=== PATIENT | female | born 1965 | race Caucasian/White ===

== ENCOUNTER 2021-06-02 08:38 | Emergency (ER) | payer OTHER, SELFPAY ==
[2021-06-02 08:39] VITALS: BP 141/103; PULSE 102; RESP 16; TEMP 36.2; O2SAT 96; BMI 37.8
--- NOTE | 2021-06-02 09:08 | EKG12_ITS ---
Test Reason : N/V Blood Pressure : / mmHG Vent. Rate : 072 BPM Atrial Rate : 072 BPM P-R Int : 182 ms QRS Dur : 076 ms QT Int : 404 ms P-R-T Axes : 037 004 007 degrees QTc Int : 442 ms Normal sinus rhythm with sinus arrhythmia Normal ECG Confirmed by ROLLY BRAVO, ELTON ([id number]), primer expeditor and drier JAI VILLATORO ([id number]) on 06/07/2021 12:11:01 PM Referred By: JOSE Confirmed By:ELTON LOFTON MD
--- NOTE | 2021-06-02 09:08 | CT_ITS ---
STUDY: CT ABDOMEN AND PELVIS WITHOUT CONTRAST REASON FOR EXAM: Female, 55 years old. Pain RADIATION DOSAGE (If Supplied By Facility): CTDIvol = ( 14.94 ) mGy, DLP = ( 727.72 ) mGycm TECHNIQUE: Transaxial images were obtained from the dome of the diaphragm to the symphysis pubis without oral contrast, and without intravenous contrast. Sagittal and coronal images were reconstructed. Individualized dose optimization techniques were used for this CT. COMPARISON: None. FINDINGS: 4 mm noncalcified nodule in the right lower lobe. The visualized portions of the heart are within normal limits. Normal liver. There are multiple gallstones. Normal spleen. Normal pancreas. Normal bilateral adrenal glands. Normal right kidney. Normal left kidney. Normal visualized stomach. Normal small intestine. Normal colon. There is non-visualization of the appendix. Normal abdominal aorta. Normal inferior vena cava. Normal retroperitoneum. Normal urinary bladder. Normal abdominal wall. Normal osseous structures. CT/Abdomen/Pelvis without Cont IMPRESSION: 1. No hydronephrosis or urinary tract calcifications. 2. No bowel obstruction. 3. 4 mm right lower lobe nodule. Fleischner Society Guidelines (MacMahon, et al. Radiology 2017; 284(1):228-43) suggest the following. For low-risk patients, no follow-up is necessary. For high-risk patients (smoking history or other known risk factors) an optional chest CT at 12 months could be performed. Electronically Signed: Fady Casper MD ([place]) at 9:54 EST , Service support ,
--- NOTE | 2021-06-02 09:09 | EDS_ITS ---
HPI History of Present Illness Chief Complaint: Nausea/Vomiting Detail of Chief Complaint: Vomiting x5 days Informant: patient Narrative Narrative: Patient presents to the emergency department complaint of vomiting that started 5 days ago. Patient states she cannot keep anything down. Patient states every time she tries to eat or drink she throws up. She denies feeling lightheaded or dizzy. She denies any significant abdominal pain. She denies diarrhea. She denies blood in her stool or black tarry stool. She denies chest pain or shortness of breath. Denies sick contacts. Patient has had both Covid shots and has had a chronic cough since July. She denies fever or body aches. She denies headache. Prior similar symptoms: No PFSH PFS Medical History (Updated 06/02/21 @ 11:[address] Sunita Diego DO) Depression Home Medications escitalopram oxalate 10 mg PO DAILY 06/02/21 [History Last Taken Unknown] lansoprazole [Prevacid] 30 mg PO DAILY #30 cap 06/02/21 [Rx Last Taken Unknown] ondansetron 4 mg PO Q8H PRN PRN #10 tab 06/02/21 [Rx Last Taken Unknown] ropinirole 0.5 mg PO QHS 06/02/21 [History Last Taken Unknown] Allergy/AdvReac Type Severity Reaction Status Date / Time bupropion HCl Allergy Hives Verified 06/02/21 08:42 [From Wellbutrin] Social History Smoking Status: Former smoker ROS ROS ED Constitutional Constitutional ED: Reports systems reviewed and no addt'l complaints, except as documented; Denies body ache(s), change in weight or chills Eyes Eyes: Denies acute decrease in peripheral vision, change in vision, double vision or loss of vision ENT ENT ED: Reports none; Denies ear pain, lip swelling, loss taste/smell, neck pain, otalgia or sore throat Cardiovascular Cardiovascular: Reports none; Denies abdominal pain, chest pain with activity, leg edema, lightheadedness, palpitations, rapid heart rate or syncope Respiratory/Chest Respiratory/Chest: Reports none; Denies change in mental status, dry cough, dyspnea, hemoptysis, shortness of breath at rest or shortness of breath with exertion Gastrointestinal Gastrointestinal: Reports none, nausea and vomiting; Denies abdominal pain, change in stool character, diarrhea, hematemesis, hematochezia, melena or rectal bleeding Genitourinary Genitourinary ED: Reports none; Denies abdominal discomfort, anuria, dysuria, genital pain or polyuria Musculoskeletal Musculoskeletal: Reports none; Denies arthralgias, back pain, difficulty walking, extremity pain, muscle weakness or myalgias Integumentary Reports none; Denies abscess or rash Neurologic Neurologic: Reports none; Denies abnormal gait, confusion, focal weakness, frequent falls, headache(s), loss of vision, numbness, paresthesias, radicular pain, vertigo or weakness Psychiatric Psychiatric: Reports systems reviewed and no addt'l complaints, except as documented and none; Denies behavioral changes, confusion, difficulty concentrating, hallucinations, suicidal ideation, tactile hallucinations or visual hallucinations Endocrine Endocrinology: Denies none, cold intolerance, excessive sweating, fatigue or heat intolerance Hematologic/Lymphatic Hematologic/Lymphatic: Reports none; Denies anemia, easy bleeding or easy bruising Allergic/Immunologic Allergic/Immunologic ED: Denies as per HPI, none, lip swelling, mouth swelling, throat swelling, tongue swelling or hives EXAM Physical Exam Const Vital Signs: 06/02/21 08:39 06/02/21 09:23 06/02/21 11:43 Temperature 97.2 F L Temperature Source Temporal Pulse Rate 102 H 75 102 H Respiratory Rate 16 18 25 H Blood Pressure 141/103 H Blood Pressure Mean 115 Pulse Ox 96 98 Oxygen Delivery Method Room Air Room Air Positive well nourished and well developed General Appearance ED: well developed and NAD HEENT Reports TM's clear and moist mucous membranes normocephalic and atraumatic; Negative for trauma or tenderness Tympanic Membrane ED: Yes TM's clear Eyes PERRL and EOMs intact bilaterally General Eye ED: Negative for pale conjunctiva or scleral icterus Neck no lymphadenopathy, supple and no JVD General: Negative for tenderness Chest Wall inspection of chest normal and palpation of chest normal Chest: Negative for tenderness Resp normal respiratory effort and clear to auscultation bilaterally Effort and Inspection: Negative for respiratory distress or pain with movement Auscultation: Negative for rhonchi, wheezes or diminished lung sounds Cardio regular rate, regular rhythm, S1 normal heart sound, S2 normal heart sound and no murmurs Peripheral Pulses: pulses 2+ throughout GI normal to inspection, nondistended, normoactive bowel sounds, soft to palpation, non-distended and no masses GI Narrative: Normoactive bowel sounds. Patient does have some tenderness over the epigastric region with some guarding. There is no rebound, rigidity, or peritoneal signs. Back/Spine no CVA tenderness and no thoracic nor lumbar tenderness Extremity normal to inspection General Extremety ED: Negative for edema General Extremity: Negative for edema Neuro oriented x3, CN's II-XII intact bilaterally, no sensory deficits noted and gait normal Sensorium / Orientation: awake, alert, oriented to person, oriented to place and oriented to time Motor Exam: strength 5/5 throughout and strength abnormal Psych mental status grossly normal Skin no rashes or lesions noted and no wounds MDM MDM MDM Narrative Medical decision making narrative: IV line established. Patient was given Zofran and she had good nausea relief with that but then during her stay had 1 more episode of vomiting and was given a second dose of Zofran. Work-up just showed a slightly elevated ALT of 60 with otherwise normal liver function tests. CT scan of the abdomen pelvis showed gallstones without evidence of cholecystitis. Patient also incidentally noted to have a right lower lobe nodule measuring 4 mm and being that she is low risk did not feel any further follow-up was indicated. Etiology of patient's nausea unclear. In the differential would be viral etiology versus gastritis. Patient will be started on Prevacid and given a prescription for Zofran. She will be referred to GI for follow-up. Lab Data Attestation: I reviewed the patient's lab results. Labs: Laboratory Results - last 24 hr 06/02/21 06/02/21 06/02/21 09:14 09:25 09:25 WBC 7.4 RBC 4.89 Hgb 14.4 Hct 42.8 MCV 87.5 MCH 29.4 MCHC 33.6 RDW Std Deviation 44.0 H RDW Coeff of Haroldo 13.7 Plt Count 271 MPV 9.6 Immature Gran % (Auto) 0.400 Neut % (Auto) 75.5 H Lymph % (Auto) 17.0 L [place] % (Auto) 5.3 Eos % (Auto) 1.1 Baso % (Auto) 0.7 Absolute Neuts (auto) 5.6 Absolute Lymphs (auto) 1.26 Nucleated RBC % 0 Sodium 139 Potassium 4.4 Chloride 105 Carbon Dioxide 29.0 Anion Gap 5 BUN 16 Creatinine 0.66 Estim Creat Clear Calc 71.82 Est GFR (MDRD) Af Amer 118 Est GFR (MDRD) Non-Af 98 BUN/Creatinine Ratio 24.1 H Glucose 122 H Lactic Acid Calcium 9.4 Total Bilirubin 0.40 AST 23 ALT 60 H Alkaline Phosphatase 69 Troponin I High Sens 4 Total Protein 7.7 Albumin 3.8 Globulin 3.9 Albumin/Globulin Ratio 1.0 Lipase 66 L Urine Color Yellow Urine Clarity Cloudy Urine pH 7.0 Ur Specific [place] 1.010 Urine Protein Negative Urine Glucose (UA) Normal Urine Ketones Negative Urine Occult Blood Negative Urine Nitrite Negative Urine Bilirubin Negative Urine Urobilinogen Normal Ur Leukocyte Esterase Negative Urine RBC 0 SEEN Urine WBC 0 SEEN Ur Squamous Epith Cells 0-5 SEEN Amorphous Sediment 2+ Urine Bacteria 1+ Urine Mucus 0 SEEN 06/02/21 09:25 WBC RBC Hgb Hct MCV MCH MCHC RDW Std Deviation RDW Coeff of Haroldo Plt Count MPV Immature Gran % (Auto) Neut % (Auto) Lymph % (Auto) [place] % (Auto) Eos % (Auto) Baso % (Auto) Absolute Neuts (auto) Absolute Lymphs (auto) Nucleated RBC % Sodium Potassium Chloride Carbon Dioxide Anion Gap BUN Creatinine Estim Creat Clear Calc Est GFR (MDRD) Af Amer Est GFR (MDRD) Non-Af BUN/Creatinine Ratio Glucose Lactic Acid 0.8 Calcium Total Bilirubin AST ALT Alkaline Phosphatase Troponin I High Sens Total Protein Albumin Globulin Albumin/Globulin Ratio Lipase Urine Color Urine Clarity Urine pH Ur Specific [place] Urine Protein Urine Glucose (UA) Urine Ketones Urine Occult Blood Urine Nitrite Urine Bilirubin Urine Urobilinogen Ur Leukocyte Esterase Urine RBC Urine WBC Ur Squamous Epith Cells Amorphous Sediment Urine Bacteria Urine Mucus Radiography Diagnostic Testing: Clinical Impression(s) from Imaging Studies Abdomen/Pelvis CT 06/02/21 09:08 IMPRESSION: 1. No hydronephrosis or urinary tract calcifications. 2. No bowel obstruction. 3. 4 mm right lower lobe nodule. Fleischner Society Guidelines (MacMahon, et al. Radiology 2017; 284(1):228-43) suggest the following. For low-risk patients, no follow-up is necessary. For high-risk patients (smoking history or other known risk factors) an optional chest CT at 12 months could be performed. Electronically Signed: Fady Casper MD ([place]) at 9:54 EST , Service support , EKG Initial EKG: Attestation: I personally reviewed and interpreted this EKG as follows: Comments: Sinus rhythm with a ventricular rate of 72 bpm with occasional PACs Discharge Plan Triage Chief Complaint: Nausea/Vomiting ED Provider: Sunita Diego Dx/Rx/DC Orders Clinical Impression: Vomiting, Gastritis Instructions: ED Vomiting (Adult) Prescriptions: New ondansetron [ondansetron] 4 MG tablet 4 mg PO Q8H PRN PRN (Reason: Nausea) Qty: 10 RF: 0 lansoprazole [Prevacid] 30 mg capsule,delayed release(DR/EC) 30 mg PO DAILY Qty: 30 RF: 0 No Action ropinirole 0.5 mg tablet 0.5 mg PO QHS RF: 0 escitalopram oxalate 10 mg tablet 10 mg PO DAILY RF: 0 Primary Care Provider: Ko Fowler NP Referrals: Lenny Manning DO [STAFF PHYSICIAN] - 3-5 Days Ko Fowler NP, LAYOUT TECHNICIAN-C [Primary Care Provider] - Disposition Disposition: Home, Self Care
[2021-06-02 09:23] VITALS: PULSE 75; RESP 18; O2SAT 98
[2021-06-02] MEDS: 0.9% Normal Saline 1,000 ML 1000 ML IV (09:27)
[2021-06-02] MEDS: Ondansetron 4 MG/2 ML Vial IV ×2 (09:27→11:56)
[2021-06-02 09:36] LABS: Absolute Lymphocyte Count 1.26 X10^3/uL (0.83-4.51); Absolute Neutrophil Count 5.6 X10^3/uL (2.0-7.7); Basophil# 0.05 X10^3/uL; Basophil% 0.7 % (0-1); Eosinophil# 0.08 X10^3/uL; Eosinophils% 1.1 % (0-5); Hematocrit 42.8 % (37-47); Hemoglobin 14.4 g/dL (12.0-15.0); Lymphocyte # 1.26 X10^3/ul (0.83-4.51); Mean Corp Hgb Conc 33.6 g/dL (32-36); Mean Corpuscular Hgb 29.4 pg (27.0-32.0); Mean Corpuscular Volume 87.5 fL (81-99); Mean Platelet Vol. 9.6 fl (6.2-12.0); Monocyte# 0.39 X10^3/uL; Monocyte% 5.3 % (0-10); NRBC Flagged by Analyzer 0 % (0-5); Neutrophil # 5.61 X10^3/uL (2.7-7.7); Neutrophil % 75.5 % (47-70); Platelet Count 271 K/mm3 (150-450); RBC Distribution Width CV 13.7 % (11.6-14.6); Red Blood Count 4.89 M/mm3 (4.2-5.4); White Blood Count 7.4 K/mm3 (4.4-11.0)
[2021-06-02 10:02] LABS: AST(SGOT) 23 U/L (15-37); Alanine Aminotransfer ALT/SGPT 60 U/L (13-56); Albumin, Serum 3.8 g/dL (3.2-5.0); Alkaline Phosphatase 69 U/L (45-117); Anion Gap 5 (5-15); BUN 16 mg/dL (7-18); BUN/Creat Ratio 24.1 RATIO (10-20); Calcium,Total 9.4 mg/dL (8.5-10.1); Chloride 105 mmol/L (98-107); Creatinine, Serum 0.66 mg/dL (0.55-1.02); EST Glomerular Filtration Rate 98 mL/min (>60); Est Glom Filt Rate - Afr Amer 118 mL/min (>60); Estimated Creatinine Clearance 71.82 ml/min; Globulin 3.9 g/dL (2.2-4.2); Glucose 122 mg/dL (74-106); Lactic Acid 0.8 mmol/L (0.4-1.9); Lipase 66 U/L (73-393); Potassium 4.4 mmol/L (3.5-5.1); Protein, Total 7.7 g/dL (6.4-8.2); Sodium Level 139 mmol/L (136-145); Troponin-I HS 4 pg/mL (3.0-54.0)
[2021-06-02 10:33] LABS: Mucous, Urine 0 SEEN /hpf (<or=2+); Red Blood Cells-Urine 0 SEEN /hpf (0-5); White Blood Cells 0 SEEN /hpf (0-5)
[2021-06-02 10:37] LABS: Color, Urine Yellow (Yellow); Glucose, Dipstick Normal (Normal); Ketone-Dipstick Negative (Negative); Leukocyte Esterase-Dipstick Negative /ul (Negative); Nitrite-Dipstick Negative (Negative); Occult Blood-Urine Negative /ul (Negative); Protein-Dipstick Negative (Negative); Urine Bilirubin Dipstick Negative (Negative); Urine Clarity Cloudy (Clear); Urine Urobilinogen Normal (Normal)
[2021-06-02 10:47] LABS: Amorphous Sediment 2+; Bacteria 1+ /hpf (None Seen); Squamous Epithelial Cells - UA 0-5 SEEN /hpf (5-10)
[2021-06-02 11:43] VITALS: PULSE 102; RESP 25
== END 2021-06-02 12:05 | disposition home or self-care (01) ==
PROVIDERS: Emergency Provider Emergency Medicine; PCP Nurse Practitioner Family
DX: K29.70 Gastritis, unspecified, without bleeding (principal); F32.A Depression, unspecified; Z79.899 Other long term (current) drug therapy; Z87.891 Personal history of nicotine dependence
CPT/HCPCS: 74176; 80053; 81001; 83605; 83690; 84484; 85025; 87426; 93005; 96361; 96374; 96375; 99283; J7030; A4216; J2405

== ENCOUNTER 2021-06-03 23:19 | Observation (INO) | payer OTHER, SELFPAY ==
[2021-06-03 23:20] VITALS: BP 167/109; PULSE 92; RESP 16; TEMP 36.4; O2SAT 95; BMI 37.8
--- NOTE | 2021-06-03 23:38 | EKG12_ITS ---
Test Reason : TACHYCARDIA Blood Pressure : / mmHG Vent. Rate : 121 BPM Atrial Rate : 121 BPM P-R Int : 150 ms QRS Dur : 078 ms QT Int : 324 ms P-R-T Axes : 046 015 029 degrees QTc Int : 460 ms Sinus tachycardia Otherwise normal ECG When compared with ECG of 04-JUN-2021 01:28, MANUAL COMPARISON REQUIRED, DATA IS UNCONFIRMED Confirmed by LONI BRAVO, ROBERTO ([id number]), television news video editor JASSI GARCIAS ([id number]) on 06/15/2021 1:55:51 PM Referred By: Confirmed By:COREY IVEY MD
--- NOTE | 2021-06-03 23:40 | EX.ED.DYSGE1 ---
HPI History of Present Illness Chief Complaint: Nausea/Vomiting Informant: patient Onset/Context/Timing Onset: Days Context: Gradual Onset Current Severity: Moderate Maximum Severity: Moderate Narrative Narrative: Patient returns to the ER secondary to continued epigastric pain with nausea and vomiting. She was seen in the ER early yesterday morning for similar symptoms. She had been suffering from 5 days of vomiting. She denies fever or chills. She states that the Zofran and Prevacid that she was given yesterday are not helping her symptoms and she continues to vomit. She denies diarrhea. She states the epigastric pain she was experiencing is now radiating up through the center percussion of her chest as well as to the right upper quadrant. [facility] Medical History Depression Home Medications escitalopram oxalate 10 mg PO DAILY 06/02/21 [History Last Taken Unknown] lansoprazole [Prevacid] 30 mg PO DAILY #30 cap 06/02/21 [Rx Last Taken Unknown] ondansetron 4 mg PO Q8H PRN PRN #10 tab 06/02/21 [Rx Last Taken Unknown] ropinirole 0.5 mg PO QHS 06/02/21 [History Last Taken Unknown] Allergy/AdvReac Type Severity Reaction Status Date / Time bupropion HCl Allergy Hives Verified 06/03/21 23:20 [From Wellbutrin] Surgical History History of Social History Smoking Status: Former smoker ROS ROS ED Constitutional Constitutional ED: Denies chills or fever(s) Eyes Eyes: Denies change in vision ENT ENT ED: Denies sore throat Cardiovascular Cardiovascular: Reports chest pain Respiratory/Chest Respiratory/Chest: Denies cough or dyspnea Gastrointestinal Gastrointestinal: Reports abdominal pain, nausea and vomiting; Denies diarrhea Genitourinary Genitourinary ED: Denies dysuria Musculoskeletal Musculoskeletal: Denies back pain Integumentary Denies rash Neurologic Neurologic: Denies headache(s) or weakness Psychiatric Psychiatric: Denies anxiety or depression Allergic/Immunologic Allergic/Immunologic ED: Denies urticaria EXAM Physical Exam Const Vital Signs: 06/03/21 23:20 Temperature 97.5 F L Temperature Source Temporal Pulse Rate 92 Respiratory Rate 16 Blood Pressure 167/109 H Blood Pressure Mean 128 Pulse Ox 95 Oxygen Delivery Method Room Air Positive well nourished and well developed General Appearance ED: well developed HEENT Reports moist mucous membranes Eyes PERRL and EOMs intact bilaterally Neck supple Chest Wall inspection of chest normal and palpation of chest normal Resp normal respiratory effort and clear to auscultation bilaterally Cardio regular rate and regular rhythm GI non-tender Palpation: soft Extremity normal to inspection Neuro oriented x3 Sensorium / Orientation: alert Psych mental status grossly normal Skin no rashes or lesions noted MDM MDM MDM Narrative Medical decision making narrative: Patient was given Reglan and Benadryl along with a dose of IV Protonix. IV fluids given. Lab work obtained. I did review her work-up from yesterday including CT scan of the abdomen and pelvis. Lab Data Attestation: I reviewed the patient's lab results. Labs: Laboratory Results - last 24 hr 06/03/21 06/03/21 23:50 23:50 WBC 8.6 RBC 5.09 Hgb 14.7 Hct 44.1 MCV 86.6 MCH 28.9 MCHC 33.3 RDW Std Deviation 42.6 RDW Coeff of [place] 13.3 Plt Count 275 MPV 9.5 Immature Gran % (Auto) 0.500 Neut % (Auto) 81.9 H Lymph % (Auto) 13.3 L [place] % (Auto) 3.8 Eos % (Auto) 0.2 Baso % (Auto) 0.3 Absolute Neuts (auto) 7.0 Absolute Lymphs (auto) 1.14 Nucleated RBC % 0 Sodium 136 Potassium 3.5 Chloride 101 Carbon Dioxide 26.0 Anion Gap 9 BUN 13 Creatinine 0.63 Estim Creat Clear Calc 75.24 Est GFR (MDRD) Af Amer 125 Est GFR (MDRD) Non-Af 103 BUN/Creatinine Ratio 20.6 H Glucose 138 H Calcium 9.4 Total Bilirubin 0.60 Direct Bilirubin 0.12 AST 18 ALT 49 Alkaline Phosphatase 69 Troponin I High Sens 8 Total Protein 8.3 H Albumin 4.2 Globulin 4.1 Lipase 74 Radiography Diagnostic Testing: Clinical Impression(s) from Imaging Studies Chest X-Ray 06/04/21 00:00 IMPRESSION: No acute disease. Electronically Signed: Yordan Brown MD at 1:08 EST Tel , Service support , Treatment and Re-Evaluation Comments:: Lab work is unremarkable. On repeat evaluation patient stated her nausea was slightly improved. She asked for a dose of her Requip that she takes for restless legs. This was given as a p.o. challenge. Patient has not been able to keep this down and is vomiting at bedside again. We will give her a dose of Zofran I will speak with hospitalist regarding admission for intractable vomiting. Discharge Plan Dx/Rx/DC Orders Clinical Impression: Intractable vomiting Disposition Disposition: Acute Care Hospital [facility]
--- NOTE | 2021-06-04 | RAD_ITS ---
EXAM: XR CHEST, 1 VIEW CLINICAL INDICATION: Chest pain TECHNIQUE: Frontal view of the chest. This report was created using [employer] report generation technology. COMPARISON: 09/30/2015 chest x-ray FINDINGS: LUNGS AND PLEURAL SPACES: Linear opacities at the left base probably represents scarring given long-term stability. No consolidation. No pneumothorax. No effusion. HEART: Unremarkable. Cardiac silhouette not enlarged. MEDIASTINUM: Central airways and mediastinal contour are unremarkable. BONES/JOINTS: Degenerative changes of spine. SOFT TISSUES: Unremarkable. VASCULATURE: Atherosclerotic calcifications of the nonenlarged thoracic aortic arch. RAD/Chest 1 View (Portable) IMPRESSION: No acute disease. Electronically Signed: Yordan Brown MD at 1:08 EST Tel , Service support ,
[2021-06-04 00:03] LABS: Absolute Lymphocyte Count 1.14 X10^3/uL (0.83-4.51); Basophil# 0.03 X10^3/uL; Basophil% 0.3 % (0-1); Eosinophil# 0.02 X10^3/uL; Eosinophils% 0.2 % (0-5); Hematocrit 44.1 % (37-47); Hemoglobin 14.7 g/dL (12.0-15.0); Lymphocyte # 1.14 X10^3/ul (0.83-4.51); Lymphocyte % 13.3 % (19-41); Mean Corp Hgb Conc 33.3 g/dL (32-36); Mean Corpuscular Hgb 28.9 pg (27.0-32.0); Mean Corpuscular Volume 86.6 fL (81-99); Mean Platelet Vol. 9.5 fl (6.2-12.0); Monocyte# 0.33 X10^3/uL; Monocyte% 3.8 % (0-10); NRBC Flagged by Analyzer 0 % (0-5); Neutrophil # 7.03 X10^3/uL (2.7-7.7); Neutrophil % 81.9 % (47-70); Platelet Count 275 K/mm3 (150-450); RBC Distribution Width CV 13.3 % (11.6-14.6); RBC Distribution Width SD 42.6 fl (35.1-43.9); Red Blood Count 5.09 M/mm3 (4.2-5.4); White Blood Count 8.6 K/mm3 (4.4-11.0)
[2021-06-04] MEDS: Metoclopramide 10 MG/2 ML Vial IV (00:09)
[2021-06-04] MEDS: 0.9% Normal Saline 1,000 ML 1000 ML IV (00:09)
[2021-06-04] MEDS: DiphenhydrAMINE 50 MG/ML Syringe 25 MG IV (00:09)
[2021-06-04 00:24] LABS: AST(SGOT) 18 U/L (15-37); Alanine Aminotransfer ALT/SGPT 49 U/L (13-56); Albumin, Serum 4.2 g/dL (3.2-5.0); Alkaline Phosphatase 69 U/L (45-117); Anion Gap 9 (5-15); BUN 13 mg/dL (7-18); BUN/Creat Ratio 20.6 RATIO (10-20); Bilirubin, Direct 0.12 mg/dL (0.00-0.30); Calcium,Total 9.4 mg/dL (8.5-10.1); Chloride 101 mmol/L (98-107); Creatinine, Serum 0.63 mg/dL (0.55-1.02); EST Glomerular Filtration Rate 103 mL/min (>60); Est Glom Filt Rate - Afr Amer 125 mL/min (>60); Estimated Creatinine Clearance 75.24 ml/min; Globulin 4.1 g/dL (2.2-4.2); Glucose 138 mg/dL (74-106); Lipase 74 U/L (73-393); Potassium 3.5 mmol/L (3.5-5.1); Protein, Total 8.3 g/dL (6.4-8.2); Sodium Level 136 mmol/L (136-145); Troponin-I HS 8 pg/mL (3.0-54.0)
[2021-06-04] MEDS: Pramipexole Di-HCl 1 MG Tablet GT (02:58)
--- NOTE | 2021-06-04 03:38 | PCM.HP.STD ---
HPI - General General Date of Admission: 06/04/21 Date of Service: 06/04/21 Chief Complaint: Nausea and vomiting HPI Narrative KENZIE GONSALES, is a 55 F with a significant history of depression, anxiety and restless legs who presents to the emergency department with progressively worsening nausea and vomiting that started about 5 days prior to presentation. This is patient second visits in the week. Her first visit was a day before this presentation. She was sent home on Zofran and Prevacid. She report that the Zofran actually gave her a headache. On his presentation she was given Zofran IV at the emergency department. Reportedly the Zofran IV did not give her headache. At the emergent department she requested for a Requip for her restless legs. However after taking the Requip she vomited. Associated with symptoms is epigastric pain that has now progressed to her right upper quadrant and into her chest. Further, she reports lightheadedness. She report that the last time her bowels moved was a couple of days. She reported that she does not expect her bowels to move since she is not eating. [facility] Medical History Depression Home Medications escitalopram oxalate 10 mg PO DAILY 06/02/21 [History Last Taken Unknown] lansoprazole [Prevacid] 30 mg PO DAILY #30 cap 06/02/21 [Rx Last Taken Unknown] ondansetron 4 mg PO Q8H PRN PRN #10 tab 06/02/21 [Rx Last Taken Unknown] ropinirole 0.5 mg PO QHS 06/02/21 [History Last Taken Unknown] Allergy/AdvReac Type Severity Reaction Status Date / Time bupropion HCl Allergy Hives Verified 06/03/21 23:20 [From Wellbutrin] Family History Other Anxiety and depression Hypertension Surgical History H/O shoulder surgery H/O wrist surgery H/O: hysterectomy History of Social History Smoking Status: Former smoker ROS ROS Narrative Constitutional: Reports anorexia. Denies fever, chills, fatigue, and change in weight Eyes: Denies blurry vision, change in eye color, change in vision, discharge from eye(s), double vision, erythema, eye pain, loss of vision or other HEENT: Denies abnormal hearing, dysphagia, ear pain, epistaxis, headache(s), hearing loss, nasal congestion, nasal discharge, post nasal drip, sinus pressure, sore throat or other Cardiovascular: Denies chest pain or palpitations. Denies dyspnea on exertion, orthopnea and paroxysmal nocturnal dyspnea Respiratory/Chest: Denies cough, excessive phlegm production, shortness of breath with exertion and wheezing Gastrointestinal: Reports abdominal pain. Reports nausea and vomiting. Reports constipation. Denies coffee ground emesis, constipation, hematemesis, hematochezia, or other Genitourinary: Denies burning urination, difficulty urinating, dysuria, hematuria, nocturia, urinary frequency, urinary hesitancy, urinary incontinence, urinary urgency or other Musculoskeletal: Denies arthralgias, back pain, joint pain, joint stiffness, joint swelling, myalgias, neck pain or other Neurologic: Denies abnormal gait, abnormal speech, confusion, disequilibrium, dizziness, focal weakness, headache(s), numbness, paresthesias, seizure-like activity, seizures, syncope, tingling, tremor(s) or other Psychiatric: Denies anxiety, depression, homicidal ideation, suicidal ideation or other Endocrinology: Denies change in body appearance, cold intolerance, excessive sweating, heat intolerance, polydipsia, polyuria or other Hematologic/Lymphatic: Denies anemia, easy bleeding, easy bruising, lymphadenopathy or other Integumentary: Denies rashes Allergic/Immunologic: Denies rhinitis, hives, eczema, asthma or other Vital Signs Vital Signs Vital Signs: 06/03/21 23:20 Temperature 97.5 F L Temperature Source Temporal Pulse Rate 92 Respiratory Rate 16 Blood Pressure 167/109 H Blood Pressure Mean 128 Pulse Ox 95 Oxygen Delivery Method Room Air Weight Weight: 90.718 kg Body Mass Index (BMI) 37.8 Physical Exam Narrative Physical exam: General: Well-nourished, well-developed. Head: Normocephalic, atraumatic, no tenderness Eyes: PERRLA, EOMI ENT, no trauma, moist mucous membranes, no rhinorrhea Neck: Nontender, full range of motion, no spinal tenderness, deformities, step-off CVS: Regular rate and rhythm. S1-S2 present. No murmur, gallop or rub. Respiratory : clear to auscultation bilaterally, chest wall nontender, no wheezing Abdomen: Soft, tender, nondistended, normal bowel sounds, no masses : Deferred Back: Nontender, no CVA tenderness, no midline spinal tenderness, deformities, step-offs Extremities: Nontender full range of motion, no trauma Skin: Normal color, no trauma, abrasions Neuro: Alert, oriented, cranial nerves II through XII grossly intact. Psychiatry: Normal mood. Normal affect. Not depressed. Not anxious. Results Lab / Micro Data Result Diagrams: 06/03/21 23:50 06/03/21 23:50 Labs: Laboratory Results - last 24 hr 06/03/21 23:50: WBC 8.6, RBC 5.09, Hgb 14.7, Hct 44.1, MCV 86.6, MCH 28.9, MCHC 33.3, RDW Std Deviation 42.6, RDW Coeff of Haroldo 13.3, Plt Count 275, MPV 9.5, Immature Gran % (Auto) 0.500, Neut % (Auto) 81.9 H, Lymph % (Auto) 13.3 L, [place] % (Auto) 3.8, Eos % (Auto) 0.2, Baso % (Auto) 0.3, Absolute Neuts (auto) 7.0, Absolute Lymphs (auto) 1.14, Nucleated RBC % 0 06/03/21 23:50: Sodium 136, Potassium 3.5, Chloride 101, Carbon Dioxide 26.0, Anion Gap 9, BUN 13, Creatinine 0.63, Estim Creat Clear Calc 75.24, Est GFR (MDRD) Af Amer 125, Est GFR (MDRD) Non-Af 103, BUN/Creatinine Ratio 20.6 H, Glucose 138 H, Calcium 9.4, Total Bilirubin 0.60, Direct Bilirubin 0.12, AST 18, ALT 49, Alkaline Phosphatase 69, Troponin I High Sens 8, Total Protein 8.3 H, Albumin 4.2, Globulin 4.1, Lipase 74 Radiology Impression Chest X-Ray 06/04/21 00:00 IMPRESSION: No acute disease. Electronically Signed: Yordan Brown MD at 1:08 EST Tel , Service support , Assessment & Plan Assessment/Plan (1) Intractable nausea and vomiting: PLAN: Intractable nausea and vomiting Abdomen/pelvis CT was done on 06/02/2021: Actual image reviewed showed no remarkable findings. Per radiologist Interpretation there was a 4 mm right lower lobe nodule. Review of labs showed normal white counts. BMP reviewed was unimpressive. Actual chest x-ray image was independently interpreted and agree with radiologist interpretation of no acute disease. Zofran IV as needed and Compazine IV as needed ordered. Protonix IV ordered. We will keep patient n.p.o. except meds. H pylori test ordered. Pulmonary nodule Longitudinal follow-up recommended. Patient is a former smoker DVT prophylaxis Observation status. Low risk. Ambulation encouraged. Charges/Coding Visit Charges OBSV E&M: 33807 Initial observation care L2
[2021-06-04] MEDS: Ondansetron 4 MG/2 ML Vial IV (04:34)
[2021-06-04 04:35] VITALS: BP 167/109; PULSE 92; RESP 16; TEMP 36.4; O2SAT 95
--- NOTE | 2021-06-04 04:50 | PCS.PANDOC ---
PANDEMIC DOCUMENTATION INITIATED: Date: 06/04/2021 Time: 3098
[2021-06-04 04:52] VITALS: BMI 38.2
[2021-06-04] MEDS: proCHLORPERazine 10 MG/2 ML Vial 5 MG IV (05:12)
[2021-06-04] MEDS: Lactated Ringers 1,000 ML 100 ML IV ×2 (05:13→14:35)
[2021-06-04] MEDS: 0.9% Saline Lock 10 ML Syringe IV (05:13)
[2021-06-04 05:19] VITALS: BP 144/95; PULSE 77; RESP 16; TEMP 36.1; O2SAT 100
--- NOTE | 2021-06-04 05:55 | US_ITS ---
STUDY: ABDOMINAL ULTRASOUND - RIGHT UPPER QUADRANT REASON FOR VISIT: Female, 55 years old RUQ pain, n/v TECHNIQUE: Ultrasound evaluation of the right upper quadrant was performed with real-time and static haynes-scale imaging. TECHNICAL QUALITY: Adequate. COMPARISON: None. FINDINGS: Liver: The liver measures 15.4 cm. There is normal echogenicity of the liver. The bile ducts are within normal limits. There is hepatic color flow. The direction of portal flow is hepatopetal. There is no demonstrated mass lesion. Gallbladder: Distended gallbladder. The gallbladder wall measures 5 mm. There is a negative sonographic Wang''s sign. There is no pericholecystic fluid. There are gallstones and sludge. Common Bile Duct (C.B.D.): The common bile duct measures 6 mm. Pancreas: Normal size of the head, body and tail of the pancreas. There is normal echogenicity of the pancreas. There is no demonstrated pancreatic mass or cyst. Right Kidney: Normal size of the right kidney. The right kidney measures 12.1 x 5.9 x 4.3 cm. Normal renal cortex. The right cortex measures 1.2 cm. There is no demonstrated renal mass or cyst. There is no right hydronephrosis. US/Gallbladder IMPRESSION: Cholelithiasis with gallbladder sludge. There is gallbladder wall thickening. Borderline common bile duct. Electronically Signed: Blaine Linares DO at 15:33 EST Tel [phone], Service support ,
[2021-06-04 07:54] LABS: Absolute Lymphocyte Count 1.39 X10^3/uL (0.83-4.51); Absolute Neutrophil Count 6.6 X10^3/uL (2.0-7.7); Basophil# 0.03 X10^3/uL; Basophil% 0.4 % (0-1); Eosinophil# 0.01 X10^3/uL; Eosinophils% 0.1 % (0-5); Hematocrit 37.7 % (37-47); Hemoglobin 13.1 g/dL (12.0-15.0); Lymphocyte # 1.39 X10^3/ul (0.83-4.51); Lymphocyte % 16.5 % (19-41); Mean Corp Hgb Conc 34.7 g/dL (32-36); Mean Corpuscular Hgb 29.6 pg (27.0-32.0); Mean Corpuscular Volume 85.3 fL (81-99); Mean Platelet Vol. 9.5 fl (6.2-12.0); Monocyte# 0.35 X10^3/uL; Monocyte% 4.2 % (0-10); NRBC Flagged by Analyzer 0 % (0-5); Neutrophil # 6.62 X10^3/uL (2.7-7.7); Neutrophil % 78.7 % (47-70); Platelet Count 236 K/mm3 (150-450); RBC Distribution Width CV 13.3 % (11.6-14.6); RBC Distribution Width SD 42.1 fl (35.1-43.9); Red Blood Count 4.42 M/mm3 (4.2-5.4); White Blood Count 8.4 K/mm3 (4.4-11.0)
[2021-06-04 08:12] LABS: Anion Gap 8 (5-15); BUN 10 mg/dL (7-18); BUN/Creat Ratio 17.6 RATIO (10-20); Chloride 105 mmol/L (98-107); Creatinine, Serum 0.57 mg/dL (0.55-1.02); EST Glomerular Filtration Rate 117 mL/min (>60); Est Glom Filt Rate - Afr Amer 141 mL/min (>60); Estimated Creatinine Clearance 87.16 ml/min; Glucose 110 mg/dL (74-106); Potassium 3.4 mmol/L (3.5-5.1); Sodium Level 138 mmol/L (136-145)
[2021-06-04 08:44] VITALS: BP 150/81; PULSE 88; RESP 18; TEMP 36.7; O2SAT 98
--- NOTE | 2021-06-04 10:24 | PN.HOSP_ITS ---
Subjective Subjective Patient seen and examined. Patient lying in bed no distress noted. Patient states that she is currently not nauseous however patient just received a dose of Compazine. Patient reports that she has had vomiting episodes overnight. Objective Data Objective Data Vital Signs: Vital Signs Temp Pulse Resp BP Pulse Ox 98.0 F 88 18 150/81 H 98 06/04/21 08:44 06/04/21 08:44 06/04/21 08:44 06/04/21 08:44 06/04/21 08:44 Oxygen Delivery Method Room Air Weight: 208 lb 12.8 oz Body Mass Index (BMI) 38.2 Intake & Output: Intake and Output for Last 24 Hours 06/02/21 06/03/21 06/04/21 23:59 23:59 23:59 Intake Total 1220 / 1220 Balance 1220 / 1220 Lab / Micro Data Result Diagrams: 06/04/21 07:39 06/04/21 07:39 Labs: Laboratory Results - last 24 hr 06/03/21 23:50: WBC 8.6, RBC 5.09, Hgb 14.7, Hct 44.1, MCV 86.6, MCH 28.9, MCHC 33.3, RDW Std Deviation 42.6, RDW Coeff of Haroldo 13.3, Plt Count 275, MPV 9.5, Immature Gran % (Auto) 0.500, Neut % (Auto) 81.9 H, Lymph % (Auto) 13.3 L, [place] % (Auto) 3.8, Eos % (Auto) 0.2, Baso % (Auto) 0.3, Absolute Neuts (auto) 7.0, Absolute Lymphs (auto) 1.14, Nucleated RBC % 0 06/03/21 23:50: Sodium 136, Potassium 3.5, Chloride 101, Carbon Dioxide 26.0, Anion Gap 9, BUN 13, Creatinine 0.63, Estim Creat Clear Calc 75.24, Est GFR (MDRD) Af Amer 125, Est GFR (MDRD) Non-Af 103, BUN/Creatinine Ratio 20.6 H, Glucose 138 H, Calcium 9.4, Total Bilirubin 0.60, Direct Bilirubin 0.12, AST 18, ALT 49, Alkaline Phosphatase 69, Troponin I High Sens 8, Total Protein 8.3 H, Albumin 4.2, Globulin 4.1, Lipase 74 06/04/21 07:39: WBC 8.4, RBC 4.42, Hgb 13.1, Hct 37.7, MCV 85.3, MCH 29.6, MCHC 34.7, RDW Std Deviation 42.1, RDW Coeff of Haroldo 13.3, Plt Count 236, MPV 9.5, Immature Gran % (Auto) 0.100, Neut % (Auto) 78.7 H, Lymph % (Auto) 16.5 L, [place] % (Auto) 4.2, Eos % (Auto) 0.1, Baso % (Auto) 0.4, Absolute Neuts (auto) 6.6, Absolute Lymphs (auto) 1.39, Nucleated RBC % 0 06/04/21 07:39: Sodium 138, Potassium 3.4 L, Chloride 105, Carbon Dioxide 25.0, Anion Gap 8, BUN 10, Creatinine 0.57, Estim Creat Clear Calc 87.16, Est GFR (MDRD) Af Amer 141, Est GFR (MDRD) Non-Af 117, BUN/Creatinine Ratio 17.6, Glucose 110 H, Calcium 9.0 Radiography Diagnostic Testing: Radiology Impression Chest X-Ray 06/04/21 00:00 IMPRESSION: No acute disease. Electronically Signed: Yordan Brown MD at 1:08 EST Tel , Service support , Physical Exam Const alert, oriented x3 and no apparent distress HEENT head/scalp atraumatic Head and Scalp: normocephalic Eyes conjunctivae normal and no scleral icterus Neck full ROM, no lymphadenopathy and supple Resp normal respiratory effort, normal air movement and clear to auscultation bilaterally Effort and Inspection: able to speak in complete sentences and symmetric chest movement Cardio regular rate, regular rhythm, S1 normal heart sound and S2 normal heart sound GI soft to palpation and non-distended Auscultation: hyperactive bowel sounds Palpation: tender epigastric Extremity normal to inspection, full ROM and no clubbing, cyanosis or edema Peripheral Pulses: Yes pulses 2+ throughout Skin no rashes or lesions noted, no wounds and skin turgor normal Neuro oriented x3, moves all extremities, no focal motor deficits and no sensory deficits noted Sensorium / Orientation: awake and alert Psych affect normal Assessment & Plan Assessment/Plan (1) Intractable nausea and vomiting: (2) Gastritis: QUALIFIERS: Gastritis type: unspecified gastritis Chronicity: acute Gastritis bleeding: without bleeding Qualified Code(s): K29.00 - Acute gastritis without bleeding PLAN: 1. Intractable nausea and vomiting -Continue IV Compazine as patient continues to have episodes of nausea and vomiting overnight. -Continue IV fluids as well as IV pantoprazole -Gallbladder ultrasound ordered 2. Hypokalemia -Potassium 3.4 today likely secondary to intractable vomiting -Potassium chloride 40 mEq p.o. x1 ordered DVT prophylaxis-not indicated observation status This patient was seen by Laurie Whipple NP-C under the supervision of Dr. Mauricio
[2021-06-04 14:41] VITALS: BP 148/87; PULSE 73; RESP 16; TEMP 36.4; O2SAT 98
[2021-06-04] MEDS: Potassium Chloride Oral Tablet 20 MEQ 40 MEQ PO (15:30)
--- NOTE | 2021-06-04 16:11 | DCINST_ITS ---
Discharge Instructions Diet Discharge Diet: - (Avoid any fats in your diet) Activity Discharge Activity: Return to Normal Activity Weight Bearing Status: Full weight bearing Follow Up Care Test Results: Test results from this visit will be discussed in further detail at your follow-up appointment, if applicable. Discharge Plan Admission Admit Date/Time: 06/04/21 03:41 Primary Reason for Your Visit: Intractable nausea and vomiting, cholelithiasis Attending Provider: Torres Mauricio Primary Care Provider: Ko Fowler NP Instructions Additional Instructions / Restrictions: Return to the emergency room for evaluation if you have further persistent nausea and vomiting which does not resolve or you have severe right upper quadrant abdominal pains Discharge Orders/Prescriptions Prescriptions: Continued ropinirole 0.5 mg tablet 2.5 mg PO QHS RF: 0 escitalopram oxalate 10 mg tablet 10 mg PO QHS RF: 0 ondansetron 4 MG tablet 4 mg PO Q8H PRN PRN (Reason: Nausea) Qty: 10 RF: 0 alprazolam 0.5 mg tablet 0.5 mg PO BID PRN (Reason: Anxiety) RF: 0 lansoprazole [Prevacid] 30 mg capsule,delayed release(DR/EC) 30 mg PO DAILY RF: 0 Referrals / Follow Up: Elisha Tian MD [STAFF PHYSICIAN] - Within 2 Weeks (Call her office if you are not contacted within 2 to 3 days) Ko Fowler NP, CAREER TECHNICAL EDUCATION TEACHER-C [Primary Care Provider] - See Referral Note (as scheduled) Disposition Disposition (needs filled in before D/C Order can be placed): Home, Self Care
--- NOTE | 2021-06-04 17:39 | PCM.DC.SUM ---
Providers Date of Admission: 06/04/21 Date of Discharge: 06/04/21 Primary Care Physician: NATALEE Larios Reason For Visit: INTRACTABLE NAUSEA AND VOMITING Diagnosis Discharge Diagnosis (1) Intractable nausea and vomiting: Status: Acute Code(s): R11.2 - Nausea with vomiting, unspecified (2) Gastritis: Status: Acute Code(s): K29.70 - Gastritis, unspecified, without bleeding Qualifiers: Chronicity: acute Gastritis bleeding: without bleeding Gastritis type: unspecified gastritis Qualified Code(s): K29.00 - Acute gastritis without bleeding Plan: 1. Intractable nausea and vomiting secondary to cholelithiasis #2 hypokalemia secondary to intractable nausea and vomiting #3 cholelithiasis #4 chronic depression Medications at Discharge Home Medications escitalopram oxalate 10 mg PO QHS 06/02/21 ondansetron 4 mg PO Q8H PRN PRN #10 tab 06/02/21 ropinirole 2.5 mg PO QHS 06/02/21 alprazolam 0.5 mg PO BID PRN 06/04/21 lansoprazole [Prevacid] 30 mg PO DAILY 06/04/21 Hospital Course Operations None Procedures None Summary of Care Provided Minutes Spent on Discharge: 31 Hospital Course: 55-year-old white female was seen in the emergency room at [facility] with a chief complaint of persistent nausea and vomiting. The symptoms had started several days ago. She had been seen in the emergency room 1 day prior with similar complaints. A CT of the abdomen and pelvis had been performed the day before and when she was seen in the emergency room, this CT showed gallstones without evidence of Danika cystitis. Labs obtained in the emergency room showed normal white blood cell count, patient was given Reglan, Benadryl, and IV Protonix, IV fluids were given, patient was placed in observation status on MedSurg 3 and an ultrasound of the gallbladder was obtained. IV fluids and antiemetics were continued, patient improved during her hospital stay, ultrasound of the gallbladder showed multiple gallstones and sludge but no definite indication for an obstructed bile duct. On 06/04/2021, patient was seen and examined: On examination she appeared in good health and spirits, she does not appear to be in any distress. Vital signs as documented. Skin warm and dry and without overt rashes. Neck without JVD, thyroid appears normal, trachea is midline, neck is supple. Lungs clear, normal air movement was noted. Heart exam notable for regular rhythm, normal sounds and absence of murmurs, rubs or gallops. Abdomen unremarkable and without evidence of organomegaly, masses, or abdominal aortic enlargement, bowel sounds are present in all 4 quadrants, no abdominal tenderness was noted. Extremities nonedematous, no cyanosis was noted, no clubbing was noted. Neuro: Cranial nerves II through XII are grossly intact, no focal motor deficits were noted, sensation to light touch and pinprick is intact, motor exam 5/5 throughout. Psych: Patient is alert and oriented x3, she does not appear anxious or depressed, she does not appear agitated. Patient was felt to be stable for discharge home 06/04/2021. She was to follow-up with Dr. Tian, she was contacted by phone and stated that her office will contact the patient for an office visit. Weight / BMI Weight Weight: 94.71 kg Body Mass Index (BMI) 38.2 ABG / Lab / Microbiology Data Result Diagrams: 06/04/21 07:39 06/04/21 07:39 Laboratory: Laboratory Results - last 24 hr 06/03/21 23:50: WBC 8.6, RBC 5.09, Hgb 14.7, Hct 44.1, MCV 86.6, MCH 28.9, MCHC 33.3, RDW Std Deviation 42.6, RDW Coeff of Haroldo 13.3, Plt Count 275, MPV 9.5, Immature Gran % (Auto) 0.500, Neut % (Auto) 81.9 H, Lymph % (Auto) 13.3 L, [place] % (Auto) 3.8, Eos % (Auto) 0.2, Baso % (Auto) 0.3, Absolute Neuts (auto) 7.0, Absolute Lymphs (auto) 1.14, Nucleated RBC % 0 06/03/21 23:50: Sodium 136, Potassium 3.5, Chloride 101, Carbon Dioxide 26.0, Anion Gap 9, BUN 13, Creatinine 0.63, Estim Creat Clear Calc 75.24, Est GFR (MDRD) Af Amer 125, Est GFR (MDRD) Non-Af 103, BUN/Creatinine Ratio 20.6 H, Glucose 138 H, Calcium 9.4, Total Bilirubin 0.60, Direct Bilirubin 0.12, AST 18, ALT 49, Alkaline Phosphatase 69, Troponin I High Sens 8, Total Protein 8.3 H, Albumin 4.2, Globulin 4.1, Lipase 74 06/04/21 07:39: WBC 8.4, RBC 4.42, Hgb 13.1, Hct 37.7, MCV 85.3, MCH 29.6, MCHC 34.7, RDW Std Deviation 42.1, RDW Coeff of Haroldo 13.3, Plt Count 236, MPV 9.5, Immature Gran % (Auto) 0.100, Neut % (Auto) 78.7 H, Lymph % (Auto) 16.5 L, [place] % (Auto) 4.2, Eos % (Auto) 0.1, Baso % (Auto) 0.4, Absolute Neuts (auto) 6.6, Absolute Lymphs (auto) 1.39, Nucleated RBC % 0 06/04/21 07:39: Sodium 138, Potassium 3.4 L, Chloride 105, Carbon Dioxide 25.0, Anion Gap 8, BUN 10, Creatinine 0.57, Estim Creat Clear Calc 87.16, Est GFR (MDRD) Af Amer 141, Est GFR (MDRD) Non-Af 117, BUN/Creatinine Ratio 17.6, Glucose 110 H, Calcium 9.0 Radiography Diagnostic Testing: Radiology Impression Chest X-Ray 06/04/21 00:00 IMPRESSION: No acute disease. Electronically Signed: Yordan Brown MD at 1:08 EST Tel , Service support , Gallbladder Ultrasound 06/04/21 05:55 IMPRESSION: Cholelithiasis with gallbladder sludge. There is gallbladder wall thickening. Borderline common bile duct. Electronically Signed: Blaine Linares DO at 15:33 EST Tel [phone], Service support , D/C Instructions Discharge Diet: - (Avoid any fats in your diet) Weight Bearing Status: Full weight bearing Meaningful Use Info Meaningful Use Diagnoses (Choose all that apply): None applicable Discharge Plan Admission Admit Date/Time: 01/02/22 03:41 Primary Reason for Your Visit: Intractable nausea and vomiting, cholelithiasis Attending Provider: Torres Mauricio Primary Care Provider: Ko Fowler NP Instructions Additional Instructions / Restrictions: Return to the emergency room for evaluation if you have further persistent nausea and vomiting which does not resolve or you have severe right upper quadrant abdominal pains Discharge Orders/Prescriptions Prescriptions: Continued ropinirole 0.5 mg tablet 2.5 mg PO QHS RF: 0 escitalopram oxalate 10 mg tablet 10 mg PO QHS RF: 0 ondansetron 4 MG tablet 4 mg PO Q8H PRN PRN (Reason: Nausea) Qty: 10 RF: 0 alprazolam 0.5 mg tablet 0.5 mg PO BID PRN (Reason: Anxiety) RF: 0 lansoprazole [Prevacid] 30 mg capsule,delayed release(DR/EC) 30 mg PO DAILY RF: 0 Referrals / Follow Up: Elisha Tian MD [STAFF PHYSICIAN] - Within 2 Weeks (Call her office if you are not contacted within 2 to 3 days) Ko Fowler NP, HARNESSMAKER-C [Primary Care Provider] - See Referral Note (as scheduled) Disposition Disposition (needs filled in before D/C Order can be placed): Home, Self Care Charges/Coding Visit Charges OBSV E&M: 46959 Observation care discharge
[2021-06-04 18:05] VITALS: BP 139/93; TEMP 36.5
== END 2021-06-04 18:08 | disposition home or self-care (01) ==
LOC: ED 06-04 03:28 → MS3 06-04 04:24
PROVIDERS: Admitting Provider Hospitalist; Emergency Provider Emergency Medicine; PCP Nurse Practitioner Family; Visit Provider Internal Medicine
DX: K80.20 Calculus of gallbladder without cholecystitis without obstruction (principal); E87.6 Hypokalemia; Z87.891 Personal history of nicotine dependence; F41.9 Anxiety disorder, unspecified; F32.A Depression, unspecified; Z79.899 Other long term (current) drug therapy; R91.1 Solitary pulmonary nodule; K29.00 Acute gastritis without bleeding
CPT/HCPCS: 36415; 71045; 76705; 80048; 80076; 83690; 84484; 85025; 93005; 96361; 96365; 96366; 96375; 99218; 99283; J7030; J7120; A4216; G0378; J2405

== ENCOUNTER 2021-06-05 09:25 | Observation (INO) | payer OTHER, SELFPAY ==
[2021-06-05] VITALS (14 sets, daily range): BP systolic 144–179; BP diastolic 87–103; PULSE 67–101; RESP 15–18; TEMP 36.3–36.9; O2SAT 94–98; BMI 37.0
--- NOTE | 2021-06-05 | GALL_PTH ---
PATIENT: KENZIE GONSALES LOC: MS2 U#:[id number] AGE/SX: 55/F ROOM: [facility] [place]05/[address]: Dr. Brian Yang MD : 1965 BED: 1 DIS: 06/07/2021 SPEC #: [id number] RECD: 06/05/21 14:20 STATUS: RUFUS HERNANDEZKiara #: [id number] TEODORO: 06/05/21 00:[address]: Brian Yang DEPT: SURGICAL PATHOLOGY RECD BY: Markos Redding ENTERED: 06/06/21 09:13 SP TYPE: KIM [facility]ART DR: Ko Fowler, INCOME TAX CONSULTANT-C Tissues: Gallbladder, NOS Procedures: Surgery Specimen Level III HEADER OPERATION: Laparoscopic cholecystectomy with IOC PRE-OP DIAGNOSIS: Acute cholecystitis TISSUE SUBMITTED: Gallbladder MICROSCOPIC DIAGNOSIS Gallbladder, cholecystectomy: Chronic cholecystitis and cholelithiasis. SJ:sierra 06/07/2021 MICROSCOPIC DESCRIPTION Slides are reviewed. GROSS DESCRIPTION Received is one container labeled with the patient's name and designated gallbladder. The specimen consists of a gallbladder measuring 10.5 x 3.5 x 3.5 cm. The external surface is smooth and glistening. Focally, it is granular, hemorrhagic and contains cautery artifact. The lumen of the gallbladder contains yellow-green mucoid bile and multifaceted yellow-green calculi ranging in size from 0.5 to 0.2 cm in greatest dimension. The mucosa is bile-stained and without any mass lesions. The gallbladder wall averages 0.2 cm in thickness and is free of mass lesions. Pump And Still Operator sections of the gallbladder and the cystic duct at margin of resection are submitted in one cassette. / AM:sierra 06/06/21 TC:3 CPT: 11977
--- NOTE | 2021-06-05 09:44 | ED.VIS.GI ---
HPI HPI - GI History of Present Illness Chief Complaint: Abd Pain Informant: patient Abdominal Pain/Flank Pain Onset: Weeks (1) Context: Onset with activity (After meals) Timing: Intermittent Quality: Aching Location: Epigastric and RUQ Current Severity: Moderate Maximum Severity: Severe Worsened by: Food Relieved by: Nothing Nausea/Vomiting/Emesis GI Symptom: Positive for Nausea and Vomiting Quality: Positive for Hematemesis (Small amount just this morning) Diarrhea/Melena/Hematochezia GI Symptom: Negative for Diarrhea, Melena and Hematochezia Associated Symptoms Associated Symptoms: Negative for Dysuria, Frequency, Hematuria and Urgency Narrative Narrative: Patient has been vomiting off and on for a week along with R upper quadrant and epigastric pain, symptoms occur after meals. She had a negative CT scan, presented when ultrasound was not available so was admitted for intractable vomiting and had an ultrasound of the gallbladder early yesterday morning that showed gallstones and a thickened gallbladder wall. She was discharged yesterday, Saturday, advised to call surgery today. She states despite not eating anything, she is continued to have pain throughout the night, along with vomiting and now to the point where she is vomiting small amounts of blood, and wait until this morning to call surgery and as a result was advised to come back to the ER as she was likely to need hospitalization and surgery. 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 smoker GERD (gastroesophageal reflux disease) Lupus anticoagulant disorder Home Medications escitalopram oxalate 10 mg PO QHS 06/02/21 [History Last Taken Unknown] ondansetron 4 mg PO Q8H PRN PRN #10 tab 06/02/21 [Rx Last Taken Unknown] ropinirole 2.5 mg PO QHS 06/02/21 [History Last Taken Unknown] alprazolam 0.5 mg PO BID PRN 06/04/21 [History Last Taken Unknown] lansoprazole [Prevacid] 30 mg PO DAILY 06/04/21 [History Last Taken Unknown] Allergy/AdvReac Type Severity Reaction Status Date / Time bupropion HCl Allergy Hives Verified 06/05/21 09:29 [From Wellbutrin] Family History Other Anxiety and depression Hypertension Surgical History H/O shoulder surgery H/O wrist surgery H/O: hysterectomy History of Social History Smoking Status: Former smoker ROS ROS ED Constitutional Constitutional ED: Denies chills or fever(s) Eyes Eyes: Denies change in vision or diplopia ENT ENT ED: Denies rhinorrhea or sore throat Cardiovascular Cardiovascular: Denies chest pain or palpitations Respiratory/Chest Respiratory/Chest: Denies cough or dyspnea Gastrointestinal Gastrointestinal: Reports as per HPI, abdominal pain, nausea and vomiting; Denies diarrhea Genitourinary Genitourinary ED: Denies dysuria or hematuria Musculoskeletal Musculoskeletal: Denies back pain or neck pain Integumentary Denies abscess or rash Neurologic Neurologic: Denies headache(s), paresthesias or weakness Psychiatric Psychiatric: Denies anxiety or suicidal thoughts EXAM Physical Exam Const Vital Signs: 06/05/21 09:27 06/05/21 10:17 Temperature 98.3 F 98.3 F Temperature Source Temporal Temporal Pulse Rate 98 89 Respiratory Rate 18 16 Blood Pressure 179/98 H 153/96 H Blood Pressure Mean 125 115 Pulse Ox 97 97 Oxygen Delivery Method Room Air Room Air Positive well nourished, well developed and obese General Appearance ED: well developed and NAD Nutritional Appearance: obese HEENT Reports moist mucous membranes normocephalic and atraumatic Eyes PERRL and EOMs intact bilaterally Neck full ROM and supple Resp normal respiratory effort and clear to auscultation bilaterally Cardio regular rate, regular rhythm and no murmurs GI non-distended GI Narrative: Tender right upper quadrant with Wang's, also epigastrium. No rebound tenderness. No other areas of abdominal tenderness. Soft. Auscultation: normoactive bowel sounds Palpation: soft Back/Spine no CVA tenderness General Back: other FROM Extremity normal to inspection General Extremety ED: Negative for edema, pulses abnormal or tenderness General Extremity: Negative for edema or pulses abnormal Neuro oriented x3, CN's II-XII intact bilaterally and no sensory deficits noted Sensorium / Orientation: awake and alert Motor Exam: strength 5/5 throughout Skin no rashes or lesions noted and no wounds MDM MDM MDM Narrative Medical decision making narrative: Labs are stable, however clinically with history and exam, consistent with acute cholecystitis with biliary calculi. No evidence of hyperbilirubinemia or pancreatitis. Discussed with surgery Dr. Yang, patient given Zosyn, rapid Covid obtained in preparation for patient being taken to the OR this morning. She is clinically hemodynamically stable, we treated her symptoms, she did have some akathisia with the Reglan, which was given because she already had Zofran on board and was still vomiting. This was successfully treated with Benadryl. Lab Data Attestation: I reviewed the patient's lab results. Labs: Laboratory Results - last 24 hr 06/05/21 06/05/21 10:00 10:00 WBC 7.4 RBC 4.97 Hgb 14.6 Hct 42.1 MCV 84.7 MCH 29.4 MCHC 34.7 RDW Std Deviation 40.8 RDW Coeff of Haroldo 13.2 Plt Count 265 MPV 9.5 Immature Gran % (Auto) 0.300 Neut % (Auto) 76.9 H Lymph % (Auto) 15.6 L [place] % (Auto) 6.0 Eos % (Auto) 0.7 Baso % (Auto) 0.5 Absolute Neuts (auto) 5.7 Absolute Lymphs (auto) 1.15 Nucleated RBC % 0 Sodium 136 Potassium 3.6 Chloride 104 Carbon Dioxide 25.0 Anion Gap 7 BUN 14 Creatinine 0.54 L Estim Creat Clear Calc 87.78 Est GFR (MDRD) Af Amer 151 Est GFR (MDRD) Non-Af 125 BUN/Creatinine Ratio 26.2 H Glucose 113 H Calcium 9.3 Total Bilirubin 0.50 AST 20 ALT 46 Alkaline Phosphatase 62 Total Protein 7.6 Albumin 3.8 Globulin 3.8 Albumin/Globulin Ratio 1.0 Lipase 68 L Discharge Plan Triage Chief Complaint: Abd Pain ED Provider: Otis Cowart Dx/Rx/DC Orders Clinical Impression: Acute calculous cholecystitis Primary Care Provider: Ko Fowler NP Disposition Disposition: [facility]
[2021-06-05] MEDS: Metoclopramide 10 MG/2 ML Vial 5 MG IV (10:03)
[2021-06-05] MEDS: Morphine 4 MG/ML Syringe IV ×2 (10:03→20:00)
[2021-06-05] MEDS: 0.9% Normal Saline 1,000 ML 250 ML IV (10:03)
[2021-06-05] MEDS: DiphenhydrAMINE 50 MG/ML Syringe 25 MG IV (10:14)
--- NOTE | 2021-06-05 10:17 | NURSING ---
MED SURG [facility] ACUTE CALCULOUS CHOLECYSTITIS
[2021-06-05 10:23] LABS: Absolute Lymphocyte Count 1.15 X10^3/uL (0.83-4.51); Absolute Neutrophil Count 5.7 X10^3/uL (2.0-7.7); Basophil# 0.04 X10^3/uL; Basophil% 0.5 % (0-1); Eosinophil# 0.05 X10^3/uL; Eosinophils% 0.7 % (0-5); Hematocrit 42.1 % (37-47); Hemoglobin 14.6 g/dL (12.0-15.0); Lymphocyte # 1.15 X10^3/ul (0.83-4.51); Lymphocyte % 15.6 % (19-41); Mean Corp Hgb Conc 34.7 g/dL (32-36); Mean Corpuscular Hgb 29.4 pg (27.0-32.0); Mean Corpuscular Volume 84.7 fL (81-99); Mean Platelet Vol. 9.5 fl (6.2-12.0); Monocyte# 0.44 X10^3/uL; NRBC Flagged by Analyzer 0 % (0-5); Neutrophil # 5.66 X10^3/uL (2.7-7.7); Neutrophil % 76.9 % (47-70); Platelet Count 265 K/mm3 (150-450); RBC Distribution Width CV 13.2 % (11.6-14.6); RBC Distribution Width SD 40.8 fl (35.1-43.9); Red Blood Count 4.97 M/mm3 (4.2-5.4); White Blood Count 7.4 K/mm3 (4.4-11.0)
[2021-06-05 10:34] LABS: AST(SGOT) 20 U/L (15-37); Alanine Aminotransfer ALT/SGPT 46 U/L (13-56); Albumin, Serum 3.8 g/dL (3.2-5.0); Alkaline Phosphatase 62 U/L (45-117); Anion Gap 7 (5-15); BUN 14 mg/dL (7-18); BUN/Creat Ratio 26.2 RATIO (10-20); Calcium,Total 9.3 mg/dL (8.5-10.1); Chloride 104 mmol/L (98-107); Creatinine, Serum 0.54 mg/dL (0.55-1.02); EST Glomerular Filtration Rate 125 mL/min (>60); Est Glom Filt Rate - Afr Amer 151 mL/min (>60); Estimated Creatinine Clearance 87.78 ml/min; Globulin 3.8 g/dL (2.2-4.2); Glucose 113 mg/dL (74-106); Lipase 68 U/L (73-393); Potassium 3.6 mmol/L (3.5-5.1); Protein, Total 7.6 g/dL (6.4-8.2); Sodium Level 136 mmol/L (136-145)
--- NOTE | 2021-06-05 10:40 | NURSING ---
GOING TO SURGERY ABOUT 1130 TO 1145 AC 9
--- NOTE | 2021-06-05 10:44 | ED.RN ---
REPORT TO EVELYN GARNICA IN AC. PT OUT OF ED TO AC. PT SKIN P/W/D, RESP EVEN AND UNLABORED, PT A&O X 3, NO DISTRESS NOTED.
--- NOTE | 2021-06-05 11:02 | PCM.HP.STD ---
HPI - General HPI Narrative KENZIE GONSALES, is a 55 F who presents with several days of nausea vomiting and epigastric pain. Patient reports that she had a week of symptoms and was in the hospital yesterday and admitted for short-term observation and sent home and the vomiting and nausea continued. She still complains of epigastric and right upper quadrant pain. [facility]LY [facility], [facility] Medical History Anxiety Chest pain Depression Factor V deficiency Factor V deficiency Former smoker GERD (gastroesophageal reflux disease) Lupus anticoagulant disorder Home Medications escitalopram oxalate 10 mg PO QHS 06/02/21 [History Last Taken Unknown] ondansetron 4 mg PO Q8H PRN PRN #10 tab 06/02/21 [Rx Last Taken Unknown] ropinirole 2.5 mg PO QHS 06/02/21 [History Last Taken Unknown] alprazolam 0.5 mg PO BID PRN 06/04/21 [History Last Taken Unknown] lansoprazole [Prevacid] 30 mg PO DAILY 06/04/21 [History Last Taken Unknown] Allergy/AdvReac Type Severity Reaction Status Date / Time bupropion HCl Allergy Hives Verified 06/05/21 09:29 [From Wellbutrin] Family History Other Anxiety and depression Hypertension Surgical History H/O shoulder surgery H/O wrist surgery H/O: hysterectomy History of Social History Smoking Status: Former smoker ROS Constitutional Constitutional: Reports anorexia; Denies fever(s) Eyes Eyes: Denies blurry vision ENT HEENT: Denies abnormal hearing Cardiovascular Cardiovascular: Denies chest pain Respiratory/Chest Respiratory/Chest: Denies cough or dyspnea Gastrointestinal Gastrointestinal: Reports abdominal pain, nausea and vomiting; Denies constipation or diarrhea Genitourinary Genitourinary: Denies change in urinary stream Musculoskeletal Musculoskeletal: Denies abnormal gait Integumentary Integumentary: Denies jaundice Neurologic Neurologic: Denies abnormal gait or dizziness Psychiatric Psychiatric: Denies anxiety Endocrine Endocrinology: Denies flushing Vital Signs Vital Signs Vital Signs: 06/05/21 09:27 06/05/21 10:17 Temperature 98.3 F 98.3 F Temperature Source Temporal Temporal Pulse Rate 98 89 Respiratory Rate 18 16 Blood Pressure 179/98 H 153/96 H Blood Pressure Mean 125 115 Pulse Ox 97 97 Oxygen Delivery Method Room Air Room Air Weight Weight: 196 lb 3.382 oz Body Mass Index (BMI) 37.0 Physical Exam Const alert and oriented x3 Resp normal respiratory effort and normal air movement Cardio regular rate and regular rhythm GI soft to palpation and non-distended Palpation: tender epigastric and RUQ Results Lab / Micro Data Result Diagrams: 06/05/21 10:00 06/05/21 10:00 Labs: Laboratory Results - last 24 hr 06/05/21 10:00: WBC 7.4, RBC 4.97, Hgb 14.6, Hct 42.1, MCV 84.7, MCH 29.4, MCHC 34.7, RDW Std Deviation 40.8, RDW Coeff of Haroldo 13.2, Plt Count 265, MPV 9.5, Immature Gran % (Auto) 0.300, Neut % (Auto) 76.9 H, Lymph % (Auto) 15.6 L, [place] % (Auto) 6.0, Eos % (Auto) 0.7, Baso % (Auto) 0.5, Absolute Neuts (auto) 5.7, Absolute Lymphs (auto) 1.15, Nucleated RBC % 0 06/05/21 10:00: Sodium 136, Potassium 3.6, Chloride 104, Carbon Dioxide 25.0, Anion Gap 7, BUN 14, Creatinine 0.54 L, Estim Creat Clear Calc 87.78, Est GFR (MDRD) Af Amer 151, Est GFR (MDRD) Non-Af 125, BUN/Creatinine Ratio 26.2 H, Glucose 113 H, Calcium 9.3, Total Bilirubin 0.50, AST 20, ALT 46, Alkaline Phosphatase 62, Total Protein 7.6, Albumin 3.8, Globulin 3.8, Albumin/Globulin Ratio 1.0, Lipase 68 L Assessment & Plan Assessment/Plan (1) Acute calculous cholecystitis: PLAN: Patient reports that she was admitted for short-term observation yesterday and had ongoing right upper quadrant pain and shortly after being discharged she started vomiting again and vomited through the night. She is still complaining of epigastric and right upper quadrant pain and nausea and vomiting. She had ultrasound yesterday in the hospital that showed a thickened walled gallbladder with gallstones. Patient likely has acute cholecystitis. I recommended laparoscopic cholecystectomy. I discussed the procedure in detail with the patient. I discussed the risks, benefits, and alternatives of the procedure. I discussed the risks including but not limited to bleeding, infection, injury to surrounding organs such as the liver, bile duct, bowels. I did discuss the possibility of having to convert to an open procedure as well as the possibility that if any injuries occurred this may necessitate further surgery at a tertiary care center. I discussed the possibility of a partial cholecystectomy due to extensive inflammation and the possibility that she may need an ERCP with stent tomorrow if that is necessary. Patient understands and agrees with procedure. Patient was given antibiotics in the emergency room. Brian Yang MD Pager: [facility] [address] [place] [address], [address] [place] [address] Office:
[2021-06-05] MEDS: Bupivacaine 0.25% 30 ML Vial (12:46)
--- NOTE | 2021-06-05 12:50 | RAD_ITS ---
CLINICAL HISTORY: Female, 55 years old. Cholecystectomy PROCEDURE: CHOLANGIOGRAM - intraoperative CONSENT: Informed consent obtained SEDATION: General FLUOROSCOPY TIME (if supplied): (12) seconds, 80 cine images obtained Procedure performed by Dr. Yang Fluoroscopy was provided by Kaila Barlow, who was present in the room time of the procedure. TECHNIQUE: (All elements of maximal sterile barrier technique followed, including US elements as applicable) After the gallbladder was removed, the cystic duct remnant was cannulized and contrast injected into the biliary tree in a retrograde manner. There is normal filling of the biliary tree, no retained stone or stricture is noted. There is free flow of contrast into the duodenum without extravasation.. RAD/Cholangiogram/ O R,Initial IMPRESSION: Normal intraoperative cholangiogram Electronically Signed: Vickey Marie MD at 13:53 EST , Service support ,
--- NOTE | 2021-06-05 13:33 | PCM.OPRPT ---
Problems Associated Problem List Diagnoses (1) Acute calculous cholecystitis: Report of Operation Date of Procedure: 06/05/21 Pre-Operative Diagnosis: Acute cholecystitis Post-Operative Diagnosis: Same Surgery/Procedure Performed:: Laparoscopic cholecystectomy with cholangiogram Specimen's removed: Gallbladder Description of Procedure: After obtaining informed consent patient was brought back to the operating room. General anesthesia was induced. The abdomen was prepped and draped in usual sterile fashion. A small midline incision was made superior to the umbilicus and deepened to the level of fascia. The fascia was elevated and incised. Next the peritoneum was elevated and incised in the same fashion. Finger sweep was performed and the Rodriguez trocar was placed into the abdomen. The balloon was inflated. The abdomen was inflated to 15 mmHg. Next a camera was introduced into the abdomen and the abdomen was inspected. Next under direct visualization three 5-mm ports were placed one subxiphoid and 2 subcostal. Next the gallbladder was elevated and retracted toward the right shoulder. The peritoneum was stripped from the gallbladder. The infundibulum was located and retracted laterally. The gallbladder was inflamed. Next the triangle of Calot was dissected and the cystic duct and cystic artery were identified. Cholangiograms were performed. The Wall clamp was used to clamp across the infundibulum and the catheter needle was inserted into the gallbladder. Under fluoroscopy contrast was instilled into the gallbladder and the common duct, cystic duct as well as proximal hepatic ducts were identified. There was good filling of the duodenum. There were no filling defects noted in the common bile duct. The clamp was removed as well as the needle and the infundibulum was grasped once more. Three hemolock clips were placed across the cystic duct. The cystic duct was then divided leaving 2 clips on the stump. The cystic artery was clipped and divided in the same fashion. The hook cautery was then used to take the gallbladder off of the gallbladder bed. Hemostasis was obtained. Gallbladder fossa was irrigated and no active bleeding or bile leakage was noted. Next the camera was introduced in the subxiphoid port. An Endopouch bag was placed through the umbilical port and the gallbladder was placed into it. The gallbladder was then removed through the umbilical incision. The camera was then reinserted through the umbilical port. The gallbladder fossa was inspected once more and noted to be hemostatic with no leaking bile. The abdomen was suctioned dry. There was a small adhesion from the omentum to the anterior abdominal wall which had the potential of causing a small bowel stricture and site was taken down using the Enseal. The 5 mm ports were removed under direct visualization. The umbilical port was then removed and the air was removed from the abdomen. Next using an 0 Vicryl suture the umbilical fascia was closed in a [id number] fashion. The umbilical port site was irrigated local anesthetic was administered to all the incisions. All the incisions were closed with interrupted subcuticular 4-0 Monocryl sutures followed by Steri-Strips and dressings. The patient was awoken and taken to PACU in stable condition. Admit VTE Documentation VTE Mechan Device Prophylaxis: SCD's
[2021-06-05] MEDS: 0.9% Normal Saline 1,000 ML 100 ML IV (15:05)
[2021-06-05] MEDS: Morphine 2 MG/ML Syringe IV (16:22)
[2021-06-05] MEDS: Escitalopram Oxalate 10 MG Tablet PO (20:03)
[2021-06-05] MEDS: Pramipexole Di-HCl 0.5 MG Tablet 1.25 MG PO (20:03)
[2021-06-05] MEDS: oxyCODONE 5 MG Tablet PO (21:41)
[2021-06-05] MEDS: Acetaminophen 325 MG Tablet 650 MG PO (21:41)
[2021-06-05] MEDS: Ondansetron 4 MG/2 ML Vial IV (22:38)
[2021-06-06] VITALS (8 sets, daily range): BP systolic 104–137; BP diastolic 65–85; PULSE 89–131; RESP 18; TEMP 36.4–37.2; O2SAT 94–98
[2021-06-06] MEDS: Morphine 4 MG/ML Syringe IV (00:55)
[2021-06-06] MEDS: 0.9% Normal Saline 1,000 ML 100 ML IV ×2 (00:58→15:40)
--- NOTE | 2021-06-06 01:54 | EKG12_ITS ---
Test Reason : NAUSEA/VOMITING Blood Pressure : / mmHG Vent. Rate : 072 BPM Atrial Rate : 072 BPM P-R Int : 182 ms QRS Dur : 082 ms QT Int : 410 ms P-R-T Axes : 034 013 021 degrees QTc Int : 448 ms Normal sinus rhythm Normal ECG Confirmed by JAVIER BRAVO, CLEMENT ([id number]), senior technical editor RODDY OROZCO ([id number]) on 06/07/2021 10:18:14 AM Referred By: DARLIN Confirmed By:CLEMENT HERRERA MD
[2021-06-06 02:53] LABS: Troponin-I HS 10 pg/mL (3.0-54.0)
[2021-06-06] MEDS: oxyCODONE 5 MG Tablet PO ×3 (08:28→19:48)
[2021-06-06] MEDS: Pantoprazole Sodium 40 MG Tablet PO (10:22)
[2021-06-06] MEDS: Enoxaparin 40 MG/0.4 ML Syringe SC (10:22)
[2021-06-06] MEDS: Escitalopram Oxalate 10 MG Tablet PO (19:51)
[2021-06-06] MEDS: Pramipexole Di-HCl 0.5 MG Tablet 1.25 MG PO (19:51)
[2021-06-06] MEDS: Ondansetron 4 MG/2 ML Vial IV (22:58)
[2021-06-07] MEDS: 0.9% Normal Saline 1,000 ML 100 ML IV (01:30)
[2021-06-07] MEDS: Morphine 2 MG/ML Syringe IV (01:33)
[2021-06-07 06:16] VITALS: BP 130/80; PULSE 104; RESP 18; TEMP 36.6; O2SAT 97
[2021-06-07] MEDS: oxyCODONE 5 MG Tablet PO ×2 (06:21→14:11)
[2021-06-07] MEDS: Ondansetron 4 MG/2 ML Vial IV (06:21)
[2021-06-07] MEDS: Sucralfate 1 GM Tablet PO ×3 (08:43→11:38)
[2021-06-07 08:44] VITALS: BP 126/75; PULSE 100; RESP 18; TEMP 36.3; O2SAT 94
[2021-06-07] MEDS: Pantoprazole Sodium 40 MG Tablet PO (08:51)
[2021-06-07] MEDS: Enoxaparin 40 MG/0.4 ML Syringe SC (08:51)
--- NOTE | 2021-06-07 12:06 | PN.SURG_ITS ---
Subjective Subjective Patient continues to complain of nausea anytime she tries to eat. She did not tolerate diet yesterday. Her pain is improved. Objective Data Objective Data Vital Signs: Vital Signs Temp Pulse Resp BP Pulse Ox 97.4 F L 100 18 126/75 H 94 06/07/21 08:44 06/07/21 08:44 06/07/21 08:44 06/07/21 08:44 06/07/21 08:44 Oxygen Flow Rate (L/min) 2 Oxygen Delivery Method Room Air Weight: 196 lb 3.382 oz Body Mass Index (BMI) 37.0 Intake & Output: Intake and Output for Last 24 Hours 06/05/21 06/06/21 06/07/21 23:59 23:59 23:59 Intake Total 1260 / 1760 3608.33 / 3728.33 2103.33 / 2103.33 Output Total 650 / 850 1500 / 1500 1700 / 1700 Balance 610 / 910 2108.33 / 2228.33 403.33 / 403.33 Lab / Micro Data Result Diagrams: 06/05/21 10:00 06/05/21 10:00 Physical Exam Const oriented x3 and no apparent distress GI soft to palpation and non-tender Assessment & Plan Assessment/Plan (1) Acute calculous cholecystitis: PLAN: Patient is still having nausea and vomiting although her pain is improved. I will continue to attempt diet and I will add Carafate and Compazine. If the patient tolerates diet she will be discharged home. Brian Yang MD Pager: [facility] [address] [place] [address], [address] [place] [address] Office:
--- NOTE | 2021-06-07 12:59 | PCM.DC.SUM ---
Providers Date of Admission: 06/05/21 Primary Care Physician: Ko Fowler NP-C Reason For Visit: ACUTE CHOLECYSTITUS Diagnosis Discharge Diagnosis (1) Acute calculous cholecystitis: Status: Acute Code(s): K80.00 - Calculus of gallbladder with acute cholecystitis without obstruction Medications at Discharge Home Medications escitalopram oxalate 10 mg PO QHS 06/02/21 ondansetron 4 mg PO Q8H PRN PRN #10 tab 06/02/21 ropinirole 2.5 mg PO QHS 06/02/21 alprazolam 0.5 mg PO BID PRN 06/04/21 lansoprazole [Prevacid] 30 mg PO DAILY 06/04/21 oxycodone 5 - 10 mg PO Q4H PRN PRN 5 Days #20 tab 06/07/21 sucralfate 1 g PO 1HR_ACHS #60 tab 06/07/21 Hospital Course Operations cholecystecomy Summary of Care Provided Hospital Course: Patient was admitted with right upper quadrant pain and suggestion of acute cholecystitis. Patient had cholecystectomy and following surgery the patient was nauseated and it took her 2 days to be able to tolerate a diet. When she was tolerating diet she was discharged home. Weight / BMI Weight Weight: 196 lb 3.382 oz Body Mass Index (BMI) 37.0 ABG / Lab / Microbiology Data Result Diagrams: 06/05/21 10:00 06/05/21 10:00 D/C Instructions Discharge Diet: Light diet - advance as tolerated Discharge Activity: May Not Drive (for 2-3 days or while taking narcotic pain medications.), May Shower and - (Do not drive, work heavy equipment or sign legal documents for 24 hours.) Lifting Restrictions: 20 lbs for 2 weeks Additional Activity Instructions: Pain medication may cause nausea. You should typically eat light foods as you take your pain medications. Pain medication may also cause constipation. If this is a problem for you, please discuss with your doctor. Call your doctor if your incision/area has: Continuous Slow Oozing, Sudden Increased Bleeding, Increased Pain/ Swelling, Increased Redness and Foul Smelling Discharge Call your doctor if you observe: Fever of 101 or Higher Suture Line Care: Avoid Pulling/Pushing and Avoid Pinching/Bending Remove Dressing in: 2 days Additional Dressing/Incision Instructions: Leave operative bandaids on for 2 days. When you remove dressing, leave Steri-Strips on until your follow-up appointment, or until the Steri-Strips fall off on their own. Please Follow Up With: Brian Yang MD When: Please call to schedule 2 week follow up appointment. [phone] Meaningful Use Info Meaningful Use Diagnoses (Choose all that apply): None applicable Discharge Plan Admission Admit Date/Time: 06/05/21 13:34 Attending Provider: Brian Yang Primary Care Provider: Ko Fowler NP Discharge Orders/Prescriptions Prescriptions: New oxycodone 5 mg Tablet 5 - 10 mg PO Q4H PRN PRN (Reason: Pain Score 4-10) 5 Days Qty: 20 RF: 0 sucralfate 1 gram Tablet 1 g PO 1HR_ACHS Qty: 60 RF: 0 Continued ropinirole 0.5 mg tablet 2.5 mg PO QHS RF: 0 escitalopram oxalate 10 mg tablet 10 mg PO QHS RF: 0 ondansetron 4 MG tablet 4 mg PO Q8H PRN PRN (Reason: Nausea) Qty: 10 RF: 0 alprazolam 0.5 mg tablet 0.5 mg PO BID PRN (Reason: Anxiety) RF: 0 lansoprazole [Prevacid] 30 mg capsule,delayed release(DR/EC) 30 mg PO DAILY RF: 0 Referrals / Follow Up: Ko Fowler NP, [employer] ADMINISTRATOR-C [Primary Care Provider] - Disposition Disposition (needs filled in before D/C Order can be placed): Home, Self Care
[2021-06-07 13:58] VITALS: BP 106/57; PULSE 116; RESP 18; TEMP 36.8; O2SAT 95
[2021-06-07 14:37] VITALS: BP 106/57; PULSE 116; RESP 18; TEMP 36.8; O2SAT 95
== END 2021-06-07 14:37 | disposition home or self-care (01) ==
LOC: ED 10:18 → SDC 10:40 → AC 10:42 → MS2 15:01 → SDC 06-06 08:14 → MS2 06-06 08:14
PROVIDERS: Admitting Provider Surgery; Emergency Provider Emergency Medicine; PCP Nurse Practitioner Family; Visit Provider Surgery
PROC: (CPT 47610; principal; 2021-06-05 10:25)
DX: K80.12 Calculus of gallbladder with acute and chronic cholecystitis without obstruction (principal); D68.2 Hereditary deficiency of other clotting factors; D68.62 Lupus anticoagulant syndrome; K21.9 Gastro-esophageal reflux disease without esophagitis; F41.9 Anxiety disorder, unspecified; F32.A Depression, unspecified; Z87.891 Personal history of nicotine dependence; Z79.899 Other long term (current) drug therapy
CPT/HCPCS: 47563; 36415; 74300; 76000; 80053; 83690; 84484; 85025; 88304; 93005; 96361; 96372; 96374; 96375; 96376; 99218; 99251; 99284; J7030; J7040; A4216; C1760; G0378; G0463; J2405; J3490

== ENCOUNTER 2022-02-25 16:18 | Emergency (ER) | payer OTHER, SELFPAY ==
[2022-02-25 16:19] VITALS: BP 166/105; PULSE 95; RESP 16; TEMP 36.9; O2SAT 98; BMI 40.8
--- NOTE | 2022-02-25 16:38 | EDS_ITS ---
HPI <NATALEE Perry - Last Filed: 02/25/22 19:08> History of Present Illness Chief Complaint: Nausea/Vomiting Narrative Narrative: 56-year-old female with history of restless leg syndrome, anxiety presents to the emergency department with 2 weeks of generalized malaise, diarrhea, patient states this morning she developed nausea and vomiting which she vomited several times. She did go to urgent care, they gave her Compazine, she states she vomited 20 minutes later, she has been continuing to have nausea and vomiting and is here for evaluation. She denies any fevers however does have subjective chills. Denies any blood in her stool or vomit. Patient's last diarrhea episode was early this morning. Patient still is passing gas. Denies any specific abdominal pain however states to have epigastric pain from nausea and vomiting. [place] any sick contacts. [facility] <NATALEE Perry - Last Filed: 02/25/22 19:08> [facility] Medical History (Updated 02/25/22 @ 18:50 by NATALEE Perry) Anxiety Chest pain Depression Factor V deficiency Factor V deficiency Former smoker Gastritis GERD (gastroesophageal reflux disease) Intractable nausea and vomiting Intractable vomiting Lupus anticoagulant disorder Home Medications escitalopram oxalate 10 mg tablet 10 mg PO QHS DEPRESSION 06/02/21 [History Last Taken Unknown] ropinirole 0.5 mg tablet 3 mg PO QHS RESTLESS LEGS 06/02/21 [History Last Taken Unknown] alprazolam 0.5 mg tablet 0.5 mg PO BID PRN Anxiety 06/04/21 [History Last Taken Unknown] lansoprazole 30 mg capsule,delayed release (Prevacid) 30 mg PO DAILY STOMACH 06/04/21 [History Last Taken Unknown] promethazine 25 mg tablet 25 mg PO TID PRN nausea and vomiting #14 tabs 02/25/22 [Rx Last Taken Unknown] Allergy/AdvReac Type Severity Reaction Status Date / Time bupropion HCl Allergy Hives Verified 02/25/22 16:19 [From Wellbutrin] Family History Other Anxiety and depression Hypertension Surgical History (Updated 06/28/21 @ 10:36 by Melody Jameson) H/O shoulder surgery H/O wrist surgery H/O: hysterectomy History of S/P laparoscopic cholecystectomy Social History Smoking Status: Former smoker ROS <NATALEE Perry - Last Filed: 02/25/22 19:08> ROS ED ROS Narrative Constitutional: Negative for fever, chills, weight loss, weakness Eyes: Negative for vision loss, vision change, double vision ENT: Negative for any sore throat, ear pain, congestion Cardiovascular: Negative for any chest pain, tightness, palpitations Respiratory: Negative for any cough, sputum production, hemoptysis, dyspnea, dyspnea on exertion, orthopnea Gastrointestinal: Negative for any abdominal pain, constipation, blood in stool, blood in vomit. Positive for nausea, vomiting, diarrhea : Negative for any urinary frequency, dysuria, retention, blood in urine Muscle skeletal: Negative for any muscle joint pain, stiffness, arthralgias, neck pain, back pain. Positive generalized myalgias Neurological: Negative for any headache, syncope, numbness or tingling, dizziness Skin: Negative for any rashes, lumps, itching, abrasions, lacerations Psychiatric: Negative for any depression, anxiety, stress, suicidal ideation, homicidal ideation Hematologic: Negative for any easy bruising, excessive bruising, easy bleeding Allergies: Negative for any eczema, hives, rash EXAM <NATALEE Perry - Last Filed: 02/25/22 19:08> Physical Exam Narrative Exam Narrative: Vital signs reviewed. HEET: Head normocephalic atraumatic, TMs clear bilaterally. Posterior pharynx is clear, dry mucous membranes. Nares clear bilaterally. Neck: Supple with no lymphadenopathy or tenderness. No signs of meningismus, negative jolt sign. Cardiac: Regular rate and rhythm no murmurs gallops or rubs, equal peripheral pulses bilaterally. Respiratory: Lungs clear to auscultation bilaterally. No chest tenderness. Abdomen: Soft, nontender, nondistended. No abdominal bruit or pulsatile masses. No hepatosplenomegaly Extremities: No peripheral edema, no signs of gross trauma or deformity. Active full range of motion of all extremities. Neuro: Cranial nerves II through XII intact, no focal neurological deficits. Skin: Clean dry and intact with no rash, purpura, petechiae, vesicles or pustules. Backs/flank: No CVA tenderness, no midline spinal tenderness, no deformity. Psych: Normal mood and affect. No SI, HI or acute psychosis. Const Vital Signs: 02/25/22 16:19 02/25/22 19:18 Temperature 98.4 F Temperature Source Temporal Pulse Rate 95 97 Respiratory Rate 16 16 Blood Pressure 166/105 H 159/102 H Blood Pressure Mean 125 Pulse Ox 98 97 Oxygen Delivery Method Room Air Positive well nourished and well developed General Appearance ED: well developed <Dr. Zackary Winter MD - Last Filed: 02/25/22 20:56> Physical Exam Const Vital Signs: 02/25/22 16:19 02/25/22 19:18 Temperature 98.4 F Temperature Source Temporal Pulse Rate 95 97 Respiratory Rate 16 16 Blood Pressure 166/105 H 159/102 H Blood Pressure Mean 125 Pulse Ox 98 97 Oxygen Delivery Method Room Air MDM <NATALEE Perry - Last Filed: 02/25/22 19:08> MDM Lab Data Labs: Laboratory Results - last 24 hr 02/25/22 02/25/22 02/25/22 17:00 17:00 17:42 WBC 8.4 RBC 4.82 Hgb 14.3 Hct 42.4 MCV 88.0 MCH 29.7 MCHC 33.7 RDW Std Deviation 43.2 RDW Coeff of [place] 13.3 Plt Count 274 MPV 10.1 Immature Gran % (Auto) 0.400 Neut % (Auto) 77.2 H Lymph % (Auto) 16.4 L [place] % (Auto) 5.4 Eos % (Auto) 0.2 Baso % (Auto) 0.4 Absolute Neuts (auto) 6.5 Absolute Lymphs (auto) 1.37 Nucleated RBC % 0 Sodium 140 Potassium 3.8 Chloride 103 Carbon Dioxide 27.0 Anion Gap 10 BUN 13 Creatinine 0.71 Estim Creat Clear Calc 65.97 Est GFR (MDRD) Af Amer 109 Est GFR (MDRD) Non-Af 90 BUN/Creatinine Ratio 18.3 Glucose 141 H Calcium 9.5 Total Bilirubin 0.30 AST 19 ALT 28 Alkaline Phosphatase 69 Total Protein 7.7 Albumin 3.8 Globulin 3.9 Albumin/Globulin Ratio 1.0 Lipase 82 Urine Color Yellow Urine Clarity Clear Urine pH 7.0 Ur Specific [place] 1.010 Urine Protein 30 H Urine Glucose (UA) Normal Urine Ketones 5 H Urine Occult Blood Negative Urine Nitrite Negative Urine Bilirubin Negative Urine Urobilinogen Normal Ur Leukocyte Esterase 25 H Urine RBC 0-5 SEEN Urine WBC 0-5 SEEN Ur Squamous Epith Cells 0-5 SEEN Urine Bacteria 2+ Urine Mucus 0 SEEN Treatment and Re-Evaluation Narrative: Patient appears to be in no respiratory distress, patient appears nontoxic. Patient presents the emergency department diarrhea for the last 2 weeks that is improving however patient had nausea and vomiting started today. Patient abdominal exam was unremarkable. Do not believe that a CAT scan is necessary at this time. Patient did receive laboratory values, patient's CBC chemistries lipase were negative. Patient's urinalysis did show some leukocytes slight bacteria but have patient has no symptoms, do not believe that this is infected. Patient was given IV fluids, IV Zofran. Patient was redosed with IV Reglan, Benadryl. Patient was able to pass a p.o. challenge. Patient was given 4 mg of IV Zofran, patient is stable for discharge. <Dr. Zackary Winter MD - Last Filed: 02/25/22 20:56> [facility] Lab Data Labs: Laboratory Results - last 24 hr 02/25/22 02/25/22 02/25/22 17:00 17:00 17:42 WBC 8.4 RBC 4.82 Hgb 14.3 Hct 42.4 MCV 88.0 MCH 29.7 MCHC 33.7 RDW Std Deviation 43.2 RDW Coeff of [place] 13.3 Plt Count 274 MPV 10.1 Immature Gran % (Auto) 0.400 Neut % (Auto) 77.2 H Lymph % (Auto) 16.4 L [place] % (Auto) 5.4 Eos % (Auto) 0.2 Baso % (Auto) 0.4 Absolute Neuts (auto) 6.5 Absolute Lymphs (auto) 1.37 Nucleated RBC % 0 Sodium 140 Potassium 3.8 Chloride 103 Carbon Dioxide 27.0 Anion Gap 10 BUN 13 Creatinine 0.71 Estim Creat Clear Calc 65.97 Est GFR (MDRD) Af Amer 109 Est GFR (MDRD) Non-Af 90 BUN/Creatinine Ratio 18.3 Glucose 141 H Calcium 9.5 Total Bilirubin 0.30 AST 19 ALT 28 Alkaline Phosphatase 69 Total Protein 7.7 Albumin 3.8 Globulin 3.9 Albumin/Globulin Ratio 1.0 Lipase 82 Urine Color Yellow Urine Clarity Clear Urine pH 7.0 Ur Specific [place] 1.010 Urine Protein 30 H Urine Glucose (UA) Normal Urine Ketones 5 H Urine Occult Blood Negative Urine Nitrite Negative Urine Bilirubin Negative Urine Urobilinogen Normal Ur Leukocyte Esterase 25 H Urine RBC 0-5 SEEN Urine WBC 0-5 SEEN Ur Squamous Epith Cells 0-5 SEEN Urine Bacteria 2+ Urine Mucus 0 SEEN Treatment and Re-Evaluation Narrative: Patient appears to be in no respiratory distress, patient appears nontoxic. Patient presents the emergency department diarrhea for the last 2 weeks that is improving however patient had nausea and vomiting started today. Patient abdominal exam was unremarkable. Do not believe that a CAT scan is necessary at this time. Patient did receive laboratory values, patient's CBC chemistries lipase were negative. Patient's urinalysis did show some leukocytes slight bacteria but have patient has no symptoms, do not believe that this is infected. Patient was given IV fluids, IV Zofran. Patient was redosed with IV Reglan, Benadryl. Patient was able to pass a p.o. challenge. Patient was given 4 mg of IV Zofran, patient is stable for discharge. Attending note: Patient was seen by me, presents with loose stools and diarrhea for about 2 weeks, she started having nausea and vomiting today. She has no abdominal pain. On evaluation she appears well, she is not in any significant distress. She has a soft and nontender abdomen. She has a normal exam otherwise. She is given fluids and antiemetics and she improved she has a normal work-up. I believe she is stable for discharge. Discharge Plan Triage Chief Complaint: Nausea/Vomiting ED Midlevel Provider: Zackary Dominique ED Provider: Zackary Winter Dx/Rx/DC Orders Clinical Impression: Nausea & vomiting, Acute dehydration, History of diarrhea Prescriptions: New promethazine 25 mg tablet 25 mg PO TID PRN (Reason: nausea and vomiting) Qty: 14 0RF No Action ropinirole 0.5 mg tablet 3 mg PO QHS Label Comments: take 1 tablet by mouth at bedtime (IN ADDITION TO 2MG) escitalopram oxalate 10 mg tablet 10 mg PO QHS Label Comments: take 1 tablet by mouth once daily alprazolam 0.5 mg tablet 0.5 mg PO BID PRN (Reason: Anxiety) Label Comments: take 1 tablet by mouth twice a day if needed for anxiety PANIC ATTACKS AND FEAR OF FLYING lansoprazole [Prevacid] 30 mg capsule,delayed release(DR/EC) 30 mg PO DAILY Primary Care Provider: Parker Nick Referrals: Parker Nick MD [Primary Care Provider] - Disposition Disposition: Home, Self Care Discharge Date/Time: 02/25/22 19:20
[2022-02-25 17:08] LABS: Absolute Lymphocyte Count 1.37 X10^3/uL (0.83-4.51); Absolute Neutrophil Count 6.5 X10^3/uL (2.0-7.7); Basophil# 0.03 X10^3/uL; Basophil% 0.4 % (0-1); Eosinophil# 0.02 X10^3/uL; Eosinophils% 0.2 % (0-5); Hematocrit 42.4 % (37-47); Hemoglobin 14.3 g/dL (12.0-15.0); Lymphocyte # 1.37 X10^3/ul (0.83-4.51); Lymphocyte % 16.4 % (19-41); Mean Corp Hgb Conc 33.7 g/dL (32-36); Mean Corpuscular Hgb 29.7 pg (27.0-32.0); Mean Platelet Vol. 10.1 fl (6.2-12.0); Monocyte# 0.45 X10^3/uL; Monocyte% 5.4 % (0-10); NRBC Flagged by Analyzer 0 % (0-5); Neutrophil # 6.45 X10^3/uL (2.7-7.7); Neutrophil % 77.2 % (47-70); Platelet Count 274 K/mm3 (150-450); RBC Distribution Width CV 13.3 % (11.6-14.6); RBC Distribution Width SD 43.2 fl (35.1-43.9); Red Blood Count 4.82 M/mm3 (4.2-5.4); White Blood Count 8.4 K/mm3 (4.4-11.0)
[2022-02-25] MEDS: 0.9% Normal Saline 1,000 ML 1000 ML IV (17:16)
[2022-02-25] MEDS: Ondansetron 4 MG/2 ML Vial IV ×2 (17:17→19:14)
[2022-02-25] MEDS: Famotidine 200 MG/20 ML MDV 20 MG in 0.9% Normal Saline (Pres. free 8 ML 300 MG IV (17:18)
[2022-02-25 17:24] LABS: AST(SGOT) 19 U/L (15-37); Alanine Aminotransfer ALT/SGPT 28 U/L (13-56); Albumin, Serum 3.8 g/dL (3.2-5.0); Alkaline Phosphatase 69 U/L (45-117); Anion Gap 10 (5-15); BUN 13 mg/dL (7-18); BUN/Creat Ratio 18.3 RATIO (10-20); Calcium,Total 9.5 mg/dL (8.5-10.1); Chloride 103 mmol/L (98-107); Creatinine, Serum 0.71 mg/dL (0.55-1.02); EST Glomerular Filtration Rate 90 mL/min (>60); Est Glom Filt Rate - Afr Amer 109 mL/min (>60); Estimated Creatinine Clearance 65.97 ml/min; Globulin 3.9 g/dL (2.2-4.2); Glucose 141 mg/dL (74-106); Lipase 82 U/L (73-393); Potassium 3.8 mmol/L (3.5-5.1); Protein, Total 7.7 g/dL (6.4-8.2); Sodium Level 140 mmol/L (136-145)
[2022-02-25 17:54] LABS: Mucous, Urine 0 SEEN /hpf (<or=2+)
[2022-02-25] MEDS: Metoclopramide 10 MG/2 ML Vial 5 MG IV (18:01)
[2022-02-25 18:05] LABS: Color, Urine Yellow (Yellow); Glucose, Dipstick Normal (Normal); Ketone-Dipstick 5 mg/dl (Negative); Leukocyte Esterase-Dipstick 25 /ul (Negative); Nitrite-Dipstick Negative (Negative); Occult Blood-Urine Negative /ul (Negative); Protein-Dipstick 30 mg/dl (Negative); Urine Bilirubin Dipstick Negative (Negative); Urine Clarity Clear (Clear); Urine Urobilinogen Normal (Normal)
[2022-02-25 18:12] LABS: White Blood Cells 0-5 SEEN /hpf (0-5)
[2022-02-25 18:13] LABS: Bacteria 2+ /hpf (None Seen); Red Blood Cells-Urine 0-5 SEEN /hpf (0-5); Squamous Epithelial Cells - UA 0-5 SEEN /hpf (5-10)
[2022-02-25] MEDS: DiphenhydrAMINE 50 MG/ML Syringe 25 MG IV (18:27)
[2022-02-25 19:18] VITALS: BP 159/102; PULSE 97; RESP 16; O2SAT 97
== END 2022-02-25 19:20 | disposition home or self-care (01) ==
PROVIDERS: Nurse Practitioner; Emergency Provider Emergency Medicine; PCP Family Medicine; Visit Provider Emergency Medicine
DX: R11.2 Nausea with vomiting, unspecified (principal); Z87.891 Personal history of nicotine dependence; E86.0 Dehydration; R19.7 Diarrhea, unspecified
CPT/HCPCS: 80053; 81001; 83690; 85025; 96361; 96374; 96375; 96376; 99283; J7030; A4216; J2405; J3490

== ENCOUNTER 2023-06-17 03:04 | Emergency (ER) | payer OTHER, SELFPAY ==
[2023-06-17 03:05] VITALS: BP 133/90; PULSE 123; RESP 18; TEMP 36.1; O2SAT 99; BMI 39.4
[2023-06-17 03:33] LABS: Absolute Lymphocyte Count 1.55 X10^3/uL (0.83-4.51); Absolute Neutrophil Count 6.8 X10^3/uL (2.0-7.7); Basophil# 0.08 X10^3/uL; Basophil% 0.9 % (0-1); Eosinophil# 0.12 X10^3/uL; Eosinophils% 1.3 % (0-5); Hematocrit 44.9 % (37-47); Hemoglobin 15.1 g/dL (12.0-15.0); Lymphocyte # 1.55 X10^3/ul (0.83-4.51); Lymphocyte % 16.8 % (19-41); Mean Corp Hgb Conc 33.6 g/dL (32-36); Mean Corpuscular Hgb 28.9 pg (27.0-32.0); Mean Corpuscular Volume 85.9 fL (81-99); Mean Platelet Vol. 10.2 fl (6.2-12.0); Monocyte# 0.62 X10^3/uL; Monocyte% 6.7 % (0-10); NRBC Flagged by Analyzer 0 % (0-5); Neutrophil # 6.81 X10^3/uL (2.7-7.7); Neutrophil % 74.1 % (47-70); Platelet Count 279 K/mm3 (150-450); RBC Distribution Width CV 13.3 % (11.6-14.6); RBC Distribution Width SD 41.8 fl (35.1-43.9); Red Blood Count 5.23 M/mm3 (4.2-5.4); White Blood Count 9.2 K/mm3 (4.4-11.0)
[2023-06-17] MEDS: 0.9% Normal Saline (1000mL) 1,000 ML 1000 ML IV (03:36)
[2023-06-17] MEDS: Ondansetron 4 MG/2 ML Vial IV (03:36)
[2023-06-17] MEDS: Morphine 4 MG/ML Syringe IV (03:37)
--- NOTE | 2023-06-17 03:41 | EDS_ITS ---
HPI HPI - GI History of Present Illness Chief Complaint: Nausea/Vomiting/Diarrhea Informant: patient Abdominal Pain/Flank Pain Onset: Days (2) Context: Gradual Onset Timing: Continuous Quality: Aching Location: Epigastric Worsened by: - (Drinking sips of water) Relieved by: Nothing Nausea/Vomiting/Emesis GI Symptom: Positive for Nausea and Vomiting Diarrhea/Melena/Hematochezia GI Symptom: Positive for Diarrhea; Negative for Melena or Hematochezia Associated Symptoms Associated Symptoms: Negative for Dysuria, Frequency or Hematuria Narrative Narrative: Presents with abdominal pain, nausea, vomiting, and diarrhea for the past 2 days. Patient states it has been constant. Patient states her pain is mainly over the epigastric area. Patient states it is worse with trying to drink sips of water. Patient states that she has vomiting anytime she tries to drink water. Patient admits to some diarrhea but denies any melena or hematochezia. Patient denies any dysuria, hematuria, or frequency. Patient also admits to a mild headache. Patient admits to some subjective chills but denies any fevers. [facility] Medical History Anxiety Chest pain Depression Factor V deficiency Factor V deficiency Former smoker Gastritis GERD (gastroesophageal reflux disease) Intractable nausea and vomiting Intractable vomiting Lupus anticoagulant disorder Home Medications escitalopram oxalate 10 mg tablet 10 mg PO QHS DEPRESSION 06/02/21 [History Last Taken Unknown] ropinirole 0.5 mg tablet 3 mg PO QHS RESTLESS LEGS 06/02/21 [History Last Taken Unknown] alprazolam 0.5 mg tablet 0.5 mg PO BID PRN Anxiety 06/04/21 [History Last Taken Unknown] lansoprazole 30 mg capsule,delayed release (Prevacid) 30 mg PO DAILY STOMACH 06/04/21 [History Last Taken Unknown] promethazine 25 mg tablet 25 mg PO TID PRN nausea and vomiting #14 tabs 02/25/22 [Rx Last Taken Unknown] ondansetron 4 mg disintegrating tablet 4 mg PO Q8H PRN PRN Nausea #10 tabs 06/17/23 [Rx Last Taken Unknown] Allergy/AdvReac Type Severity Reaction Status Date / Time bupropion HCl Allergy Hives Verified 06/17/23 03:08 [From Wellbutrin] Family History Other Anxiety and depression Hypertension Surgical History H/O shoulder surgery H/O wrist surgery H/O: hysterectomy History of S/P laparoscopic cholecystectomy Social History Smoking Status: Former smoker ROS ROS ED Constitutional Constitutional ED: Denies chills or fever(s) Eyes Eyes: Denies blurry vision or change in vision ENT ENT ED: Denies rhinorrhea or sore throat Cardiovascular Cardiovascular: Denies chest pain or palpitations Respiratory/Chest Respiratory/Chest: Denies cough or dyspnea Gastrointestinal Gastrointestinal: Denies nausea or vomiting Genitourinary Genitourinary ED: Denies dysuria or hematuria Musculoskeletal Musculoskeletal: Denies back pain or neck pain Integumentary Denies abscess or rash Neurologic Neurologic: Denies headache(s) or weakness Allergic/Immunologic Allergic/Immunologic ED: Denies mouth swelling or urticaria EXAM Physical Exam Const Vital Signs: 06/17/23 03:05 Temperature 97.0 F L Temperature Source Oral Pulse Rate 123 H Respiratory Rate 18 Blood Pressure 133/90 H Blood Pressure Mean 104 Pulse Ox 99 Oxygen Delivery Method Room Air Positive well nourished and well developed General Appearance ED: well developed and NAD HEENT Reports moist mucous membranes Neck supple and no JVD Resp normal respiratory effort and clear to auscultation bilaterally Cardio regular rhythm Rate: tachycardic GI Palpation: soft and tender epigastric; Negative for guarding or rebound tenderness present Neuro CN's II-XII intact bilaterally, moves all extremities and no sensory deficits noted Sensorium / Orientation: alert Motor Exam: strength 5/5 throughout Psych mental status grossly normal MDM MDM MDM Narrative Medical decision making narrative: Differential diagnosis includes gastritis, gastroenteritis, pancreatitis, peptic ulcer disease, duodenal ulcer, urinary tract infection, and pyelonephritis. CBC will be obtained to assess for leukocytosis and anemia. Comprehensive metabolic profile will be obtained to assess for hepatic function, renal function, and electrolyte abnormalities. Lipase will be obtained to assess for pancreatitis. Urinalysis will be obtained to assess for urinary tract infection and hematuria. Lab Data Attestation: I reviewed the patient's lab results. Lab results narrative: CBC was reviewed and was essentially within normal limits. Comprehensive metabolic profile was reviewed and was within normal limits. Urinalysis was reviewed. There is no evidence of urinary tract infection or hematuria. Labs: Laboratory Results - last 24 hr 06/17/23 06/17/23 03:15 03:45 WBC 9.2 RBC 5.23 Hgb 15.1 H Hct 44.9 MCV 85.9 MCH 28.9 MCHC 33.6 RDW Std Deviation 41.8 RDW Coeff of Haroldo 13.3 Plt Count 279 MPV 10.2 Immature Gran % (Auto) 0.200 Neut % (Auto) 74.1 H Lymph % (Auto) 16.8 L [place] % (Auto) 6.7 Eos % (Auto) 1.3 Baso % (Auto) 0.9 Absolute Neuts (auto) 6.8 Absolute Lymphs (auto) 1.55 Nucleated RBC % 0 Sodium 141 Potassium 3.4 L Chloride 107 Carbon Dioxide 23.0 Anion Gap 11 BUN 13 Creatinine 0.93 Estim Creat Clear Calc 69.28 Est GFR (MDRD) Af Amer 79 Est GFR (MDRD) Non-Af 66 BUN/Creatinine Ratio 14.0 Glucose 112 H Calcium 9.3 Total Bilirubin 0.40 AST 15 ALT 29 Alkaline Phosphatase 75 Total Protein 7.6 Albumin 4.0 Globulin 3.6 Albumin/Globulin Ratio 1.1 Lipase 30 Urine Color Yellow Urine Clarity Clear Urine pH 6.0 Ur Specific [place] 1.025 Urine Protein 30 H Urine Glucose (UA) Normal Urine Ketones 50 H Urine Occult Blood Negative Urine Nitrite Negative Urine Bilirubin Negative Urine Urobilinogen 1 H Ur Leukocyte Esterase 100 H Urine RBC 0 SEEN Urine WBC 0 SEEN Ur Squamous Epith Cells 0-5 SEEN Urine Bacteria 0 SEEN Urine Mucus 0 SEEN Treatment and Re-Evaluation :: Patient was given IV fluids, morphine, and Zofran. Patient is feeling better on reevaluation. Patient was advised of her findings. Patient was given a prescription for Zofran. Patient was instructed to start with a liquid diet and advance as tolerated. Patient was instructed to follow-up with her primary care physician in 5 to 7 days. Patient understood and was agreeable with the plan. All questions were answered. Discharge Plan Triage Chief Complaint: Nausea/Vomiting/Diarrhea ED Provider: Wild Still Dx/Rx/DC Orders Clinical Impression: Nausea, vomiting, and diarrhea, Abdominal pain Instructions: ED Abdominal Pain Unkn Cause Fem, ED Vomiting (Adult) Prescriptions: New ondansetron [ondansetron] 4 mg tablet,disintegrating 4 mg PO Q8H PRN PRN (Reason: Nausea) Qty: 10 0RF No Action ropinirole 0.5 mg tablet 3 mg PO QHS Patient Comments: take 1 tablet by mouth at bedtime (IN ADDITION TO 2MG) escitalopram oxalate 10 mg tablet 10 mg PO QHS Patient Comments: take 1 tablet by mouth once daily alprazolam 0.5 mg tablet 0.5 mg PO BID PRN (Reason: Anxiety) Patient Comments: take 1 tablet by mouth twice a day if needed for anxiety PANIC ATTACKS AND FEAR OF FLYING lansoprazole [Prevacid] 30 mg capsule,delayed release(DR/EC) 30 mg PO DAILY promethazine 25 mg tablet 25 mg PO TID PRN (Reason: nausea and vomiting) Qty: 14 0RF Primary Care Provider: Parker Nick Referrals: Parker Nick MD [Primary Care Provider] - 3-5 Days Disposition Disposition: Home, Self Care
[2023-06-17 03:49] LABS: Bacteria 0 SEEN /hpf (None Seen); Mucous, Urine 0 SEEN /hpf (<or=2+); Red Blood Cells-Urine 0 SEEN /hpf (0-5); White Blood Cells 0 SEEN /hpf (0-5)
[2023-06-17 03:59] LABS: Color, Urine Yellow (Yellow); Glucose, Dipstick Normal (Normal); Ketone-Dipstick 50 mg/dl (Negative); Leukocyte Esterase-Dipstick 100 /ul (Negative); Nitrite-Dipstick Negative (Negative); Occult Blood-Urine Negative /ul (Negative); Protein-Dipstick 30 mg/dl (Negative); Specific Gravity, Urine 1.025 (1.002-1.030); Urine Bilirubin Dipstick Negative (Negative); Urine Clarity Clear (Clear); Urine Urobilinogen 1 mg/dl (Normal)
[2023-06-17 04:08] LABS: Squamous Epithelial Cells - UA 0-5 SEEN /hpf (5-10)
[2023-06-17 04:11] LABS: ALB/GLOB Ratio 1.1 RATIO (0.9-2.4); AST(SGOT) 15 U/L (15-37); Alanine Aminotransfer ALT/SGPT 29 U/L (13-56); Alkaline Phosphatase 75 U/L (45-117); Anion Gap 11 (5-15); BUN 13 mg/dL (7-18); Calcium,Total 9.3 mg/dL (8.5-10.1); Chloride 107 mmol/L (98-107); Creatinine, Serum 0.93 mg/dL (0.55-1.02); EST Glomerular Filtration Rate 66 mL/min (>60); Est Glom Filt Rate - Afr Amer 79 mL/min (>60); Estimated Creatinine Clearance 69.28 ml/min; Globulin 3.6 g/dL (2.2-4.2); Glucose 112 mg/dL (74-106); Lipase 30 U/L (13-75); Potassium 3.4 mmol/L (3.5-5.1); Protein, Total 7.6 g/dL (6.4-8.2); Sodium Level 141 mmol/L (136-145)
--- OUTSIDE RECORDS SUMMARY | 2023-06-17 04:19 | XMS RPT_ITS | CCD ---
Author Name Unknown Address [address] [place] [address] Organization [facility] Care Team Providers Care Business Job Titles Name Role Phone MEME FREIRE Attending Unavailable MEME FREIRE Primary Care Unavailable MEME FREIRE Attending Unavailable MEME FREIRE Primary Care Unavailable Malcolm FLOYD.ASSEMBLER [employer], DNP, Ko Primary Care Provider Parker Nick MD Primary Care Provider Parker Nick MD Primary Care Provider Parker Nick MD Primary Care Provider Parker Nick MD Primary Care Provider PARKER HARRIS JR Attending Unavailable PARKER NICK Primary Care Unavailable PARKER NICK Primary Care Unavailable LIZANDRO ROJAS Attending Unavailable PARKER NICK Primary Care Unavailable RADHA MART Attending Unavailab le PARKER NICK Referring Unavailable PARKER NICK Primary Care Unavailable PARKER NICK Referring Unavailable PARKER NICK Primary Care Unavailable PARKER NICK Attending Unavailable PARKER NICK Primary Care Unavailable PARKER NICK Referring Unavailable OTIS JOSE Attending Unavailable PARKER NICK Primary Care Unavailable PARKER HARRIS JR Referring Unavailable PARKER NICK Primary Care Unavailable PARKER NICK Primary Care Unavailable PARKER NICK Referring Unavailable PARKER NICK Referring Unavailable PARKER NICK Primary Care Unavailable PARKER NICK Primary Care Unavailable PARKER NICK Attending Unavailable KO FOWLER Referring Unavailable PARKER NICK Primary Care Unavailable PARKER NICK Primary Care Unavailable PARKER NICK Attending Unavailable PARKER NICK Primary Care Unavailable OTIS JOSE Attending Unavailable PARKER NICK Primary Care Unavailable RADHA MART Referring Unavailab le Allergies Allergy Classification Reported Allergen(s) Allergy Type Date of Onset Reaction(s) Facility (20 sources) buPROPion; Translations: [BUPROPION HCL] Drug Allergy 04-22-2018 [facility] (20 sources) buPROPion; Translations: [BUPROPION] Drug Allergy 06-02-2021 [facility] Medications Current Medications Medication Drug Class(es) Dates Sig (Normalized) Sig (Original) ALPRAZolam 0.5 mg oral tablet (20 sources) Benzodiazepine Start: 12-06-2022 End: 06-30-2023 take 1 tablet by mouth twice daily as needed for anxiety ALPRAZolam (XANAX) 0.5 mg tablet Indications: Panic attacks Take 1 tablet by mouth two times a day as needed for anxiety for up to 90 days. For panic attacks and fear of flying. 30 tablet 0 04/01/2023 06/30/2023 Active Completed/Discontinued Medications Medication Drug Class(es) Dates Sig (Normalized) Sig (Original) CPAP/BIPAP/OTHER (14 sources) Start: 01-29-2023 End: 05-01-2023 CPAP/BIPAP/OTHER Indications: BARB (obstructive sleep apnea) Type .CPAPSettings into a note to see current settings/supplies/DME information. 1 Each 0 01/29/2023 05/01/2023 Discontinued Problems Active Problems Problem Classification Problem Date Documented Da te Episodic/Chronic Anxiety disorders (20 sources) Generalized anxiety disorder; Translations: [Generalized anxiety disorder] Onset: 1 07-18-2020 Chronic Coagulation and hemorrhagic disorders (20 sources) Heterozygous Factor V Leiden mutation; Translations: [Activated protein C resistance] Onset: 8 04-22-2018 Chronic Disorders of lipid metabolism (6 sources) Mixed hyperlipidemia; Translations: [Mixed hyperlipidemia] Onset: 3 Chronic Esophageal disorders (6 sources) Gastroesophageal reflux disease without esophagitis; Translations: [Gastro-esophageal reflux disease without esophagitis] Chronic Mood disorders (20 sources) Recurrent major depression in partial remission; Translations: [Major depressive disorder, recurrent, in partial remission] Onset: 1 07-18-2020 Chronic Noninfectious gastroenteritis (1 source) Gastroenteritis; Translations: [Noninfective gastroenteritis and colitis, unspecified] Episodic Osteoarthritis (1 source) Osteoarthritis of joint of left hand; Translations: [Primary osteoarthritis, left hand] 03-21-2023 Chronic Other connective tissue disease (1 source) Pain in lower limb; Translations: [Pain in leg, unspecified] Episodic Other connective tissue disease (1 source) Pain of left hand; Translations: [Pain in left hand] 03-21-2023 Episodic Other gastrointestinal disorders (2 sources) Diarrhea; Translations: [Diarrhea, unspecified] Episodic Other hematologic conditions (1 source) Erythrocytosis; Translations: [Secondary polycythemia] Episodic Other hereditary and degenerative nervous system conditions (20 sources) Restless legs; Translations: [Restless legs syndrome] 07-18-2020 Chronic Other hereditary and degenerative nervous system conditions (2 sources) Restless legs syndrome; Translations: [Restless leg syndrome] Onset: 1 Chronic Other lower respiratory disease (2 sources) Multiple nodules of lung; Translations: [Other nonspecific abnormal finding of lung field] Episodic Other nervous system disorders (1 source) Other chronic pain; Translations: [Chronic pain of right knee] Onset: 3 Chronic Other non-traumatic joint disorders (20 sources) Pain in right knee; Translations: [Pain in joint, lower leg] Onset: 1 07-18-2020 Episodic Other non-traumatic joint disorders (2 sources) Pain of left wrist; Translations: [Pain in left wrist] 01-16-2023 Episodic Other non-traumatic joint disorders (1 source) Pain in wrist; Translations: [Pain in unspecified wrist] 03-14-2023 Episodic Other non-traumatic joint disorders (1 source) Pain in unspecified wrist; Translations: [Pain in wrist, unspecified laterality] Onset: 3 Episodic Other nutritional; endocrine; and metabolic disorders (20 sources) Obese class II; Translations: [Obesity, unspecified] Onset: 1 12-28-2020 Chronic Other nutritional; endocrine; and metabolic disorders (1 source) Morbid obesity; Translations: [Morbid (severe) obesity due to excess calories] 12-26-2022 Chronic Other screening for suspected conditions (not mental disorders or infectious disease) (4 sources) Patient encounter status; Translations: [Encounter for screening for lipoid disorders] Episodic Residual codes; unclassified (1 source) Behavior finding; Translations: [Other sleep apnea] Chronic Residual codes; unclassified (2 sources) Other sleep apnea; Translations: [Sleep apnea-like behavior] Onset: Chronic Residual codes; unclassified (2 sources) Obstructive sleep apnea syndrome; Translations: [Obstructive sleep apnea (adult) (pediatric)] 12-26-2022 Chronic Residual codes; unclassified (1 source) Frequent night waking; Translations: [Insomnia, unspecified] Episodic Viral infection (1 source) Disease caused by 2019-nCoV; Translations: [COVID-19] Episodic Past or Other Problems Problem Classification Problem Date Documented Date Episodic/Chronic Abdominal pain (1 source) Epigastric pain; Translations: [Epigastric pain] Onset: 02-27-2022 Episodic Biliary tract disease (12 sources) Acute cholecystitis due to biliary calculus; Translations: [Calculus of gallbladder with acute cholecystitis without obstruction] Onset: 07-02-2022 07-02-2022 Episodic Fluid and electrolyte disorders (14 sources) Dehydration; Translations: [Dehydration] Onset: 07-02-2022 Episodic Nausea and vomiting (14 sources) Vomiting; Translations: [Vomiting, unspecified] Onset: 06-29-2021 Episodic Nutritional deficiencies (2 sources) Iron deficiency; Translations: [Iron deficiency] Onset: 10-16-2022 Episodic Other lower respiratory disease (4 sources) Nodule of lung; Translations: [Solitary pulmonary nodule] Onset: 06-26-2021 06-26-2021 Episodic Other lower respiratory disease (20 sources) Solitary nodule of lung; Translations: [Solitary pulmonary nodule] Onset: 06-26-2021 Episodic Other lower respiratory disease (2 sources) Snoring; Translations: [Snoring] Onset: 10-16-2022 Episodic Other lower respiratory disease (1 source) Other nonspecific abnormal finding of lung field; Translations: [Lung nodules] Onset: 07-27-2022 Episodic Other non-traumatic joint disorders (20 sources) Bilateral hip joint pain; Translations: [Pain in right hip] Onset: 07-18-2020 07-18-2020 Episodic Other non-traumatic joint disorders (1 source) Pain in left wrist; Translations: [Left wrist pain] Onset: 01-16-2023 Episodic Residual codes; unclassified (2 sources) Family history of diseases of the blood and blood-forming organs and certain disorders involving the immune mechanism; Translations: [Family history of diseases of the blood and blood-forming organs and certain disorders involving the] Onset: 04-04-2018 Episodic Residual codes; unclassified (3 sources) Insomnia, unspecified; Translations: [Frequent nocturnal awakening] Onset: 10-16-2022 Episodic Results Test Name Value Interpretation Reference Range Facil ity Vital Signs Date Time Vital Sign Value Performing Clinician Faci lity 01-16-2023 11:25-0400 Diastolic blood pressure 86 mm[Hg] Parker Nick MD Work Phone: [facility] 01-16-2023 11:25-0400 Systolic blood pressure 122 mm[Hg] Parker Nick MD Work Phone: [facility] 01-16-2023 10:41-0400 Body weight 101.15 kg Parker Nick MD Work Phone: [facility] 01-16-2023 10:41-0400 Heart rate 87 /min Parker Nick MD Work Phone: [facility] 01-16-2023 10:41-0400 SaO2% (BldA) [Mass fraction] 95 % Parker Nick MD Work Phone: [facility] 08-10-2022 10:42-0500 Diastolic blood pressure 78 mm[Hg] Parker Nick MD Work Phone: [facility] 08-10-2022 10:42-0500 Systolic blood pressure 114 mm[Hg] Parker Nick MD Work Phone: [facility] 08-10-2022 10:03-0500 Body height 154.9 cm Parker Nick MD Work Phone: [facility] 08-10-2022 10:03-0500 Body weight 98.16 kg Parker Nick MD Work Phone: [facility] 08-10-2022 10:03-0500 Heart rate 78 /min Parker Nick MD Work Phone: [facility] 08-10-2022 10:03-0500 SaO2% (BldA) [Mass fraction] 98 % Parker Nick MD Work Phone: [facility] 07-02-2022 10:37-0500 Body height 154.9 cm Parker Nick MD Work Phone: [facility] 07-02-2022 10:37-0500 Body weight 100.7 kg Parker Nick MD Work Phone: [facility] 07-02-2022 10:37-0500 Diastolic blood pressure 94 mm[Hg] Parker Nick MD Work Phone: [facility] 07-02-2022 10:37-0500 Heart rate 77 /min Parker Nick MD Work Phone: [facility] 07-02-2022 10:37-0500 SaO2% (BldA) [Mass fraction] 98 % Parker Nick MD Work Phone: [facility] 07-02-2022 10:37-0500 Systolic blood pressure 124 mm[Hg] Parker Nick MD Work Phone: [facility] 03-19-2022 10:32-0400 Body weight 97.52 kg Parker Harris Jr., MD Work Phone: [facility] 03-19-2022 10:32-0400 Diastolic blood pressure 76 mm[Hg] Parker Harris Jr., MD Work Phone: [facility] 03-19-2022 10:32-0400 Heart rate 81 /min Parker Harris Jr., MD Work Phone: [facility] 03-19-2022 10:32-0400 SaO2% (BldA) [Mass fraction] 98 % Parker Harris Jr., MD Work Phone: [facility] 03-19-2022 10:32-0400 Systolic blood pressure 124 mm[Hg] Parker Harris Jr., MD Work Phone: [facility] 03-08-2022 16:49-0400 Heart rate 102 /min Parker Nick MD Work Phone: [facility] 03-08-2022 16:12-0400 Body weight 96.16 kg Parker Nick MD Work Phone: [facility] 03-08-2022 16:12-0400 Diastolic blood pressure 76 mm[Hg] Parker Nick MD Work Phone: [facility] 03-08-2022 16:12-0400 Respiratory rate 16 /min Parker Nick MD Work Phone: [facility] 03-08-2022 16:12-0400 SaO2% (BldA) [Mass fraction] 97 % Parker Nick MD Work Phone: [facility] 03-08-2022 16:12-0400 Systolic blood pressure 128 mm[Hg] Parker Nick MD Work Phone: [facility] 03-01-2022 15:39-0400 Body height 154.9 cm Parker Nick MD Work Phone: [facility] 03-01-2022 15:39-0400 Body temperature 97.59 [degF] Parker Nick MD Work Phone: [facility] 03-01-2022 15:39-0400 Body weight 96.8 kg Parker Nick MD Work Phone: [facility] 03-01-2022 15:39-0400 Diastolic blood pressure 90 mm[Hg] Parker Nick MD Work Phone: [facility] 03-01-2022 15:39-0400 Heart rate 105 /min Parker Nick MD Work Phone: [facility] 03-01-2022 15:39-0400 SaO2% (BldA) [Mass fraction] 97 % Parker Nick MD Work Phone: [facility] 03-01-2022 15:39-0400 Systolic blood pressure 126 mm[Hg] Parker Nick MD Work Phone: [facility] 02-25-2022 10:48-0400 Body temperature 97.11 [degF] Marino Watson APRN.CNP Work Phone: [facility] 02-25-2022 10:48-0400 Body weight 97.98 [facility] [employer] [employer] Work Phone: [facility] 02-25-2022 10:48-0400 Diastolic blood pressure 88 mm[Hg] [facility]ER.[employer] Work Phone: [facility] 02-25-2022 10:48-0400 Heart rate 76 /min Marino P[place]bury GARAGE DOOR HANGER.[employer]SEM[employer] Work Phone: [facility] 02-25-2022 10:48-0400 Respiratory rate 20 /min [facility] [employer] [employer]ER.[employer]SEM[employer] Work Phone: [facility] 02-25-2022 10:48-0400 SaO2% (BldA) [Mass fraction] 98 % [facility] [employer] DO[employer] HANGER.ASSEM[employer] Work Phone: [facility] 02-25-2022 10:48-0400 Systolic blood pressure 130 mm[Hg] [facility] [employer] DO[employer] HANGER.[employer]SEM[employer] Work Phone: [facility] 01-05-2022 16:02-0400 Body weight 99.61 kg Parker Nick MD Work Phone: [facility] 01-05-2022 16:02-0400 Diastolic blood pressure 86 mm[Hg] Parker Nick MD Work Phone: [facility] 01-05-2022 16:02-0400 Heart rate 80 /min Parker Nick MD Work Phone: [facility] 01-05-2022 16:02-0400 Respiratory rate 16 /min Parker Nick MD Work Phone: [facility] 01-05-2022 16:02-0400 SaO2% (BldA) [Mass fraction] 98 % Parker Nick MD Work Phone: [facility] 01-05-2022 16:02-0400 Systolic blood pressure 128 mm[Hg] Parker Nick MD Work Phone: [facility] 12-12-2021 15:00-0400 Body weight 97.98 kg Parker Nick MD Work Phone: [facility] 12-12-2021 15:00-0400 Diastolic blood pressure 80 mm[Hg] Parker Nick MD Work Phone: [facility] 12-12-2021 15:00-0400 Heart rate 82 /min Parker Nick MD Work Phone: [facility] 12-12-2021 15:00-0400 Respiratory rate 16 /min Parker Nick MD Work Phone: [facility] 12-12-2021 15:00-0400 SaO2% (BldA) [Mass fraction] 97 % Parker Nick MD Work Phone: [facility] 12-12-2021 15:00-0400 Systolic blood pressure 118 mm[Hg] Parker Nick MD Work Phone: [facility] 11-27-2021 11:03-0400 Diastolic blood pressure 75 mm[Hg] Micah Lyn MD Work Phone: [facility] 11-27-2021 11:03-0400 Heart rate 67 /min Micah Lyn MD Work Phone: [facility] 11-27-2021 11:03-0400 Respiratory rate 18 /min Micah Lyn MD Work Phone: [facility] 11-27-2021 11:03-0400 SaO2% (BldA) [Mass fraction] 94 % Micah Lyn MD Work Phone: [facility] 11-27-2021 11:03-0400 Systolic blood pressure 120 mm[Hg] Micah Lyn MD Work Phone: [facility] 11-27-2021 10:42-0400 Body temperature 97.2 [degF] Micah Lyn MD Work Phone: [facility] 11-27-2021 10:15-0400 Body height 157.5 cm Micah Lyn MD Work Phone: [facility] 11-27-2021 10:15-0400 Body weight 98.88 kg Micah Lyn MD Work Phone: [facility] Encounters Encounter Date Encounter Type Care Provider Facility Start: 05-01-2023 End: 05-01-2023 ambulatory Otis Quiñones Lana GARAGE DOOR HANGER.FERNANDA Work Phone: Neurology Procedures Date Procedure Procedure Detail Performing Clinician Start: 03-14-2023 Radiologic exam knee complete 4/more views Radha Rodriguez Barron DO Work Phone: Start: 01-16-2023 Radex wrist complete minimum 3 views Parker Nick MD Work Phone: Start: 12-27-2022 Lipid 1996 panel - Serum or Plasma Radha Mart DO Work Phone: Start: 07-27-2022 Ct thorax w/o contrast material Ko ashton APRN.EVA MICHAEL Work Phone: Start: 02-13-2022 ROXANE YOJANA AMIN RT Parker Nick MD Work Phone: Start: 01-16-2022 Mammography Mammography Coordinator Start: 11-27-2021 Esophagogastroduodenoscopy transoral diagnostic Usha Rhodes APRN.CNP Work Phone: Start: 03-21-2020 Mammography Ko Fowler APRN.EVA MICHAEL Work Phone: Plan of Treatment Date Care Activity Detail Author Start: 10-19-2030 Urine microalbumin profile [facility] Start: 12-28-2027 Lipid 1996 panel - S lupis or Plasma Lipid Screening [facility] Start: 12-28-2027 LIPID SCREEN LIPID SCREEN [facility] Start: 10-20-2027 LIPID SCREEN LIPID SCREEN [facility] Start: 08-30-2027 LIPID SCREEN LIPID SCREEN [facility] Start: 12-25-2026 LIPID SCREEN LIPID SCREEN [facility] Start: 03-10-2025 DIABETES SCREEN DIABETES SCREEN [facility] Start: 03-10-2025 Diabetes Screening Diabetes Screenin g [facility] Start: 03-01-2025 DIABETES SCREEN DIABETES SCREEN [facility] Start: 02-27-2025 DIABETES SCREEN DIABETES SCREEN [facility] Start: 12-25-2024 DIABETES SCREEN DIABETES SCREEN [facility] Start: 01-06-2024 COLOGUARD (FIT-DNA) COLOGUARD (FIT-D NA) [facility] Start: 01-06-2024 COLORECTAL CANCER SCREENING COLORECTAL CANCER SCREENING [facility] Start: 07-30-2023 End: 08-29-2023 Ct thorax w/o contrast material CT CHEST WO IVCON Radiology Routine Lung nodules Expected: 07/30/2023, Expires: 08/29/2023 [facility] Work Phone: Immunizations Immunization Date Immunization Notes Care Provider Jarrod rosario 02-09-2022 COVID-19 booster vaccine, age 12+ yr, bivalent (PFIZER-BIONTECH) Best Harman [employer] Work Phone: [facility] Work Phone: 02-09-2022 COVID-19 vaccine, ag e 12+ yr (PFIZER-BIONTECH - PURPLE TOP) Diagnostic [facility] 02-09-2022 influenza, injectabl e, quadrivalent, preservative free Best Harman GARAGE DOOR HANGER.[employer]SEM[employer] Work Phone: [facility] Work Phone: 02-09-2022 influenza, seasonal, injectable Diagnostic [facility] 03-15-2021 influenza, seasonal, injectable Best Harman GARAGE [employer]OR HANGER.[employer]SEM[employer] Work Phone: [facility] Work Phone: 03-03-2021 influenza, injectabl e, quadrivalent, preservative free Parker Nick MD Work Phone: [facility] 12-28-2020 zoster vaccine recombinant Ko Fowler APRN.FERNANDA, DNP Work Phone: [facility] 10-19-2020 tetanus toxoid, redu josse diphtheria toxoid, and acellular pertussis vaccine, adsorbed Ko Fowler APRN.FERNANDA, DNP Work Phone: [facility] 10-19-2020 zoster vaccine recombinant Ko Fowler APRN.FERNANDA [facility] Work Phone: [facility] 07-13-2020 COVID-19 vaccine, fu ll dose (MODERNA) Ko Fowler GARAGE DOOR HANGER.FERNANDA [facility] Work Phone: [facility] 06-15-2020 COVID-19 vaccine, fu ll dose (MODERNA) Ko Fowler GARAGE DOOR HANGER.FERNANDA [facility] Work Phone: [facility] 02-23-2020 Influenza, injectabl e, Madin Eldridge Canine Kidney, preservative free, quadrivalent Ko Blajosh GARAGE DOOR HANGER.FERNANDA [facility] Work Phone: [facility] Work Phone: 02-23-2020 influenza, injectabl e, quadrivalent, contains preservative Ko Blajosh GARAGE DOOR HANGER.FERNANDA [facility] Work Phone: [facility] Work Phone: 01-30-2018 influenza, injectabl e, quadrivalent, preservative free Ko Blajosh GARAGE DOOR HANGER.FERNANDA [facility] Work Phone: [facility] Work Phone: 01-01-2018 influenza, seasonal, injectable, preservative free Ko Blajosh GARAGE DOOR HANGER.FERNANDA [facility] Work Phone: [facility] Work Phone: 01-23-2017 influenza, injectabl e, quadrivalent, preservative free Ko Blaz GARAGE DOOR HANGER.FERNANDA [facility] Work Phone: [facility] Work Phone: 01-27-2016 influenza, injectabl e, quadrivalent, preservative free Ko Blaz GARAGE DOOR HANGER.FERNANDA [facility] Work Phone: [facility] Work Phone: 01-19-2015 influenza, seasonal, injectable, preservative free Ko Blaz GARAGE DOOR HANGER.FERNANDA [facility] Work Phone: [facility] Work Phone: 11-09-2013 pneumococcal polysaccharide vaccine, 23 valent Ko Fowler APRN.[employer], DNP Work Phone: [facility] Work Phone: Payers Date Payer Category Payer Private Health Insurance [employer] A ETNA CHOICE POS II [id number] 2019-Present [phone] [address] [place] [address] POS [id number] 2019 Private Health Insurance [id number] 2019 Private Health Insurance [id number] 2018 Unknown [id number] 2018 Unknown [id number] 1965 Unknown [id number] 1965 Unknown [id number] Social History Date Type Detail Facility Start: 04-22-2018 End: 02-25-2022 Tobacco smoking status NHIS Ex-smoker [facility] History of tobacco use Cigarette Smoker C [facility] Start: 04-22-2018 End: 10-16-2022 Cigarettes smoked current (pack per day) - Reported 1 [facility] Start: 04-22-2018 End: 02-25-2022 Tobacco use and exposure Smokeless tobacco non-user [facility] Start: 06-23-2021 End: 03-14-2023 Alcohol intake Current non-drinker of alcohol (finding) [facility] Start: 03-07-2020 End: 07-01-2022 History SDOH Alcohol Frequency 2 [facility] Start: 07-13-2019 End: 07-01-2022 History SDOH Alcohol Std Drinks 1 [facility] Start: 07-13-2019 End: 07-01-2022 History SDOH Social Connections Phone 3 [facility] Start: 03-07-2020 End: 07-01-2022 History SDOH Financial 5 [facility] Start: 07-13-2019 Education 15 [facility] Start: 04-22-2018 End: 02-25-2022 Tobacco Comment quit 2012 [facility] Start: 1965 Sex Assigned At Not on file [facility] Start: 09-08-2021 End: 09-18-2021 Exposure to SARS-CoV-2 (event) Unable to assess [facility] Work Phone: Start: 1965 Sex Assigned At Female [facility] Start: 11-11-2021 End: 03-01-2022 Exposure to SARS-CoV-2 (event) Not sure [facility] Work Phone: History of tobacco use Current smoker [facility] Start: 07-01-2022 History SDOH Physical Activity DPW 0 [facility] Start: 06-30-2022 End: 10-16-2022 Social connection and isolation panel [facility] Frequency of Social Gatherings with Friends and Family Not on file [facility] Do you belong to any clubs or organizations such as moravian groups, unions, fraternal or athletic groups, or school groups? No [facility] Are you now , , , , never or living with a partner? [facility] How often to you hav e a drink containing alcohol? Monthly or less [facility] How many standard dr inks containing alcohol do you have on a typical day? 1 or 2 [facility] How often do you hav e 6 or more drinks on 1 occasion? Never [facility] Do you feel stress - tense, restless, nervous, or anxious, or unable to sleep at night because your mind is troubled all the time - these days [OSQ] Only a little [facility] (I/We) worried zander er (my/our) food would run out before (I/we) got money to buy more. Never true [facility] Start: 11-20-2021 Gender identity Identifies as female gender (finding) [facility] Start: 11-20-2021 Sexual orientation Heterosexual (finding) [facility] Clinical Notes 09-18-2021 to 05-01-2023 Otis Jose, G[employer]AGE DOOR HANGER.[employer] - 05/01/2023 12:00 PM [facility] Crespo, RT(R) - 03/14/2023 11:00 AM Radha Tobin DO - 03/14/2023 10:27 AM Burton Antoninotiffany PSS - 11/13/2022 3:31 PM EDT Note Date & Type Note Facility 05-01-2023 Note HNO ID: [id number] Author: Otis Jose APRN.ASSEMBLER [employer] Service: ? 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 HST on 11/08/2022 identified at least mild BARB with AHI of 9.2. Will start pap therapy. RLS improved with change of dosage with requip and topamax. Will further decrease requip from 2 mg to 1.75 mg; provided 0.25 mg tablet that she will take with the 1 mg tablet. She may be able to decrease caffeine once sleep apnea is well treated and this may be of benefit to RLS. - Discussed diagnosis, causes, and conditions associated with obstructive sleep apnea. - Avoid driving when drowsy. -Encouraged healthy lifestyle with adequate sleep (7-9 hours per night), diet and exercise. - Will start Auto CPAP 5-15 cmH2O. - I will have a prescription sent to a [employer] ([employer] medical [employer]) company - [employer] . - Will adjust pressure for comfort if requested prior to next visit. - You should be eligible for new supplies approximately every 3-6 months, depending on your insurance coverage. - If your mask doesn't fit well, call the [employer] company before 30 days are up to get a new mask without an additional charge. - Insurance requires regular usage and periodic office follow ups for PAP therapy, to continue to cover supplies. INSURANCE REQUIREMENTS: - Your insurance requires a [id number] follow up visit within a 31-90 day period after starting CPAP. - Your insurance requires compliance with CPAP, which is at least 4 hours per night for 70% of the time. This must be done over a 30 day period and must occur within the initial 31-90 day period after starting CPAP. - Your insurance also requires at least yearly follow ups to continue to pay for CPAP supplies. - Please call [phone] to schedule a follow up appointment in Sleep Disorders Saturday through Saturday during regular business hours or call Appointment Center 24/12 - [phone] after you receive machine. Otis Jose, GARAGE DOOR HANGER.ASSEMBLER [employer] I have communicated my name and active licensure. The patient's identity and physical location were verified at the time of this visit. Either the patient or their legal lead customer service representative has been informed of the risks and benefits of -- and alternatives to -- treatment through a remote evaluation and consents to proceed with the evaluation remotely. Interval history : Here for follow up for follow-up SLEEP APNEA Sleep apnea type : BARB, Most Recent Apnea-Hypopnea Index (AHI): 9.2 Treatment : None She tried pap therapy x 1 and had a panic attack and sent it back. She did not tolerate oral appliance in the place. [facility] This program is endorsed by her insurance company. --- RLS 9:30 pm: topamax 150 mg and requip 1.75 mg States that as long as she takes her medication on time, no issues with RLS. No RF needed at this time. SLEEP HYGIENE QUESTIONS: Time it takes to fall sleep : 20 min Number of times patient wakes up per night : 2 Reason (s) why patient wakes up during the night : nocturia No trouble falling back to sleep Estimated total sleep time ( in a 24 hour period of time) : 8 Naps : No PATIENT-ENTERED QUESTIONNAIRE SLEEP SCORES Sleep Questions 12/23/2022 Reason for visit: Restless Legs Syndrome Average hours slept in 24 hours: 8 Accidents or near accidents due to drowsy drivin [place] Sleepiness Scale 12/23/2022 Score 4 (No daytime sleepiness) PROMIS CAT Sleep Disturbance 12/23/2022 PROMIS Sleep Disturbance T-Score 54 (within normal limits) PROMIS Sleep Disturbance Percentile 34 % Restless Leg Syndrome 12/24/2022 Score 21 PHQ-9 12/06/2021 12/23/2022 Score 7 4 PROMIS Global Health - (T-Scores - the mean of general population = 50. Five points is a clinically meaningful difference.) 03/30/2022 06/30/2022 12/23/2022 Physical T-Score 47.7 47.7 47.7 Mental T-Score 48.3 48.3 50.8 PMH, PSH, SH: works 2nd shift and drinks a lot of water when working SLEEP RELATED ROS Review of Systems HENT: Negative for congestion. Respiratory: Negative. Cardiovascular: Negative. Genitourinary: Positive for nocturia. Musculoskeletal: Positive for back pain. See hpi ALLERGIES Allergen Reactions Bupropion Hives Hives Wellbutrin [Bupropi* Hives CURRENT MEDICATIONS: ALPRAZolam (XANAX) 0.5 mg tablet Take 1 tablet by mouth two times a day as needed for anxiety for up to 90 days. For panic attacks and fear of fly (more content not included)... [facility] 05-01-2023 History of Presen t illness Narrative Images from the original note were not included. 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 HST on 11/08/2022 identified at least mild BARB with AHI of 9.2. Will start pap therapy. RLS improved with change of dosage with requip and topamax. Will further decrease requip from 2 mg to 1.75 mg; provided 0.25 mg tablet that she will take with the 1 mg tablet. She may be able to decrease caffeine once sleep apnea is well treated and this may be of benefit to RLS. - Discussed diagnosis, causes, and conditions associated with obstructive sleep apnea. - Avoid driving when drowsy. -Encouraged healthy lifestyle with adequate sleep (7-9 hours per night), diet and exercise. - Will start Auto CPAP 5-15 cmH2O. - I will have a prescription sent to a [employer] (durable medical equipment) company - [employer] . - Will adjust pressure for comfort if requested prior to next visit. - You should be eligible for new supplies approximately every 3-6 months, depending on your insurance coverage. - If your mask doesn't fit well, call the [employer] company before 30 days are up to get a new mask without an additional charge. - Insurance requires regular usage and periodic office follow ups for PAP therapy, to continue to cover supplies. INSURANCE REQUIREMENTS: - Your insurance requires a [id number] follow up visit within a 31-90 day period after starting CPAP. - Your insurance requires compliance with CPAP, which is at least 4 hours per night for 70% of the time. This must be done over a 30 day period and must occur within the initial 31-90 day period after starting CPAP. - Your insurance also requires at least yearly follow ups to continue to pay for CPAP supplies. - Please call [phone] to schedule a follow up appointment in Sleep Disorders Saturday through Saturday during regular business hours or call Appointment Center 24/12 - [phone] after you receive machine. Otis Jose, VEERETT.ASSEMBLER [employer] I have communicated my name and active licensure. The patient's identity and physical location were verified at the time of this visit. Either the patient or their legal lead customer service representative has been informed of the risks and benefits of -- and alternatives to -- treatment through a remote evaluation and consents to proceed with the evaluation remotely. Interval history : Here for follow up for follow-up SLEEP APNEA Sleep apnea type : BARB, Most Recent Apnea-Hypopnea Index (AHI): 9.2 Treatment : None She tried pap therapy x 1 and had a panic attack and sent it back. She did not tolerate oral appliance in the place. She [facility] is [facility] by her insurance company. RLS 9:30 pm: topamax 150 mg and requip 1.75 mg States that as long as she takes her medication on time, no issues with RLS. No RF needed at this time. SLEEP HYGIENE QUESTIONS: Time it takes to fall sleep : 20 min Number of times patient wakes up per night : 2 Reason (s) why patient wakes up during the night : nocturia No trouble falling back to sleep Estimated total sleep time ( in a 24 hour period of time) : 8 Naps : No PATIENT-ENTERED QUESTIONNAIRE SLEEP SCORES Sleep Questions 12/23/2022 Reason for visit: Restless Legs Syndrome Average hours slept in 24 hours: 8 Accidents or near accidents due to drowsy drivin [place] Sleepiness Scale 12/23/2022 Score 4 (No daytime sleepiness) PROMIS CAT Sleep Disturbance 12/23/2022 PROMIS Sleep Disturbance T-Score 54 (within normal limits) PROMIS Sleep Disturbance Percentile 34 % Restless Leg Syndrome 12/24/2022 Score 21 PHQ-9 12/06/2021 12/23/2022 Score 7 4 PROMIS Global Health - (T-Scores - the mean of general population = 50. Five points is a clinically meaningful difference.) 03/30/2022 06/30/2022 12/23/2022 Physical T-Score 47.7 47.7 47.7 Mental T-Score 48.3 48.3 50.8 PMH, PSH, SH: works 2nd shift and drinks a lot of water when working SLEEP RELATED ROS Review of Systems HENT: Negative for congestion. Respiratory: Negative. Cardiovascular: Negative. Genitourinary: Positive for nocturia. Musculoskeletal: Positive for back pain. See hpi ALLERGIES Allergen Reactions Bupropion Hives Hives Wellbutrin [Bupropi* Hives CURRENT MEDICATIONS: ALPRAZolam (XANAX) 0.5 mg tablet Take 1 tablet by mouth two times a day as needed for anxiety for up to 90 days. For panic attacks and fear of flying. multivit with calcium,iron,min (WOMEN'S MULTIPLE VITAMINS ORAL) Take by mouth once daily. rOPINIRole (REQUIP) 0.25 mg tablet Take 1 tablet by mouth three times a day. topiramate (TOPAMAX) 50 mg tablet Take 3 tablets by mouth daily at bedtime. rOPINIRole (REQUIP) 1 mg tablet Take 1 tablet by mouth three times a day. CPAP/BIPAP/OTHER Type .CPAPSettings into a note to see current settings/supplies/DME information. lansoprazole (PREVACID) 30 mg capsule Take 1 capsule by mouth twice daily. 1/2 hr before meal. CPAP/BIPAP/OTHER Type .CPAPSettings into a note to see current settings/supplies/DME information. rOPINIRole (REQUIP) 1 mg tablet Take 2 tablets by mouth daily at bedtime. Take this instead of 3mg in order to reduce augmentation atorvastatin (LIPITOR) 10 mg tablet Take 1 tablet by mouth daily at bedtime. For cholesterol. Lactobac no.41/Bifidobact no.7 (PROBIOTIC-10 ORAL) Take by mouth. Prior Hypersomnia/Narcolepsy Medications (20 years) Some values may be hidden. Unless noted otherwise, only the newest values recorded on each date are displayed. Hypersomnia/Narcolepsy Medications No data to display. Prior RLS Medications (last 20 years) Some values may be hidden. Unless noted otherwise, only the newest values recorded on each date are displayed. RLS Medications morphine 4 mg injection Dose: 4 mg ONCE Starting date: 02/27/2022 Ending date: 02/27/2022 rOPINIRole (REQUIP) 0.25 mg tablet Dose: 0.25 mg 3 TIMES DAILY Starting date: 12/26/2022 Ending date: 03/10/2023 (Discontinued) rOPINIRole (REQUIP) 0.25 mg tablet Dose: 0.25 mg 3 TIMES DAILY Starting date: 03/11/2023 (active) rOPINIRole (REQUIP) 0.5 mg tablet Dose: 0.5 mg AT BEDTIME Take in addition to 2mg tablet. Starting date: 10/19/2020 Ending date: 12/28/2020 (Discontinued) rOPINIRole (REQUIP) 0.5 mg tablet Dose: 0.5 mg AT BEDTIME Take in addition to 2mg tablet. Starting date: 12/28/2020 Ending date: 06/20/2021 (Discontinued) rOPINIRole (REQUIP) 0.5 mg tablet Dose: 0.5 mg AT BEDTIME Take in addition to 2mg tablet. Starting date: 06/20/2021 Ending date: 12/12/2021 (Discontinued) rOPINIRole (REQUIP) 1 mg tablet Dose: 2 mg AT BEDTIME Take this instead of 3mg in order to reduce augmentation Starting date: 10/16/2022 Ending date: 01/16/2023 rOPINIRole (REQUIP) 1 mg tablet Dose: 1 mg 3 TIMES DAILY Starting date: 01/23/2023 Ending date: 03/10/2023 (Discontinued) rOPINIRole (REQUIP) 1 mg tablet Dose: 1 mg 3 TIMES DAILY Starting date: 03/11/2023 Ending date: 06/09/2023 rOPINIRole (REQUIP) 2 mg tablet Dose: 2 mg AT BEDTIME Starting date: 04/24/2019 Ending date: 07/15/2019 (Discontinued) rOPINIRole (REQUIP) 2 mg tablet Dose: 2 mg AT BEDTIME Starting date: 07/15/2019 Ending date: 10/30/2019 (Discontinued) rOPINIRole (REQUIP) 2 mg tablet Dose: 2 mg AT BEDTIME Starting date: 11/02/2019 Ending date: 01/27/2020 (Discontinued) rOPINIRole (REQUIP) 2 mg tablet Dose: 2 mg AT BEDTIME Starting date: 01/27/2020 Ending date: 04/04/2020 (Discontinued) rOPINIRole (REQUIP) 2 mg tablet Dose: 2 mg AT BEDTIME Starting date: 04/05/2020 Ending date: 07/09/2020 (Discontinued) rOPINIRole (REQUIP) 2 mg tablet Dose: 2 mg AT BEDTIME Starting date: 07/11/2020 Ending date: 09/29/2020 (Discontinued) rOPINIRole (REQUIP) 2 mg tablet Dose: 2 mg AT BEDTIME Starting date: 10/02/2020 Ending date: 12/28/2020 (Discontinued) rOPINIRole (REQUIP) 2 mg tablet Dose: 2 mg AT BEDTIME Starting date: 12/28/2020 Ending date: 06/20/2021 (Discontinued) rOPINIRole (REQUIP) 2 mg tablet Dose: 2 mg AT BEDTIME Starting date: 06/20/2021 Ending date: 12/12/2021 (Discontinued) rOPINIRole 3 mg tablet Dose: 3 mg AT BEDTIME Starting date: 12/12/2021 Ending date: 12/26/2022 (Discontinued) Medication marked as long-term Prior Insomnia Medications (last 20 years) Some values may be hidden. Unless noted otherwise, only the newest values recorded on each date are displayed. Insomnia Medications ALPRAZolam (XANAX) 0.5 mg tablet Dose: To use before her flights, 2 times a day as needed Starting date: 07/15/2019 Ending date: 07/18/2020 (Discontinued) ALPRAZolam (XANAX) 0.5 mg tablet Dose: 0.5 mg 2 TIMES DAILY NEEDED For panic attacks and fear of flying. Starting date: 07/18/2020 Ending date: 09/29/2020 (Discontinued) ALPRAZolam (XANAX) 0.5 mg tablet Dose: 0.5 mg 2 TIMES DAILY NEEDED For panic attacks and fear of flying. Starting date: 09/30/2020 Ending date: 12/28/2020 (Discontinued) ALPRAZolam (XANAX) 0.5 mg tablet Dose: 0.5 mg 2 TIMES DAILY NEEDED For panic attacks and fear of flying. Starting date: 12/28/2020 Ending date: 03/21/2021 (Discontinued) ALPRAZolam (XANAX) 0.5 mg tablet Dose: 0.5 mg 2 TIMES DAILY NEEDED For panic attacks and fear of flying. Starting date: 03/22/2021 Ending date: 06/20/2021 (Discontinued) ALPRAZolam (XANAX) 0.5 mg tablet Dose: 0.5 mg 2 TIMES DAILY NEEDED For panic attacks and fear of flying. Starting date: 06/20/2021 Ending date: 09/18/2021 ALPRAZolam (XANAX) 0.5 mg tablet Dose: Take by mouth. (Patient not taking as of 03/01/2022 3:38 PM) Starting date: 06/04/2021 Ending date: 03/01/2022 (Discontinued) ALPRAZolam (XANAX) 0.5 mg tablet Dose: 0.5 mg 2 TIMES DAILY NEEDED For panic attacks and fear of flying. Starting date: 12/12/2021 Ending date: 05/05/2022 (Discontinued) ALPRAZolam (XANAX) 0.5 mg tablet Dose: 0.5 mg 2 TIMES DAILY NEEDED For panic attacks and fear of flying. Starting date: 05/07/2022 Ending date: 08/10/2022 (Discontinued) ALPRAZolam (XANAX) 0.5 mg tablet Dose: 0.5 mg 2 TIMES DAILY NEEDED For panic attacks and fear of flying. Starting date: 08/10/2022 Ending date: 12/06/2022 (Discontinued) ALPRAZolam (XANAX) 0.5 mg tablet Dose: 0.5 mg 2 TIMES DAILY NEEDED For panic attacks and fear of flying. Starting date: 12/06/2022 Ending date: 12/07/2022 (Discontinued) ALPRAZolam (XANAX) 0.5 mg tablet Dose: 0.5 mg 2 TIMES DAILY NEEDED For panic attacks and fear of flying. Starting date: 12/07/2022 Ending date: 04/01/2023 (Discontinued) ALPRAZolam (XANAX) 0.5 mg tablet Dose: 0.5 mg 2 TIMES DAILY NEEDED For panic attacks and fear of flying. Starting date: 04/01/2023 Ending date: 06/30/2023 escitalopram oxalate (LEXAPRO) 10 mg tablet Dose: 10 mg DAILY Starting date: 07/18/2020 Ending date: 09/29/2020 (Discontinued) escitalopram oxalate (LEXAPRO) 10 mg tablet Dose: 10 mg DAILY Starting date: 09/30/2020 Ending date: 12/28/2020 (Discontinued) escitalopram oxalate (LEXAPRO) 10 mg tablet Dose: 10 mg DAILY Starting date: 12/28/2020 Ending date: 06/20/2021 (Discontinued) escitalopram oxalate (LEXAPRO) 10 mg tablet Dose: 10 mg DAILY Starting date: 06/20/2021 Ending date: 12/12/2021 (Discontinued) escitalopram oxalate (LEXAPRO) 10 mg tablet Dose: 10 mg DAILY Starting date: 12/12/2021 Ending date: 07/02/2022 (Discontinued) escitalopram oxalate (LEXAPRO) 10 mg tablet Dose: 10 mg DAILY Starting date: 07/02/2022 Ending date: 12/26/2022 (Discontinued) PHYSICAL EXAMINATION: General appearance: NAD, pleasant Mental status: Awake & alert Constitutional: WNL Neuro: Fluent speech IMPRESSION / PLAN: Mild barb is currently untreated. She had a panic attack when attempting to wear mask and has not been able to tolerate oral appliances. She engaged in care with a weight loss program endorsed by her insurance company. RLS is stable on current medication regimen of topamax 150 mg and requip 1.75 mg. - Follow up in 2-3 months or when available with Dr. Harris ([facility] 10/16/2022). Otis Jose APRN.FERNANDA I spent a total of 25 minutes on the date of the service which included preparing to see the patient, [id number] patient care, completing clinical documentation, counseling and educating the patient/family/caregiver, and ordering medications, tests, or procedures. documented in this encounter [facility] 03-14-2023 Note HNO ID: [id number] Author: Faby Torres RT(R) Service: Radiology Author Type: Technologist Type: Progress Notes Filed: 03/14/2023 11:32 AM Note Text: Radiology Service Progress Note PATIENT NAME: Shalini Gonsales DATE OF SERVICE: March 14, 2023 TIME: 11:20 AM PATIENT IDENTITY VERIFICATION COMPLETED USING TWO (2) IDENTIFIERS: Name and Date of confirmed by patient verbally. FALL SCREENING: Has the patient had 2 falls in the last year or 1 fall with injury or currently using an Ambulatory Assistive Device (Walker, Cane, Wheelchair, Crutches, etc.)? No PATIENT GENDER DATA: Female. status: : No status: NO. PATIENT RELEVANT IMPLANT DATA REVIEWED: Not Applicable RADIOLOGY DEPARTMENT: General X-ray: Exam(s) Completed: Lower Extremity X-Ray(s): Knee, AP / Lat / Tunne / Merchant Right and Wt. Bearing PERIPHERAL IV DATA: Not applicable SIGNED BY: RT Henrry(R) March 14, 2023 11:20 AM [facility] 03-14-2023 Note HNO ID: [id number] Author: Radha Mart, DO Service: ? Author Type: Physician Type: Progress Notes Filed: 03/21/2023 10:54 AM Note Text: Reason for Visit/Chief Complaint Shalini Gonsales is a 57 year old female who presents today for a new evaluation of following complaint: Patient presents with: Left Wrist - New, Pain History of Present Illness: PAIN EVALUATION 03/14/2023 1033 Pain Level: 4 Pain Location: Wrist-Left Description: Sharp crunchy Duration Amount of Time: 4 Duration Units: Months Frequency: Intermittent Occurs with movement Intervention/Comfort measure: Medication HPI: Shalini Gonsales is a 57 year old female presenting today with Left wrist pain. Pain history is noted as above. Patient states she is having pain at the base of her thumb. No specific injury., She was told she has arthritis in her thumb. Patient is right hand dominant. 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 Taking Ibuprofen and applying Voltaren gel but does not help. X-rays done on 01/16/23. Previous Treatments: Ice: Yes Heat: No Brace: No NSAIDs: Yes, Ibuprofen and Voltaren gel Injections: No Surgeries: No Physical Therapy: No Review of Systems: Patient did not have, and does not currently have, any weight loss, malaise, fever, chills, headache, chest pain, chest pressure, palpitations, cough, shortness of breath, orthopnea, paroxsymal nocturnal dyspnea, nausea, vomiting, diarrhea, constipation, melena, hematochezia, urinary difficulties, prolonged bleeding, easily bruising, heat or cold intolerance, new onset joint pain or swelling, new onset extremity weakness or numbness, new onset auditory or visual disturbances, lightheadedness, dizziness, partial loss of consciousness or full loss of consciousness. Current Outpatient Medications on File Prior to Visit Medication Sig atorvastatin (LIPITOR) 10 mg tablet Take 1 tablet by mouth daily at bedtime. For cholesterol. CPAP/BIPAP/OTHER Type .CPAPSettings into a note to see current settings/supplies/DME information. CPAP/BIPAP/OTHER Type .CPAPSettings into a note to see current settings/supplies/DME information. Lactobac no.41/Bifidobact no.7 (PROBIOTIC-10 ORAL) Take by mouth. lansoprazole (PREVACID) 30 mg capsule Take 1 capsule by mouth twice daily. 1/2 hr before meal. multivit with calcium,iron,min (WOMEN'S MULTIPLE VITAMINS ORAL) Take by mouth once daily. rOPINIRole (REQUIP) 0.25 mg tablet Take 1 tablet by mouth three times a day. rOPINIRole (REQUIP) 1 mg tablet Take 2 tablets by mouth daily at bedtime. Take this instead of 3mg in order to reduce augmentation rOPINIRole (REQUIP) 1 mg tablet Take 1 tablet by mouth three times a day. topiramate (TOPAMAX) 50 mg tablet Take 3 tablets by mouth daily at bedtime. No current facility-administered medications on file prior to visit. ALLERGIES Allergen Reactions Bupropion Hives Hives Wellbutrin [Bupropi* Hives Physical Exam: Vitals: There were no vitals taken for this visit. Psych: Pleasant, good affect and mood General Appearance: Well appearing, alert, in no acute distress, well-hydrated, well nourished.. Skin: Skin color, texture, turgor normal, no suspicious rashes or lesions. Peripheral Pulses: Normal. Neurologic: Gait normal. Reflexes normal and symmetric. Sensation grossly intact.. Lymph Nodes: No cervical lymphadenopathy, No supraclavicular lymphadenopathy, No axillary lymphadenopathy., and No inguinal lymphadenopathy.. Respiratory: No recent pulmonary infection, hemoptysis, chronic cough, or shortness of breath at rest Rheumatologic: Joint deformities: Last XR Wrist - Impression Only XR WRIST GENERAL 3V PA/LAT/OBL LEFT Exam End: 01/16/2023 12:00 PM (Final result) Impression: IMPRESSION: Advanced base of thumb degenerative change. Local Bulk Driver: ROSALEE Transcribe Date/Time: Jan 22 2023 9:33A... Right Hand Exam Right hand exam is normal. Tenderness The patient is experiencing no tenderness. Range of Motion The patient has normal right wrist ROM. Wrist Extension: normal Flexion: normal Pronation: normal Supination: normal Muscle Strength The patient has normal right wrist strength. Tests Phalen?s Sign: negative Tinel's sign (median nerve): negative Papi's test: negative Other Erythema: absent Sensation: normal Pulse: present Comments: B/l med/uln/rad/ax nerves intact Left Hand Exam Tenderness Left hand tenderness location: cmc/st joint. Range of Motion The patient has normal left wrist ROM. Wrist Extension: normal Flexion: normal Pronation: normal Supination: normal Muscle Strength The patient has normal left wrist strength. Tests Phalen?s Sign: negative Tinel's sign (median nerve): negative Papi's test: negative Other Erythema: absent Sensation: normal Pulse: present Comments: Pos grind at st joint Imaging: see above Assessment and Plan: (more content not included)... [facility] 03-14-2023 History of Presen t illness Narrative Radiology Service Progress Note PATIENT NAME: Shalini Gonsales DATE OF SERVICE: March 14, 2023 TIME: 11:20 AM PATIENT IDENTITY VERIFICATION COMPLETED USING TWO (2) IDENTIFIERS: Name and Date of confirmed by patient verbally. FALL SCREENING: Has the patient had 2 falls in the last year or 1 fall with injury or currently using an Ambulatory Assistive Device (Walker, Cane, Wheelchair, Crutches, etc.)? No PATIENT GENDER DATA: Female. status: : No status: NO. PATIENT RELEVANT IMPLANT DATA REVIEWED: Not Applicable RADIOLOGY DEPARTMENT: General X-ray: Exam(s) Completed: Lower Extremity X-Ray(s): Knee, AP / Lat / Tunne / Merchant Right and Wt. Bearing PERIPHERAL IV DATA: Not applicable SIGNED BY: RT Henrry(R) March 14, 2023 11:20 AM documented in this encounter [facility] 03-14-2023 History of Presen t illness Narrative Images from the original note were not included. Reason for Visit/Chief Complaint Shalini Gonsales is a 57 year old female who presents today for a new evaluation of following complaint: Patient presents with: Left Wrist - New, Pain History of Present Illness: PAIN EVALUATION 03/14/2023 1033 Pain Level: 4 Pain Location: Wrist-Left Description: Sharp crunchy Duration Amount of Time: 4 Duration Units: Months Frequency: Intermittent Occurs with movement Intervention/Comfort measure: Medication HPI: Shalini Gonsales is a 57 year old female presenting today with Left wrist pain. Pain history is noted as above. Patient states she is having pain at the base of her thumb. No specific injury., She was told she has arthritis in her thumb. Patient is right hand dominant. 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 Taking Ibuprofen and applying Voltaren gel but does not help. X-rays done on 01/16/23. Previous Treatments: Ice: Yes Heat: No Brace: No NSAIDs: Yes, Ibuprofen and Voltaren gel Injections: No Surgeries: No Physical Therapy: No Review of Systems: Patient did not have, and does not currently have, any weight loss, malaise, fever, chills, headache, chest pain, chest pressure, palpitations, cough, shortness of breath, orthopnea, paroxsymal nocturnal dyspnea, nausea, vomiting, diarrhea, constipation, melena, hematochezia, urinary difficulties, prolonged bleeding, easily bruising, heat or cold intolerance, new onset joint pain or swelling, new onset extremity weakness or numbness, new onset auditory or visual disturbances, lightheadedness, dizziness, partial loss of consciousness or full loss of consciousness. Current Outpatient Medications on File Prior to Visit Medication Sig atorvastatin (LIPITOR) 10 mg tablet Take 1 tablet by mouth daily at bedtime. For cholesterol. CPAP/BIPAP/OTHER Type .CPAPSettings into a note to see current settings/supplies/DME information. CPAP/BIPAP/OTHER Type .CPAPSettings into a note to see current settings/supplies/DME information. Lactobac no.41/Bifidobact no.7 (PROBIOTIC-10 ORAL) Take by mouth. lansoprazole (PREVACID) 30 mg capsule Take 1 capsule by mouth twice daily. 1/2 hr before meal. multivit with calcium,iron,min (WOMEN'S MULTIPLE VITAMINS ORAL) Take by mouth once daily. rOPINIRole (REQUIP) 0.25 mg tablet Take 1 tablet by mouth three times a day. rOPINIRole (REQUIP) 1 mg tablet Take 2 tablets by mouth daily at bedtime. Take this instead of 3mg in order to reduce augmentation rOPINIRole (REQUIP) 1 mg tablet Take 1 tablet by mouth three times a day. topiramate (TOPAMAX) 50 mg tablet Take 3 tablets by mouth daily at bedtime. No current facility-administered medications on file prior to visit. ALLERGIES Allergen Reactions Bupropion Hives Hives Wellbutrin [Bupropi* Hives Physical Exam: Vitals: There were no vitals taken for this visit. Psych: Pleasant, good affect and mood General Appearance: Well appearing, alert, in no acute distress, well-hydrated, well nourished.. Skin: Skin color, texture, turgor normal, no suspicious rashes or lesions. Peripheral Pulses: Normal. Neurologic: Gait normal. Reflexes normal and symmetric. Sensation grossly intact.. Lymph Nodes: No cervical lymphadenopathy, No supraclavicular lymphadenopathy, No axillary lymphadenopathy., and No inguinal lymphadenopathy.. Respiratory: No recent pulmonary infection, hemoptysis, chronic cough, or shortness of breath at rest Rheumatologic: Joint deformities: Last XR Wrist - Impression Only XR WRIST GENERAL 3V PA/LAT/OBL LEFT Exam End: 01/16/2023 12:00 PM (Final result) Impression: IMPRESSION: Advanced base of thumb degenerative change. Local Bulk Driver: ROSALEE Transcribe Date/Time: Jan 22 2023 9:33A... Right Hand Exam Right hand exam is normal. Tenderness The patient is experiencing no tenderness. Range of Motion The patient has normal right wrist ROM. Wrist Extension: normal Flexion: normal Pronation: normal Supination: normal Muscle Strength The patient has normal right wrist strength. Tests Phalen s Sign: negative Tinel's sign (median nerve): negative Papi's test: negative Other Erythema: absent Sensation: normal Pulse: present Comments: B/l med/uln/rad/ax nerves intact Left Hand Exam Tenderness Left hand tenderness location: cmc/st joint. Range of Motion The patient has normal left wrist ROM. Wrist Extension: normal Flexion: normal Pronation: normal Supination: normal Muscle Strength The patient has normal left wrist strength. Tests Phalen s Sign: negative Tinel's sign (median nerve): negative Papi's test: negative Other Erythema: absent Sensation: normal Pulse: present Comments: Pos grind at st joint Imaging: see above Assessment and Plan: Impression: Encounter Diagnosis ICD-10-CM 1. Chronic pain of right knee M25.561 XR KNEE GENERAL 4V AP BOTH/PA BOTH/LAT/MERC RIGHT G89.29 2. Pain in wrist, unspecified laterality M25.539 3. Left hand pain M79.642 4. Primary osteoarthritis of left hand M19.042 Plan: Today, in detail, through a thorough evaluation, we discussed possible etiologies of pain and our plans for further diagnostic and therapeutic interventions. We discussed strategies for decreasing pain and improving strength, stability and motion. Patient's questions were answered in detailed. Patient verbalizes understanding and agrees with the treatment plan as discussed. Scaphoid-trapezium oa OT discussed Rec nsaids, topical voltaren Us guided injection with sports med providers- gave pt info to call Surgery was discussed Refer to dr lewis- Follow up with me for knee Radha Mart D.O. M.P.H. documented in this encounter [facility] 01-29-2023 Miscellaneous Notes Faxed D/C orders to: [facility] name: Bilna - Fax confirmation received electronically. Patient notified via [employer] message Marietta MENDOZA, RN Neuro/Sleep Fourth Mate documented in this encounter [facility] 01-28-2023 Miscellaneous Notes I called [facility] to check the EPR setting on pt device. I spoke to Ministerio and he provided access to her download info via [employer]. There is no data to view and resp tech states pt just got device on Jan 24. Unable to see EPR setting remotely. Called and left VM to discuss concerns with pt. Call back info provided and call back requested. [employer] message sent Pressure could be decreased. Need to verify that EPR is set at 3 and that setting is sensitive and not standard. Does she want referral to see Dentist for an oral appliance? documented in this encounter [facility] 01-16-2023 Note HNO ID: [id number] Author: Faby Torres RT(R) Service: Radiology Author Type: Technologist Type: Progress Notes Filed: 01/16/2023 12:01 PM Note Text: Radiology Service Progress Note PATIENT NAME: Shalini Gonsales DATE OF SERVICE: January 16, 2023 TIME: 11:55 AM PATIENT IDENTITY VERIFICATION COMPLETED USING TWO (2) IDENTIFIERS: Name and Date of confirmed by patient verbally. FALL SCREENING: Has the patient had 2 falls in the last year or 1 fall with injury or currently using an Ambulatory Assistive Device (Walker, Cane, Wheelchair, Crutches, etc.)? No PATIENT GENDER DATA: Female. status: : No status: NO. PATIENT RELEVANT IMPLANT DATA REVIEWED: Not Applicable RADIOLOGY DEPARTMENT: General X-ray: Exam(s) Completed: Upper Extremity X-Ray(s): Wrist, left PERIPHERAL IV DATA: Not applicable SIGNED BY: RT Henrry(R) January 16, 2023 11:55 AM [facility] 01-16-2023 Note HNO ID: [id number] Author: Parker Nick MD Service: ? Author Type: Physician Type: Progress Notes Filed: 01/16/2023 12:36 PM Note Text: Patient presents with: 6 Month Exam HPI: Patient presents today for office visit for follow up. HYPERLIPIDEMIA: Patient is taking medications: Yes. Patient is watching diet: Yes. Patient denies myalgias: Yes. Patient denies gi upset: see GERD note Does have a pain in left wrist would like to check. Has been bothering her for two months. No trauma. No swelling or deformity. No redness or warmth. Getting set up with CPAP is being shipped to her now. GERD: Patient takes: using 24 prevacid that is a 15mg. Doesn't remember to take the famotidine before meals. Heartburn is controlled: not completely. Bloody or black stools: No. Bowel changes: No. Had egd done last year. Has hiatal hernia. RLS: Currently weaning off ropinirole and taking topiramate. Seeing sleep med. No chest pain or shortness of breath. No swelling. Component Latest Ref Rng AND Units 08/29/2022 10/19/2022 12/27/2022 Cholesterol, Total <200 mg/dL 264 (H) 196 169 Triglyceride <150 mg/dL 173 (H) 173 (H) 164 (H) HDL Cholesterol >39 mg/dL 45 41 41 Non HDL Cholesterol <130 mg/dL 219 (H) 155 (H) 128 Fasting Time hrs 16 13 11 VLDL Cholesterol <30 mg/dL 35 (H) 35 (H) 33 (H) TC:HDL Ratio <5.10 5.87 (H) 4.78 4.12 LDL Cholesterol <100 mg/dL 184 (H) 120 (H) 95 LDL:HDL Ratio <2.54 4.09 (H) 2.93 (H) 2.32 Albumin 3.9 - 4.9 g/dL 4.3 Bilirubin, Total 0.2 - 1.3 mg/dL 0.4 Bilirubin, Conjug <0.2 mg/dL <0.2 Alkaline Phosphatase 34 - 123 U/L 81 AST 13 - 35 U/L 21 ALT 7 - 38 U/L 24 Protein, Total 6.3 - 8.0 g/dL 7.2 Iron 41 - 186 ug/dL 77 TIBC 232 - 386 ug/dL 262 Transferrin Saturation 15.0 - 57.0 % 29.4 Ferritin 14.7 - 205.1 ng/mL 135.0 MEDICATIONS: Current Outpatient Medications Medication Sig rOPINIRole (REQUIP) 0.25 mg tablet Take 1 tablet by mouth three times daily. topiramate (TOPAMAX) 50 mg tablet Take 3 tablets by mouth daily at bedtime. CPAP/BIPAP/OTHER Type .CPAPSettings into a note to see current settings/supplies/DME information. ALPRAZolam (XANAX) 0.5 mg tablet Take 1 tablet by mouth twice daily as needed for anxiety for up to 90 days. For panic attacks and fear of flying. rOPINIRole (REQUIP) 1 mg tablet Take 2 tablets by mouth daily at bedtime. Take this instead of 3mg in order to reduce augmentation atorvastatin (LIPITOR) 10 mg tablet Take 1 tablet by mouth daily at bedtime. For cholesterol. lansoprazole (PREVACID) 30 mg capsule Take 1 capsule by mouth twice daily. 1/2 hr before meal. Lactobac no.41/Bifidobact no.7 (PROBIOTIC-10 ORAL) Take by mouth. No current facility-administered medications for this visit. ALLERGIES: ALLERGIES Allergen Reactions Bupropion Hives Hives Wellbutrin [Bupropi* Hives PAST MEDICAL HISTORY Diagnosis Date IAN (generalized anxiety disorder) 07/18/2020 Panic attacks 06/20/2021 Restless leg syndrome PAST SURGICAL HISTORY Procedure Laterality Date ANESTH, SECTION EGD 11/27/2021 HYSTERECTOMY HX OPEN REPAIR OF ROTATOR CUFF ACUTE Right 2012 Rotator cuff repair REMOVAL GALLBLADDER N/A 06/05/2021 WRIST SURGERY HX Right anchors FAMILY HISTORY Problem Relation Age of Onset Cancer Paternal Grandfather skin Heart disease Paternal Grandfather Cancer Paternal Aunt breast Social History Tobacco Use Smoking status: Former Packs/day: 1.00 Years: 30.00 Additional pack years: 0.00 Total pack years: 30.00 Types: Cigarettes Smokeless tobacco: Never Tobacco comments: quit 2013 Substance Use Topics Alcohol use: No Drug use: No Reviewed current medications, allergies, past medical history, surgical history, family history and social history today. REVIEW OF SYSTEMS All other reviewed and negative other than HPI. HEALTH MAINTENANCE: Reviewed health maintenance issues today and recommended the following in detail. MAMMOGRAM due on 01/16/2023 VITALS: BP 122/86 Pulse 87 Wt 101.2 kg (223 lb) SpO2 95% BMI 42.14 kg/m? Last 4 Encounter Wt Readings: Date: Wt: 08/10/2022 98.2 kg (216 lb 6.4 oz) 07/02/2022 100.7 kg (222 lb) 03/19/2022 97.5 kg (215 lb) 03/08/2022 96.2 kg (212 lb) PHYSICAL EXAMINATION: General appearance: Well appearing, alert, in no acute distress, well-hydrated, well nourished. Skin: Skin color, texture, turgor normal, no suspicious rashes or lesions Head: Normocephalic, no masses, lesions, tenderness or abnormalitie Lungs: Lungs clear to auscultation. No wheezing, rhonchi, rales Heart: RRR without murmur, gallop, or rubs. No ectopy Abdomen: Normal abdominal exam, Abdomen soft, non-tender. Bowel sounds normal. No masses, organomegaly Extremities: No deformities, edema, skin discoloration, clubbing or cyanosis. Good capillary refill. No tenderness or swelling or redness or warmth. Peripheral pulses: Normal Neuro: Gait no (more content not included)... [facility] 01-16-2023 History of Presen t illness Narrative Radiology Service Progress Note PATIENT NAME: Shalini Gonsales DATE OF SERVICE: January 16, 2023 TIME: 11:55 AM PATIENT IDENTITY VERIFICATION COMPLETED USING TWO (2) IDENTIFIERS: Name and Date of confirmed by patient verbally. FALL SCREENING: Has the patient had 2 falls in the last year or 1 fall with injury or currently using an Ambulatory Assistive Device (Walker, Cane, Wheelchair, Crutches, etc.)? No PATIENT GENDER DATA: Female. status: : No status: NO. PATIENT RELEVANT IMPLANT DATA REVIEWED: Not Applicable RADIOLOGY DEPARTMENT: General X-ray: Exam(s) Completed: Upper Extremity X-Ray(s): Wrist, left PERIPHERAL IV DATA: Not applicable SIGNED BY: RT Henrry(R) January 16, 2023 11:55 AM documented in this encounter [facility] 01-16-2023 History of Presen t illness Narrative Patient presents with: 6 Month Exam HPI: Patient presents today for office visit for follow up. HYPERLIPIDEMIA: Patient is taking medications: Yes. Patient is watching diet: Yes. Patient denies myalgias: Yes. Patient denies gi upset: see GERD note Does have a pain in left wrist would like to check. Has been bothering her for two months. No trauma. No swelling or deformity. No redness or warmth. Getting set up with CPAP is being shipped to her now. GERD: Patient takes: using 24 prevacid that is a 15mg. Doesn't remember to take the famotidine before meals. Heartburn is controlled: not completely. Bloody or black stools: No. Bowel changes: No. Had egd done last year. Has hiatal hernia. RLS: Currently weaning off ropinirole and taking topiramate. Seeing sleep med. No chest pain or shortness of breath. No swelling. Component Latest Ref Rng & Units 08/29/2022 10/19/2022 12/27/2022 Cholesterol, Total <200 mg/dL 264 (H) 196 169 Triglyceride <150 mg/dL 173 (H) 173 (H) 164 (H) HDL Cholesterol >39 mg/dL 45 41 41 Non HDL Cholesterol <130 mg/dL 219 (H) 155 (H) 128 Fasting Time hrs 16 13 11 VLDL Cholesterol <30 mg/dL 35 (H) 35 (H) 33 (H) TC:HDL Ratio <5.10 5.87 (H) 4.78 4.12 LDL Cholesterol <100 mg/dL 184 (H) 120 (H) 95 LDL:HDL Ratio <2.54 4.09 (H) 2.93 (H) 2.32 Albumin 3.9 - 4.9 g/dL 4.3 Bilirubin, Total 0.2 - 1.3 mg/dL 0.4 Bilirubin, Conjug <0.2 mg/dL <0.2 Alkaline Phosphatase 34 - 123 U/L 81 AST 13 - 35 U/L 21 ALT 7 - 38 U/L 24 Protein, Total 6.3 - 8.0 g/dL 7.2 Iron 41 - 186 ug/dL 77 TIBC 232 - 386 ug/dL 262 Transferrin Saturation 15.0 - 57.0 % 29.4 Ferritin 14.7 - 205.1 ng/mL 135.0 MEDICATIONS: Current Outpatient Medications Medication Sig rOPINIRole (REQUIP) 0.25 mg tablet Take 1 tablet by mouth three times daily. topiramate (TOPAMAX) 50 mg tablet Take 3 tablets by mouth daily at bedtime. CPAP/BIPAP/OTHER Type .CPAPSettings into a note to see current settings/supplies/DME information. ALPRAZolam (XANAX) 0.5 mg tablet Take 1 tablet by mouth twice daily as needed for anxiety for up to 90 days. For panic attacks and fear of flying. rOPINIRole (REQUIP) 1 mg tablet Take 2 tablets by mouth daily at bedtime. Take this instead of 3mg in order to reduce augmentation atorvastatin (LIPITOR) 10 mg tablet Take 1 tablet by mouth daily at bedtime. For cholesterol. lansoprazole (PREVACID) 30 mg capsule Take 1 capsule by mouth twice daily. 1/2 hr before meal. Lactobac no.41/Bifidobact no.7 (PROBIOTIC-10 ORAL) Take by mouth. No current facility-administered medications for this visit. ALLERGIES: ALLERGIES Allergen Reactions Bupropion Hives Hives Wellbutrin [Bupropi* Hives PAST MEDICAL HISTORY Diagnosis Date IAN (generalized anxiety disorder) 07/18/2020 Panic attacks 06/20/2021 Restless leg syndrome PAST SURGICAL HISTORY Procedure Laterality Date ANESTH, SECTION EGD 11/27/2021 HYSTERECTOMY HX OPEN REPAIR OF ROTATOR CUFF ACUTE Right 2012 Rotator cuff repair REMOVAL GALLBLADDER N/A 06/05/2021 WRIST SURGERY HX Right anchors FAMILY HISTORY Problem Relation Age of Onset Cancer Paternal Grandfather skin Heart disease Paternal Grandfather Cancer Paternal Aunt breast Social History Tobacco Use Smoking status: Former Packs/day: 1.00 Years: 30.00 Additional pack years: 0.00 Total pack years: 30.00 Types: Cigarettes Smokeless tobacco: Never Tobacco comments: quit 2013 Substance Use Topics Alcohol use: No Drug use: No Reviewed current medications, allergies, past medical history, surgical history, family history and social history today. REVIEW OF SYSTEMS All other reviewed and negative other than HPI. HEALTH MAINTENANCE: Reviewed health maintenance issues today and recommended the following in detail. MAMMOGRAM due on 01/16/2023 VITALS: BP 122/86 Pulse 87 Wt 101.2 kg (223 lb) SpO2 95% BMI 42.14 kg/m Last 4 Encounter Wt Readings: Date: Wt: 08/10/2022 98.2 kg (216 lb 6.4 oz) 07/02/2022 100.7 kg (222 lb) 03/19/2022 97.5 kg (215 lb) 03/08/2022 96.2 kg (212 lb) PHYSICAL EXAMINATION: General appearance: Well appearing, alert, in no acute distress, well-hydrated, well nourished. Skin: Skin color, texture, turgor normal, no suspicious rashes or lesions Head: Normocephalic, no masses, lesions, tenderness or abnormalitie Lungs: Lungs clear to auscultation. No wheezing, rhonchi, rales Heart: RRR without murmur, gallop, or rubs. No ectopy Abdomen: Normal abdominal exam, Abdomen soft, non-tender. Bowel sounds normal. No masses, organomegaly Extremities: No deformities, edema, skin discoloration, clubbing or cyanosis. Good capillary refill. No tenderness or swelling or redness or warmth. Peripheral pulses: Normal Neuro: Gait normal. Reflexes normal and symmetric. Sensation grossly intact. ASSESSMENT/PLAN: 1. Left wrist pain - ICD9: 719.43, ICD10: M25.532 (primary diagnosis) - ice and rest. Call if symptoms worsen at all or if not better in one to two weeks - XR WRIST GENERAL 3V PA/LAT/OBL LEFT 2. Encounter for screening mammogram for malignant neoplasm of breast - ICD9: V76.12, ICD10: Z12.31 - Follow up for annual exam in one year. - ROXANE SCREENING W ELOISA 3. Restless leg syndrome - ICD9: 333.94, ICD10: G25.81 Stable. 4. Incidental lung nodule, > 3mm and < 8mm - ICD9: 793.11, ICD10: R91.1 - following imaging. 5. Heterozygous factor V Leiden mutation (HCC) - ICD9: 289.81, ICD10: D68.51 - declines further follow up. Following hematology recommendations. 6. Lupus anticoagulant disorder (HCC) - ICD9: 289.81, ICD10: D68.62 - as above 7. Recurrent major depressive disorder, in partial remission (HCC) - ICD9: 296.35, ICD10: F33.41 - doing well. 8. Panic attacks - ICD9: 300.01, ICD10: F41.0 - doing well. 9. GERD without esophagitis - ICD9: 530.81, ICD10: K21.9 - take higher dose of meds and follow up with gi is continues or worsens. - LANSOPRAZOLE 30 MG CAPSULE,DELAYED RELEASE Parker Nick MD documented in this encounter [facility] 12-31-2022 Miscellaneous Notes [employer] message sent documented in this encounter [facility] 12-26-2022 Miscellaneous Notes Sent demographics, script and office note To:[facility] Fax:[phone] Phone: documented in this encounter [facility] 12-26-2022 Note HNO ID: [id number] Author: Otis Jose APRN.[employer] Service: ? Author Type: Nurse Practitioner Type: Progress Notes Filed: 12/26/2022 11:56 AM Note Text: [facility] Follow up/ Established patient visit Date of last visit : 10/16/[address] Harris I have communicated my name and active licensure. The patient's identity and physical location were verified at the time of this visit. Either the patient or their legal lead customer service representative has been informed of the risks and benefits of -- and alternatives to -- treatment through a remote evaluation and consents to proceed with the evaluation remotely. Interval history : Here for follow up for sleep study results and RLS HST identified AHI of 9.2. She works 2nd shift and feels tired today. Coffee 2-3 cups/day and pop 2/week As long as she takes requip and topamax by 9:30 pm, RLS is better controlled. Dosage change has been helpful. SLEEP HYGIENE QUESTIONS: Time it takes to fall sleep : 15-30 min Number of times patient wakes up per night : several Reason (s) why patient wakes up during the night : unknown Estimated total sleep time ( in a 24 hour period of time) : 8 Naps : No PATIENT-ENTERED QUESTIONNAIRE SLEEP SCORES Sleep Questions 12/23/2022 Reason for visit: Restless Legs Syndrome Average hours slept in 24 hours: 8 Accidents or near accidents due to drowsy drivin [place] Sleepiness Scale 12/23/2022 Score 4 (No daytime sleepiness) PROMIS CAT Sleep Disturbance 12/23/2022 PROMIS Sleep Disturbance T-Score 54 (within normal limits) PROMIS Sleep Disturbance Percentile 34 % Restless Leg Syndrome 12/24/2022 Score 21 PHQ-9 12/06/2021 12/23/2022 Score 7 4 PROMIS Global Health - (T-Scores - the mean of general population = 50. Five points is a clinically meaningful difference.) 03/30/2022 06/30/2022 12/23/2022 Physical T-Score 47.7 47.7 47.7 Mental T-Score 48.3 48.3 50.8 PMH, PSH, SH: reviewed SLEEP RELATED ROS Review of Systems HENT: Negative for congestion. Respiratory: Negative. Cardiovascular: Negative. Genitourinary: Positive for nocturia. Musculoskeletal: Positive for uncomfortable leg sensations. ALLERGIES Allergen Reactions Bupropion Hives Hives Wellbutrin [Bupropi* Hives CURRENT MEDICATIONS: ALPRAZolam (XANAX) 0.5 mg tablet Take 1 tablet by mouth twice daily as needed for anxiety for up to 90 days. For panic attacks and fear of flying. topiramate (TOPAMAX) 50 mg tablet Take 3 tablets by mouth daily at bedtime. rOPINIRole (REQUIP) 1 mg tablet Take 2 tablets by mouth daily at bedtime. Take this instead of 3mg in order to reduce augmentation atorvastatin (LIPITOR) 10 mg tablet Take 1 tablet by mouth daily at bedtime. For cholesterol. escitalopram oxalate (LEXAPRO) 10 mg tablet Take 1 tablet by mouth once daily. lansoprazole (PREVACID) 30 mg capsule Take 1 capsule by mouth twice daily. 1/2 hr before meal. rOPINIRole 3 mg tablet Take 1 tablet by mouth daily at bedtime. Lactobac no.41/Bifidobact no.7 (PROBIOTIC-10 ORAL) Take by mouth. Prior Hypersomnia/Narcolepsy Medications (20 years) Some values may be hidden. Unless noted otherwise, only the newest values recorded on each date are displayed. Hypersomnia/Narcolepsy Medications No data to display. Prior RLS Medications (last 20 years) Some values may be hidden. Unless noted otherwise, only the newest values recorded on each date are displayed. RLS Medications morphine 4 mg injection Dose: 4 mg ONCE Starting date: 02/27/2022 Ending date: 02/27/2022 rOPINIRole (REQUIP) 0.25 mg tablet Dose: 0.25 mg 3 TIMES DAILY Starting date: 12/26/2022 (active) rOPINIRole (REQUIP) 0.5 mg tablet Dose: 0.5 mg AT BEDTIME Take in addition to 2mg tablet. Starting date: 10/19/2020 Ending date: 12/28/2020 (Discontinued) rOPINIRole (REQUIP) 0.5 mg tablet Dose: 0.5 mg AT BEDTIME Take in addition to 2mg tablet. Starting date: 12/28/2020 Ending date: 06/20/2021 (Discontinued) rOPINIRole (REQUIP) 0.5 mg tablet Dose: 0.5 mg AT BEDTIME Take in addition to 2mg tablet. Starting date: 06/20/2021 Ending date: 12/12/2021 (Discontinued) rOPINIRole (REQUIP) 1 mg tablet Dose: 2 mg AT BEDTIME Take this instead of 3mg in order to reduce augmentation Starting date: 10/16/2022 Ending date: 11/15/2022 rOPINIRole (REQUIP) 2 mg tablet Dose: 2 mg AT BEDTIME Starting date: 04/24/2019 Ending date: 07/15/2019 (Discontinued) rOPINIRole (REQUIP) 2 mg tablet Dose: 2 mg AT BEDTIME Starting date: 07/15/2019 Ending date: 10/30/2019 (Discontinued) rOPINIRole (REQUIP) 2 mg tablet Dose: 2 mg AT BEDTIME Starting date: 11/02/2019 Ending date: 01/27/2020 (Discontinued) rOPINIRole (REQUIP) 2 mg tablet Dose: 2 mg AT BEDTIME Starting date: 01/27/2020 Ending date: 04/04/2020 (Discontinued) rOPINIRole (REQUIP) 2 mg tablet Dose: 2 mg AT BEDTIME Starting date: 04/05/2020 Ending date: 07/09/2020 (Discontinued) rOPINIRole (REQUIP) 2 mg tablet Dose: 2 mg AT BEDTIME Starti (more content not included)... [facility] 12-26-2022 History of Presen t illness Narrative Images from the original note were not included. [facility] Follow up/ Established patient visit Date of last visit : 10/16/[address] Harris I have communicated my name and active licensure. The patient's identity and physical location were verified at the time of this visit. Either the patient or their legal lead customer service representative has been informed of the risks and benefits of -- and alternatives to -- treatment through a remote evaluation and consents to proceed with the evaluation remotely. Interval history : Here for follow up for sleep study results and RLS HST identified AHI of 9.2. She works 2nd shift and feels tired today. Coffee 2-3 cups/day and pop 2/week As long as she takes requip and topamax by 9:30 pm, RLS is better controlled. Dosage change has been helpful. SLEEP HYGIENE QUESTIONS: Time it takes to fall sleep : 15-30 min Number of times patient wakes up per night : several Reason (s) why patient wakes up during the night : unknown Estimated total sleep time ( in a 24 hour period of time) : 8 Naps : No PATIENT-ENTERED QUESTIONNAIRE SLEEP SCORES Sleep Questions 12/23/2022 Reason for visit: Restless Legs Syndrome Average hours slept in 24 hours: 8 Accidents or near accidents due to drowsy drivin [place] Sleepiness Scale 12/23/2022 Score 4 (No daytime sleepiness) PROMIS CAT Sleep Disturbance 12/23/2022 PROMIS Sleep Disturbance T-Score 54 (within normal limits) PROMIS Sleep Disturbance Percentile 34 % Restless Leg Syndrome 12/24/2022 Score 21 PHQ-9 12/06/2021 12/23/2022 Score 7 4 PROMIS Global Health - (T-Scores - the mean of general population = 50. Five points is a clinically meaningful difference.) 03/30/2022 06/30/2022 12/23/2022 Physical T-Score 47.7 47.7 47.7 Mental T-Score 48.3 48.3 50.8 PMH, PSH, SH: reviewed SLEEP RELATED ROS Review of Systems HENT: Negative for congestion. Respiratory: Negative. Cardiovascular: Negative. Genitourinary: Positive for nocturia. Musculoskeletal: Positive for uncomfortable leg sensations. ALLERGIES Allergen Reactions Bupropion Hives Hives Wellbutrin [Bupropi* Hives CURRENT MEDICATIONS: ALPRAZolam (XANAX) 0.5 mg tablet Take 1 tablet by mouth twice daily as needed for anxiety for up to 90 days. For panic attacks and fear of flying. topiramate (TOPAMAX) 50 mg tablet Take 3 tablets by mouth daily at bedtime. rOPINIRole (REQUIP) 1 mg tablet Take 2 tablets by mouth daily at bedtime. Take this instead of 3mg in order to reduce augmentation atorvastatin (LIPITOR) 10 mg tablet Take 1 tablet by mouth daily at bedtime. For cholesterol. escitalopram oxalate (LEXAPRO) 10 mg tablet Take 1 tablet by mouth once daily. lansoprazole (PREVACID) 30 mg capsule Take 1 capsule by mouth twice daily. 1/2 hr before meal. rOPINIRole 3 mg tablet Take 1 tablet by mouth daily at bedtime. Lactobac no.41/Bifidobact no.7 (PROBIOTIC-10 ORAL) Take by mouth. Prior Hypersomnia/Narcolepsy Medications (20 years) Some values may be hidden. Unless noted otherwise, only the newest values recorded on each date are displayed. Hypersomnia/Narcolepsy Medications No data to display. Prior RLS Medications (last 20 years) Some values may be hidden. Unless noted otherwise, only the newest values recorded on each date are displayed. RLS Medications morphine 4 mg injection Dose: 4 mg ONCE Starting date: 02/27/2022 Ending date: 02/27/2022 rOPINIRole (REQUIP) 0.25 mg tablet Dose: 0.25 mg 3 TIMES DAILY Starting date: 12/26/2022 (active) rOPINIRole (REQUIP) 0.5 mg tablet Dose: 0.5 mg AT BEDTIME Take in addition to 2mg tablet. Starting date: 10/19/2020 Ending date: 12/28/2020 (Discontinued) rOPINIRole (REQUIP) 0.5 mg tablet Dose: 0.5 mg AT BEDTIME Take in addition to 2mg tablet. Starting date: 12/28/2020 Ending date: 06/20/2021 (Discontinued) rOPINIRole (REQUIP) 0.5 mg tablet Dose: 0.5 mg AT BEDTIME Take in addition to 2mg tablet. Starting date: 06/20/2021 Ending date: 12/12/2021 (Discontinued) rOPINIRole (REQUIP) 1 mg tablet Dose: 2 mg AT BEDTIME Take this instead of 3mg in order to reduce augmentation Starting date: 10/16/2022 Ending date: 11/15/2022 rOPINIRole (REQUIP) 2 mg tablet Dose: 2 mg AT BEDTIME Starting date: 04/24/2019 Ending date: 07/15/2019 (Discontinued) rOPINIRole (REQUIP) 2 mg tablet Dose: 2 mg AT BEDTIME Starting date: 07/15/2019 Ending date: 10/30/2019 (Discontinued) rOPINIRole (REQUIP) 2 mg tablet Dose: 2 mg AT BEDTIME Starting date: 11/02/2019 Ending date: 01/27/2020 (Discontinued) rOPINIRole (REQUIP) 2 mg tablet Dose: 2 mg AT BEDTIME Starting date: 01/27/2020 Ending date: 04/04/2020 (Discontinued) rOPINIRole (REQUIP) 2 mg tablet Dose: 2 mg AT BEDTIME Starting date: 04/05/2020 Ending date: 07/09/2020 (Discontinued) rOPINIRole (REQUIP) 2 mg tablet Dose: 2 mg AT BEDTIME Starting date: 07/11/2020 Ending date: 09/29/2020 (Discontinued) rOPINIRole (REQUIP) 2 mg tablet Dose: 2 mg AT BEDTIME Starting date: 10/02/2020 Ending date: 12/28/2020 (Discontinued) rOPINIRole (REQUIP) 2 mg tablet Dose: 2 mg AT BEDTIME Starting date: 12/28/2020 Ending date: 06/20/2021 (Discontinued) rOPINIRole (REQUIP) 2 mg tablet Dose: 2 mg AT BEDTIME Starting date: 06/20/2021 Ending date: 12/12/2021 (Discontinued) rOPINIRole 3 mg tablet Dose: 3 mg AT BEDTIME Starting date: 12/12/2021 Ending date: 12/26/2022 (Discontinued) Medication marked as long-term Prior Insomnia Medications (last 20 years) Some values may be hidden. Unless noted otherwise, only the newest values recorded on each date are displayed. Insomnia Medications ALPRAZolam (XANAX) 0.5 mg tablet Dose: To use before her flights, 2 times a day as needed Starting date: 07/15/2019 Ending date: 07/18/2020 (Discontinued) ALPRAZolam (XANAX) 0.5 mg tablet Dose: 0.5 mg 2 TIMES DAILY NEEDED For panic attacks and fear of flying. Starting date: 07/18/2020 Ending date: 09/29/2020 (Discontinued) ALPRAZolam (XANAX) 0.5 mg tablet Dose: 0.5 mg 2 TIMES DAILY NEEDED For panic attacks and fear of flying. Starting date: 09/30/2020 Ending date: 12/28/2020 (Discontinued) ALPRAZolam (XANAX) 0.5 mg tablet Dose: 0.5 mg 2 TIMES DAILY NEEDED For panic attacks and fear of flying. Starting date: 12/28/2020 Ending date: 03/21/2021 (Discontinued) ALPRAZolam (XANAX) 0.5 mg tablet Dose: 0.5 mg 2 TIMES DAILY NEEDED For panic attacks and fear of flying. Starting date: 03/22/2021 Ending date: 06/20/2021 (Discontinued) ALPRAZolam (XANAX) 0.5 mg tablet Dose: 0.5 mg 2 TIMES DAILY NEEDED For panic attacks and fear of flying. Starting date: 06/20/2021 Ending date: 09/18/2021 ALPRAZolam (XANAX) 0.5 mg tablet Dose: Take by mouth. (Patient not taking as of 03/01/2022 3:38 PM) Starting date: 06/04/2021 Ending date: 03/01/2022 (Discontinued) ALPRAZolam (XANAX) 0.5 mg tablet Dose: 0.5 mg 2 TIMES DAILY NEEDED For panic attacks and fear of flying. Starting date: 12/12/2021 Ending date: 05/05/2022 (Discontinued) ALPRAZolam (XANAX) 0.5 mg tablet Dose: 0.5 mg 2 TIMES DAILY NEEDED For panic attacks and fear of flying. Starting date: 05/07/2022 Ending date: 08/10/2022 (Discontinued) ALPRAZolam (XANAX) 0.5 mg tablet Dose: 0.5 mg 2 TIMES DAILY NEEDED For panic attacks and fear of flying. Starting date: 08/10/2022 Ending date: 12/06/2022 (Discontinued) ALPRAZolam (XANAX) 0.5 mg tablet Dose: 0.5 mg 2 TIMES DAILY NEEDED For panic attacks and fear of flying. Starting date: 12/06/2022 Ending date: 12/07/2022 (Discontinued) ALPRAZolam (XANAX) 0.5 mg tablet Dose: 0.5 mg 2 TIMES DAILY NEEDED For panic attacks and fear of flying. Starting date: 12/07/2022 Ending date: 03/07/2023 escitalopram oxalate (LEXAPRO) 10 mg tablet Dose: 10 mg DAILY Starting date: 07/18/2020 Ending date: 09/29/2020 (Discontinued) escitalopram oxalate (LEXAPRO) 10 mg tablet Dose: 10 mg DAILY Starting date: 09/30/2020 Ending date: 12/28/2020 (Discontinued) escitalopram oxalate (LEXAPRO) 10 mg tablet Dose: 10 mg DAILY Starting date: 12/28/2020 Ending date: 06/20/2021 (Discontinued) escitalopram oxalate (LEXAPRO) 10 mg tablet Dose: 10 mg DAILY Starting date: 06/20/2021 Ending date: 12/12/2021 (Discontinued) escitalopram oxalate (LEXAPRO) 10 mg tablet Dose: 10 mg DAILY Starting date: 12/12/2021 Ending date: 07/02/2022 (Discontinued) escitalopram oxalate (LEXAPRO) 10 mg tablet Dose: 10 mg DAILY Starting date: 07/02/2022 Ending date: 12/29/2022 Medication marked as long-term PHYSICAL EXAMINATION: General appearance: NAD, pleasant Mental status: Awake & alert Constitutional: WNL Neuro: Fluent speech IMPRESSION / PLAN: Shalini Gonsales is a 57 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 HST on 11/08/2022 identified at least mild BARB with AHI of 9.2. Will start pap therapy. RLS improved with change of dosage with requip and topamax. Will further decrease requip from 2 mg to 1.75 mg; provided 0.25 mg tablet that she will take with the 1 mg tablet. She may be able to decrease caffeine once sleep apnea is well treated and this may be of benefit to RLS. - Discussed diagnosis, causes, and conditions associated with obstructive sleep apnea. - Avoid driving when drowsy. -Encouraged healthy lifestyle with adequate sleep (7-9 hours per night), diet and exercise. - Will start Auto CPAP 5-15 cmH2O. - I will have a prescription sent to a [employer] ([employer]) company - [place] . - Will adjust pressure for comfort if requested prior to next visit. - You should be eligible for new supplies approximately every 3-6 months, depending on your insurance coverage. - If your mask doesn't fit well, call the [employer] company before 30 days are up to get a new mask without an additional charge. - Insurance requires regular usage and periodic office follow ups for PAP therapy, to continue to cover supplies. INSURANCE REQUIREMENTS: - Your insurance requires a [id number] follow up visit within a 31-90 day period after starting CPAP. - Your insurance requires compliance with CPAP, which is at least 4 hours per night for 70% of the time. This must be done over a 30 day period and must occur within the initial 31-90 day period after starting CPAP. - Your insurance also requires at least yearly follow ups to continue to pay for CPAP supplies. - Please call [phone] to schedule a follow up appointment in Sleep Disorders Saturday through Saturday during regular business hours or call Appointment Center 24/12 - [phone] after you receive machine. Otis Jose APRN.FERNANDA I spent a total of 36 minutes on the date of the service which included preparing to see the patient, [id number] patient care, completing clinical documentation, counseling and educating the patient/family/caregiver, and ordering medications, tests, or procedures. documented in this encounter [facility] 12-07-2022 Miscellaneous Notes Prescription from 12-06-22 did not go thru to the pharmacy. Please resent to pharmacy. Petra Romero LPN documented in this encounter [facility] 12-06-2022 Miscellaneous Notes Patient phones requesting refills as follows: Requested Prescriptions Pending Prescriptions Disp Refills ALPRAZolam (XANAX) 0.5 mg tablet 30 tablet 0 Sig: Take 1 tablet by mouth twice daily as needed for anxiety for up to 90 days. For panic attacks and fear of flying. [facility] 08/10/22 NOV 01/16/23 Please review and advise. Solomon Riggs LPN documented in this encounter [facility] 11-13-2022 Note HNO ID: [id number] Author: Renu FIGUEREDO Service: ? Author Type: ? Type: Progress Notes Filed: 11/13/2022 3:31 PM Note Text: Sleep Study Check-In Documentation Date: November 13, 2022 Name: Shalini Gonsales Comments: HST was returned in working order with all sleep questionnaires Renu Waterman PSS [facility] 11-13-2022 History of Presen t illness Narrative Sleep Study Check-In Documentation Date: November 13, 2022 Name: Shalini Gonsales Comments: HST was returned in working order with all sleep questionnaires Renu Waterman PSS [facility]# [id number], date shipped out 11/07/22 Tracking mailout: [id number] Tracking return: [id number] November 01, 2022 An order has been received for Home Sleep Apnea Test (HSAT) from Dr. Parker Harris Jr., MD , A. Sleep Center Staff/Mask Designer Staff Orders. Visit prep complete - Please refer to the sleep study order (under procedures tab) for protocol details and special instructions. The sleep study is scheduled for 11/30. Insurance: Payor: AETNA / Plan: AETNA CHOICE POS II / Product Type: POS / Payer/Plan Subscr Sex Relation Sub. Ins. ID Effective Group Num 1. AETNA - AETNA* ARNULFO GONSALES* [birth year]/12/1970 Male Spouse [id number] 06/03/21 [id number] [id number] Ailyn Eason documented in this encounter [facility] 11-06-2022 Note HNO ID: [id number] Author: Conchis Wood Service: ? Author Type: ? Type: Progress Notes Filed: 11/13/2022 3:31 PM Note Text: [facility]# [id number], date shipped out 11/07/22 Tracking mailout: [id number] Tracking return: [id number] [facility] 11-01-2022 Note HNO ID: [id number] Author: Ailyn Eason Service: ? Author Type: ? Type: Progress Notes Filed: 11/13/2022 3:31 PM Note Text: November 01, 2022 An order has been received for Home Sleep Apnea Test (HSAT) from Dr. Parker Harris Jr., MD , A. Sleep Center Staff/Mask Designer Staff Orders. Visit prep complete - Please refer to the sleep study order (under procedures tab) for protocol details and special instructions. The sleep study is scheduled for 11/30. Insurance: Payor: AETNA / Plan: AETNA CHOICE POS II / Product Type: POS / Payer/Plan Subscr Sex Relation Sub. Ins. ID Effective Group Num 1. AETNA - AETNA* ARNULFO GONSALES* 01/12/1971 Male Spouse [id number] 06/03/21 [id number] [address] Ailyn Eason [facility] 10-16-2022 Note HNO ID: [id number] Author: Parker Harris Jr., MD Service: ? Author Type: Physician Type: Progress Notes Filed: 10/16/2022 11:20 PM Note Text: [facility] Follow up/ Established patient visit Date of last visit : 03/19/2022 Per Last Visit Note: ASSESSMENT/PLAN: 1. Restless leg syndrome - ICD9: 333.94, ICD10: G25.81 (primary diagnosis) Patient with clinical history supporting the dx of RLS. Etiology unclear with normal Ferritin and Iron levels in the past and no significant spine or lower ext injuries. Symptoms worse at night, with urge to move, worse with rest (ie. airplanes, cars) and relieved with activity. Concern is that symptoms are progressively worsening as above and suspect due to Augmentation with pt being treated by means of a dopamine agonist. Thus, will attempt to change medications to try and reduce risk of worsening symptoms while still controlling those symptoms. Discussed options with patient and pt agrees with plan as follows: Cut the Requip in /2 so taking 1.5 mg with dinner. 2. Start Lyrica 50mg capsule: -1 capsule upon returning home from work. -1 capsule after dinner. 3. If still having RLS symptoms but no side effects, then adjust Lyrica as follows: -1 capsule upon returning from work. -2 capsules after dinner. 4. Move Lexapro to AM as may be provoking RLS symptoms (note present prior to being on Lexapro) SE and ADRs of above meds d/w pt. 2. Frequent nocturnal awakening - ICD9: 780.59, ICD10: G47.00 In addition to RLS and possible associated PLMs waking patient, also concern for possible BARB. Pt does have dry mouth at night and crowded airway with obesity (BMI 40.62). Pt would like to hold on sleep testing for now. Discussed with patient: the physiology of OSAS, medical conditions associated with OSAS (DM, HTN, CAD, Depression, Stroke, Headache...) and treatment options (UPPP, Dental appliances, CPAP...). If RLS controlled and still having fragmented sleep, plan will be to have patient undergo HSAT to further evaluate for possible BARB. Pt agrees with plan. Encouraged weight loss. Parker Harris MD Interval history: Mrs. Gonsales is seen via a virtual Distance Health visit today with the parent/patient's verbal consent. The visit is conducted synchronously in real-time. I have communicated my name and active licensure. The patient's identity and physical location were verified at the time of this visit. Either the patient or their legal lead customer service representative has been informed of the risks and benefits of -- and alternatives to -- treatment through a remote evaluation and consents to proceed with the evaluation remotely. Topamax 50mg qhs; had stopped Lyrica (helped, but kept her awake and experienced AEs of diarrhea, increased hunger, and morning headache). Still works second shift [id number]; she says that every time she tried to cutback to 1.5 Requip, and the symptoms got worse, and she had difficulty falling asleep. She had been increasing the Requip due to increasing severity of her RLS. RLS Current treatment : Topamax 100mg nightly (0); Requip 3mg at night Status : improved but still present Time of day symptoms begin : ~2100 Time of day symptoms are worst : Evening or even just when she is inactive Time of day when symptom-free : Whole day until evening Going to start weaning off Lexapro, which she is now taking in the morning Prior Medications: -Gabapentin (worked well, very disoriented if waking up at night) -Lyrica (did not help significantly, kept her awake and experienced AEs of diarrhea, increased hunger, and morning headache) SLEEP HYGIENE QUESTIONS: Bedtime : 0000 Wake up Time : [id number]; does not always feel well-rested in the morning Time it takes to fall sleep : within 30 minutes on work days; if routine was different (less active on days off) can take up to 2 hours Number of times patient wakes up per night : 3-4; takes 20-30 minutes to go back to sleep Reason (s) why patient wakes up during the night : Unknown Estimated total sleep time ( in a 24 hour period of time) : 5-6 hours Naps: No -Does snore, moves around SLEEP FUNCTIONAL OUTCOME MEASURES See end of note for questionnaire answers UPDATED HISTORY: Any changes to medical history, surgical history, family history, or social history ? No SLEEP RELATED ROS REVIEW OF SYSTEMS GENERAL: See HPI HEENT: negative RESPIRATORY: negative CARDIOVASCULAR: negative GI: negative MUSCULOSKELETAL: negative All other systems reviewed and are negative. ALLERGIES Allergen Reactions Bupropion Hives Hives Wellbutrin [Bupropi* Hives CURRENT MEDICATIONS: topiramate (TOPAMAX) 50 mg tablet Take 2 tablets by mouth daily at bedtime. atorvastatin (LIPITOR) 10 mg tablet Take 1 tablet by mouth daily at bedtime. For cholesterol. ALPRAZolam (XANAX) 0.5 mg tablet Take 1 tablet by mouth twice daily as needed for (more content not included)... [facility] 09-10-2022 Miscellaneous Notes [facility] 03/19/22 [facility] NOV 10/16/22 [facility] 06/29/22 30 tablets with 2 refills ASSESSMENT/PLAN: 1. Restless leg syndrome - ICD9: 333.94, ICD10: G25.81 (primary diagnosis) Patient with clinical history supporting the dx of RLS. Etiology unclear with normal Ferritin and Iron levels in the past and no significant spine or lower ext injuries. Symptoms worse at night, with urge to move, worse with rest (ie. airplanes, cars) and relieved with activity. Concern is that symptoms are progressively worsening as above and suspect due to Augmentation with pt being treated by means of a dopamine agonist. Thus, will attempt to change medications to try and reduce risk of worsening symptoms while still controlling those symptoms. Discussed options with patient and pt agrees with plan as follows: Cut the Requip in 1/2 so taking 1.5 mg with dinner. 2. Start Lyrica 50mg capsule: -1 capsule upon returning home from work. -1 capsule after dinner. 3. If still having RLS symptoms but no side effects, then adjust Lyrica as follows: -1 capsule upon returning from work. -2 capsules after dinner. 4. Move Lexapro to AM as may be provoking RLS symptoms (note present prior to being on Lexapro) SE and ADRs of above meds d/w pt. 2. Frequent nocturnal awakening - ICD9: 780.59, ICD10: G47.00 In addition to RLS and possible associated PLMs waking patient, also concern for possible BARB. Pt does have dry mouth at night and crowded airway with obesity (BMI 40.62). Pt would like to hold on sleep testing for now. Discussed with patient: the physiology of OSAS, medical conditions associated with OSAS (DM, HTN, CAD, Depression, Stroke, Headache...) and treatment options (UPPP, Dental appliances, CPAP...). If RLS controlled and still having fragmented sleep, plan will be to have patient undergo HSAT to further evaluate for possible BARB. Pt agrees with plan. Encouraged weight loss. Parker Harris MD documented in this encounter [facility] 08-30-2022 Miscellaneous Notes Spoke with patient. Given message from provider's office. Patient verbalizes understanding. She is willing to start Atorvastatin and have labs rechecked in 6 weeks. [facility] Lynn Doran RN Phoned patient and left message to return call and ask to speak to a nurse. I have never seen a statin cause weight gain in 30 years. In fact that is the first I have even heard of that. That would definitely not be a concern and those are the best meds to start The problem too is that cholesterol is not weight related. Is usually genetic so diet often does not work. To bring it down as well. I would start on low dose atorvastatin and recheck liver and lipid in six weeks. Spoke with patient and she verbalized understanding. She is in agreement to try a medication to bring Cholesterol down however, she states she's lost about 15lbs and is still working on losing more and states she's heard that Statins cause weight gain. Would like to know what you're thinking you'd start her on? Tori Nathan Garlic flavors your food but not much else. [place] never seen anything herbal that did much Phoned patient and went over results from Dr Nick with understanding. Patient is asking if she could take something otc before going to rx medication? She was asking about garlic? Cholesterol is actually higher. Does she want to try something to bring it down? documented in this encounter [facility] 08-13-2022 Miscellaneous Notes Addended by: PARKER NICK on: 08/13/2022 12:13 PM Modules accepted: Orders Please see where patient has lipid ordered but dx is for Mixed hyperlipidemia [E78.2] . Can we change dx? Natalia Coughlin Ma documented in this encounter [facility] 08-10-2022 Note HNO ID: [id number] Author: Parker Nick MD Service: ? Author Type: Physician Type: Progress Notes Filed: 08/10/2022 10:43 AM Note Text: Patient presents with: Physical HPI: Patient presents today for office visit for physical for insurance. No concerns today. Still seeing sleep meds. Sleeping are fair. Had repeat scan of her lungs. Was unchanged. We are doing another in one year. Still taking lexapro. Component Latest Ref Rng AND Units 03/01/2022 03/02/2022 03/10/2022 WBC 3.70 - 11.00 k/uL 10.16 6.46 RBC 3.90 - 5.20 m/uL 5.62 (H) 4.89 Hemoglobin 11.5 - 15.5 g/dL 16.6 (H) 14.0 Hematocrit 36.0 - 46.0 % 49.0 (H) 44.3 MCV 80.0 - 100.0 fL 87.2 90.6 MCH 26.0 - 34.0 pg 29.5 28.6 MCHC 30.5 - 36.0 g/dL 33.9 31.6 RDW-CV 11.5 - 15.0 % 13.2 13.2 Platelet Count 150 - 400 k/uL 326 252 MPV 9.0 - 12.7 fL 10.3 11.2 Neut% % 64.3 59.5 Abs Neut (ANC) 1.45 - 7.50 k/uL 6.53 3.84 Lymph% % 23.9 27.2 Abs Lymph 1.00 - 4.00 k/uL 2.43 1.76 [place]% % 9.9 9.9 Abs [place] <0.87 k/uL 1.01 (H) 0.64 Eosin% % 0.7 1.9 Abs Eosin <0.46 k/uL 0.07 0.12 Baso% % 0.8 1.2 Abs Baso <0.11 k/uL 0.08 0.08 Immature Gran % % 0.4 0.3 IMMATURE GRANS (ABS) <0.10 k/uL 0.04 <0.03 NRBC /100 WBC 0.0 0.3 Absolute nRBC <0.01 k/uL <0.01 0.02 (H) DTYPE Auto Auto Glucose 74 - 99 mg/dL 109 (H) 89 BUN 7 - 21 mg/dL 12 15 Creatinine 0.58 - 0.96 mg/dL 0.74 0.68 Sodium 136 - 144 mmol/L 137 137 Potassium 3.7 - 5.1 mmol/L 4.1 4.3 Chloride 97 - 105 mmol/L 96 (L) 99 CO2 22 - 30 mmol/L 29 26 Anion Gap 9 - 18 mmol/L 12 12 Calcium 8.5 - 10.2 mg/dL 10.6 (H) 9.5 eGFR >=60 mL/min/1.73mA? 95 102 Shigella spp./Enteroinvasive E.coli DNA Not Detected Not detected Campylobacter jejuni/coli DNA Not Detected Not detected Shiga toxin-producing gene(s) Not Detected Not detected Salmonella spp. DNA Not Detected Not detected Normalized CAlcium 1.08 - 1.30 mmol/L 1.25 Ionized Calcium 1.08 - 1.30 mmol/L 1.25 Carboxyhemoglobin, Venous 0.0 - 2.0 % 0.9 Vitamin D 25 Hydroxy 31.0 - 80.0 ng/mL 41.0 PTH, Intact 15 - 65 pg/mL 22 MEDICATIONS: Current Outpatient Medications Medication Sig escitalopram oxalate (LEXAPRO) 10 mg tablet Take 1 tablet by mouth once daily. topiramate (TOPAMAX) 50 mg tablet Take 1 tablet by mouth daily at bedtime. lansoprazole (PREVACID) 30 mg capsule Take 1 capsule by mouth twice daily. 1/2 hr before meal. rOPINIRole 3 mg tablet Take 1 tablet by mouth daily at bedtime. Lactobac no.41/Bifidobact no.7 (PROBIOTIC-10 ORAL) Take by mouth. No current facility-administered medications for this visit. ALLERGIES: ALLERGIES Allergen Reactions Bupropion Hives Hives Wellbutrin [Bupropi* Hives PAST MEDICAL HISTORY Diagnosis Date IAN (generalized anxiety disorder) 07/18/2020 Panic attacks 06/20/2021 Restless leg syndrome PAST SURGICAL HISTORY Procedure Laterality Date ANESTH, SECTION EGD 11/27/2021 HYSTERECTOMY HX OPEN REPAIR OF ROTATOR CUFF ACUTE Right 2012 Rotator cuff repair REMOVAL GALLBLADDER N/A 06/05/2021 WRIST SURGERY HX Right anchors FAMILY HISTORY Problem Relation Age of Onset Cancer Paternal Grandfather skin Heart disease Paternal Grandfather Cancer Paternal Aunt breast Social History Tobacco Use Smoking status: Former Packs/day: 1.00 Years: 30.00 Pack years: 30.00 Types: Cigarettes Smokeless tobacco: Never Tobacco comments: quit 2013 Substance Use Topics Alcohol use: No Drug use: No Reviewed current medications, allergies, past medical history, surgical history, family history and social history today. REVIEW OF SYSTEMS GENERAL: No weight loss, malaise or fevers HEENT: Negative for frequent or significant headaches, No changes in hearing or vision, no nose bleeds or other nasal problems RESPIRATORY: Negative for cough, hemoptysis, wheezing, COPD, dyspnea or shortness of breath CARDIOVASCULAR: Negative for chest pain, leg swelling, hypertension, CHF or palpitations GI: No nausea, vomiting, or diarrhea : No history of dysuria, frequency or incontinence SKIN: Negative for lesions, rash, and itching All other reviewed and negative other than HPI. HEALTH MAINTENANCE: Reviewed health maintenance issues today and recommended the following in detail. There are no preventive care reminders to display for this patient. VITALS: BP 134/90 Pulse 78 Ht 154.9 cm (5' 1 ) Wt 98.2 kg (216 lb 6.4 oz) SpO2 98% BMI 40.89 kg/m? Last 4 Encounter Wt Readings: Date: Wt: 07/02/2022 100.7 kg (222 lb) 03/19/2022 97.5 kg (215 lb) 03/08/2022 96.2 kg (212 lb) 03/01/2022 96.8 kg (213 lb 6.4 oz) PHYSICAL EXAMINATION: General appearance: Well appearing, alert, in no acute distress, well-hydrated, well nourished. Skin: Skin color, texture, turgor normal, no suspicious rashes or lesions Head: Normocephalic, no masses, lesions, tenderness or abnormalities Eyes: Anicteric sclera. Pupils are equally round and reactive to li (more content not included)... [facility] 08-10-2022 History of Presen t illness Narrative Patient presents with: Physical HPI: Patient presents today for office visit for physical for insurance. No concerns today. Still seeing sleep meds. Sleeping are fair. Had repeat scan of her lungs. Was unchanged. We are doing another in one year. Still taking lexapro. Component Latest Ref Rng & Units 03/01/2022 03/02/2022 03/10/2022 WBC 3.70 - 11.00 k/uL 10.16 6.46 RBC 3.90 - 5.20 m/uL 5.62 (H) 4.89 Hemoglobin 11.5 - 15.5 g/dL 16.6 (H) 14.0 Hematocrit 36.0 - 46.0 % 49.0 (H) 44.3 MCV 80.0 - 100.0 fL 87.2 90.6 MCH 26.0 - 34.0 pg 29.5 28.6 MCHC 30.5 - 36.0 g/dL 33.9 31.6 RDW-CV 11.5 - 15.0 % 13.2 13.2 Platelet Count 150 - 400 k/uL 326 252 MPV 9.0 - 12.7 fL 10.3 11.2 Neut% % 64.3 59.5 Abs Neut (ANC) 1.45 - 7.50 k/uL 6.53 3.84 Lymph% % 23.9 27.2 Abs Lymph 1.00 - 4.00 k/uL 2.43 1.76 [place]% % 9.9 9.9 Abs [place] <0.87 k/uL 1.01 (H) 0.64 Eosin% % 0.7 1.9 Abs Eosin <0.46 k/uL 0.07 0.12 Baso% % 0.8 1.2 Abs Baso <0.11 k/uL 0.08 0.08 Immature Gran % % 0.4 0.3 IMMATURE GRANS (ABS) <0.10 k/uL 0.04 <0.03 NRBC /100 WBC 0.0 0.3 Absolute nRBC <0.01 k/uL <0.01 0.02 (H) DTYPE Auto Auto Glucose 74 - 99 mg/dL 109 (H) 89 BUN 7 - 21 mg/dL 12 15 Creatinine 0.58 - 0.96 mg/dL 0.74 0.68 Sodium 136 - 144 mmol/L 137 137 Potassium 3.7 - 5.1 mmol/L 4.1 4.3 Chloride 97 - 105 mmol/L 96 (L) 99 CO2 22 - 30 mmol/L 29 26 Anion Gap 9 - 18 mmol/L 12 12 Calcium 8.5 - 10.2 mg/dL 10.6 (H) 9.5 eGFR >=60 mL/min/1.73m 95 102 Shigella spp./Enteroinvasive E.coli DNA Not Detected Not detected Campylobacter jejuni/coli DNA Not Detected Not detected Shiga toxin-producing gene(s) Not Detected Not detected Salmonella spp. DNA Not Detected Not detected Normalized CAlcium 1.08 - 1.30 mmol/L 1.25 Ionized Calcium 1.08 - 1.30 mmol/L 1.25 Carboxyhemoglobin, Venous 0.0 - 2.0 % 0.9 Vitamin D 25 Hydroxy 31.0 - 80.0 ng/mL 41.0 PTH, Intact 15 - 65 pg/mL 22 MEDICATIONS: Current Outpatient Medications Medication Sig escitalopram oxalate (LEXAPRO) 10 mg tablet Take 1 tablet by mouth once daily. topiramate (TOPAMAX) 50 mg tablet Take 1 tablet by mouth daily at bedtime. lansoprazole (PREVACID) 30 mg capsule Take 1 capsule by mouth twice daily. 1/2 hr before meal. rOPINIRole 3 mg tablet Take 1 tablet by mouth daily at bedtime. Lactobac no.41/Bifidobact no.7 (PROBIOTIC-10 ORAL) Take by mouth. No current facility-administered medications for this visit. ALLERGIES: ALLERGIES Allergen Reactions Bupropion Hives Hives Wellbutrin [Bupropi* Hives PAST MEDICAL HISTORY Diagnosis Date IAN (generalized anxiety disorder) 07/18/2020 Panic attacks 06/20/2021 Restless leg syndrome PAST SURGICAL HISTORY Procedure Laterality Date ANESTH, SECTION EGD 11/27/2021 HYSTERECTOMY HX OPEN REPAIR OF ROTATOR CUFF ACUTE Right 2012 Rotator cuff repair REMOVAL GALLBLADDER N/A 06/05/2021 WRIST SURGERY HX Right anchors FAMILY HISTORY Problem Relation Age of Onset Cancer Paternal Grandfather skin Heart disease Paternal Grandfather Cancer Paternal Aunt breast Social History Tobacco Use Smoking status: Former Packs/day: 1.00 Years: 30.00 Pack years: 30.00 Types: Cigarettes Smokeless tobacco: Never Tobacco comments: quit 2012 Substance Use Topics Alcohol use: No Drug use: No Reviewed current medications, allergies, past medical history, surgical history, family history and social history today. REVIEW OF SYSTEMS GENERAL: No weight loss, malaise or fevers HEENT: Negative for frequent or significant headaches, No changes in hearing or vision, no nose bleeds or other nasal problems RESPIRATORY: Negative for cough, hemoptysis, wheezing, COPD, dyspnea or shortness of breath CARDIOVASCULAR: Negative for chest pain, leg swelling, hypertension, CHF or palpitations GI: No nausea, vomiting, or diarrhea : No history of dysuria, frequency or incontinence SKIN: Negative for lesions, rash, and itching All other reviewed and negative other than HPI. HEALTH MAINTENANCE: Reviewed health maintenance issues today and recommended the following in detail. There are no preventive care reminders to display for this patient. VITALS: BP 134/90 Pulse 78 Ht 154.9 cm (5' 1 ) Wt 98.2 kg (216 lb 6.4 oz) SpO2 98% BMI 40.89 kg/m Last 4 Encounter Wt Readings: Date: Wt: 07/02/2022 100.7 kg (222 lb) 03/19/2022 97.5 kg (215 lb) 03/08/2022 96.2 kg (212 lb) 03/01/2022 96.8 kg (213 lb 6.4 oz) PHYSICAL EXAMINATION: General appearance: Well appearing, alert, in no acute distress, well-hydrated, well nourished. Skin: Skin color, texture, turgor normal, no suspicious rashes or lesions Head: Normocephalic, no masses, lesions, tenderness or abnormalities Eyes: Anicteric sclera. Pupils are equally round and reactive to light. Extraocular movements are intact. Ears: External ears normal, canals clear Nose/Sinuses: Nares normal, septum midline, mucosa normal, no drainage or sinus tenderness Oropharynx: Lips, mucosa, and tongue normal, teeth and gums normal, oropharynx normal Neck: Supple, no adenopathy; thyroid symmetric, normal size, no bruits Lungs: Lungs clear to auscultation. No wheezing, rhonchi, rales Heart: RRR without murmur, gallop, or rubs. No ectopy Abdomen: Normal abdominal exam, Abdomen soft, non-tender. Bowel sounds normal. No masses, organomegaly Extremities: No deformities, edema, skin discoloration, clubbing or cyanosis. Good capillary refill. Musculoskeletal: No joint swelling, deformity, or tenderness Peripheral pulses: Normal Neuro: Gait normal. Reflexes normal and symmetric. Sensation grossly intact. ASSESSMENT/PLAN: 1. Well adult exam - ICD9: V70.0, ICD10: Z00.00 (primary diagnosis) - Counseled on healthy diet and regular exercise 2. Panic attacks - ICD9: 300.01, ICD10: F41.0 - ALPRAZOLAM 0.5 MG TABLET 3. Mixed hyperlipidemia - ICD9: 272.2, ICD10: E78.2 - follow progress. Has repeat labs ordered Parker Nick documented in this encounter [facility] 07-31-2022 Miscellaneous Notes Spoke with pt and information listed below given. Pt verbalizes understanding. Petra Romero LPN Placed call to patient with no answer. Left for return call. Patient has already viewed result on my chart. Message sent via my chart with Dr. Nick's message. Tori [address] Ct shows nodule but is unchanged. Recommended she recheck in one year. documented in this encounter [facility] 07-27-2022 Note HNO ID: [id number] Author: RT Kilo(R) Service: ? Author Type: Dinkey Operator Slag Type: Progress Notes Filed: 07/27/2022 3:15 PM Note Text: Radiology Service Progress Note PATIENT NAME: Shalini Gonsales DATE OF SERVICE: July 27, 2022 TIME: 3:15 PM PATIENT IDENTITY VERIFICATION COMPLETED USING TWO (2) IDENTIFIERS: Name and Date of confirmed by patient verbally. FALL SCREENING: Has the patient had 2 falls in the last year or 1 fall with injury or currently using an Ambulatory Assistive Device (Walker, Cane, Wheelchair, Crutches, etc.)? No PATIENT GENDER DATA: Male PATIENT RELEVANT IMPLANT DATA REVIEWED: Yes RADIOLOGY DEPARTMENT: CT; Exam(s) Completed: Chest PERIPHERAL IV DATA: Not applicable SIGNED BY: RT Canelo(R) July 27, 2022 3:15 PM [facility] 07-27-2022 History of Presen t illness Narrative Radiology Service Progress Note PATIENT NAME: Shalini Gonsales DATE OF SERVICE: July 27, 2022 TIME: 3:15 PM PATIENT IDENTITY VERIFICATION COMPLETED USING TWO (2) IDENTIFIERS: Name and Date of confirmed by patient verbally. FALL SCREENING: Has the patient had 2 falls in the last year or 1 fall with injury or currently using an Ambulatory Assistive Device (Walker, Cane, Wheelchair, Crutches, etc.)? No PATIENT GENDER DATA: Male PATIENT RELEVANT IMPLANT DATA REVIEWED: Yes RADIOLOGY DEPARTMENT: CT; Exam(s) Completed: Chest PERIPHERAL IV DATA: Not applicable SIGNED BY: RT Canelo(R) July 27, 2022 3:15 PM documented in this encounter [facility] documented as of this encounter (statuses as of 01/17/2023) [facility]01-30[facility]2023 History of Past illness Narrative* Problem Noted Date Diagnosed Date Resolved Date Acute cholecystitis due to biliary calculus 07/02/2022 01/16/2023 Dehydration 07/02/2022 01/16/2023 Nausea with vomiting, unspecified 06/29/2021 01/16/2023 Pain of both hip joints 07/18/202001/01 documented as of this encounter (statuses as of 01/29/2023) [facility] History of Past illness Narrative* Problem Noted Date Diagnosed Date Resolved Date Acute cholecystitis due to biliary calculus 07/02/2022 01/16/2023 Dehydration 07/02/2022 01/16/2023 Nausea with vomiting, unspecified 06/29/2021 01/16/2023 Pain of both hip joints 07/18/202001/01 documented as of this encounter (statuses as of 01/29/2023) [facility] History of Past illness Narrative* Problem Noted Date Diagnosed Date Resolved Date Acute cholecystitis due to biliary calculus 07/02/2022 01/16/2023 Dehydration 07/02/2022 01/16/2023 Nausea with vomiting, unspecified 06/29/2021 01/16/2023 Pain of both hip joints 07/18/202001/01 documented as of this encounter (statuses as of 03/21/2023) [facility] History of Past illness Narrative* Problem Noted Date Diagnosed Date Resolved Date Acute cholecystitis due to biliary calculus 07/02/2022 01/16/2023 Dehydration 07/02/2022 01/16/2023 Nausea with vomiting, unspecified 06/29/2021 01/16/2023 Pain of both hip joints 07/18/202001/01 documented as of this encounter (statuses as of 04/08/2023) [facility] History of Past illness Narrative* Problem Noted Date Diagnosed Date Resolved Date Acute cholecystitis due to biliary calculus 07/02/2022 01/16/2023 Dehydration 07/02/2022 01/16/2023 Nausea with vomiting, unspecified 06/29/2021 01/16/2023 Pain of both hip joints 07/18/202001/01 documented as of this encounter (statuses as of 04/08/2023) [facility] History of Past illness Narrative* Problem Noted Date Diagnosed Date Resolved Date Acute cholecystitis due to biliary calculus 07/02/2022 01/16/2023 Dehydration 07/02/2022 01/16/2023 Nausea with vomiting, unspecified 06/29/2021 01/16/2023 Pain of both hip joints 07/18/202001/01 documented as of this encounter (statuses as of 04/08/2023) [facility] History of Past illness Narrative* Problem Noted Date Diagnosed Date Resolved Date Acute cholecystitis due to biliary calculus 07/02/2022 01/16/2023 Dehydration 07/02/2022 01/16/2023 Nausea with vomiting, unspecified 06/29/2021 01/16/2023 Pain of both hip joints 07/18/202001/01 documented as of this encounter (statuses as of 05/01/2023) [facility]01-30-[facility]23 NoteHNO ID: [id number] Author: Parker Nick MD Service: ? Author Type: Physician Type: Progress Notes Filed: 07/02/2022 11:16 AM Note Text: Patient presents with: Follow Up HPI: Patient presents today for office visit for follow up. CT from 06/23/21 showing 4.5 mm solid nodule in right lung. Here for repeat studies. Seeing Dr Ospina. Taking requip and topamax snd doing well. Using lexapro. Wants to wean off if able. Discussed doing in Spring or summer. No side effects. Moods are doing ok. Using xanax just prn No side effects. Oarrs done. Using prevacid prn. Doing well. A year ago had ct at [facility] showed a 4 mm nodule. Due for repeat. MEDICATIONS: Current Outpatient Medications Medication Sig topiramate (TOPAMAX) 50 mg tablet Take 1 tablet by mouth daily at bedtime. ALPRAZolam (XANAX) 0.5 mg tablet Take 1 tablet by mouth twice daily as needed for anxiety for up to 90 days. For panic attacks and fear of flying. escitalopram oxalate (LEXAPRO) 10 mg tablet Take 1 tablet by mouth once daily. lansoprazole (PREVACID) 30 mg capsule Take 1 capsule by mouth twice daily. 1/2 hr before meal. rOPINIRole 3 mg tablet Take 1 tablet by mouth daily at bedtime. Lactobac no.41/Bifidobact no.7 (PROBIOTIC-10 ORAL) Take by mouth. No current facility-administered medications for this visit. ALLERGIES: ALLERGIES Allergen Reactions Bupropion Hives Hives Wellbutrin [Bupropi* Hives PAST MEDICAL HISTORY Diagnosis Date IAN (generalized anxiety disorder) 07/18/2020 Panic attacks 06/20/2021 Restless leg syndrome PAST SURGICAL HISTORY Procedure Laterality Date ANESTH, SECTION EGD 11/27/2021 HYSTERECTOMY HX OPEN REPAIR OF ROTATOR CUFF ACUTE Right 2012 Rotator cuff repair REMOVAL GALLBLADDER N/A 06/05/2021 WRIST SURGERY HX Right anchors FAMILY HISTORY Problem Relation Age of Onset Cancer Paternal Grandfather skin Heart disease Paternal Grandfather Cancer Paternal Aunt breast Social History Tobacco Use Smoking status: Former Packs/day: 1.00 Years: 30.00 Pack years: 30.00 Types: Cigarettes Smokeless tobacco: Never Tobacco comments: quit 2013 Substance Use Topics Alcohol use: No Drug use: No Reviewed current medications, allergies, past medical history, surgical history, family history and social history today. REVIEW OF SYSTEMS All other reviewed and negative other than HPI. HEALTH MAINTENANCE: Reviewed health maintenance issues today HEPATITIS B(1 of 3 - 3-dose series)-believes she had it done. VITALS: BP 124/94 Pulse 77 Ht 154.9 cm (5' 1 ) Wt 100.7 kg (222 lb) SpO2 98% BMI 41.95 kg/m? Last 4 Encounter Wt Readings: Date: Wt: 07/02/2022 100.7 kg (222 lb) 03/19/2022 97.5 kg (215 lb) 03/08/2022 96.2 kg (212 lb) 03/01/2022 96.8 kg (213 lb 6.4 oz) PHYSICAL EXAMINATION: General appearance: Well appearing, alert, in no acute distress, well-hydrated, well nourished. Skin: Skin color, texture, turgor normal, no suspicious rashes or lesions Neck: Supple, no adenopath Lungs: Lungs clear to auscultation. No wheezing, rhonchi, rales Heart: RRR without murmur, gallop, or rubs. No ectopy Abdomen: Normal abdominal exam, Abdomen soft, non-tender. Bowel sounds normal. No masses, organomegaly Extremities: No deformities, edema, skin discoloration, clubbing or cyanosis. Good capillary refill. Musculoskeletal: No joint swelling, deformity, or tenderness ASSESSMENT/PLAN: 1. Restless leg syndrome - ICD9: 333.94, ICD10: G25.81 (primary diagnosis) - continue meds. 2. IAN (generalized anxiety disorder) - ICD9: 300.02, ICD10: F41.1 - continue meds. Call if any issues. - ESCITALOPRAM 10 MG TABLET 3. Incidental lung nodule, > 3mm and < 8mm - ICD9: 793.11, ICD10: R91.1 - do ct scan. 4. Mixed hyperlipidemia - ICD9: 272.2, ICD10: E78.2 - good control - Continue current medication. - LIPID PANEL BASIC Parker Nick [facility]01-30-2023 History of Present illness Narrative* Parker Nick MD - 07/02/2022 10:36 AM EST Patient presents with: Follow Up HPI: Patient presents today for office visit for follow up. CT from 06/23/21 showing 4.5 mm solid nodule in right lung. Here for repeat studies. Seeing Dr Ospina. Taking requip and topamax snd doing well. Using lexapro. Wants to wean off if able. Discussed doing in Spring or summer. No side effects. Moods are doing ok. Using xanax just prn No side effects. Oarrs done. Using prevacid prn. Doing well. A year ago had ct at [facility] showed a 4 mm nodule. Due for repeat. MEDICATIONS: Current Outpatient Medications Medication Sig topiramate (TOPAMAX) 50 mg tablet Take 1 tablet by mouth daily at bedtime. ALPRAZolam (XANAX) 0.5 mg tablet Take 1 tablet by mouth twice daily as needed for anxiety for up to90 days. For panic attacks and fear of flying. escitalopram oxalate (LEXAPRO) 10 mg tablet Take 1 tablet by mouth once daily. lansoprazole (PREVACID) 30 mg capsule Take 1 capsule by mouth twice daily. 1/2 hr before meal. rOPINIRole 3 mg tablet Take 1 tablet by mouth daily at bedtime. Lactobac no.41/Bifidobact no.7 (PROBIOTIC-10 ORAL) Take by mouth. No current facility-administered medications for this visit. ALLERGIES: ALLERGIES Allergen Reactions Bupropion Hives Hives Wellbutrin [Bupropi* Hives PAST MEDICAL HISTORY Diagnosis Date IAN (generalized anxiety disorder) 07/18/2020 Panic attacks 06/20/2021 Restless leg syndrome PAST SURGICAL HISTORY Procedure Laterality Date ANESTH, SECTION EGD 11/27/2021 HYSTERECTOMY HX OPEN REPAIR OF ROTATOR CUFF ACUTE Right 2012 Rotator cuff repair REMOVAL GALLBLADDER N/A 06/05/2021 WRIST SURGERY HX Right anchors FAMILY HISTORY Problem Relation Age of Onset Cancer Paternal Grandfather skin Heart disease Paternal Grandfather Cancer Paternal Aunt breast Social History Tobacco Use Smoking status: Former Packs/day: 1.00 Years: 30.00 Pack years: 30.00 Types: Cigarettes Smokeless tobacco: Never Tobacco comments: quit 2012 Substance Use Topics Alcohol use: No Drug use: No Reviewed current medications, allergies, past medical history, surgical history, family history andsocial history today. REVIEW OF SYSTEMS All other reviewed and negative other than HPI. HEALTH MAINTENANCE: Reviewed health maintenance issues today HEPATITIS B(1 of 3 - 3-dose series)-believes she had it done. VITALS: BP 124/94 Pulse 77 Ht 154.9 cm (5' 1 ) Wt 100.7 kg (222 lb) SpO2 98% BMI 41.95 kg/m Last 4 Encounter Wt Readings: Date: Wt: 07/02/2022 100.7 kg (222 lb) 03/19/2022 97.5 kg (215 lb) 03/08/2022 96.2 kg (212 lb) 03/01/2022 96.8 kg (213 lb 6.4 oz) PHYSICAL EXAMINATION: General appearance: Well appearing, alert, in no acute distress, well-hydrated, well nourished. Skin: Skin color, texture, turgor normal, no suspicious rashes or lesions Neck: Supple, no adenopath Lungs: Lungs clear to auscultation. No wheezing, rhonchi, rales Heart: RRR without murmur, gallop, or rubs. No ectopy Abdomen: Normal abdominal exam, Abdomen soft, non-tender. Bowel sounds normal. No masses, organomegaly Extremities: No deformities, edema, skin discoloration, clubbing or cyanosis. Good capillary refill. Musculoskeletal: No joint swelling, deformity, or tenderness ASSESSMENT/PLAN: 1. Restless leg syndrome - ICD9: 333.94, ICD10: G25.81 (primary diagnosis) - continue meds. 2. IAN (generalized anxiety disorder) - ICD9: 300.02, ICD10: F41.1 - continue meds. Call if any issues. - ESCITALOPRAM 10 MG TABLET 3. Incidental lung nodule, > 3mm and < 8mm - ICD9: 793.11, ICD10: R91.1 - do ct scan. 4. Mixed hyperlipidemia - ICD9: 272.2, ICD10: E78.2 - good control - Continue current medication. - LIPID PANEL BASIC Parker Nick [facility] Miscellaneous Notes* Telephone Encounter - LUIS Bonner - 06/29/2022 10:38 AM EST Patient has been identified by name and date of : Yes Patient phones for refill(s): Requested Prescriptions Refused Prescriptions Disp Refills topiramate (TOPAMAX) 50 mg tablet 30 tablet 2 Sig: Take 1 tablet by mouth daily at bedtime. Refused By: SEAN VALENCIA Reason for Refusal: Records indicate that there is a valid prescription at the pharmacy Date of last office visit in primary care: CAIT 03/19/2022 with WN Appointment scheduled 10/16/22 with WN Please also see [facility] encounter from 06/29/2021. Patient is almost out of medication and will run out during a trip. Last 2 Encounter Wt Readings: Date: Wt: 03/19/2022 97.5 kg (215 lb) 03/08/2022 96.2 kg (212 lb) Please advise. Thank you. LUIS Bonner [facility] Miscellaneous Notes* Telephone Encounter - LUIS Bonner - 06/29/2022 10:38 AM EST In looking over chart, it seems refill request was not forwarded to provider. Refill sent high priority. Closing this encounter. LUIS Bonner [facility] Miscellaneous Notes* Telephone Encounter - Solomon Riggs LPN - 05/05/2022 8:17 AM EST Patient phones requesting refills as follows: Requested Prescriptions Pending Prescriptions Disp Refills ALPRAZolam (XANAX) 0.5 mg tablet 30 tablet 0 Sig: Take 1 tablet by mouth twice daily as needed for anxiety for up to 90 days. For panic attacks and fear of flying. CAIT 03/08/22 NOV 06/29/22 Last rx written 12/12/21 #30 with 0 refills. Please review and advise. Solomon Riggs LPN [facility] Miscellaneous Notes* Telephone Encounter - LUIS Bonner - 04/12/2022 3:48 PM EST sent to Shalini with providers message. Will watch for response. LUIS Bonner * Telephone Encounter - Parker Harris Jr., MD - 04/12/2022 3:02 PM EST A massage device might help. Regarding Topamax please clarify with pt if any contraindications for use of Topamax including history of renal stones, glaucoma... Also advise pt that med can reduce the efficacy of OCP and result in weight loss and transient numbness of extremities. Thank you, Parker Harris MD * Telephone Encounter - Shalini Valentin Pss - 03/26/2022 8:44 AM EDT Office notes from 03/19/22 Assessment and Plan: ASSESSMENT/PLAN: 1. Restless leg syndrome - ICD9: 333.94, ICD10: G25.81 (primary diagnosis) Patient with clinical history supporting the dx of RLS. Etiology unclear with normal Ferritin and Iron levels in the past and no significant spine or lower ext injuries. Symptoms worse at night, withurge to move, worse with rest (ie. airplanes, cars) and relieved with activity. Concern is that symptoms are progressively worsening as above and suspect due to Augmentation with pt being treated by means of a dopamine agonist. Thus, will attempt to change medications to try and reduce risk of worsening symptoms while still controlling those symptoms. Discussed options with patient and pt agrees with plan as follows: Cut the Requip in 1/2 so taking 1.5 mg with dinner. 2. Start Lyrica 50mg capsule: -1 capsule upon returning home from work. -1 capsule after dinner. 3. If still having RLS symptoms but no side effects, then adjust Lyrica as follows: -1 capsule upon returning from work. -2 capsules after dinner. 4. Move Lexapro to AM as may be provoking RLS symptoms (note present prior to being on Lexapro) SE and ADRs of above meds d/w pt. 2. Frequent nocturnal awakening - ICD9: 780.59, ICD10: G47.00 In addition to RLS and possible associated PLMs waking patient, also concern for possible BARB. Pt does have dry mouth at night and crowded airway with obesity (BMI 40.62). Pt would like to hold on sleep testing for now. Discussed with patient: the physiology of OSAS, medical conditions associated with OSAS (DM, HTN, CAD, Depression, Stroke, Headache...) and treatment options (UPPP, Dental appliances, CPAP...). If RLS controlled and still having fragmented sleep, plan will be to have patient undergo HSAT to further evaluate for possible BARB. Pt agrees with plan. Encouraged weight loss. Parker Harris MD documented in this encounterR[facility] Institute10-28-2022 History of Present illness Narrative* Best Hammer APRN.[facility] - 03/30/2022 10:40 AM EDT Telemedicine Visit - Distance Health Virtual Visit Note Patient seen on [employer] video visit platform. [place] Parker Nick MD History of Present Illness Shalini Gonsales is a 56 year old year old female who presents for positive home covid testing. 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 Duration: 1 day ago. Positive home COVID testing today. Fever: No. Headache: Yes. Sore throat: Yes. Night time chills: Yes Lightheadedness: Yes Ear pain: No. Nasal drainage: Yes. Cough: Yes. Shortness of breath: No. Nausea: No. Vomiting: No. Diarrhea: No. Previous treatment: Yes. Generic daytime nyquil. Wanting to discuss oral paxlovid therapy. PAST MEDICAL HISTORY Diagnosis Date IAN (generalized anxiety disorder) 07/18/2020 Panic attacks 06/20/2021 Restless leg syndrome PAST SURGICAL HISTORY Procedure Laterality Date ANESTH, SECTION EGD 11/27/2021 HYSTERECTOMY HX OPEN REPAIR OF ROTATOR CUFF ACUTE Right 2012 Rotator cuff repair REMOVAL GALLBLADDER N/A 06/05/2021 WRIST SURGERY HX Right anchors FAMILY HISTORY Problem Relation Age of Onset Cancer Paternal Grandfather skin Heart disease Paternal Grandfather Cancer Paternal Aunt breast Social History Tobacco Use Smoking status: Former Packs/day: 1.00 Years: 30.00 Pack years: 30.00 Types: Cigarettes Smokeless tobacco: Never Tobacco comments: quit 2013 Substance Use Topics Alcohol use: No Drug use: No Current Outpatient Medications Medication Sig pregabalin (LYRICA) 50 mg capsule Take 2 to 3 capsules as instructed. promethazine (PHENERGAN) 12.5 mg suppository 1 Suppository by RECTAL route every 6 hours as needed.(Patient not taking: Reported on 03/19/2022) escitalopram oxalate (LEXAPRO) 10 mg tablet Take 1 tablet by mouth once daily. lansoprazole (PREVACID) 30 mg capsule Take 1 capsule by mouth twice daily. 1/2 hr before meal. rOPINIRole 3 mg tablet Take 1 tablet by mouth daily at bedtime. Lactobac no.41/Bifidobact no.7 (PROBIOTIC-10 ORAL) Take by mouth. multivit with calcium,iron,min (MULTIPLE VITAMIN, WOMENS ORAL) Take 1 tablet by mouth as needed. (Patient not taking: Reported on 03/19/2022) No current facility-administered medications for this visit. ALLERGIES Allergen Reactions Bupropion Hives Hives Wellbutrin [Bupropi* Hives Video Exam (Examination performed via Video enabled technology) General appearance: Alert, oriented, pleasant, in NAD :Yes Ill appearing :No Lethargic appearing :No Respiratory distress :No ASSESSMENT/PLAN: 1. COVID - ICD9: 079.89, ICD10: U07.1 - Positive home test. Symptoms onset 1 day ago. No drug interactions. Discussed red flags that needfor her to return. - NIRMATRELVIR 300 MG (150 MG X2)-RITONAVIR 100 MG TABLET,DOSE PACK(EUA) PLAN: - Red flags discussed for need for in person care - All questions answered Best Hammer APRN.[employer] If you let us know who your primary care provider is, we will send them a notification of today's visit through our electronic medical records system. Since not all providers have access to our notifications, we strongly encourage you to share the following record of today's visit with your primarycare provider at your next visit. This will help in providing you the best care. If you do not have an established Primary Care physician and would like to continue care with a [facility] Primary Care physician, please ask your provider to place a Establish PrimaryCare order. Use [facility] to manage your care, wherever you are, 24/12, on your mobile device or computer. [employer] connects you to [employer] so you can access all your health information in one place and also schedule and request virtual appointments with primary care providers. Nirmatrelvir/Ritonavir (Paxlovid) Eligibility and Patient Discussion [facility] Formulary Restriction Criteria: Adult outpatients 18 years and older with ALL of the following: [x] Patient has positive SARS-COV-2 viral test (PCR or antigen test) during current illness [x] Patient has symptoms for 5 days or less [x] Not requiring hospitalization at any time for management of COVID-19 [x] Not requiring supplemental oxygen or a change in baseline supplemental oxygen [x] Not utilized for pre-exposure or post-exposure prophylaxis for prevention of COVID-19 [x] Patient does not have severe renal impairment (eGFR < 30 mL/min) or severe hepatic impairment (Child-Hennessy Class C) [x] Meeting at least one of the criteria for high risk of progression to severe COVID-19: [] Age over 65 years [] Cancer [] Chronic kidney disease [] Chronic liver disease [] Chronic lung diseases, including cystic fibrosis [] Dementia or other neurological conditions [] Diabetes (type 1 or type 2) [] Disabilities, including Down syndrome and neurodevelopmental disorders [] Heart conditions [] HIV infection [] Immunocompromised state [] Mental health conditions [] Medical related technological dependence (tracheostomy, gastrostomy, or positive pressure ventilation (not related to COVID) [x] Overweight and obesity (BMI greater or equal to 25 for adults) [] Physical inactivity [] [] Sickle cell disease or thalassemia [] Smoking, current or former [] Solid organ or blood stem cell transplant [] Stroke or cerebrovascular disease [] Substance use disorders [] Tuberculosis [] People from racial and ethnic minority groups Criteria above are met: Yes Date of Positive Test: 03/30/2022 Date of Symptom Onset: 03/29/2022 Patient received COVID vaccine: Yes Drug-Drug interactions reviewed: Yes. No drug interactions were identified. I have discussed the use of the investigational therapeutic, nirmatrelvir/ritonavir, for the treatment of mild to moderate COVID-19 and its use under Emergency Use Authorization with the patient. The patient was informed that nirmatrelvir/ritonavir is not an FDA approved drug and that it is authorized for use under this Emergency Use Authorization. The patient was also informed of the significant known benefits and potential risks of nirmatrelvir/ritonavir, and the extent to which such potential risks and benefits are unknown. The patient was informed that there is mandatory reporting of all medication errors and serious adverse events potentially related to nirmatrelvir/ritonavir treatment within 7 calendar days from the onset of the event and that events up to 28 days after completion of therapy need to be reported. The discussion included alternatives to receiving nirmatrelvir/rit onavir, including clinical trials, and potential the risks and benefits of those alternatives. The patient was provided electronically with the Fact Sheet for Patients, Parents and Caregivers . The patient was also instructed that in addition to the treatment with nirmatrelvir/ritonavir, he/she should continue to self-isolate and use infection control measures (e.g., wear mask, isolate, social distance, avoid sharing personal items, clean and disinfect high touch surfaces, and frequent h andwashing) according to CDC guidelines. The patient stated understanding and gave verbal consent to proceeding with nirmatrelvir/ritonavir treatment. Best Hammer APRN.CNP March 30, 2022 10:27 AM documented in this encounterRiver[facility] Institute10-28-2022 Instructions* Patient Instructions* Best Hammer APRN.CNP - 03/30/2022 10:27 AM EDT FACT SHEET FOR PATIENTS, PARENTS, AND CAREGIVERS EMERGENCY USE AUTHORIZATION (EUA) OF PAXLOVID FOR CORONAVIRUS DISEASE 2019 (COVID-19) You are being given this Fact Sheet because your healthcare provider believes it is necessary to provide you with PAXLOVID for the treatment of fkye-sk-syvqrqfj coronavirus disease (COVID-19) caused by the SARS-CoV-2 virus. This Fact Sheet contains information to help you understand the risks and benefits of taking the PAXLOVID you have received or may receive. The U.S. Food and Drug Administration (FDA) has issued an Emergency Use Authorization (EUA) to makePAXLOVID available during the COVID-19 pandemic (for more details about an EUA please see What is an Emergency Use Authorization? at the end of this document). PAXLOVID is not an FDA-approved medicine in the [place]. Read this Fact Sheet for information about PAXLOVID. Talk to your healthcareprovider about your options or if you have any questions. It is your choice to take PAXLOVID. What is COVID-19? COVID-19 is caused by a virus called a coronavirus. You can get COVID-19 through close contact withanother person who has the virus. COVID-19 illnesses have ranged from very sgur-wg-jjuvtz, including illness resulting in . While information so far suggests that most COVID-19 illness is mild, serious illness can happen and maycause some of your other medical conditions to become worse. Older people and people of all ages with severe, long lasting (chronic) medical conditions like heart disease, lung disease, and diabetes,for example seem to be at higher risk of being hospitalized for COVID-19. What is PAXLOVID? PAXLOVID is an investigational medicine used to treat gcde-wd-aqgxkfuj COVID-19 in adults and children [12 years of age and older weighing at least 88 pounds (40 kg)] with positive results of direct SARS-CoV-2 viral testing, and who are at high risk for progression to severe COVID-19, including hospitalization or . PAXLOVID is investigational because it is still being studied. There is limited information about the safety and effectiveness of using PAXLOVID to treat people with byjv-bf-mpurobte COVID-19. The FDA has authorized the emergency use of PAXLOVID for the treatment of grpl-tk-oacwqezw COVID-19in adults and children [12 years of age and older weighing at least 88 pounds (40 kg)] with a positive test for the virus that causes COVID-19, and who are at high risk for progression to severe COVID-19, including hospitalization or , under an EUA. 1 Revised: 18 August 2021 What should I tell my healthcare provider before I take PAXLOVID? Tell your healthcare provider if you: Have any allergies Have liver or kidney disease Are or plan to become Are a child Have any serious illnesses Tell your healthcare provider about all the medicines you take, including prescription and pupk-gzo-mnxddrb medicines, vitamins, and herbal supplements. Some medicines may interact with PAXLOVID and may cause serious side effects. Keep a list of your medicines to show your healthcare provider and pharmacist when you get a new medicine. You can ask your healthcare provider or pharmacist for a list of medicines that interact with PAXLOVID. Do not start taking a new medicine without telling your healthcare provider. Your healthcare provider can tell you if it is safe to take PAXLOVID with other medicines. Tell your healthcare provider if you are taking combined hormonal contraceptive. PAXLOVID may affect how your control pills work. Females who are able to become should use another effective alternative form of contraception or an additional barrier method of contraception. Talk to your healthcare provider if you have any questions about contraceptive methods thatmight be right for you. How do I take PAXLOVID? PAXLOVID consists of 2 medicines: nirmatrelvir and ritonavir. Take 2 pink tablets of nirmatrelvir with 1 white tablet of ritonavir by mouth 2 times each day (in the morning and in the evening) for 5 days. For each dose, take all 3 tablets at the same time. If you have kidney disease, talk to your healthcare provider. You may need a different dose. Swallow the tablets whole. Do not chew, break, or crush the tablets. Take PAXLOVID with or without food. Do not stop taking PAXLOVID without talking to your healthcare provider, even if you feel better. If you miss a dose of PAXLOVID within 8 hours of the time it is usually taken, take it as soon as you remember. If you miss a dose by more than 8 hours, skip the missed dose and take the next dose atyour regular time. Do not take 2 doses of PAXLOVID at the same time. If you take too much PAXLOVID, call your healthcare provider or go to the nearest hospital emergency room right away. If you are taking a ritonavir-or cobicistat-containing medicine to treat hepatitis C or Human Immunodeficiency Virus (HIV), you should continue to take your medicine as prescribed by your healthcare provider. Talk to your healthcare provider if you do not feel better or if you feel worse after 5 days. Who should generally not take PAXLOVID? Do not take PAXLOVID if: You are allergic to nirmatrelvir, ritonavir, or any of the ingredients in PAXLOVID You are taking any of the following medicines: Alfuzosin Pethidine, propoxyphene Ranolazine Amiodarone, dronedarone, flecainide, propafenone, quinidine Colchicine Lurasidone, pimozide, clozapine Dihydroergotamine, ergotamine, methylergonovine Lovastatin, simvastatin Sildenafil (Revatio ) for pulmonary arterial hypertension (PAH) Triazolam, oral midazolam Apalutamide Carbamazepine, phenobarbital, phenytoin Rifampin Min s Wort (hypericum perforatum) Taking PAXLOVID with these medicines may cause serious or life-threatening side effects or affect how PAXLOVID works. These are not the only medicines that may cause serious side effects if taken with PAXLOVID. PAXLOVID may increase or decrease the levels of multiple other medicines. It is very important to tell your healthcare provider about all of the medicines you are taking because additional laboratory tests or changes in the dose of your other medicines may be necessary while you are taking PAXLOVID. Your healthcare provider may also tell you about specific symptoms to watch out for that may indicate that you need to stop or decrease the dose of some of your other medicines. What are the important possible side effects of PAXLOVID? Possible side effects of PAXLOVID are: Allergic Reactions. Allergic reactions can happen in people taking PAXLOVID, even after only 1 dose. Stop taking PAXLOVID and call your healthcare provider right away if you get any of the following symptoms of an allergic reaction: hives trouble swallowing or breathing swelling of the mouth, lips, or face throat tightness hoarseness skin rash Liver Problems. Tell your healthcare provider right away if you have any of these signs and symptoms of liver problems: loss of appetite, yellowing of your skin and the whites of eyes (jaundice), dark-colored urine, pale colored stools and itchy skin, stomach area (abdominal) pain. Resistance to HIV Medicines. If you have untreated HIV infection, PAXLOVID may lead to some HIV medicines not working as well in the future. Other possible side effects include: altered sense of taste diarrhea high blood pressure muscle aches These are not all the possible side effects of PAXLOVID. Not many people have taken PAXLOVID. Serious and unexpected side effects may happen. PAXLOVID is still being studied, so it is possible that all of the risks are not known at this time. What other treatment choices are there? Veklury (remdesivir) is FDA-approved for the treatment of bzpm-xi-tqdyngqb COVID-19 in certain adults and children. Talk with your doctor to see if Veklury is appropriate for you. Like PAXLOVID, FDA may also allow for the emergency use of other medicines to treat people with COVID-19. Go to https://www.fda.gov/gewmnemym-bxhxlqjzdhfc-fnxzecukrrt/hkl-lhgft-xpietvdzgi-and- policy-framework/agzcaltda-ugu-fuvnloqjuhwhk for information on the emergency use of other medicines that are authorized by FDA to treat people with COVID-19. Your healthcare provider may talk with you aboutclinical trials for which you may be eligible. It is your choice to be treated or not to be treated with PAXLOVID. Should you decide not to receive it or for your child not to receive it, it will not change your standard medical care. What if I am or ? There is governor assembler hydraulic treating women or mothers with PAXLOVID. For a motherand unborn baby, the benefit of taking PAXLOVID may be greater than the risk from the treatment. Ifyou are , discuss your options and specific situation with your healthcare provider. It is recommended that you use effective barrier contraception or do not have sexual activity whiletaking PAXLOVID. If you are , discuss your options and specific situation with your healthcare provider. How do I report side effects with PAXLOVID? Contact your healthcare provider if you have any side effects that bother you or do not go away. Report side effects to FDA MedWatch at www.fda.gov/medwatch or call 0-489-DML5342 or you can reportside effects to [employer]. at the contact information provided below. Website Fax number Telephone number www[employer]ohm How should I store PAXLOVID? Store PAXLOVID tablets at room temperature, between 68?F to 77?F (20?C to 25?C). How can I learn more about COVID-19? Ask your healthcare provider. Visit https://www.cdc.gov/COVID19. Contact your local or state public health department. What is an Emergency Use Authorization (EUA)? The [place] FDA has made PAXLOVID available under an emergency access mechanism called an Emergency Use Authorization (EUA). The EUA is supported by a Assistant Professor Of Philosophy of Health and Human Service (HHS) declaration that circumstances exist to justify the emergency use of drugs and biological productsduring the COVID-19 pandemic. PAXLOVID for the treatment of mcnx-ou-vbzuzbfn COVID-19 in adults and children [12 years of age andolder weighing at least 88 pounds (40 kg)] with positive results of direct SARS-CoV-2 viral testing, and who are at high risk for progression to severe COVID-19, including hospitalization or , has not undergone the same type of review as an FDA-approved product. In issuing an EUA under the COVID-19 public health emergency, the FDA has determined, among other things, that based on the total amount of scientific evidence available including data from adequate and well-controlled clinical trials, if available, it is reasonable to believe that the product may be effective for diagnosing, treating, or preventing COVID-19, or a serious or life-threatening disease or condition caused by COVID-19; that the known and potential benefits of the product, when used to diagnose, treat, or prevent such disease or condition, outweigh the known and potential risks of such product; and that there are no adequate, approved, and available alternatives. All of these criteria must be met to allow for the product to be used in the treatment of patients during the COVID-19 pandemic. The EUA for PAXLOVID is in effect for the duration of the COVID-19 declaration justifying emergency use of this product, unless terminated or revoked (after which the products may no longer be used under the EUA). Additional Information For general questions, visit the website or call the telephone number provided below. Website Telephone number www.VYGKD74qyqeLu.com (7-328-E99-PACK) You can also go to www.[employer].Zipwhip or call for more information. [employer] [place] [address] [id number] Revised: 18 August 2021 documented in this encounterRiver[facility] Health Institute10-19-2022 Miscellaneous Notes* Telephone Encounter - Nancy Nation LPN - 03/21/2022 4:31 PM EDT Please file new orders. documented in this encounterRiverview Health Institute10-17-2022 Instructions* Patient Instructions* Parker Harris Jr., MD - 03/19/2022 11:23 AM EDT Cut the Requip in 06/04 so that you are taking 1.5 mg with dinner. 2. Start Lyrica 50mg capsule that you will take as follows: -1 capsule upon returning home from work. -1 capsule after dinner. 3. If still having RLS symptoms but no side effects, then adjust Lyrica as follows: -1 capsule upon returning from work. -2 capsules after dinner. 4. Move Lexapro to AM. Please provide us an update in 1 week on how you are doing ([employer] message). If any side effects pleas notify us immediately and hold medications until talking to us. documented in this encounterRiverview [facility] Institute10-17-2022 History of Present illness Narrative* Parker Harris Jr., MD - 03/19/2022 10:50 AM EDT NEW PATIENT (CONSULT) HISTORY AND PHYSICAL EXAM PRIMARY CARE PHYSICIAN: Parker Nick MD REASON FOR CONSULT: RLS REFERRING PHYSICIAN: Parker Nick MD CHIEF COMPLAINT: RLS Consultation requested by Parker Nick MD for an opinion regarding chief complaint of Patient presents with: New Patient: Restless legs and my final recommendations will be communicated back to the requesting physician by way of sharedmedical record or letter via [place] mail. HISTORY OF PRESENT ILLNESS: Shalini Gonsales is a 56 year old female, BMI 40.62 kg/m2 with a PMH significant for RLS which pt states started about 2 years ago. States no provoking factors. Pt states after work at night and settles down while sitting in a recliner, it kicks in. States takes Requip 3mgcurrently. If starts before takes meds, takes long for meds to work. Started on Requip 2mg initially. RLS is now starting earlier and earlier in the day. Previously tried on gabapentin 300mg QHS - states it worked but would wake in the middle of the night and felt disoriented. Has been on Xanax prnfor years. Goes to bed about 7PM and tries to be asleep 8PM as has to be up at 3AM. Changing jobs so will be able to sleep until 430AM soon. When the RLS starts at night the legs are not in pain but have a constant jumping feeling in the legs. If gets up and moves around symptoms improve. Once in bed, if takes the Requip by 6PM, can keep RLS from preventing her from falling asleep. Once asleep wakes about 3-4 times at night. Does not snore unless in an awkward position. Drinks water at night due to dry mouth. No AM headaches. Feels good upon waking. Pt still not satisfied with control of RLS. Takes Lexapro at night due to panic attacks when trying to fall asleep. Ferritin on 01/27/2020 = 154 Sleep Questionnaire Data Depression Screening 07/13/2019 07/16/2020 12/06/2021 PHQ-2 Score 0 1 2 PHQ-9 Score - - 7 PED PHQ-9 07/13/2019 07/16/2020 12/06/2021 Little interest or pleasure in doing things Not at all Not at all Several days Feeling down, depressed, or hopeless Not at all Several days Several days Trouble falling or staying asleep, or sleeping too much - - Nearly every day Feeling tired or having little energy - - Several days Poor appetite or overeating - - Several days Feeling bad about yourself - or that you are a failure or have let yourself or your family down - -Not at all Trouble concentrating on things, such as reading the newspaper or watching television - - Not at all Moving or speaking so slowly that other people could have noticed. Or the opposite - being so fidgety or restless that you have been moving around a lot more than usual - - Not at all Thoughts that you would be better off , or of hurting yourself in some way - - Not at all If you checked off any problems, how difficult have these problems made it for you to do your work,take care of things at home, or get along with other people? - - Somewhat difficult PHQ-9 Score - - 7 (Mild Depression) REVIEW OF SYSTEMS GENERAL:No weight loss, malaise or fevers. HEENT:Negative for frequent or significant headaches, No changes in hearing or vision, no nose bleeds or other nasal problems NECK:Negative for lumps, goiter, pain and significant neck swelling RESPIRATORY: Negative for cough, wheezing or shortness of breath. CARDIOVASCULAR: Negative for chest pain, leg swelling or palpitations. GASTROINTESTINAL: Negative for abdominal discomfort, blood in stools or black stools or change in bowel habits GENITOURINARY: No history of dysuria, frequency or incontinence MUSCULOSKELETAL: Negative for joint pain or swelling, back pain or muscle pain. NEUROLOGIC:Negative for focal numbness or weakness, headaches and dizziness or syncope, vision changes, speech/language changes, changes in gait or falls -- besides those complaints as above in HPI. SKIN:Negative for lesions, rash, and itching. HEMATOLOGIC/LYMPHATIC/IMMUNOLOGIC:Negative for prolonged bleeding, bruising easily or swollen nodes. ENDOCRINE: Negative for cold or heat intolerance, polyuria, polydipsia and goiter. The remainder of the ROS was reviewed and is negative. LAB/IMAGING: Reviewed and include: WBC (k/uL) Date Value 03/10/2022 6.46 RBC (m/uL) Date Value 03/10/2022 4.89 Hemoglobin (g/dL) Date Value 03/10/2022 14.0 Hematocrit (%) Date Value 03/10/2022 44.3 MCV (fL) Date Value 03/10/2022 90.6 MCH (pg) Date Value 03/10/2022 28.6 MCHC (g/dL) Date Value 03/10/2022 31.6 RDW-CV (%) Date Value 03/10/2022 13.2 Platelet Count (k/uL) Date Value 03/10/2022 252 MPV (fL) Date Value 03/10/2022 11.2 Glucose (mg/dL) Date Value 03/10/2022 89 BUN (mg/dL) Date Value 03/10/2022 15 Creatinine (mg/dL) Date Value 03/10/2022 0.68 Sodium (mmol/L) Date Value 03/10/2022 137 Potassium (mmol/L) Date Value 03/10/2022 4.3 Chloride (mmol/L) Date Value 03/10/2022 99 CO2 (mmol/L) Date Value 03/10/2022 26 Protein, Total (g/dL) Date Value 02/27/2022 7.4 Albumin (g/dL) Date Value 02/27/2022 4.6 Calcium, Total (mg/dL) Date Value 03/10/2022 9.5 Alkaline Phosphatase (U/L) Date Value 02/27/2022 69 Bilirubin, Total (mg/dL) Date Value 02/27/2022 0.4 AST (U/L) Date Value 02/27/2022 15 ALT (U/L) Date Value 02/27/2022 18 MEDICATIONS: escitalopram oxalate (LEXAPRO) 10 mg tablet Take 1 tablet by mouth once daily. lansoprazole (PREVACID) 30 mg capsule Take 1 capsule by mouth twice daily. 1/2 hr before meal. rOPINIRole 3 mg tablet Take 1 tablet by mouth daily at bedtime. Lactobac no.41/Bifidobact no.7 (PROBIOTIC-10 ORAL) Take by mouth. promethazine (PHENERGAN) 12.5 mg suppository 1 Suppository by RECTAL route every 6 hours as needed.(Patient not taking: Reported on 03/19/2022) multivit with calcium,iron,min (MULTIPLE VITAMIN, WOMENS ORAL) Take 1 tablet by mouth as needed. (Patient not taking: Reported on 03/19/2022) HISTORIES PAST MEDICAL HISTORY Diagnosis Date IAN (generalized anxiety disorder) 07/18/2020 Panic attacks 06/20/2021 Restless leg syndrome FAMILY HISTORY Problem Relation Age of Onset Cancer Paternal Grandfather skin Heart disease Paternal Grandfather Cancer Paternal Aunt breast SOCIAL HISTORY Social History Tobacco Use Smoking status: Former Packs/day: 1.00 Years: 30.00 Pack years: 30.00 Types: Cigarettes Smokeless tobacco: Never Tobacco comments: quit 2012 Substance Use Topics Alcohol use: No Drug use: No PHYSICAL EXAMINATION BP 124/76 Pulse 81 Wt 97.5 kg (215 lb) SpO2 98% BMI 40.62 kg/m GENERAL EXAM: General appearance: NAD, pleasant. HEENT: NC/AT, nasal congestion absent, no oral lesions, membranes moist. Sampson III NECK: ROM nml. Lungs: CTA bilaterally. No wheezes present. CV: RRR nl S1, S2. No carotid bruits. Extr: No cyanosis, clubbing or edema. Skin: Cool to touch. NEUROLOGICAL EXAM: General: Awake, alert, oriented x3 (person,place,time), speech fluent, no dysarthria; comprehension, naming, repetition intact. CN: PERRL, EOMI and without nystagmus, VFF to confrontation, facial sensation and strength are normal and symmetric, hearing is intact to finger rub bilaterally, palate and tongue movements are intact and symmetric. SCM and trapezius strength normal. Motor: Normal tone, bulk and strength (5/5) bilaterally (throughout extremities x4). Reflexes: 2/4 and symmetric, plantar stimulation is flexor. Coordination: FNF, SANDRA, HTS intact. No tremors. Sensation: Light touch, vibration, temperature intact throughout. No evidence of neglect. Gait: Stable with normal stride and arm swing. Assessment and Plan: ASSESSMENT/PLAN: 1. Restless leg syndrome - ICD9: 333.94, ICD10: G25.81 (primary diagnosis) Patient with clinical history supporting the dx of RLS. Etiology unclear with normal Ferritin and Iron levels in the past and no significant spine or lower ext injuries. Symptoms worse at night, withurge to move, worse with rest (ie. airplanes, cars) and relieved with activity. Concern is that symptoms are progressively worsening as above and suspect due to Augmentation with pt being treated by means of a dopamine agonist. Thus, will attempt to change medications to try and reduce risk of worsening symptoms while still controlling those symptoms. Discussed options with patient and pt agrees with plan as follows: Cut the Requip in 1/2 so taking 1.5 mg with dinner. 2. Start Lyrica 50mg capsule: -1 capsule upon returning home from work. -1 capsule after dinner. 3. If still having RLS symptoms but no side effects, then adjust Lyrica as follows: -1 capsule upon returning from work. -2 capsules after dinner. 4. Move Lexapro to AM as may be provoking RLS symptoms (note present prior to being on Lexapro) SE and ADRs of above meds d/w pt. 2. Frequent nocturnal awakening - ICD9: 780.59, ICD10: G47.00 In addition to RLS and possible associated PLMs waking patient, also concern for possible BARB. Pt does have dry mouth at night and crowded airway with obesity (BMI 40.62). Pt would like to hold on sleep testing for now. Discussed with patient: the physiology of OSAS, medical conditions associated with OSAS (DM, HTN, CAD, Depression, Stroke, Headache...) and treatment options (UPPP, Dental appliances, CPAP...). If RLS controlled and still having fragmented sleep, plan will be to have patient undergo HSAT to further evaluate for possible BARB. Pt agrees with plan. Encouraged weight loss. Parker Harris MD I spent a total of 45+ minutes on the date of the service which included preparing to see the patient, [id number] patient care, completing clinical documentation, obtaining and/or reviewing separately obtained history, performing a medically appropriate examination, counseling and educating the pa tient/family/caregiver, ordering medications, tests, or procedures, and communicating results to the patient/family/caregiver. PDMP website checked and validated. All prescriptions have been APPROPRIATELY filled. No suspiciousactivity was identified. 03/19/2022 by Parker Harris MD documented in this encounterR[facility]10-[facility]22 History of Present illness Narrative* Parker Nick MD - 03/08/2022 4:38 PM EDT Patient presents with: Follow Up: 1 week HPI: Patient presents today for office visit for follow up. Stools are loose but they are improving. She has been able to eat a little. She is drinking better. Only thrown up about once a day at this point. Remains on gi meds. Feels intense discomfort in the epigastric area and then throws up. No cbd or marijuana use. No new meds. No black or bloody stools. Component Latest Ref Rng & Units 03/01/2022 03/02/2022 WBC 3.70 - 11.00 k/uL 10.16 RBC 3.90 - 5.20 m/uL 5.62 (H) Hemoglobin 11.5 - 15.5 g/dL 16.6 (H) Hematocrit 36.0 - 46.0 % 49.0 (H) MCV 80.0 - 100.0 fL 87.2 MCH 26.0 - 34.0 pg 29.5 MCHC 30.5 - 36.0 g/dL 33.9 RDW-CV 11.5 - 15.0 % 13.2 Platelet Count 150 - 400 k/uL 326 MPV 9.0 - 12.7 fL 10.3 Neut% % 64.3 Abs Neut (ANC) 1.45 - 7.50 k/uL 6.53 Lymph% % 23.9 Abs Lymph 1.00 - 4.00 k/uL 2.43 [place]% % 9.9 Abs [place] <0.87 k/uL 1.01 (H) Eosin% % 0.7 Abs Eosin <0.46 k/uL 0.07 Baso% % 0.8 Abs Baso <0.11 k/uL 0.08 Immature Gran % % 0.4 IMMATURE GRANS (ABS) <0.10 k/uL 0.04 NRBC /100 WBC 0.0 Absolute nRBC <0.01 k/uL <0.01 DTYPE Auto Glucose 74 - 99 mg/dL 109 (H) BUN 7 - 21 mg/dL 12 Creatinine 0.58 - 0.96 mg/dL 0.74 Sodium 136 - 144 mmol/L 137 Potassium 3.7 - 5.1 mmol/L 4.1 Chloride 97 - 105 mmol/L 96 (L) CO2 22 - 30 mmol/L 29 Anion Gap 9 - 18 mmol/L 12 Calcium 8.5 - 10.2 mg/dL 10.6 (H) eGFR >=60 mL/min/1.73m 95 Shigella spp./Enteroinvasive E.coli DNA Not Detected Not detected Campylobacter jejuni/coli DNA Not Detected Not detected Shiga toxin-producing gene(s) Not Detected Not detected Salmonella spp. DNA Not Detected Not detected MEDICATIONS: Current Outpatient Medications Medication Sig promethazine (PHENERGAN) 12.5 mg suppository 1 Suppository by RECTAL route every 6 hours as needed. famotidine (PEPCID) 40 mg tablet Take 1 tablet by mouth at bedtime as needed. escitalopram oxalate (LEXAPRO) 10 mg tablet Take 1 tablet by mouth once daily. ALPRAZolam (XANAX) 0.5 mg tablet Take 1 tablet by mouth twice daily as needed for anxiety for up to90 days. For panic attacks and fear of flying. lansoprazole (PREVACID) 30 mg capsule Take 1 capsule by mouth twice daily. 1/2 hr before meal. rOPINIRole 3 mg tablet Take 1 tablet by mouth daily at bedtime. Lactobac no.41/Bifidobact no.7 (PROBIOTIC-10 ORAL) Take by mouth. multivit with calcium,iron,min (MULTIPLE VITAMIN, WOMENS ORAL) Take 1 tablet by mouth as needed. (Patient not taking: No sig reported) No current facility-administered medications for this visit. ALLERGIES: ALLERGIES Allergen Reactions Bupropion Hives Hives Wellbutrin [Bupropi* Hives PAST MEDICAL HISTORY Diagnosis Date IAN (generalized anxiety disorder) 07/18/2020 Panic attacks 06/20/2021 Restless leg syndrome PAST SURGICAL HISTORY Procedure Laterality Date ANESTH, SECTION EGD 11/27/2021 HYSTERECTOMY HX OPEN REPAIR OF ROTATOR CUFF ACUTE Right 2012 Rotator cuff repair REMOVAL GALLBLADDER N/A 06/05/2021 WRIST SURGERY HX Right anchors FAMILY HISTORY Problem Relation Age of Onset Cancer Paternal Grandfather skin Heart disease Paternal Grandfather Cancer Paternal Aunt breast Social History Tobacco Use Smoking status: Former Packs/day: 1.00 Years: 30.00 Pack years: 30.00 Types: Cigarettes Smokeless tobacco: Never Tobacco comments: quit 2012 Substance Use Topics Alcohol use: No Drug use: No Reviewed current medications, allergies, past medical history, surgical history, family history andsocial history today. REVIEW OF SYSTEMS No urinary issues. All other reviewed and negative other than HPI. HEALTH MAINTENANCE: Reviewed health maintenance issues today and recommended the following in detail. HEPATITIS B(1 of 3 - 3-dose series) Never done VITALS: BP 128/76 Pulse 107 Resp 16 Wt 96.2 kg (212 lb) SpO2 97% BMI 40.06 kg/m Last 4 Encounter Wt Readings: Date: Wt: 03/08/2022 96.2 kg (212 lb)fol 03/01/2022 96.8 kg (213 lb 6.4 oz) 02/27/2022 92.5 kg (204 lb) 02/25/2022 98 kg (216 lb) PHYSICAL EXAMINATION: General appearance: Well appearing, alert, in no acute distress, well-hydrated, well nourished. andappears better than last week. Skin:normal turgor today Head: Normocephalic, no masses, lesions, tenderness or abnormalities Eyes: Anicteric sclera. Pupils are equally round and reactive to light. Extraocular movements are intact. Lungs: Lungs clear to auscultation. No wheezing, rhonchi, rales Heart: RRR without murmur, gallop, or rubs. No ectopy Abdomen: Normal abdominal exam, Abdomen soft, non-tender. Bowel sounds normal. No masses, organomegaly Extremities: No deformities, edema, skin discoloration, clubbing or cyanosis. Good capillary refill. Musculoskeletal: No joint swelling, deformity, or tenderness ASSESSMENT/PLAN: 1. Hyperemesis - ICD9: 536.2, ICD10: R11.10 (primary diagnosis) - see gi as ordered. Push flids. Check labs. Get remainder of stool studies. Red flags for re-assessment reviewed with patient in detail. - CBC + DIFF - CARBOXYHEMOGLOBIN JERMAIN - VITAMIN D 25 HYDROXY - PTH INTACT BLD - CALCIUM IONIZED BLOOD - BASIC METABOLIC PNL 2. Polycythemia - ICD9: 238.4, ICD10: D75.1 - CBC + DIFF - CARBOXYHEMOGLOBIN JERMAIN - VITAMIN D 25 HYDROXY - PTH INTACT BLD - CALCIUM IONIZED BLOOD - BASIC METABOLIC PNL 3. Dehydration - ICD9: 276.51, ICD10: E86.0 - CBC + DIFF - CARBOXYHEMOGLOBIN JERMAIN - VITAMIN D 25 HYDROXY - PTH INTACT BLD - CALCIUM IONIZED BLOOD - BASIC METABOLIC PNL Parker Nick RTO in one week and prn. documented in this encounterR[facility]09-30-2022 Miscellaneous Notes* Telephone Encounter - Loren Dean MA - 03/02/2022 9:57 AM EDT Patient notified. Loren Dean MA * Telephone Encounter - Parker Nick MD - 03/02/2022 9:45 AM EDT Ok to ER over weekend if worsens. Call Saturday with update. Keep appt next week * Telephone Encounter - Nancy Nation LPN - 03/02/2022 9:05 AM EDT At work this morning and sipping on powerade. Used promethazine suppository and did vomit but thinks she didn't give it enough time before she tried to eat. So far this morning keeping everything down(liquids). Still just all liquids so far. Hasn't tired anything solid today. * Telephone Encounter - Parker Nick MD - 03/02/2022 8:41 AM EDT Her calcium is up. Her renal function is ok but slightly down from what it was and her hb is up. These are likely due to all the vomiting and diarrhea. Check how doing this am(she declined ER last night) documented in this encounterR[facility]09-29-2022 History of Present illness Narrative* Parker Nick MD - 03/01/2022 3:39 PM EDT Patient presents with: Hospital F/U: [facility] and [facility] HPI: Patient presents today for office visit for hospital follow up. Vomiting and low potassium. Started almost four weeks ago. Has had some gi spells since her gallbladder was out in June. Is nauseated.was having excessive vomiting but that seems to have improved some. Rare pain in her stomach in right upper quadrant. No diarrhea since Saturday. Bowels are just loose. No fever or chills. No recent travel hx. No antibiotics. No black stools. No bloody stools. Her potassium was down from throwing up. No one else at home has been ill. Some heartburn. Has been unable to take most of her meds this week due to vomiting. No nausea. Is lightheaded on standing. Urinating slightly more today. See ER notes from [facility] on 02/27. Seen previously at [facility] ER on with negative work up. This patient is a 56-year-old female with a past medical history significant for generalized anxiety disorder and restless leg syndrome who presents the emergency department for evaluation for abdominal pain with nausea and vomiting for the last 16 days. Patient states in the last couple of days she has noticed some blood-streaked vomit. She states the abdominal pain is localized to the epigastric area with some cramping on the right side. She however denies fevers, chills, chest pain, shortness of breath, or hematochezia. She denies any sick contacts at home. She states symptoms have no alleviating or exacerbating factors 56-year-old presenting for evaluation for abdominal pain with nausea vomiting and diarrhea. Presentation is concerning for dehydration versus viral syndrome versus an intra-abdominal pathology including appendicitis, pancreatitis, peptic ulcer disease. Work-up in the department with EKG as noted below, troponin at 14 with repeat of 13 and 3-hour troponin at 15, hypokalemia repleted in the department, no renal function impairment, no transaminitis, no leukocytosis with no anemia. Lactic acid within normal limits at 1.[address] of the abdomen andpelvis that was unremarkable for any acute findings. Discussed lab and imaging results with the patient. Discussed with the patient plan for discharge home with outpatient follow-up with primary care physician. Reasons to return to the emergency department discussed at the time of discharge. Discussed with discharge her home on Zofran. Patient verbalized understanding of information given and agreed to plan. Was discharged in stable condition. MEDICATIONS: Current Outpatient Medications Medication Sig famotidine (PEPCID) 40 mg tablet Take 1 tablet by mouth at bedtime as needed. escitalopram oxalate (LEXAPRO) 10 mg tablet Take 1 tablet by mouth once daily. ALPRAZolam (XANAX) 0.5 mg tablet Take 1 tablet by mouth twice daily as needed for anxiety for up to90 days. For panic attacks and fear of flying. lansoprazole (PREVACID) 30 mg capsule Take 1 capsule by mouth twice daily. 1/2 hr before meal. rOPINIRole 3 mg tablet Take 1 tablet by mouth daily at bedtime. Lactobac no.41/Bifidobact no.7 (PROBIOTIC-10 ORAL) Take by mouth. multivit with calcium,iron,min (MULTIPLE VITAMIN, WOMENS ORAL) Take 1 tablet by mouth as needed. (Patient not taking: No sig reported) No current facility-administered medications for this visit. ALLERGIES: ALLERGIES Allergen Reactions Bupropion Hives Hives Wellbutrin [Bupropi* Hives PAST MEDICAL HISTORY Diagnosis Date IAN (generalized anxiety disorder) 07/18/2020 Panic attacks 06/20/2021 Restless leg syndrome PAST SURGICAL HISTORY Procedure Laterality Date ANESTH, SECTION EGD 11/27/2021 HYSTERECTOMY HX OPEN REPAIR OF ROTATOR CUFF ACUTE Right 2012 Rotator cuff repair REMOVAL GALLBLADDER N/A 06/05/2021 WRIST SURGERY HX Right anchors FAMILY HISTORY Problem Relation Age of Onset Cancer Paternal Grandfather skin Heart disease Paternal Grandfather Cancer Paternal Aunt breast Social History Tobacco Use Smoking status: Former Packs/day: 1.00 Years: 30.00 Pack years: 30.00 Types: Cigarettes Smokeless tobacco: Never Tobacco comments: quit 2012 Substance Use Topics Alcohol use: No Drug use: No Reviewed current medications, allergies, past medical history, surgical history, family history andsocial history today. REVIEW OF SYSTEMS All other reviewed and negative other than HPI. HEALTH MAINTENANCE: Reviewed health maintenance issues today and recommended the following in detail. HEPATITIS B(1 of 3 - 3-dose series) Never done VITALS: BP 126/90 Pulse 105 Temp 36.4 C (97.6 F) Ht 154.9 cm (5' 1 ) Wt 96.8 kg (213 lb 6.4 oz) SpO2 97% BMI 40.32 kg/m BP w/Orthostatic Vitals Date and Time Orthostatic BP Orthostatic Pulse BP Pulse BP Position BP Site BP Cuff Size 03/01/22 1616 128/80 120 -- -- Standing -- -- 03/01/22 161 135/95 105 -- -- Sitting -- -- 03/01/22 1609 122/85 93 -- -- Supine -- -- 03/01/22 1539 -- -- 126/90 105 -- -- -- Last 4 Encounter Wt Readings: Date: Wt: 02/27/2022 92.5 kg (204 lb) 02/25/2022 98 kg (216 lb) 01/05/2022 99.6 kg (219 lb 9.6 oz) 12/12/2021 98 kg (216 lb) PHYSICAL EXAMINATION: General appearance: alert, accompanied by her . Skin: no rashes. Oropharynx: no eythema. Slightly dry mucous membranes. Neck: Supple Lungs: Lungs clear to auscultation. No wheezing, rhonchi, rales Heart: RRR without murmur, gallop, or rubs. No ectopy Abdomen: Normal abdominal exam, Abdomen soft, non-tender. Bowel sounds normal. No masses, organomegaly Extremities: No deformities, edema, skin discoloration, clubbing or cyanosis. Good capillary refill. Musculoskeletal: No joint swelling, deformity, or tenderness ASSESSMENT/PLAN: 1. Vomiting, unspecified vomiting type, unspecified whether nausea present - ICD9: 787.03, ICD10: R11.10 (primary diagnosis) - I recommended Er eval again due to dehydration. They decline understanding risks with doing so. Aware I do not have a good reason for her current symptoms. Red flags for re-assessment reviewed withpatient in detail. - if diarrhea continues, get stool studies. Will try phenergan suppositories. Call in am or my chart with update. - back to her gi unless labs and studies are revealing. - CBC + DIFF - BASIC METABOLIC PNL - PROMETHAZINE 12.5 MG RECTAL SUPPOSITORY - CONSULT TO GASTROENTEROLOGY 2. Diarrhea, unspecified type - ICD9: 787.91, ICD10: R19.7 - CBC + DIFF - BASIC METABOLIC PNL - PROMETHAZINE 12.5 MG RECTAL SUPPOSITORY - ENTERIC BACTERIAL PANEL BY PCR - FECAL LACTOFERRIN/LEUKOCYTES - CRYPTOSPORIDIUM AND GIARDIA ANTIGENS BY EIA - CONSULT TO GASTROENTEROLOGY 3. Dehydration - ICD9: 276.51, ICD10: E86.0 - as above. Parker Nick documented in this encounterRiver[facility] Institute09-25-2022 History of Present illness Narrative* Marino Watson APRN.[employer] - 02/25/2022 11:08 AM EDT Subjective HPI Nontoxic-appearing female presents urgent care chief complaint nausea vomiting loose stools. Duration of loose stools 2 weeks. Patient states initially at the beginning of loose stools she did have 5-6 loose stools a day. Today she only has 1. Feels like this complaint is improving. Additionally patient states she did started vomiting 2 days ago. 6-8 episodes of vomiting yesterday. 3 episodes of vomiting today. States she is having a hard time keeping fluids down. 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 States GI flu is going around the long term. States she does have generalized abdominal pain especially before she vomits. After vomiting this abdominal pain does improve. Denies any fever cough chest pain shortness of breath pleuritic pain hemoptysis change in urinary habits. Past medical history prescription medication use allergies reviewed. .Patient presents with: Vomiting: X 2 days Diarrhea: X 2 weeks PAST MEDICAL HISTORY Diagnosis Date IAN (generalized anxiety disorder) 07/18/2020 Panic attacks 06/20/2021 Restless leg syndrome PAST SURGICAL HISTORY Procedure Laterality Date ANESTH, SECTION EGD 11/27/2021 HYSTERECTOMY HX OPEN REPAIR OF ROTATOR CUFF ACUTE Right 2012 Rotator cuff repair REMOVAL GALLBLADDER N/A 06/05/2021 WRIST SURGERY HX Right anchors ALLERGIES Bupropion and Wellbutrin [Bupropion Hcl] MEDICATIONS famotidine (PEPCID) 40 mg tablet Take 1 tablet by mouth at bedtime as needed. escitalopram oxalate (LEXAPRO) 10 mg tablet Take 1 tablet by mouth once daily. ALPRAZolam (XANAX) 0.5 mg tablet Take 1 tablet by mouth twice daily as needed for anxiety for up to90 days. For panic attacks and fear of flying. lansoprazole (PREVACID) 30 mg capsule Take 1 capsule by mouth twice daily. 1/2 hr before meal. rOPINIRole 3 mg tablet Take 1 tablet by mouth daily at bedtime. ALPRAZolam (XANAX) 0.5 mg tablet Take by mouth. Lactobac no.41/Bifidobact no.7 (PROBIOTIC-10 ORAL) Take by mouth. multivit with calcium,iron,min (MULTIPLE VITAMIN, WOMENS ORAL) Take 1 tablet by mouth as needed. (Patient not taking: Reported on 02/25/2022) FAMILY HISTORY Problem Relation Age of Onset Cancer Paternal Grandfather skin Heart disease Paternal Grandfather Cancer Paternal Aunt breast Social History Tobacco Use Smoking status: Former Packs/day: 1.00 Years: 30.00 Pack years: 30.00 Types: Cigarettes Smokeless tobacco: Never Tobacco comments: quit 2013 Substance Use Topics Alcohol use: No Drug use: No BP 130/88 Pulse 76 Temp 36.2 C (97.1 F) Resp 20 Wt 98 kg (216 lb) SpO2 98% BMI 39.51 kg/m Review of Systems Constitutional: Negative for chills, fever and malaise/fatigue. HENT: Negative for congestion, ear discharge, ear pain, sinus pain and sore throat. Eyes: Negative for blurred vision, pain, discharge and redness. Respiratory: Negative for cough, hemoptysis, sputum production, shortness of breath, wheezing and stridor. Cardiovascular: Negative for chest pain. Gastrointestinal: Positive for abdominal pain, diarrhea, nausea and vomiting. Musculoskeletal: Negative for myalgias. Skin: Negative for itching and rash. Neurological: Negative for dizziness and headaches. Objective Physical Exam Constitutional: General: She is not in acute distress. Appearance: She is not diaphoretic. HENT: Head: Normocephalic. Mouth/Throat: Lips: Eliza. Mouth: Mucous membranes are moist. Pharynx: Oropharynx is clear. No oropharyngeal exudate or posterior oropharyngeal erythema. Eyes: Conjunctiva/sclera: Conjunctivae normal. Pupils: Pupils are equal, round, and reactive to light. Cardiovascular: Rate and Rhythm: Normal rate and regular rhythm. Heart sounds: Normal heart sounds. Pulmonary: Effort: Pulmonary effort is normal. No tachypnea, accessory muscle usage or respiratory distress. Breath sounds: Normal breath sounds. No stridor. No wheezing, rhonchi or rales. Abdominal: General: Bowel sounds are normal. Palpations: Abdomen is soft. Tenderness: There is generalized abdominal tenderness. Musculoskeletal: Cervical back: Normal range of motion and neck supple. No rigidity or tenderness. Lymphadenopathy: Cervical: No cervical adenopathy. Skin: General: Skin is warm and dry. Neurological: Mental Status: She is alert and oriented to person, place, and time. ASSESSMENT/PLAN: 1. Gastroenteritis - ICD9: 558.9, ICD10: K52.9 Patient diagnosed with gastroenteritis. Vital signs within normal limits. No evidence of dehydration at this time. Generalized abdominal pain noted. No focal tenderness. No evidence of acute abdomen.Positive sick contacts similar signs symptoms. Patient will be prescribed Compazine as needed. Willuse 5 mg every 6-8 hours as needed. We will not use greater than 48 hours. If symptoms do not improve in the next 24 to 36 hours will be seen by PCP. Red flags for prompt reevaluation ER visit discussed with patient. Patient was educated on supportive therapies. Patient will follow up with primary care provider as needed. Patient was instructed to immediately proceed to emergency room for any new, worsening, or symptoms lasting longer than anticipated. The patient's clinical presentation is otherwise unremarkable at this time. Based on exam and clinical finding, the patient is stable for discharge. Plan of care was discussed with patient. Patient verbalizes understanding and agrees to plan of care. This note was generated using Humansized software. It may contain errors in wording, punctuation, or spelling. Marino Watson APRN.FERNANDA documented in this encounterRiverview Health Institute09-13-2022 History of Present illness Narrative* SPRING Baeza) - 02/13/2022 3:00 PM EDT Radiology Service Progress Note PATIENT NAME: Shalini Gonsales DATE OF SERVICE: February 13, 2022 TIME: 2:43 PM PATIENT IDENTITY VERIFICATION COMPLETED USING TWO (2) IDENTIFIERS: Name and Date of confirmedby patient verbally. FALL SCREENING: Has the patient had 2 falls in the last year or 1 fall with injury or currently using an Ambulatory Assistive Device (Walker, Cane, Wheelchair, Crutches, etc.)? No PATIENT GENDER DATA: Female. status: : No status: NO. PATIENT RELEVANT IMPLANT DATA REVIEWED: Not Applicable RADIOLOGY DEPARTMENT: Mammography PERIPHERAL IV DATA: Not applicable SIGNED BY: RT Aryan(Aydin) February 13, 2022 2:43 PM documented in this encounterRiverview Health Institute08-16-2022 Miscellaneous Notes* Letter - Mammography Coordinator - 01/16/2022 4:14 PM EDT January 16, 2022 PID: [id number] Shalini Gonsales [address] [place] [address] Dear Ms. Gonsales, Your recent breast imaging exam on 01/16/2022 showed a possible finding that requires additional imaging studies for a complete evaluation. Most such findings are probably benign (not cancer). Your mammogram demonstrates that you have dense breast tissue, which could hide abnormalities. Dense breast tissue, in and of itself, is a relatively common condition. Therefore, this information is not provided to cause undue concern; rather, it is to raise your awareness and promote discussion with your health care provider regarding the presence of dense breast tissue in addition to other riskfactors. If you have a healthcare provider who ordered/prescribed your screening mammogram: Please call [phone] or [phone]: [phone] to schedule an appointment for your additional imaging (if youhave not already done so). If you DO NOT have a healthcare provider (ie you did not have an order/prescription for your screening mammogram): Please call to schedule an appointment for your additional imaging (if you have not already done so). You must have an order/prescription from your physician when calling to schedule your appointment. If your order/prescription is not electronic, you must bring the hard copy with you on the day of your exam to avoid delays. Your imaging studies and reports are kept on file at [facility] as part of your permanent medical record, and are available for your continuing care. Thank you for allowing us to help in meeting your health care needs. Sincerely, Dr. Ambrocio Interpreting Radiologist [facility] (Additional imaging) documented in this encounterRiverview Health Institute08-05-2022 Miscellaneous Notes* Addendum Note - Parker Nick MD - 01/05/2022 4:49 PM EDT Addended by: PARKER NICK on: 01/05/2022 04:49 PM Modules accepted: Orders documented in this encounterRiverview Health Institute08-05-2022 Instructions* Patient Instructions* Parker Nick MD - 01/05/2022 4:34 PM EDT Guidelines for low cholesterol, low triglyceride diets FOODS TO USE MEATS/FISH - Choose lean meats (chicken, turkey, veal, and nonfatty cuts of beef with excess fat trimmed; one serving = 3 oz. of cooked meat). Also, fresh or frozen fish, canned fish packed in water,and shellfish (lobster, crab, shrimp, oysters). Limit use to no more than one serving of one of these per week. Shellfish are high in cholesterol but low in saturated fat and should be used sparingly. Meats and fish should be broiled (zuñiga or oven) or baked on a rack. EGGS - Egg substitutes and egg whites (use freely). Egg yolks (limit two per week). FRUITS - Eat three servings of fresh fruit per day (1 serving = 1/2 cup). Be sure to have at least one citrus fruit daily. Frozen or canned fruit with no sugar or syrup added may be used. VEGETABLES - Most vegetables are not limited (see Foods to Avoid). One dark green (string beans, escarole) or one deep yellow (squash) vegetable is recommended daily. Cauliflower, broccoli, and celery, as well as potato skins, are recommended for their fiber content (fiber is associated with cholesterol reduction). It is preferable to steam vegetables, but they may be boiled, strained, or braisedwith polyunsaturated vegetable oil (see below). BEANS - Dried peas or beans (1 serving = 1/2 cup) may be used as a bread substitute. NUTS - Almonds, walnuts, and peanuts may be used sparingly (1 serving = 1 tablespoon). Use pumpkin,sesame, or sunflower seeds. BREADS/GRAINS - One roll or one slice of whole grain or enriched bread may be used, or three soda crackers or four pieces of jamee toast as a substitute. Spaghetti, rice or noodles (1/2 cup) or 1/2 large ear of corn may be used as a bread substitute. In preparing these foods, do not use butter or shortening; use soft margarine. Also use egg and sugar substitutes. Choose high fiber grains, such asoats and whole wheat. CEREALS - Use 1/2 cup of hot cereal or 1/4 cup of cold cereal per day. Add a sugar substitute if desired, with 99% fat-free or skim milk. MILK PRODUCTS - Always use 99% fat-free or skim milk, dairy products such as low-fat cheeses (mae's, uncreamed diet cottage), low-fat yogurt, and powdered skim milk. FATS/OILS - Use soft (not stick) margarine, vegetable oils that are high in polyunsaturated fats (such as safflower, sunflower, soybean, corn, and cottonseed). Always refrigerate meat drippings to harden the fat and remove it before preparing gravies. DESSERTS/SNACKS - Limit to two servings per day; substitute each serving for a bread/cereal serving; ice milk or water sherbet (1/4 cup); unflavored gelatin or gelatin flavored with sugar substitute (1/2 cup); pudding prepared with skim milk (1/2 cup); egg white souffles; unbuttered popcorn (1 1/2 cups). Substitute carob for chocolate. BEVERAGES - Fresh fruit juices (limit to 4 oz. per day); black coffee; plain or herbal teas; soft drinks with sugar substitutes; club soda, preferably salt- free; cocoa made with skim milk or nonfat dried milk and water (sugar substitute added, if desired); clear broth. Alcohol - limit to two servings per day (see Foods to Avoid). MISCELLANEOUS - You may use the following freely: vinegar; spices; herbs; nonfat bouillon; mustard;[place]or[place]shire sauce; soy sauce; flavoring essence. FOODS TO AVOID MEATS/FISH - Marbled beef, pork, wharton, sausage and other pork products; fatty fowl (duck, goose); skin and fat of turkey and chicken; processed meats; luncheon meats (salami, bologna); frankfurters and fast food hambergers (they are loaded with fat); organ meats (kidneys, liver); canned fish packed in oil. EGGS - Limit egg yolks to two per week. FRUITS - Coconuts (rich in saturated fat) VEGETABLES - Avoid avocados. Starchy vegetables (potatoes, corn huber beans, dried peas, beans) may be used only if they are substitutes for a serving of bread or cereal. (Baked potato skin, however, is desirable for its fiber content). BEANS - Commercial baked beans with sugar and/or pork added. NUTS - Avoid nuts. Limit peanuts and walnuts to one tablespoonful per day. BREADS/GRAINS - Any baked goods with shortening and/or sugar. Commercial mixes with dried eggs and whole milk. Avoid sweet rolls, doughnuts, breakfast pastries (Kiswahili), and sweetened packaged cereals (the added sugar converts readily to triglycerides). MILK PRODUCTS - Whole milk and whole-milk packaged goods; cream; ice cream; whole-milk puddings, yogurt, or cheeses; nondairy cream substitutes. FATS/OILS - Butter, lard, animal fats, wharton drippings, gravies, cream sauces, as well as palm and coconut oils. All these are high in saturated fats. Examine labels on cholesterol free products for hydrogenated fats. (These are oils that have been hardened into solids and in the process have become saturated.) DESSERTS/SNACKS - Fried snack foods like potato chips; chocolate; candies in general; jams, jellies, syrups; whole-milk puddings; ice cream and milk sherberts; hydrogenatd peanut butter. BEVERAGES - Sugared fruit juices and soft drinks; cocoa made with whole milk and/or sugar. When using alcohol (1 oz. liquor, 5 oz. beer, or 2 1/2 oz. dry table wine per serving), one serving must be substituted for one bread or cereal serving (limit two servings of alcohol per day). SPECIAL NOTES 1. Remember that even nonlimited foods should be used in moderation. 2. While on a cholesterol-lowering diet, be sure to avoid animal fats and marbled meats. 3. While on a triglyceride-lowering diet, be sure to avoid sweets and to control the amount of carbohydrates you eat (starchy foods such as flower, bread, or potatoes). 4. Buy a good low-fat cookbook, such as the one published by the [place] [employer]. 5. Consult your physician if you have any questions. documented in this encounterRiverview Health Institute08-05-2022 History of Present illness Narrative* Parker Nick MD - 01/05/2022 4:20 PM EDT Patient presents with: 4 week follow up HPI: Patient presents today for office visit for follow up. Restless legs are better. Not perfect but definite improvement. Reviewed labs. Discussed that she continues to have issues initiating sleep. She does not snore. Feeling fatigued on wakening. gerd is significantly better. No black or bloody stools. No stomach pain. Just had an egd Note was copied and pasted, without alteration from: Last ov: GASTROENTEROLOGY: had egd, still vomiting daily. Still on meds. Still with some heartburn. Has hiatal hernia. Sleeps with her head raised. Ran out of prescription prevacid. Is on pepcid. Taking otc prevacid. No bloody or black stools. Discussed risk factors for gerd. Has RLS: has rls in the afternoon with job switch. Drinks adequate fluids. meds not working as well. Discussed increasing. Psych:using lexapro still. No side effects. Using xanax sparingly. oarrs done. Aware of risks of usage. ASSESSMENT/PLAN: 1. Pain of lower extremity, unspecified laterality - ICD9: 729.5, ICD10: M79.606 (primary diagnosis) - check all the labs including iron and lytes. Increase requip - VITAMIN D 25 HYDROXY 2. GERD without esophagitis - ICD9: 530.81, ICD10: K21.9 - Increase prevacid. Watch diet. Recheck one month. - FAMOTIDINE 40 MG TABLET - LANSOPRAZOLE 30 MG CAPSULE,DELAYED RELEASE 3. IAN (generalized anxiety disorder) - ICD9: 300.02, ICD10: F41.1 - continue meds. - ESCITALOPRAM 10 MG TABLET 4. Restless leg syndrome - ICD9: 333.94, ICD10: G25.81 - as above. - ROPINIROLE 3 MG TABLET - CBC + DIFF - COMP METABOLIC PANEL - MAGNESIUM BLD - IRON + TIBC 5. Panic attacks - ICD9: 300.01, ICD10: F41.0 - ALPRAZOLAM 0.5 MG TABLET 6. Incidental lung nodule, > 3mm and < 8mm - ICD9: 793.11, ICD10: R91.1 - recheck one year. 7. Screening for lipid disorders - ICD9: V77.91, ICD10: Z13.220 - LIPID PANEL BASIC 8. Screening breast examination - ICD9: V76.10, ICD10: Z12.39 - Follow up for annual exam in one year. - [facility] SCREENING Component Latest Ref Rng & Units 12/25/2021 WBC 3.70 - 11.00 k/uL 5.98 RBC 3.90 - 5.20 m/uL 4.93 Hemoglobin 11.5 - 15.5 g/dL 14.3 Hematocrit 36.0 - 46.0 % 42.8 MCV 80.0 - 100.0 fL 86.8 MCH 26.0 - 34.0 pg 29.0 MCHC 30.5 - 36.0 g/dL 33.4 RDW-CV 11.5 - 15.0 % 13.6 Platelet Count 150 - 400 k/uL 252 MPV 9.0 - 12.7 fL 9.6 Neut% % 63.8 Abs Neut (ANC) 1.45 - 7.50 k/uL 3.81 Lymph% % 23.1 Abs Lymph 1.00 - 4.00 k/uL 1.38 [place]% % 8.5 Abs [place] <0.87 k/uL 0.51 Eosin% % 3.3 Abs Eosin <0.46 k/uL 0.20 Baso% % 1.0 Abs Baso <0.11 k/uL 0.06 Immature Gran % % 0.3 IMMATURE GRANS (ABS) <0.10 k/uL <0.03 NRBC /100 WBC 0.0 Absolute nRBC <0.01 k/uL <0.01 DTYPE Auto Protein, Total 6.3 - 8.0 g/dL 7.2 Albumin 3.9 - 4.9 g/dL 4.5 Calcium 8.5 - 10.2 mg/dL 9.4 Bilirubin, Total 0.2 - 1.3 mg/dL 0.4 Alkaline Phosphatase 34 - 123 U/L 76 AST 13 - 35 U/L 16 ALT 7 - 38 U/L 23 Glucose 74 - 99 mg/dL 106 (H) BUN 7 - 21 mg/dL 14 Creatinine 0.58 - 0.96 mg/dL 0.64 Sodium 136 - 144 mmol/L 137 Potassium 3.7 - 5.1 mmol/L 4.4 Chloride 97 - 105 mmol/L 102 CO2 22 - 30 mmol/L 24 Anion Gap 9 - 18 mmol/L 11 eGFR >=60 mL/min/1.73m 103 Cholesterol, Total <200 mg/dL 252 (H) Triglyceride <150 mg/dL 159 (H) HDL Cholesterol >39 mg/dL 48 Non HDL Cholesterol <130 mg/dL 204 (H) Fasting Time hrs 12 VLDL Cholesterol <30 mg/dL 32 (H) TC:HDL Ratio <5.10 5.25 (H) LDL Cholesterol <100 mg/dL 172 (H) LDL:HDL Ratio <2.54 3.58 (H) Iron 41 - 186 ug/dL 79 TIBC 232 - 386 ug/dL 302 Transferrin Saturation 15.0 - 57.0 % 26.2 Magnesium 1.7 - 2.3 mg/dL 2.0 Vitamin D 25 Hydroxy 31.0 - 80.0 ng/mL 43.2 MEDICATIONS: Current Outpatient Medications Medication Sig famotidine (PEPCID) 40 mg tablet Take 1 tablet by mouth at bedtime as needed. escitalopram oxalate (LEXAPRO) 10 mg tablet Take 1 tablet by mouth once daily. ALPRAZolam (XANAX) 0.5 mg tablet Take 1 tablet by mouth twice daily as needed for anxiety for up to90 days. For panic attacks and fear of flying. lansoprazole (PREVACID) 30 mg capsule Take 1 capsule by mouth twice daily. 1/2 hr before meal. rOPINIRole 3 mg tablet Take 1 tablet by mouth daily at bedtime. ALPRAZolam (XANAX) 0.5 mg tablet Take by mouth. Lactobac no.41/Bifidobact no.7 (PROBIOTIC-10 ORAL) Take by mouth. multivit with calcium,iron,min (MULTIPLE VITAMIN, WOMENS ORAL) Take 1 tablet by mouth as needed. No current facility-administered medications for this visit. ALLERGIES: ALLERGIES Allergen Reactions Bupropion Hives Hives Wellbutrin [Bupropi* Hives PAST MEDICAL HISTORY Diagnosis Date IAN (generalized anxiety disorder) 07/18/2020 Panic attacks 06/20/2021 Restless leg syndrome PAST SURGICAL HISTORY Procedure Laterality Date ANESTH, SECTION EGD 11/27/2021 HYSTERECTOMY HX OPEN REPAIR OF ROTATOR CUFF ACUTE Right 2012 Rotator cuff repair REMOVAL GALLBLADDER N/A 06/05/2021 WRIST SURGERY HX Right anchors FAMILY HISTORY Problem Relation Age of Onset Cancer Paternal Grandfather skin Heart disease Paternal Grandfather Cancer Paternal Aunt breast Social History Tobacco Use Smoking status: Former Smoker Packs/day: 1.00 Years: 30.00 Pack years: 30.00 Types: Cigarettes Smokeless tobacco: Never Used Tobacco comment: quit 2013 Substance Use Topics Alcohol use: No Drug use: No Reviewed current medications, allergies, past medical history, surgical history, family history andsocial history today. REVIEW OF SYSTEMS All other reviewed and negative other than HPI. VITALS: BP 128/86 Pulse 80 Resp 16 Wt 99.6 kg (219 lb 9.6 oz) SpO2 98% BMI 40.17 kg/m Last 4 Encounter Wt Readings: Date: Wt: 12/12/2021 98 kg (216 lb) 11/27/2021 98.9 kg (218 lb) 11/20/2021 98.9 kg (218 lb) 06/20/2021 94.8 kg (209 lb) PHYSICAL EXAMINATION: General appearance: Well appearing, alert, in no acute distress, well-hydrated, well nourished. Skin: Skin color, texture, turgor normal, no suspicious rashes or lesions Head: Normocephalic, no masses, lesions, tenderness or abnormalities Lungs: Lungs clear to auscultation. No wheezing, rhonchi, rales Heart: RRR without murmur, gallop, or rubs. No ectopy Abdomen: Normal abdominal exam, Abdomen soft, non-tender. Bowel sounds normal. No masses, organomegaly Extremities: No deformities, edema, skin discoloration, clubbing or cyanosis. Good capillary refill. Musculoskeletal: No joint swelling, deformity, or tenderness Peripheral pulses: Normal Neuro: Negative. ASSESSMENT/PLAN: 1. Restless leg syndrome - ICD9: 333.94, ICD10: G25.81 (primary diagnosis) - Continue meds. See sleep med. Call if worsens. 2. GERD without esophagitis - ICD9: 530.81, ICD10: K21.9 - stay on current stomach meds. 3. HLD Watch diet. Lipid in six months Parker Nick documented in this encounterR[facility] Institute07-12-2022 Miscellaneous Notes* Addendum Note - Parker Nick MD - 12/12/2021 3:41 PM EDT Addended by: PARKER NICK on: 12/12/2021 03:41 PM Modules accepted: Orders documented in this encounterRiverview Health Institute07-12-2022 History of Present illness Narrative* Parker Nick MD - 12/12/2021 2:59 PM EDT Patient presents with: transfer care: from Mike Fowler HPI: Patient presents today for office visit for transfer of care. Needs follow up ct of lung in 06/25. PSYCH: GASTROENTEROLOGY: had egd, still vomiting daily. Still on meds. Still with some heartburn. Has hiatal hernia. Sleeps with her head raised. Ran out of prescription prevacid. Is on pepcid. Taking otc prevacid. No bloody or black stools. Discussed risk factors for gerd. Has RLS: has rls in the afternoon with job switch. Drinks adequate fluids. meds not working as well. Discussed increasing. Psych:using lexapro still. No side effects. Using xanax sparingly. oarrs done. Aware of risks of usage. See previous ov with Mike Fowler: ER FU: Recent ER visit at [facility] 2 weeks ago for abd pain/n/v. Was vomiting off and on for a week along with R upper quadrant and epigastric pain, symptoms occur after meals. Had a negative CT scan, presented when ultrasound was not available so was admitted for intractable vomiting and had an ultrasound of the gallbladder that showed gallstones and a thickened gallbladder wall. Was discharged and advised to call surgery. Was vomiting small amounts of blood. Had gall bladder surgery/ removal at [facility]. When she underwent her work-up for right upper quadrant pain/vomiting a CT of the Abd and pelvis noted a small lung nodule approximately 4 mm.. ER provider recommend she have an ER follow up appt andCT of the chest for further eval of the nodule. She is a 20 pack plus smoker. Stopped smoking approximately 10 years ago. #2: Complains of small amount of tenderness/redness to the inner aspect of her left ankle. Denies swelling of calf or knee. No redness of calf or knee. Does not recall hitting it on anything. Denies complications after her surgery. No severe pain. No nausea vomiting diarrhea. No fevers or chills. Able to eat and drink well without difficulties. #3: Needs med refills on her mediations. MEDICATIONS: Current Outpatient Medications Medication Sig ALPRAZolam (XANAX) 0.5 mg tablet Take by mouth. lansoprazole (PREVACID) 15 mg capsule Take 15 mg by mouth once daily. famotidine (PEPCID) 40 mg tablet Take 1 tablet by mouth at bedtime as needed. escitalopram oxalate (LEXAPRO) 10 mg tablet Take 1 tablet by mouth once daily. rOPINIRole (REQUIP) 2 mg tablet Take 1 tablet by mouth daily at bedtime. rOPINIRole (REQUIP) 0.5 mg tablet Take 1 tablet by mouth daily at bedtime. Take in addition to 2mg tablet. Lactobac no.41/Bifidobact no.7 (PROBIOTIC-10 ORAL) Take by mouth. multivit with calcium,iron,min (MULTIPLE VITAMIN, WOMENS ORAL) Take 1 tablet by mouth as needed. lansoprazole (PREVACID) 30 mg capsule Take 1 capsule by mouth daily before breakfast. 1/2 hr beforemeal. No current facility-administered medications for this visit. ALLERGIES: ALLERGIES Allergen Reactions Bupropion Hives Hives Wellbutrin [Bupropi* Hives PAST MEDICAL HISTORY Diagnosis Date AIN (generalized anxiety disorder) 07/18/2020 Panic attacks 06/20/2021 Restless leg syndrome PAST SURGICAL HISTORY Procedure Laterality Date ANESTH, SECTION EGD 11/27/2021 HYSTERECTOMY HX OPEN REPAIR OF ROTATOR CUFF ACUTE Right 2012 Rotator cuff repair REMOVAL GALLBLADDER N/A 06/05/2021 WRIST SURGERY HX Right anchors FAMILY HISTORY Problem Relation Age of Onset Cancer Paternal Grandfather skin Heart disease Paternal Grandfather Cancer Paternal Aunt breast Social History Tobacco Use Smoking status: Former Smoker Packs/day: 1.00 Years: 30.00 Pack years: 30.00 Types: Cigarettes Smokeless tobacco: Never Used Tobacco comment: quit 2013 Substance Use Topics Alcohol use: No Drug use: No Reviewed current medications, allergies, past medical history, surgical history, family history andsocial history today. REVIEW OF SYSTEMS RESPIRATORY: Negative for cough, hemoptysis, wheezing, COPD, dyspnea or shortness of breath CARDIOVASCULAR: Negative for chest pain, leg swelling, hypertension, CHF or palpitations : Negative All other reviewed and negative other than HPI. HEALTH MAINTENANCE: Reviewed health maintenance issues today and recommended the following in detail. LIPID SCREEN Never done MAMMOGRAM due on 03/21/2021 COVID-19 VACCINE(4 - Booster for Moderna series) due on 12/02/2021 VITALS: BP 118/80 Pulse 82 Resp 16 Wt 98 kg (216 lb) SpO2 97% BMI 39.51 kg/m Last 4 Encounter Wt Readings: Date: Wt: 11/27/2021 98.9 kg (218 lb) 11/20/2021 98.9 kg (218 lb) 06/20/2021 94.8 kg (209 lb) 02/14/2021 93.9 kg (207 lb) PHYSICAL EXAMINATION: General appearance: Well appearing, alert, in no acute distress, well-hydrated, well nourished. Skin: Skin color, texture, turgor normal, no suspicious rashes or lesions Head: Normocephalic, no masses, lesions, tenderness or abnormalities Lungs: Lungs clear to auscultation. No wheezing, rhonchi, rales Heart: RRR without murmur, gallop, or rubs. No ectopy Abdomen: Normal abdominal exam, Abdomen soft, non-tender. Bowel sounds normal. No masses, organomegaly Extremities: No deformities, edema, skin discoloration, clubbing or cyanosis. Good capillary refill. Musculoskeletal: No joint swelling, deformity, or tenderness Peripheral pulses: Normal Neuro: Negative. ASSESSMENT/PLAN: 1. Pain of lower extremity, unspecified laterality - ICD9: 729.5, ICD10: M79.606 (primary diagnosis) - check all the labs including iron and lytes. Increase requip - VITAMIN D 25 HYDROXY 2. GERD without esophagitis - ICD9: 530.81, ICD10: K21.9 - Increase prevacid. Watch diet. Recheck one month. - FAMOTIDINE 40 MG TABLET - LANSOPRAZOLE 30 MG CAPSULE,DELAYED RELEASE 3. IAN (generalized anxiety disorder) - ICD9: 300.02, ICD10: F41.1 - continue meds. - ESCITALOPRAM 10 MG TABLET 4. Restless leg syndrome - ICD9: 333.94, ICD10: G25.81 - as above. - ROPINIROLE 3 MG TABLET - CBC + DIFF - COMP METABOLIC PANEL - MAGNESIUM BLD - IRON + TIBC 5. Panic attacks - ICD9: 300.01, ICD10: F41.0 - ALPRAZOLAM 0.5 MG TABLET 6. Incidental lung nodule, > 3mm and < 8mm - ICD9: 793.11, ICD10: R91.1 - recheck one year. 7. Screening for lipid disorders - ICD9: V77.91, ICD10: Z13.220 - LIPID PANEL BASIC 8. Screening breast examination - ICD9: V76.10, ICD10: Z12.39 - Follow up for annual exam in one year. - ROXANE SCREENING Parker Nick RTO in one month and prn. documented in this encounterRiverview Health Institute06-27-2022 Nurse Note* Sasha Chawla RN - 11/27/2021 11:[address] Lyn at bedside to speak with patient and documented in this encounterRiverview Health Institute06-27-2022 Miscellaneous Notes* Anesthesia PreOp - Micah Lyn MD - 11/27/2021 10:45 AM EDT HISTORY AND PHYSICAL Shalini Gonsales, 56 year old female Current history and physical on file: Yes Is a new History and Physical required for today's visit? No Indication for procedure: GERD PROCEDURE(S) SCHEDULED FOR: EGD (Esophagogastroduodenoscopy) with or without biopsies, removal of polyps or lesions, dilation (any means), treatment of bleeding ( any means), Barrx treatment of Vlad's Esophagus, image tube placement or cryo therapy treatment based on clinical findings. BASELINE BEHAVIOR: Calm BASELINE ORIENTATION: A & O x3 All medications and allergies reviewed: Yes Skin Assessment: Warm dry mucus membranes pink Airway/Respiratory Assessment: Airway: visualization of the uvula- Yes Mouth: opening greater than 2 fingerbreadths- Yes Neck: full range of motion- Yes Breath sounds clear/equal- Yes Cardiac Assessment: Regular rate and rhythm without murmur Abdominal Assessment: Abdomen soft, non-tender, no masses or organomegaly. Sedation Plan: Moderate Additional Comments: None Micah Lyn MD [facility] Miscellaneous Notes* Telephone Encounter - LUIS Bonner - 09/26/2021 4:11 PM EDT See previous encounter. * Telephone Encounter - LUIS Bonner - 09/18/2021 3:15 PM EDT TC to patient with no answer. Left message to call back and ask to speak with a nurse. LUIS Bonner documented in this encounterR[facility]04-18-2022 Miscellaneous Notes* Telephone Encounter - Rhianna Dunbar LPN - 09/18/2021 3:44 PM EDT Patient returned call and went over notes from Ko Fowler ENGINEERING TECHNOLOGY INSTRUCTOR with understanding. Aware rx to pharmacy. Assisted with transfer to felt strip finisher to get Gastro appt set up. * Telephone Encounter - LUIS Bonner - 09/18/2021 3:13 PM EDT TC to patient with no answer. Left a message to call office and ask to speak with a nurse. LUIS Bonner * Telephone Encounter - Ko Fowler APRN.ASSEMBLER PLASTIC BOAT, EVA - 09/18/2021 2:58 PM EDT Team - Lisa please inform the patient that I would recommend she see Bisi Johnson's our GI nurse practitioner here at [facility]. She can then further evaluate and determine which GI specialist and further GI testing is needed. Inform the patient in addition to taking her Prevacid before breakfast I would like her to take a Pepcid at bedtime. ASSESSMENT/PLAN: 1. GERD without esophagitis - ICD9: 530.81, ICD10: K21.9 - CONSULT TO GASTROENTEROLOGY The following approved medication requests have been transmitted electronically. Signed Prescriptions Disp Refills famotidine (PEPCID) 40 mg tablet 30 tablet 2 Sig: Take 1 tablet by mouth at bedtime as needed. Pharmacy Information Pharmacy Address Telephone [facility] [facility] [address] [place] [address] Ko Fowler APRN.EVA MICHEAL [facility] Diagnosis GERD without esophagitis- Primary Esophageal reflux [facility]* Diagnosis GERD without esophagitis Esophageal reflux [facility]* Diagnosis Pain of lower extremity, unspecified laterality- Primary GERD without esophagitis Esophageal reflux IAN (generalized anxiety disorder) Generalized anxiety disorder Restless leg syndrome Restless legs syndrome (RLS) Panic attacks Panic disorder without agoraphobia Incidental lung nodule, > 3mm and < 8mm Solitary pulmonary nodule Screening for lipid disorders Screening breast examination Breast screening, unspecified [facility] Diagnosis Restless leg syndrome- Primary Restless legs syndrome (RLS) GERD without esophagitis Esophageal reflux Mixed hyperlipidemia [facility]* Diagnosis Abnormal mammogram Abnormal mammogram, unspecified [facility]* Diagnosis Gastroenteritis- Primary Other and unspecified noninfectious gastroenteritis and colitis [facility]* Diagnosis Vomiting, unspecified vomiting type, unspecified whether nausea present- Primary Diarrhea, unspecified type Dehydration [facility]* Diagnosis Hyperemesis- Primary Persistent vomiting Polycythemia Polycythemia vera Dehydration [facility]* Diagnosis Restless leg syndrome- Primary Restless legs syndrome (RLS) Frequent nocturnal awakening Other sleep disturbances Sleep apnea-like behavior [G47.39 (ICD-10-CM)] documented [facility]* Diagnosis Diarrhea, unspecified type- Primary [facility]* Diagnosis COVID- Primary [facility]* Diagnosis GERD without esophagitis Esophageal reflux Panic attacks Panic disorder without agoraphobia [facility]* Diagnosis Restless leg syndrome- Primary Restless legs syndrome (RLS) IAN (generalized anxiety disorder) Generalized anxiety disorder Incidental lung nodule, > 3mm and < 8mm Solitary pulmonary nodule Mixed hyperlipidemia [facility]* Diagnosis Lung nodules- Primary Other nonspecific abnormal finding of lung field [facility]* Diagnosis Well adult exam- Primary Routine general medical examination at a health care facility Panic attacks Panic disorder without agoraphobia Mixed hyperlipidemia [facility]* Diagnosis Mixed hyperlipidemia- Primary Well adult exam Routine general medical examination at a health care facility documented [facility]* Diagnosis Mixed hyperlipidemia- Primary [facility]* Diagnosis Panic attacks Panic disorder without agoraphobia documented [facility]* Diagnosis Panic attacks Panic disorder without agoraphobia documented [facility]* Diagnosis BARB (obstructive sleep apnea)- Primary Obstructive sleep apnea (adult) (pediatric) Restless leg syndrome Restless legs syndrome (RLS) Morbid obesity (HCC) Morbid obesity documented in this encounter [facility] note* Diagnosis Left wrist pain- Primary Pain in joint, forearm Encounter for screening mammogram for malignant neoplasm of breast Other screening mammogram Restless leg syndrome Restless legs syndrome (RLS) Incidental lung nodule, > 3mm and < 8mm Solitary pulmonary nodule Heterozygous factor V Leiden mutation (HCC) Primary hypercoagulable state Lupus anticoagulant disorder (HCC) Primary hypercoagulable state Recurrent major depressive disorder, in partial remission (HCC) Panic attacks Panic disorder without agoraphobia GERD without esophagitis Esophageal reflux documented [facility] this encounter [facility]* Diagnosis Chronic pain of right knee- Primary Pain in wrist, unspecified laterality Left hand pain Pain in limb Primary osteoarthritis of left hand Primary localized osteoarthrosis, hand documented [facility] this encounter [facility]* Diagnosis Chronic pain of right knee documented [facility]* Diagnosis Lung nodules Other nonspecific abnormal finding of lung field [facility]* Diagnosis Left wrist pain Pain in joint, forearm [facility]* Diagnosis BARB (obstructive sleep apnea)- Primary Obstructive sleep apnea (adult) (pediatric) RLS (restless legs syndrome) Restless legs syndrome (RLS) documented in this encounter [facility] for referral (narrative)* Outpatient Procedure (Routine) - Closed Specialty Diagnoses / Procedures Referred By Contac t Referred To Contact [facility] Diagnoses GERD without esophagitis Procedures EGD DIAGNOSTIC ESOPHAGOGASTRODUODENOSC OPY TRANSORAL DIAGNOSTIC Usha Rhodes APRN.CNP [address] [place] [address] [facility] [address] [place] [address] Referral ID Status Reason Start Date Expiration Date V isits Requested Visits Authorized [id number] Closed Auto-Generate d Referral 11/20/2021 11/20/2022 1 1 [facility] for referral (narrative)* Diagnostic Procedure Only (Routine) - Authorized Specialty Diagnoses / Procedures Referred By Contac t Referred To Contact [facility] Diagnoses Screening breast examination Procedures ROXANE SCREENING SCREENING MAMMOGRAPHY BI 2-VIEW BREAST INC CAD Parker Nick MD [address] [place] [address] [facility] [address] [place] [address] Referral ID Status Reason Start Date Expiration Date Visits Requested Visits Authorized [id number] Authorized Auto-Generat ed Referral 12/12/2021 01/11/2023 1 1 * Medication Prior Authorization - Authorized Specialty Diagnoses / Procedures Referred By Contac t Referred To Contact Diagnoses GERD without esophagitis Parker Nick MD [address] [place] [address] Referral ID Status Reason Start Date Expiration Date V isits Requested Visits Authorized [id number] Authorized 12/12/2021 12/11/2024 1 1 [facility] for referral (narrative)* Diagnostic Procedure Only (Routine) - Closed Specialty Diagnoses / Procedures Referred By Contac t Referred To Contact XR IMAGING Diagnoses Left wrist pain Procedures XR WRIST GENERAL 3V PA/LAT/OBL LEFT RADEX WRIST COMPLETE MINIMUM 3 VIEWS Parker Nick MD [address] [place] [address] [place] [address] Referral ID Status Reason Start Date Expiration Date V isits Requested Visits Authorized [id number] Closed Auto-Generate d Referral 01/16/2023 02/15/2024 1 1 * Diagnostic Procedure Only (Routine) - Pending Review Specialty Diagnoses / Procedures Referred By Jimac t Referred To Contact [facility] Diagnoses Encounter for screening mammogram for malignant neoplasm of breast Procedures ROXANE SCREENING W ELOISA SCREENING DIGITAL BREAST TOMOSYNTHESIS BI SCREENING MAMMOGRAPHY BI 2-VIEW BREAST INC CAD Parker Nick MD [address] [place] [address] [place] [address] Referral ID Status Reason Start Date Expiration Date Visits Requested Visits Authorized [id number] Pending Review Auto-Generat ed Referral 01/16/2023 02/15/2024 1 1 [facility] for referral (narrative)* Diagnostic Procedure Only (Routine) - Closed Specialty Diagnoses / Procedures Referred By Jimac t Referred To Contact XR IMAGING Diagnoses Chronic pain of right knee Procedures XR KNEE GENERAL 4V AP BOTH/PA BOTH/LAT/MERC RIGHT RADIOLOGIC EXAM KNEE COMPLETE 4/MORE VIEWS Radha Mart DO [address] [facility] [address] [place] [address] [place] [address] Referral ID Status Reason Start Date Expiration Date V isits Requested Visits Authorized [id number] Closed Auto-Generate d Referral 03/14/2023 04/12/2024 1 1 [facility] for referral (narrative)* Diagnostic Procedure Only (Routine) - Closed Specialty Diagnoses / Procedures Referred By Contac t Referred To Contact XR IMAGING Diagnoses Chronic pain of right knee Procedures XR KNEE GENERAL 4V AP BOTH/PA BOTH/LAT/MERC RIGHT RADIOLOGIC EXAM KNEE COMPLETE 4/MORE VIEWS Radha Mart DO [address] [facility] [address] [place] [address] [place] [address] Referral ID Status Reason Start Date Expiration Date V isits Requested Visits Authorized [id number] Closed Auto-Generate d Referral 03/14/2023 04/12/2024 1 1 [facility] for referral (narrative)* Diagnostic Procedure Only (Routine) - Closed Specialty Diagnoses / Procedures Referred By Contac t Referred To Contact XR IMAGING Diagnoses Left wrist pain Procedures XR WRIST GENERAL 3V PA/LAT/OBL LEFT RADEX WRIST COMPLETE MINIMUM 3 VIEWS Parker Nick MD [address] [place] [address] [place] [address] Referral ID Status Reason Start Date Expiration Date V isits Requested Visits Authorized [id number] Closed Auto-Generate d Referral 01/16/2023 02/15/2024 1 1 [facility] for visit Narrative* Outpatient Procedure (Routine) - Closed Specialty Diagnoses / Procedures Referred By Contac t Referred To Contact [facility] Diagnoses GERD without esophagitis Procedures EGD DIAGNOSTIC ESOPHAGOGASTRODUODENOSC OPY TRANSORAL DIAGNOSTIC Usha Rhodes, GARAGE DOOR HANGER.ASSEMBLER PLASTIC BOAT [address] [place] [address] [facility] [address] [place] [address] Referral ID Status Reason Start Date Expiration Date V isits Requested Visits Authorized [id number] Closed Auto-Generate d Referral 11/20/2021 11/20/2022 1 1 [facility] for visit Narrative* Diagnostic Procedure Only (Routine) - Closed Specialty Diagnoses / Procedures Referred By Contac t Referred To Contact [facility] Diagnoses Abnormal mammogram Procedures ROXANE DIAGNOSTIC RT DIAGNOSTIC MAMMOGRAPHY COMPUTER-AIDED DETCJ UNI Parker Nick MD [address] [place] [address] [facility] [address] [place] [address] Referral ID Status Reason Start Date Expiration Date V isits Requested Visits Authorized [id number] Closed Auto-Generate d Referral 01/16/2022 02/15/2023 1 1 [facility] for visit Narrative* Diagnostic Procedure Only (Routine) - Closed Specialty Diagnoses / Procedures Referred By Contac t Referred To Contact XR IMAGING Diagnoses Chronic pain of right knee Procedures XR KNEE GENERAL 4V AP BOTH/PA BOTH/LAT/MERC RIGHT RADIOLOGIC EXAM KNEE COMPLETE 4/MORE VIEWS Radha Mart DO [address] [facility] [address] [place] [address] [place] [address] Referral ID Status Reason Start Date Expiration Date V isits Requested Visits Authorized [id number] Closed Auto-Generate d Referral 03/14/2023 04/12/2024 1 1 [facility] for visit Narrative* Diagnostic Procedure Only (Routine) - Closed Specialty Diagnoses / Procedures Referred By Contac t Referred To Contact XR IMAGING Diagnoses Left wrist pain Procedures XR WRIST GENERAL 3V PA/LAT/OBL LEFT RADEX WRIST COMPLETE MINIMUM 3 VIEWS Parker Nick MD [address] [place] [address] [place] [address] Referral ID Status Reason Start Date Expiration Date V isits Requested Visits Authorized [id number] Closed Auto-Generate d Referral 01/16/2023 02/15/2024 1 1 [facility] Summary Purpose Family History No Family History Records FoundNo Family History Records FoundNo Family History Records Found Advance Directives No Advanced Directives Records FoundDocuments on File Type Date Recorded Patient Integration Technician Expl anation Advance Directive(s) 11/27/2021 9:58 AM Documents on File Type Date Recorded Patient Integration Technician Expl anation Advance Directive(s) 11/27/2021 9:58 AM Reason for Referral Specialty Diagnoses / Procedures Referred By Contac t Referred To Contact Gastroenterology Diagnoses GERD without esophagitis Procedures CONSULT TO GASTROENTEROLOGY OFFICE/OUTPATIENT [facility] 60-74 MINUTES Ko Fowler APRN.ASSEMBLER P[employer]IC [employer]AT, DNP [address] [place] [address] Referral ID Status Reason Start Date Expiration Date Visits Requested Visits Authorized [id number] Pending Review PCP Requested Referral 09/18/2021 09/18/2022 1 1 Specialty Diagnoses / Procedures Referred By Contac t Referred To Contact Diagnoses Restless leg syndrome Procedures CONSULT TO SLEEP MEDICINE - ADULT OFFICE/OUTPATIENT [facility] 60-74 MINUTES Parker Nick MD [address] [place] [address] Referral ID Status Reason Start Date Expiration Date Visits Requested Visits Authorized [id number] Pending Review PCP Requested Referral 01/05/2022 01/05/2023 1 1 Specialty Diagnoses / Procedures Referred By Contac t Referred To Contact Gastroenterology Diagnoses Vomiting, unspecified vomiting type, unspecified whether nausea present Diarrhea, unspecified type Procedures CONSULT TO GASTROENTEROLOGY OFFICE/OUTPATIENT [facility] 60-[place] [address] [place] [address] Referral ID Status Reason Start Date Expiration Date Visits Requested Visits Authorized [id number] Pending Review PCP Requested Referral 03/01/2022 03/01/2023 1 1 Specialty Diagnoses / Procedures Referred By Contac t Referred To Contact CT IMAGING Diagnoses Lung nodules Procedures CT CHEST WO IVCON DIAGNOSTIC COMPUTED TOMOGRAPHY THORAX [place] [address] [place] [address] [facility] Referral ID Status Reason Start Date Expiration Date Visits Requested Visits Authorized [id number] Pending Review Auto-Generat ed Referral 07/30/2023 08/29/2023 1 1 Specialty Diagnoses / Procedures Referred By Contac t Referred To Contact CT IMAGING Diagnoses Lung nodules Procedures CT CHEST WO IVCON DIAGNOSTIC COMPUTED TOMOGRAPHY THORAX W/O CECELIAT Ko Fowler, [place].ASSEMBLER PLASTIC [employer]AT, DNP [address] [place] [address] [place] [address] Referral ID Status Reason Start Date Expiration Date V isits Requested Visits Authorized [id number] Closed Auto-Generate d Referral 06/04/2022 08/06/2022 1 1 Additional Source Comments INFORMATION SOURCE (unrecogn ized section and content) DATE CREATED AUTHOR AUTHOR'S ORGANIZ ATION 10/17/2022 [facility] DATE CREATED AUTHOR AUTHOR'S ORGANIZ ATION 05/03/2023 [facility] Source Comments (unrecognize d section and content) In the event this informatio n is protected by the Federal Confidentiality of Alcohol and Drug Abuse Patient Records regulations: The Federal rules restrict any use of the information to criminally investigate or prosecute any alcohol or drug abuse patient.[facility] Institute[facility] the event this information is protected by the Federal Confidentiality of Alcohol and Drug Abuse Patient Records regulations: The Federal rules restrict any use of the information to criminally investigate or prosecute any alcohol or drug abuse patient.[facility] InstituteIn the event this information is protected by the Federal Confidentiality of Alcohol and Drug Abuse Patient Records regulations: The Federal rules restrict any use of the information to criminally investigate or prosecute any alcohol or drug abuse patient.[facility] the event this information is protected by the Federal Confidentiality of Alcohol and Drug Abuse Patient Records regulations: The Federal rules restrict any use of the information to criminally investigate or prosecute any alcohol or drug abuse patient.[facility] Institute[facility] the event this information is protected by the Federal Confidentiality of Alcohol and Drug Abuse Patient Records regulations: The Federal rules restrict any use of the information to criminally investigate or prosecute any alcohol or drug abuse patient.[facility] Institute[facility] the event this information is protected by the Federal Confidentiality of Alcohol and Drug Abuse Patient Records regulations: The Federal rules restrict any use of the information to criminally investigate or prosecute any alcohol or drug abuse patient.[facility] Institute[facility] the event this information is protected by the Federal Confidentiality of Alcohol and Drug Abuse Patient Records regulations: The Federal rules restrict any use of the information to criminally investigate or prosecute any alcohol or drug abuse patient.[facility] Institute[facility] the event this information is protected by the Federal Confidentiality of Alcohol and Drug Abuse Patient Records regulations: The Federal rules restrict any use of the information to criminally investigate or prosecute any alcohol or drug abuse patient.[facility] Institute[facility] the event this information is protected by the Federal Confidentiality of Alcohol and Drug Abuse Patient Records regulations: The Federal rules restrict any use of the information to criminally investigate or prosecute any alcohol or drug abuse patient.[facility] Institute[facility] the event this information is protected by the Federal Confidentiality of Alcohol and Drug Abuse Patient Records regulations: The Federal rules restrict any use of the information to criminally investigate or prosecute any alcohol or drug abuse patient.[facility] Institute[facility] the event this information is protected by the Federal Confidentiality of Alcohol and Drug Abuse Patient Records regulations: The Federal rules restrict any use of the information to criminally investigate or prosecute any alcohol or drug abuse patient.[facility] Institute[facility] the event this information is protected by the Federal Confidentiality of Alcohol and Drug Abuse Patient Records regulations: The Federal rules restrict any use of the information to criminally investigate or prosecute any alcohol or drug abuse patient.[facility] InstituteIn the event this information is protected by the Federal Confidentiality of Alcohol and Drug Abuse Patient Records regulations: The Federal rules restrict any use of the information to criminally investigate or prosecute any alcohol or drug abuse patient.[facility] InstituteIn the event this information is protected by the Federal Confidentiality of Alcohol and Drug Abuse Patient Records regulations: The Federal rules restrict any use of the information to criminally investigate or prosecute any alcohol or drug abuse patient.[facility] InstituteIn the event this information is protected by the Federal Confidentiality of Alcohol and Drug Abuse Patient Records regulations: The Federal rules restrict any use of the information to criminally investigate or prosecute any alcohol or drug abuse patient.[facility] Institute[facility] the event this information is protected by the Federal Confidentiality of Alcohol and Drug Abuse Patient Records regulations: The Federal rules restrict any use of the information to criminally investigate or prosecute any alcohol or drug abuse patient.[facility] InstituteIn the event this information is protected by the Federal Confidentiality of Alcohol and Drug Abuse Patient Records regulations: The Federal rules restrict any use of the information to criminally investigate or prosecute any alcohol or drug abuse patient.[facility] InstituteIn the event this information is protected by the Federal Confidentiality of Alcohol and Drug Abuse Patient Records regulations: The Federal rules restrict any use of the information to criminally investigate or prosecute any alcohol or drug abuse patient.[facility] InstituteIn the event this information is protected by the Federal Confidentiality of Alcohol and Drug Abuse Patient Records regulations: The Federal rules restrict any use of the information to criminally investigate or prosecute any alcohol or drug abuse patient.[facility] InstituteIn the event this information is protected by the Federal Confidentiality of Alcohol and Drug Abuse Patient Records regulations: The Federal rules restrict any use of the information to criminally investigate or prosecute any alcohol or drug abuse patient.[facility] InstituteIn the event this information is protected by the Federal Confidentiality of Alcohol and Drug Abuse Patient Records regulations: The Federal rules restrict any use of the information to criminally investigate or prosecute any alcohol or drug abuse patient.[facility] InstituteIn the event this information is protected by the Federal Confidentiality of Alcohol and Drug Abuse Patient Records regulations: The Federal rules restrict any use of the information to criminally investigate or prosecute any alcohol or drug abuse patient.[facility] InstituteIn the event this information is protected by the Federal Confidentiality of Alcohol and Drug Abuse Patient Records regulations: The Federal rules restrict any use of the information to criminally investigate or prosecute any alcohol or drug abuse patient.[facility] InstituteIn the event this information is protected by the Federal Confidentiality of Alcohol and Drug Abuse Patient Records regulations: The Federal rules restrict any use of the information to criminally investigate or prosecute any alcohol or drug abuse patient.[facility] InstituteIn the event this information is protected by the Federal Confidentiality of Alcohol and Drug Abuse Patient Records regulations: The Federal rules restrict any use of the information to criminally investigate or prosecute any alcohol or drug abuse patient.[facility] InstituteIn the event this information is protected by the Federal Confidentiality of Alcohol and Drug Abuse Patient Records regulations: The Federal rules restrict any use of the information to criminally investigate or prosecute any alcohol or drug abuse patient.[facility] InstituteIn the event this information is protected by the Federal Confidentiality of Alcohol and Drug Abuse Patient Records regulations: The Federal rules restrict any use of the information to criminally investigate or prosecute any alcohol or drug abuse patient.[facility] InstituteIn the event this information is protected by the Federal Confidentiality of Alcohol and Drug Abuse Patient Records regulations: The Federal rules restrict any use of the information to criminally investigate or prosecute any alcohol or drug abuse patient.[facility] InstituteIn the event this information is protected by the Federal Confidentiality of Alcohol and Drug Abuse Patient Records regulations: The Federal rules restrict any use of the information to criminally investigate or prosecute any alcohol or drug abuse patient.[facility] InstituteIn the event this information is protected by the Federal Confidentiality of Alcohol and Drug Abuse Patient Records regulations: The Federal rules restrict any use of the information to criminally investigate or prosecute any alcohol or drug abuse patient.[facility] InstituteIn the event this information is protected by the Federal Confidentiality of Alcohol and Drug Abuse Patient Records regulations: The Federal rules restrict any use of the information to criminally investigate or prosecute any alcohol or drug abuse patient.[facility] InstituteIn the event this information is protected by the Federal Confidentiality of Alcohol and Drug Abuse Patient Records regulations: The Federal rules restrict any use of the information to criminally investigate or prosecute any alcohol or drug abuse patient.[facility] InstituteIn the event this information is protected by the Federal Confidentiality of Alcohol and Drug Abuse Patient Records regulations: The Federal rules restrict any use of the information to criminally investigate or prosecute any alcohol or drug abuse patient.[facility] InstituteIn the event this information is protected by the Federal Confidentiality of Alcohol and Drug Abuse Patient Records regulations: The Federal rules restrict any use of the information to criminally investigate or prosecute any alcohol or drug abuse patient.[facility] InstituteIn the event this information is protected by the Federal Confidentiality of Alcohol and Drug Abuse Patient Records regulations: The Federal rules restrict any use of the information to criminally investigate or prosecute any alcohol or drug abuse patient.[facility] InstituteIn the event this information is protected by the Federal Confidentiality of Alcohol and Drug Abuse Patient Records regulations: The Federal rules restrict any use of the information to criminally investigate or prosecute any alcohol or drug abuse patient.[facility] InstituteIn the event this information is protected by the Federal Confidentiality of Alcohol and Drug Abuse Patient Records regulations: The Federal rules restrict any use of the information to criminally investigate or prosecute any alcohol or drug abuse patient.[facility] InstituteIn the event this information is protected by the Federal Confidentiality of Alcohol and Drug Abuse Patient Records regulations: The Federal rules restrict any use of the information to criminally investigate or prosecute any alcohol or drug abuse patient.[facility] InstituteIn the event this information is protected by the Federal Confidentiality of Alcohol and Drug Abuse Patient Records regulations: The Federal rules restrict any use of the information to criminally investigate or prosecute any alcohol or drug abuse patient.[facility] InstituteIn the event this information is protected by the Federal Confidentiality of Alcohol and Drug Abuse Patient Records regulations: The Federal rules restrict any use of the information to criminally investigate or prosecute any alcohol or drug abuse patient.[facility] Care Teams (unrecognized sec tion and content) Business Job Titles Relationship Specialty Start Date End Date Ko Fowler APRN.CNP, DNP [address] [place] [address] PCP - General Family Practice 08/16/20 Business Job Titles Relationship Specialty Start Date End Date Ko Fowler APRN.CNP, DNP [address] [place] [address] PCP - General Family Practice 08/16/20 Business Job Titles Relationship Specialty Start Date End Date Ko Fowler APRN.[employer], DNP [address] [facility] [address] PCP - General Family Practice 08/16/20 Business Job Titles Relationship Specialty Start Date End Date Parker Nick MD [address] [place] [address] PCP - General Family Practice 12/12/21 Business Job Titles Relationship Specialty Start Date End Date Parker Nick MD [address] [place] [address] PCP - General Family Practice 12/12/21 Business Job Titles Relationship Specialty Start Date End Date Parker Nick MD [address] [place] [address] PCP - General Family Practice 12/12/21 Business Job Titles Relationship Specialty Start Date End Date Parker Nick MD [address] [facility] [address] PCP - General Family Practice 12/12/21 Business Job Titles Relationship Specialty Start Date End Date Parker Nick MD [address] [place] [address] PCP - General Family Practice 12/12/21 Business Job Titles Relationship Specialty Start Date End Date Parker Nick MD [address] [place] [address] PCP - General Family Medicine 12/12/21 Business Job Titles Relationship Specialty Start Date End Date Parker Nick MD [address] [facility] [address] PCP - General Family Medicine 12/12/21 Business Job Titles Relationship Specialty Start Date End Date Parker Nick MD [address] [facility] [address] PCP - General Family Medicine 12/12/21 Business Job Titles Relationship Specialty Start Date End Date Parker Nick MD [address] [facility] [address] PCP - General Family Medicine 12/12/21 Business Job Titles Relationship Specialty Start Date End Date Parker Nick MD [address] [facility] [address] PCP - General Family Medicine 12/12/21 Business Job Titles Relationship Specialty Start Date End Date Parker Nick MD [address] [facility] [address] PCP - General Family Medicine 12/12/21 Business Job Titles Relationship Specialty Start Date End Date Parker Nick MD [address] [facility] [address] PCP - General Family Medicine 12/12/21 Business Job Titles Relationship Specialty Start Date End Date Parker Nick MD [address] [facility] [address] PCP - General Family Medicine 12/12/21 Business Job Titles Relationship Specialty Start Date End Date Parker Nick MD [address] [facility] [address] PCP - General Family Medicine 12/12/21 Business Job Titles Relationship Specialty Start Date End Date Parker Nick MD [address] [facility] [address] PCP - General Family Medicine 12/12/21 Business Job Titles Relationship Specialty Start Date End Date Parker Nick MD [address] [facility] [address] PCP - General Family Medicine 12/12/21 Business Job Titles Relationship Specialty Start Date End Date Parker Nick MD [address] [facility] [address] PCP - General Family Medicine 12/12/21 Business Job Titles Relationship Specialty Start Date End Date Parker Nick MD [address] [place] [address] PCP - General Family Medicine 12/12/21 Business Job Titles Relationship Specialty Start Date End Date Parker Nick MD [address] [place] [address] PCP - General Family Medicine 12/12/21 Business Job Titles Relationship Specialty Start Date End Date Parker Nick MD [address] [place] [address] PCP - General Family Medicine 12/12/21 Business Job Titles Relationship Specialty Start Date End Date Parker Nick MD [address] [place] [address] PCP - General Family Medicine 12/12/21 Business Job Titles Relationship Specialty Start Date End Date Parker Nick MD [address] [place] [address] PCP - General Family Medicine 12/12/21 Business Job Titles Relationship Specialty Start Date End Date Parker Nick MD [address] [place] [address] PCP - General Family Medicine 12/12/21 Business Job Titles Relationship Specialty Start Date End Date Parker Nick MD [address] [place] [address] PCP - General Family Medicine 12/12/21 Business Job Titles Relationship Specialty Start Date End Date Parker Nick MD [address] [place] [address] PCP - General Family Medicine 12/12/21 Business Job Titles Relationship Specialty Start Date End Date Parker Nick MD [address] [place], [place] [address] PCP - General Family Medicine 12/12/21 Business Job Titles Relationship Specialty Start Date End Date Parker Nick MD [address] [place], [place] [address] PCP - General Family Medicine 12/12/21 Business Job Titles Relationship Specialty Start Date End Date Parker Nick MD [address] [place], [place] [address] PCP - General Family Medicine 12/12/21 Business Job Titles Relationship Specialty Start Date End Date Parker Nick MD [address] [place], [place] [address] PCP - General Family Medicine 12/12/21 Business Job Titles Relationship Specialty Start Date End Date Parker Nick MD [address] [place], [place] [address] PCP - General Family Medicine 12/12/21 Business Job Titles Relationship Specialty Start Date End Date Parker Nick MD [address] [place], [place] [address] PCP - General Family Medicine 12/12/21 Reason for Visit (unrecogniz ed section and content) Reason Comments transfer care from Mike Fowler Reason Comments 4 week follow up Reason Comments Vomiting X 2 days Diarrhea X 2 weeks Reason Comments Hospital F/U [facility] and [facility] Reason Comments Follow Up 1 week Reason Comments New Patient Restless legs Specialty Diagnoses / Procedures Referred By Ricky hernandez Referred To Contact Diagnoses Restless leg syndrome Procedures CONSULT TO SLEEP MEDICINE - ADULT OFFICE/OUTPATIENT NEW HIGH MDM 60-74 MINUTES Parker Nick MD [address] [place] [address] Referral ID Status Reason Start Date Expiration Date Visits Requested Visits Authorized [id number] Pending Review PCP Requested Referral 01/05/2022 01/05/2023 1 1 Reason Comments Orders Reason Comments Covid Test Result Reason Onset Date Comments Refill Request 06/21/2022 Refill Request 06/29/2022 Reason Comments Follow Up Reason Comments Results Reason Comments Physical Reason Onset Date Comments Refill Request 12/07/2022 Reason Comments Sleep Apnea Reason Comments PAP Rx Faxed Reason Comments 6 Month Exam Reason Comments PAP Therapy Follow Up Reason Comments New Pain Specialty Diagnoses / Procedures Referred By Contac t Referred To Contact Orthopedics Diagnoses Pain in wrist, unspecified laterality Procedures CONSULT TO ORTHOPAEDICS OFFICE/OUTPATIENT [facility] 60-74 MINUTES Parker Nick MD [address] [place] [address] Referral ID Status Reason Start Date Expiration Date Visits Requested Visits Authorized [id number] Pending Review PCP Requested Referral 01/22/2023 01/22/2024 [address] Specialty Diagnoses / Procedures Referred By Ricky t Referred To Contact CT IMAGING Diagnoses Lung nodules Procedures CT CHEST WO IVCON DIAGNOSTIC COMPUTED TOMOGRAPHY THORAX W/O CECELIAT Ko Fowler, [place].[employer], DNP [address] [place] [address] [place] [address] Referral ID Status Reason Start Date Expiration Date V isits Requested Visits Authorized [id number] Closed Auto-Generate d Referral 06/04/2022 08/06/2022 1 1 Reason Comments Medication Follow-up FOR RECORDS PERTAINING TO PATIENTS WHO ARE OR HAVE BEEN ENROLLED IN A CHEMICAL DEPENDENCY/SUBSTANCEABUSE PROGRAM, SOME INFORMATION MAY BE OMITTED. This clinical summary was aggregated from multiple sources. Caution should be exercised in using it in the provision of clinical care. This summary normalizes information from multiple sources, and as a consequence, information in this document may materially change the coding, format and clinical context of patient data. In addition, data may be omitted in some cases. CLINICAL DECISIONS SHOULD BE BASED ON THE PRIMARY CLINICAL RECORDS. [facility]. provides no warranty or guarantee of the accuracy or completeness of information in this document.
== END 2023-06-17 04:41 | disposition home or self-care (01) ==
PROVIDERS: Emergency Provider Emergency Medicine; PCP Family Medicine; Visit Provider Emergency Medicine
DX: R10.9 Unspecified abdominal pain (principal); R11.2 Nausea with vomiting, unspecified; R19.7 Diarrhea, unspecified; Z87.891 Personal history of nicotine dependence; F32.A Depression, unspecified; Z79.899 Other long term (current) drug therapy; K21.9 Gastro-esophageal reflux disease without esophagitis; F41.9 Anxiety disorder, unspecified; Z90.49 Acquired absence of other specified parts of digestive tract; Z90.710 Acquired absence of both cervix and uterus
CPT/HCPCS: 80053; 81001; 83690; 85025; 96361; 96374; 96375; 99282; J7030; A4216; J2405

== ENCOUNTER 2023-06-18 08:52 | Emergency (ER) | payer OTHER, SELFPAY ==
[2023-06-18 08:53] VITALS: BP 163/105; PULSE 95; RESP 20; TEMP 35.6; O2SAT 100; BMI 39.6
--- NOTE | 2023-06-18 09:51 | CT_ITS ---
STUDY: CT ABDOMEN AND PELVIS WITH CONTRAST REASON FOR EXAM: Female, 57 years old. Vomiting and abdominal pain. RADIATION DOSAGE (If Supplied By Facility): CTDIvol = ( 16.11 ) mGy, DLP = ( 1144.42 ) mGycm TECHNIQUE: Transaxial images were obtained from the dome of the diaphragm to the symphysis pubis without oral contrast. IV 100mL Isovue-300 was administered. Sagittal and coronal images were reconstructed. Individualized dose optimization techniques were used for this CT. COMPARISON: Comparison is made with prior study dated June 02, 2021. FINDINGS: Minimal degree of linear bibasilar atelectasis. Stable noncalcified 4 mm nodule in the posterolateral aspect of the right lower lobe. Coronary artery calcification. There is decreased attenuation of the liver consistent with steatosis. Stable calcified granulomas in the anterior lateral aspect of the right lobe of the liver in the region of the dome. The patient is status post cholecystectomy. Normal spleen. Normal pancreas. Normal bilateral adrenal glands. Normal right kidney. Normal left kidney. Incidental note is made of a retroaortic left renal vein. There is a small hiatal hernia. Normal small intestine. Normal colon. The appendix is visualized and appears normal. Normal abdominal aorta. Normal inferior vena cava. Normal retroperitoneum. Normal urinary bladder. There is absence of the uterus consistent with a prior hysterectomy. Normal abdominal wall. Normal osseous structures. CT/Abdomen/Pelvis W IV Cont ONLY IMPRESSION: Fatty infiltration of the liver. Status post cholecystectomy. Stable calcified granuloma in the anterior dome of the right lobe of the liver. Electronically Signed: Kiko Chapa MD at 10:36 EST ,
--- NOTE | 2023-06-18 09:52 | ED.VIS.GI ---
HPI HPI - GI History of Present Illness Chief Complaint: Nausea/Vomiting Narrative Narrative: 57-year-old female presenting with nausea, vomiting. Previously had diarrhea but this is resolved. Patient was seen yesterday in the ER and had IV fluids and lab work which is all normal. She states her vomiting initially improved and she was able to sip some fluids, apple juice, Gatorade. She states that towards the evening yesterday she started to have more vomiting. States he vomited sporadically through the night. Denies fevers or chills. States the diarrhea again has resolved. Patient does admit to some abdominal pain. He points to the epigastrium. She states that it is aching in nature. Patient states she called her PCP and informed him that she had been to the ER and had labs and imaging done but he wanted her to come back to the ER for repeat evaluation. [facility] Medical History Anxiety Chest pain Depression Factor V deficiency Factor V deficiency Former smoker Gastritis GERD (gastroesophageal reflux disease) Intractable nausea and vomiting Intractable vomiting Lupus anticoagulant disorder Home Medications escitalopram oxalate 10 mg tablet 10 mg PO QHS DEPRESSION 06/02/21 [History Last Taken Unknown] ropinirole 0.5 mg tablet 3 mg PO QHS RESTLESS LEGS 06/02/21 [History Last Taken Unknown] alprazolam 0.5 mg tablet 0.5 mg PO BID PRN Anxiety 06/04/21 [History Last Taken Unknown] lansoprazole 30 mg capsule,delayed release (Prevacid) 30 mg PO DAILY STOMACH 06/04/21 [History Last Taken Unknown] promethazine 25 mg tablet 25 mg PO TID PRN nausea and vomiting #14 tabs 02/25/22 [Rx Last Taken Unknown] ondansetron 4 mg disintegrating tablet 4 mg PO Q8H PRN PRN Nausea #10 tabs 06/17/23 [Rx Last Taken Unknown] ondansetron 4 mg disintegrating tablet 4 mg PO Q8H PRN PRN Nausea #20 tabs 06/18/23 [Rx Last Taken Unknown] promethazine 25 mg tablet 25 mg PO Q8H PRN PRN nausea and vomiting #20 tabs 06/18/23 [Rx Last Taken Unknown] Allergy/AdvReac Type Severity Reaction Status Date / Time bupropion HCl Allergy Hives Verified 01/16/24 09:43 [From Wellbutrin] Family History Other Anxiety and depression Hypertension Surgical History H/O shoulder surgery H/O wrist surgery H/O: hysterectomy History of S/P laparoscopic cholecystectomy Social History Smoking Status: Former smoker ROS ROS ED Constitutional Constitutional ED: Denies chills, fever(s) or sweats Eyes Eyes: Denies blurry vision or change in vision ENT ENT ED: Denies ear pain or sore throat Cardiovascular Cardiovascular: Denies chest pain, palpitations or racing heartbeat Respiratory/Chest Respiratory/Chest: Denies cough, dyspnea or sputum Gastrointestinal Gastrointestinal: Reports abdominal pain, nausea and vomiting; Denies constipation or diarrhea Genitourinary Genitourinary ED: Denies dysuria, hematuria or urinary frequency Musculoskeletal Musculoskeletal: Denies arthralgias, myalgias or neck pain Integumentary Denies abscess, Abrasions or rash Neurologic Neurologic: Denies headache(s), paresthesias or weakness Psychiatric Psychiatric: Denies anxiety, depression, suicidal ideation or suicidal thoughts Endocrine Endocrinology: Denies polydipsia or polyuria EXAM Physical Exam Const Vital Signs: 06/18/23 08:53 06/18/23 11:38 Temperature 96.0 F L Temperature Source Temporal Pulse Rate 95 Respiratory Rate 20 H Blood Pressure 163/105 H 142/85 H Blood Pressure Mean 124 104 Pulse Ox 100 Oxygen Delivery Method Room Air Positive well nourished General Appearance ED: NAD HEENT Reports moist mucous membranes normocephalic and atraumatic Eyes PERRL and EOMs intact bilaterally Resp normal respiratory effort Cardio regular rate and regular rhythm GI Palpation: tender epigastric Neuro CN's II-XII intact bilaterally Sensorium / Orientation: alert Motor Exam: strength 5/5 throughout Psych mental status grossly normal Skin no wounds MDM MDM MDM Narrative Medical decision making narrative: Patient presenting with nausea, vomiting. Her diarrhea is improved. Differential includes dehydration, anemia, electro abnormalities, gastritis, GERD, colitis, diverticulitis. CBC was again obtained to assess white blood cell count, hemoglobin, platelets. BMP to assess renal function, electrolytes, glucose. Liver enzymes will also be obtained. Lipase obtained to rule out pancreatitis. Lab work all within normal limits. Patient initially given IV fluids, Zofran. I did try to order Reglan however the patient refused. She wanted an IV dose of Zofran even though this had not been working for her at home and oral dose. On reevaluation the patient was p.o. challenged and unable to tolerate fluids. She is then given an IM dose of Phenergan. Patient is CT of the abdomen pelvis which was negative for acute findings. At 12:22 PM we discussed that we will try to get her home as she is not dehydrated and her electrolytes are normal. Reevaluation at 1:19 PM the patient is doing well and has not been able to tolerate fluids after getting Phenergan. She will be discharged home with alternating doses of Phenergan and Zofran. Return precautions discussed. Impression: 1. Gastroenteritis 2. Abdominal pain Lab Data Labs: Laboratory Results - last 24 hr 06/18/23 09:24 WBC 8.6 RBC 5.20 Hgb 15.0 Hct 44.9 MCV 86.3 MCH 28.8 MCHC 33.4 RDW Std Deviation 42.4 RDW Coeff of Harold[place] 13.5 Plt Count 275 MPV 10.6 Immature Gran % (Auto) 0.200 Neut % (Auto) 79.4 H Lymph % (Auto) 14.7 L [place] % (Auto) 4.1 Eos % (Auto) 0.7 Baso % (Auto) 0.9 Absolute Neuts (auto) 6.8 Absolute Lymphs (auto) 1.27 Nucleated RBC % 0 Sodium 141 Potassium 3.6 Chloride 108 H Carbon Dioxide 26.0 Anion Gap 7 BUN 15 Creatinine 0.94 Estim Creat Clear Calc 68.79 Est GFR (MDRD) Af Amer 79 Est GFR (MDRD) Non-Af 65 BUN/Creatinine Ratio 16.0 Glucose 131 H Calcium 10.2 H Total Bilirubin 0.40 Direct Bilirubin 0.14 AST 13 L ALT 25 Alkaline Phosphatase 75 Total Protein 7.6 Albumin 4.1 Globulin 3.5 Lipase 35 Radiography Diagnostic Testing: Clinical Impression(s) from Imaging Studies Abdomen/Pelvis CT 06/18/23 09:51 IMPRESSION: Fatty infiltration of the liver. Status post cholecystectomy. Stable calcified granuloma in the anterior dome of the right lobe of the liver. Electronically Signed: Kiko Chapa MD at 10:36 EST , Discharge Plan Triage Chief Complaint: Nausea/Vomiting ED Provider: Mike Carey Dx/Rx/DC Orders Instructions: ED Diet Vomiting Diarrhea Prescriptions: New promethazine 25 mg tablet 25 mg PO Q8H PRN PRN (Reason: nausea and vomiting) Qty: 20 0RF ondansetron 4 mg tablet,disintegrating 4 mg PO Q8H PRN PRN (Reason: Nausea) Qty: 20 0RF No Action ropinirole 0.5 mg tablet 3 mg PO QHS Patient Comments: take 1 tablet by mouth at bedtime (IN ADDITION TO 2MG) escitalopram oxalate 10 mg tablet 10 mg PO QHS Patient Comments: take 1 tablet by mouth once daily alprazolam 0.5 mg tablet 0.5 mg PO BID PRN (Reason: Anxiety) Patient Comments: take 1 tablet by mouth twice a day if needed for anxiety PANIC ATTACKS AND FEAR OF FLYING lansoprazole [Prevacid] 30 mg capsule,delayed release(DR/EC) 30 mg PO DAILY promethazine 25 mg tablet 25 mg PO TID PRN (Reason: nausea and vomiting) Qty: 14 0RF ondansetron [ondansetron] 4 mg tablet,disintegrating 4 mg PO Q8H PRN PRN (Reason: Nausea) Qty: 10 0RF Primary Care Provider: Parker Nick Referrals: Parker Nick MD [Primary Care Provider] - Disposition Disposition: Home, Self Care Capacity Legal Field Mechanic Reflex Medical hold order details:: IF a medical hold is selected below, a suggested order for a MEDICAL HOLD will reflex upon signing the document. Next of kin: [place] law dictates a PRIORITY LIST for identifying legal decision-maker/legal next of kin in the following order (LNOK): 1st: The patient?s legal guardian, if any 2nd: The patient's spouse (if status is questionable, consult Risk Management) 3rd: The patient?s adult child(arnulfo) (majority, if multiple children) 4th: The patient?s parents 5th: The patient?s adult siblings (majority, if multiple children siblings)
[2023-06-18 10:00] LABS: Absolute Lymphocyte Count 1.27 X10^3/uL (0.83-4.51); Absolute Neutrophil Count 6.8 X10^3/uL (2.0-7.7); Basophil# 0.08 X10^3/uL; Basophil% 0.9 % (0-1); Eosinophil# 0.06 X10^3/uL; Eosinophils% 0.7 % (0-5); Hematocrit 44.9 % (37-47); Lymphocyte # 1.27 X10^3/ul (0.83-4.51); Lymphocyte % 14.7 % (19-41); Mean Corp Hgb Conc 33.4 g/dL (32-36); Mean Corpuscular Hgb 28.8 pg (27.0-32.0); Mean Corpuscular Volume 86.3 fL (81-99); Mean Platelet Vol. 10.6 fl (6.2-12.0); Monocyte# 0.35 X10^3/uL; Monocyte% 4.1 % (0-10); NRBC Flagged by Analyzer 0 % (0-5); Neutrophil # 6.84 X10^3/uL (2.7-7.7); Neutrophil % 79.4 % (47-70); Platelet Count 275 K/mm3 (150-450); RBC Distribution Width CV 13.5 % (11.6-14.6); RBC Distribution Width SD 42.4 fl (35.1-43.9); White Blood Count 8.6 K/mm3 (4.4-11.0)
[2023-06-18] MEDS: Morphine 4 MG/ML Syringe IV (10:06)
[2023-06-18] MEDS: 0.9% Normal Saline (1000mL) 1,000 ML 1000 ML IV (10:06)
[2023-06-18] MEDS: Ondansetron 4 MG/2 ML Vial IV (10:13)
[2023-06-18] MEDS: Famotidine 200 MG/20 ML MDV 20 MG in 0.9% Normal Saline (Pres. free 8 ML 300 MG IV (10:13)
[2023-06-18 10:14] LABS: AST(SGOT) 13 U/L (15-37); Alanine Aminotransfer ALT/SGPT 25 U/L (13-56); Albumin, Serum 4.1 g/dL (3.2-5.0); Alkaline Phosphatase 75 U/L (45-117); Anion Gap 7 (5-15); BUN 15 mg/dL (7-18); Bilirubin, Direct 0.14 mg/dL (0.00-0.30); Calcium,Total 10.2 mg/dL (8.5-10.1); Chloride 108 mmol/L (98-107); Creatinine, Serum 0.94 mg/dL (0.55-1.02); EST Glomerular Filtration Rate 65 mL/min (>60); Est Glom Filt Rate - Afr Amer 79 mL/min (>60); Estimated Creatinine Clearance 68.79 ml/min; Globulin 3.5 g/dL (2.2-4.2); Glucose 131 mg/dL (74-106); Lipase 35 U/L (13-75); Potassium 3.6 mmol/L (3.5-5.1); Protein, Total 7.6 g/dL (6.4-8.2); Sodium Level 141 mmol/L (136-145)
--- OUTSIDE RECORDS SUMMARY | 2023-06-18 11:16 | XMS RPT_ITS | CCD ---
Author Name Unknown Address [address] [place] [address] Organization [facility] Care Team Providers Care Radio Script Writer Name Role Phone MEME FREIRE Attending Unavailable MEME FREIRE Primary Care Unavailable MEME FREIRE Attending Unavailable MEME FREIRE Primary Care Unavailable Malcolm FLOYD.BEHAVIORAL HEALTH ASSISTANT, DNP, Ko Primary Care Provider Parker Nick [...] buPROPion; Translations: [BUPROPION HCL] Drug Allergy 04-22-2018 [facility] (20 sources) buPROPion; Translations: [BUPROPION] Drug Allergy 06-02-2021 [facility] Medications Current Medications Medication Drug Class(es) [...] 86 mm[Hg] Parker Nick MD Work Phone: [facility] 01-16-2023 11:25-0400 Systolic blood pressure 122 mm[Hg] Parker Nick MD Work Phone: [facility] 01-16-2023 10:41-0400 Body weight 101.15 kg Parker Nick MD Work Phone: [facility] 01-16-2023 10:41-0400 Heart rate 87 /min Parker Nick MD Work Phone: [facility] 01-16-2023 10:41-0400 SaO2% (BldA) [Mass fraction] 95 % Parker Nick MD Work Phone: [facility] 08-10-2022 10:42-0500 Diastolic blood pressure 78 mm[Hg] Parker Nick MD Work Phone: [facility] 08-10-2022 10:42-0500 Systolic blood pressure 114 mm[Hg] Parker Nick MD Work Phone: [facility] 08-10-2022 10:03-0500 Body height 154.9 cm Parker Nick MD Work Phone: [facility] 08-10-2022 10:03-0500 Body weight 98.16 kg Parker Nick MD Work Phone: [facility] 08-10-2022 10:03-0500 Heart rate 78 /min Parker Nick MD Work Phone: [facility] 08-10-2022 10:03-0500 SaO2% (BldA) [Mass fraction] 98 % Parker Nick MD Work Phone: [facility] 07-02-2022 10:37-0500 Body height 154.9 cm Parker Nick MD Work Phone: [facility] 07-02-2022 10:37-0500 Body weight 100.7 kg Parker Nick MD Work Phone: [facility] 07-02-2022 10:37-0500 Diastolic blood pressure 94 mm[Hg] Parker Nick MD Work Phone: [facility] 07-02-2022 10:37-0500 Heart rate 77 /min Parker Nick MD Work Phone: [facility] 07-02-2022 10:37-0500 SaO2% (BldA) [Mass fraction] 98 % Parker Nick MD Work Phone: [facility] 07-02-2022 10:37-0500 Systolic blood pressure 124 mm[Hg] Parker Nick MD Work Phone: [facility] 03-19-2022 10:32-0400 Body weight 97.52 kg Parker Harris Jr., MD Work Phone: [facility] 03-19-2022 10:32-0400 Diastolic blood pressure 76 mm[Hg] Parker Harris Jr., MD Work Phone: [facility] 03-19-2022 10:32-0400 Heart rate 81 /min Parker Harris Jr., MD Work Phone: [facility] 03-19-2022 10:32-0400 SaO2% (BldA) [Mass fraction] 98 % Parker Harris Jr., MD Work Phone: [facility] 03-19-2022 10:32-0400 Systolic blood pressure 124 mm[Hg] Parker Harris Jr., MD Work Phone: [facility] 03-08-2022 16:49-0400 Heart rate 102 /min Parker Nick MD Work Phone: [facility] 03-08-2022 16:12-0400 Body weight 96.16 kg Parker Nick MD Work Phone: [facility] 03-08-2022 16:12-0400 Diastolic blood pressure 76 mm[Hg] Parker Nick MD Work Phone: [facility] 03-08-2022 16:12-0400 Respiratory rate 16 /min Parker Nick MD Work Phone: [facility] 03-08-2022 16:12-0400 SaO2% (BldA) [Mass fraction] 97 % Parker Nick MD Work Phone: [facility] 03-08-2022 16:12-0400 Systolic blood pressure 128 mm[Hg] Parker Nick MD Work Phone: [facility] 03-01-2022 15:39-0400 Body height 154.9 cm Parker Nick MD Work Phone: [facility] 03-01-2022 15:39-0400 Body temperature 97.59 [degF] Parker Nick MD Work Phone: [facility] 03-01-2022 15:39-0400 Body weight 96.8 kg Parker Nick MD Work Phone: [facility] 03-01-2022 15:39-0400 Diastolic blood pressure 90 mm[Hg] Parker Nick MD Work Phone: [facility] 03-01-2022 15:39-0400 Heart rate 105 /min Parker Nick MD Work Phone: [facility] 03-01-2022 15:39-0400 SaO2% (BldA) [Mass fraction] 97 % Parker Nick MD Work Phone: [facility] 03-01-2022 15:39-0400 Systolic blood pressure 126 mm[Hg] Parker Nick MD Work Phone: [facility] 02-25-2022 10:48-0400 Body temperature 97.11 [degF] Marino Watson APRN.CNP Work Phone: [facility] 02-25-2022 10:48-0400 Body weight 97.98 [facility] FI[facility] DIRECTOR.BEHAVIORAL HEALTH ASSISTANT Work Phone: [facility] 02-25-2022 10:48-0400 Diastolic blood pressure 88 mm[Hg] [facility] FIELD SERVICES DIRECTOR.BEHAVIORAL HEALTH ASSISTANT Work Phone: [facility] 02-25-2022 10:48-0400 Heart rate 76 /min Marino Pendlebury FIELD SERVICES DIRECTOR.BEHAVIORAL HEALTH ASSISTANT Work Phone: [facility] 02-25-2022 10:48-0400 Respiratory rate 20 /min [facility] FIELD SERVICES DIRECTOR.BEHAVIORAL HEALTH ASSISTANT Work Phone: [facility] 02-25-2022 10:48-0400 SaO2% (BldA) [Mass fraction] 98 % [facility] FIELD SERVICES DIRECTOR.BEHAVIORAL HEALTH ASSISTANT Work Phone: [facility] 02-25-2022 10:48-0400 Systolic blood pressure 130 mm[Hg] [facility] FIELD SERVICES DIRECTOR.BEHAVIORAL HEALTH ASSISTANT Work Phone: [facility] 01-05-2022 16:02-0400 Body weight 99.61 kg Parker Nick MD Work Phone: [facility] 01-05-2022 16:02-0400 Diastolic blood pressure 86 mm[Hg] Parker Nick MD Work Phone: [facility] 01-05-2022 16:02-0400 Heart rate 80 /min Parker Nick MD Work Phone: [facility] 01-05-2022 16:02-0400 Respiratory rate 16 /min Parker Nick MD Work Phone: [facility] 01-05-2022 16:02-0400 SaO2% (BldA) [Mass fraction] 98 % Parker Nick MD Work Phone: [facility] 01-05-2022 16:02-0400 Systolic blood pressure 128 mm[Hg] Parker Nick MD Work Phone: [facility] 12-12-2021 15:00-0400 Body weight 97.98 kg Parker Nick MD Work Phone: [facility] 12-12-2021 15:00-0400 Diastolic blood pressure 80 mm[Hg] Parker Nick MD Work Phone: [facility] 12-12-2021 15:00-0400 Heart rate 82 /min Parker Nick MD Work Phone: [facility] 12-12-2021 15:00-0400 Respiratory rate 16 /min Parker Nick MD Work Phone: [facility] 12-12-2021 15:00-0400 SaO2% (BldA) [Mass fraction] 97 % Parker Nick MD Work Phone: [facility] 12-12-2021 15:00-0400 Systolic blood pressure 118 mm[Hg] Parker Nick MD Work Phone: [facility] 11-27-2021 11:03-0400 Diastolic blood pressure 75 mm[Hg] Micah Lyn MD Work Phone: [facility] 11-27-2021 11:03-0400 Heart rate 67 /min Micah Lyn MD Work Phone: [facility] 11-27-2021 11:03-0400 Respiratory rate 18 /min Micah Lyn MD Work Phone: [facility] 11-27-2021 11:03-0400 SaO2% (BldA) [Mass fraction] 94 % Micah Lyn MD Work Phone: [facility] 11-27-2021 11:03-0400 Systolic blood pressure 120 mm[Hg] Micah Lyn MD Work Phone: [facility] 11-27-2021 10:42-0400 Body temperature 97.2 [degF] Micah Lyn MD Work Phone: [facility] 11-27-2021 10:15-0400 Body height 157.5 cm Micah Lyn MD Work Phone: [facility] 11-27-2021 10:15-0400 Body weight 98.88 kg Micah Lyn MD Work Phone: [facility] Encounters Encounter Date Encounter Type Care Provider Facility Start: 05-01-2023 End: 05-01-2023 ambulatory Otis Quiñones Lana FIELD SERVICES DIRECTOR.FERNANDA Work Phone: Neurology Procedures Date Procedure Procedure [...] Detail Author Start: 10-19-2030 Urine microalbumin profile [facility] Start: 12-28-2027 Lipid 1996 panel - S lupis or Plasma Lipid Screening [facility] Start: 12-28-2027 LIPID SCREEN LIPID SCREEN [facility] Start: 10-20-2027 LIPID SCREEN LIPID SCREEN [facility] Start: 08-30-2027 LIPID SCREEN LIPID SCREEN [facility] Start: 12-25-2026 LIPID SCREEN LIPID SCREEN [facility] Start: 03-10-2025 DIABETES SCREEN DIABETES SCREEN [facility] Start: 03-10-2025 Diabetes Screening Diabetes Screenin g [facility] Start: 03-01-2025 DIABETES SCREEN DIABETES SCREEN [facility] Start: 02-27-2025 DIABETES SCREEN DIABETES SCREEN [facility] Start: 12-25-2024 DIABETES SCREEN DIABETES SCREEN [facility] Start: 01-06-2024 COLOGUARD (FIT-DNA) COLOGUARD (FIT-D NA) [facility] Start: 01-06-2024 COLORECTAL CANCER SCREENING COLORECTAL CANCER SCREENING [facility] Start: 07-30-2023 End: 08-29-2023 Ct thorax w/o contrast material CT CHEST WO IVCON Radiology Routine Lung nodules Expected: 07/30/2023, Expires: 08/29/2023 [facility] Work Phone: Immunizations Immunization Date Immunization Notes Care Provider Jarrod rosario 02-09-2022 COVID-19 booster vaccine, age 12+ yr, bivalent (PFIZER-BIONTECH) Best Harman [place].BEHAVIORAL HEALTH ASSISTANT Work Phone: [facility] Work Phone: 02-09-2022 COVID-19 vaccine, ag e 12+ yr (PFIZER-BIONTECH - PURPLE TOP) [facility] 02-09-2022 influenza, injectabl e, quadrivalent, preservative free Best Harman FIELD SERVICES DIRECTOR.BEHAVIORAL HEALTH ASSISTANT Work Phone: [facility] Work Phone: 02-09-2022 influenza, seasonal, injectable [facility] 03-15-2021 influenza, seasonal, injectable Best Harman FIELD SERVICES DIRECTOR.BEHAVIORAL HEALTH ASSISTANT Work Phone: [facility] Work Phone: 03-03-2021 influenza, injectabl e, quadrivalent, preservative free Parker Nick MD Work Phone: [facility] 12-28-2020 zoster vaccine recombinant Ko Fowler APRN.FERNANDA, DNP Work Phone: [facility] 10-19-2020 tetanus toxoid, redu josse diphtheria toxoid, and acellular pertussis vaccine, adsorbed Ko Fowler APRN.FERNANDA, DNP Work Phone: [facility] 10-19-2020 zoster vaccine recombinant Ko Fowler APRN.FERNANDA [facility] Work Phone: [facility] 07-13-2020 COVID-19 vaccine, fu ll dose (MODERNA) Ko Fowler FIELD SERVICES DIRECTOR.FERNANDA [facility] Work Phone: [facility] 06-15-2020 COVID-19 vaccine, fu ll dose (MODERNA) Ko Fowler FIELD SERVICES DIRECTOR.FERNANDA [facility] Work Phone: [facility] 02-23-2020 Influenza, injectabl e, Madin Hector Canine Kidney, preservative free, quadrivalent Ko Blajosh FIELD SERVICES DIRECTOR.FERNANDA [facility] Work Phone: [facility] Work Phone: 02-23-2020 influenza, injectabl e, quadrivalent, contains preservative Ko Blajosh FIELD SERVICES DIRECTOR.FERNANDA [facility] Work Phone: [facility] Work Phone: 01-30-2018 influenza, injectabl e, quadrivalent, preservative free Ko Blajosh FIELD SERVICES DIRECTOR.FERNANDA [facility] Work Phone: [facility] Work Phone: 01-01-2018 influenza, seasonal, injectable, preservative free Ko Blajosh FIELD SERVICES DIRECTOR.FERNANDA [facility] Work Phone: [facility] Work Phone: 01-23-2017 influenza, injectabl e, quadrivalent, preservative free Ko Blaz FIELD SERVICES DIRECTOR.FERNANDA [facility] Work Phone: [facility] Work Phone: 01-27-2016 influenza, injectabl e, quadrivalent, preservative free Ko Blaz FIELD SERVICES DIRECTOR.FERNANDA [facility] Work Phone: [facility] Work Phone: 01-19-2015 influenza, seasonal, injectable, preservative free Ko Blaz FIELD SERVICES DIRECTOR.FERNANDA [facility] Work Phone: [facility] Work Phone: 11-09-2013 pneumococcal polysaccharide vaccine, 23 valent Ko Fowler APRN.BEHAVIORAL HEALTH ASSISTANT, DNP Work Phone: [facility] Work Phone: Payers Date Payer Category Payer Private Health Insurance [employer] A ETNA CHOICE POS II [id number] 2019-Present [phone] [address] [place] [address] POS [id number] 2019 Private Health Insurance [id number] 2019 Private Health Insurance [id number] 2018 Unknown [id number] 2018 Unknown [id number] 1965 Unknown [id number] 1965 Unknown [id number] Social History Date Type Detail Facility Start: 04-22-2018 End: 02-25-2022 Tobacco smoking status NHIS Ex-smoker [facility] History of tobacco use Cigarette Smoker [facility] Start: 04-22-2018 End: 10-16-2022 Cigarettes smoked current (pack per day) - Reported 1 [facility] Start: 04-22-2018 End: 02-25-2022 Tobacco use and exposure Smokeless tobacco non-user [facility] Start: 06-23-2021 End: 03-14-2023 Alcohol intake Current non-drinker of alcohol (finding) [facility] Start: 03-07-2020 End: 07-01-2022 History SDOH Alcohol Frequency 2 [facility] Start: 07-13-2019 End: 07-01-2022 History SDOH Alcohol Std Drinks 1 [facility] Start: 07-13-2019 End: 07-01-2022 History SDOH Social Connections Phone 3 [facility] Start: 03-07-2020 End: 07-01-2022 History SDOH Financial 5 [facility] Start: 07-13-2019 Education 15 [facility] Start: 04-22-2018 End: 02-25-2022 Tobacco Comment quit 2012 [facility] Start: 1965 Sex Assigned At Not on file [facility] Start: 09-08-2021 End: 09-18-2021 Exposure to SARS-CoV-2 (event) Unable to assess [facility] Work Phone: Start: 1965 Sex Assigned At Female [facility] Start: 11-11-2021 End: 03-01-2022 Exposure to SARS-CoV-2 (event) Not sure [facility] Work Phone: History of tobacco use Current smoker [facility] Start: 07-01-2022 History SDOH Physical Activity DPW 0 [facility] Start: 06-30-2022 End: 10-16-2022 Social connection and isolation panel [facility] Frequency of Social Gatherings with Friends and Family Not on file [facility] Do you belong to any clubs or organizations such as denominational groups, unions, fraternal or athletic groups, or school groups? No [facility] Are you now , , , , never or living with a partner? [facility] How often to you hav e a drink containing alcohol? Monthly or less [facility] How many standard dr inks containing alcohol do you have on a typical day? 1 or 2 [facility] How often do you hav e 6 or more drinks on 1 occasion? Never [facility] Do you feel stress - tense, restless, nervous, or anxious, or unable to sleep at night because your mind is troubled all the time - these days [OSQ] Only a little [facility] (I/We) worried zander er (my/our) food would run out before (I/we) got money to buy more. Never true [facility] Start: 11-20-2021 Gender identity Identifies as female gender (finding) [facility] Start: 11-20-2021 Sexual orientation Heterosexual (finding) [facility] Clinical Notes 09-18-2021 to 05-01-2023 tOis Jose, FIELD SERVICES DIRECTOR.BEHAVIORAL HEALTH ASSISTANT - 05/01/2023 12:00 PM Faby Crespo, RT(R) - 03/14/2023 11:00 AM Radha Tobin DO - 03/14/2023 10:27 AM Burton Antoninotiffany PSS - 11/13/2022 3:31 PM EDT Note Date & Type Note Facility 05-01-2023 Note HNO ID: [id number] Author: Otis Jose APRN.BEHAVIORAL HEALTH ASSISTANT Service: ? Author Type: Nurse Practitioner Type: Progress Notes Filed: 05/01/2023 12:05 PM Note Text: [facility] Follow up/ Established patient [...] will have a prescription sent to a [employer] ([employer] medical [employer]) company - [employer] . - Will adjust pressure for comfort if requested prior to next visit. - You should be eligible for new supplies approximately every 3-6 months, depending on your insurance coverage. - If your mask doesn't fit well, call the [employer] company before 30 days are up to get a new mask without an additional charge. - Insurance requires regular usage and periodic office follow ups for PAP therapy, to continue to cover supplies. INSURANCE REQUIREMENTS: - Your insurance requires a [id number] follow up visit within a 31-90 day [...] pay for CPAP supplies. - Please call [phone] to schedule a follow up appointment in Sleep Disorders Saturday through Saturday during regular business hours or call Appointment Center 24/12 - [phone] after you receive machine. Otis Jose, FIELD SERVICES DIRECTOR.BEHAVIORAL HEALTH ASSISTANT I have communicated my name and active licensure. The patient's identity and physical location were verified at the time of this visit. Either the patient or their legal signs sales representative has been informed of the risks [...] a [facility] Speciality [facility] This program is endorsed by her insurance [...] or near accidents due to drowsy drivin Dyer Sleepiness Scale 12/23/2022 Score 4 (No daytime [...] fear of fly (more content not included)... [facility] 05-01-2023 History of Presen t illness Narrative Images from the original note were not included. [facility] Follow up/ Established patient [...] will have a prescription sent to a [employer] (durable medical equipment) company - [employer] . - Will adjust pressure for comfort if requested prior to next visit. - You should be eligible for new supplies approximately every 3-6 months, depending on your insurance coverage. - If your mask doesn't fit well, call the [employer] company before 30 days are up to get a new mask without an additional charge. - Insurance requires regular usage and periodic office follow ups for PAP therapy, to continue to cover supplies. INSURANCE REQUIREMENTS: - Your insurance requires a [id number] follow up visit within a 31-90 day [...] pay for CPAP supplies. - Please call [phone] to schedule a follow up appointment in Sleep Disorders Saturday through Saturday during regular business hours or call Appointment Center 24/12 - [phone] after you receive machine. Otis Jose, [place].BEHAVIORAL HEALTH ASSISTANT I have communicated my name and active licensure. The patient's identity and physical location were verified at the time of this visit. Either the patient or their legal signs sales representative has been informed of the risks [...] a weight loss Speciality - [facility] This program is endorsed by her insurance [...] or near accidents due to drowsy drivin Dyer Sleepiness Scale 12/23/2022 Score 4 (No daytime [...] months or when available with Dr. Harris ([facility] 10/16/2022). Otis Jose APRN.FERNANDA I spent a total of 25 minutes on the date of the service which included preparing to see the patient, [id number]-[id number] patient care, completing clinical documentation, counseling and educating the patient/family/caregiver, and ordering medications, tests, or procedures. documented in this encounter [facility] 03-14-2023 Note HNO ID: [id number] Author: Faby Torres RT(R) Service: Radiology Author [...] RT Henrry(R) March 14, 2023 11:20 AM [facility] 03-14-2023 Note HNO ID: [id number] Author: Radha Mrat, DO Service: ? Author Type: Physician Type: [...] right hand dominant. 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 Taking Ibuprofen and applying Voltaren gel but [...] IMPRESSION: Advanced base of thumb degenerative change. Geriatric Assistant: ROSALEE Transcribe Date/Time: Jan 22 2023 9:33A... [...] Assessment and Plan: (more content not included)... [facility] 03-14-2023 History of Presen t illness Narrative [...] 2023 11:20 AM documented in this encounter [facility] 03-14-2023 History of Presen t illness Narrative [...] right hand dominant. 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 Taking Ibuprofen and applying Voltaren gel but [...] IMPRESSION: Advanced base of thumb degenerative change. Geriatric Assistant: ROSALEE Transcribe Date/Time: Jan 22 2023 9:33A... [...] Mart D.O. M.P.H. documented in this encounter [facility] 01-29-2023 Miscellaneous Notes Faxed D/C orders to: [facility] name: [facility] - Fax confirmation received electronically. Patient notified via Tragarat message Marietta MENDOZA, RN Neuro/Sleep Tempering Oven Operator documented in this encounter [facility] 01-28-2023 Miscellaneous Notes I called [facility] to check the EPR setting on pt device. I spoke to Ministerio and he provided access to her download info via [employer]. There is no data to view and resp tech states pt just got device on Jan 24. Unable to see EPR setting remotely. Called and left VM to discuss concerns with pt. Call back info provided and call back requested. BookShout!hart message sent Pressure could be decreased. Need to verify that EPR is set at 3 and that setting is sensitive and not standard. Does she want referral to see Dentist for an oral appliance? documented in this encounter [facility] 01-16-2023 Note HNO ID: [id number] Author: Faby Torres RT(R) Service: Radiology Author [...] RT Henrry(R) January 16, 2023 11:55 AM [facility] 01-16-2023 Note HNO ID: [id number] Author: Parker Nick MD Service: ? Author [...] Neuro: Gait no (more content not included)... [facility] 01-16-2023 History of Presen t illness Narrative [...] 2023 11:55 AM documented in this encounter [facility] 01-16-2023 History of Presen t illness Narrative [...] Parker Nick MD documented in this encounter [facility] 12-31-2022 Miscellaneous Notes Tragarat message sent documented in this encounter [facility] 12-26-2022 Miscellaneous Notes Sent demographics, script and office note To:[facility] Fax:[phone] Phone: documented in this encounter [facility] 12-26-2022 Note HNO ID: [id number] Author: Otis Jose APRN.BEHAVIORAL HEALTH ASSISTANT Service: ? Author Type: Nurse Practitioner Type: Progress Notes Filed: 12/26/2022 11:56 AM Note Text: [facility] Follow up/ Established patient visit Date of last visit : 10/16/[address] Harris I have communicated my name and active licensure. The patient's identity and physical location were verified at the time of this visit. Either the patient or their legal signs sales representative has been informed of the risks [...] or near accidents due to drowsy drivin Dyer Sleepiness Scale 12/23/2022 Score 4 (No daytime [...] AT BEDTIME Starti (more content not included)... [facility] 12-26-2022 History of Presen t illness Narrative Images from the original note were not included. [facility] Follow up/ Established patient visit Date of last visit : 10/16/[address] Harris I have communicated my name and active licensure. The patient's identity and physical location were verified at the time of this visit. Either the patient or their legal signs sales representative has been informed of the risks [...] or near accidents due to drowsy drivin Dyer Sleepiness Scale 12/23/2022 Score 4 (No daytime [...] will have a prescription sent to a [employer] ([employer] medical [employer]) company - [employer] . - Will adjust pressure for comfort if requested prior to next visit. - You should be eligible for new supplies approximately every 3-6 months, depending on your insurance coverage. - If your mask doesn't fit well, call the [employer] company before 30 days are up to get a new mask without an additional charge. - Insurance requires regular usage and periodic office follow ups for PAP therapy, to continue to cover supplies. INSURANCE REQUIREMENTS: - Your insurance requires a [id number] follow up visit within a 31-90 day [...] pay for CPAP supplies. - Please call [phone] to schedule a follow up appointment in Sleep Disorders Saturday through Saturday during regular business hours or call Appointment Center 24/12 - [phone] after you receive machine. Otis Jose APRN.FERNANDA I spent a total of 36 minutes on the date of the service which included preparing to see the patient, [id number] patient care, completing clinical documentation, counseling and educating the patient/family/caregiver, and ordering medications, tests, or procedures. documented in this encounter [facility] 12-07-2022 Miscellaneous Notes Prescription from 12-06-22 did not go thru to the pharmacy. Please resent to pharmacy. Petra Romero LPN documented in this encounter [facility] 12-06-2022 Miscellaneous Notes Patient phones requesting refills as follows: Requested Prescriptions Pending Prescriptions Disp Refills ALPRAZolam (XANAX) 0.5 mg tablet 30 tablet 0 Sig: Take 1 tablet by mouth twice daily as needed for anxiety for up to 90 days. For panic attacks and fear of flying. [facility] 08/10/22 NOV 01/16/23 Please review and advise. Solomon Riggs LPN documented in this encounter [facility] 11-13-2022 Note HNO ID: [id number] Author: Renu FIGUEREDO Service: ? Author Type: ? Type: Progress Notes Filed: 11/13/2022 3:31 PM Note Text: Sleep Study Check-In Documentation Date: November 13, 2022 Name: Shalini Gonsales Comments: HST was returned in working order with all sleep questionnaires Renu Waterman PSS [facility] 11-13-2022 History of Presen t illness Narrative Sleep Study Check-In Documentation Date: November 13, 2022 Name: Shalini Gonsales Comments: HST was returned in working order with all sleep questionnaires Renu Waterman PSS Nomad# [id number], date shipped out 11/07/22 Tracking mailout: [phone] Tracking return: [phone] November 01, 2022 An order has been received for Home Sleep Apnea Test (HSAT) from Dr. Parker Harris Jr., MD , A. Sleep Center Staff/Youth Advocate Staff Orders. Visit prep complete - Please refer to the sleep study order (under procedures tab) for protocol details and special instructions. The sleep study is scheduled for 11/30. Insurance: Payor: AETNA / Plan: AETNA CHOICE POS II / Product Type: POS / Payer/Plan Subscr Sex Relation Sub. Ins. ID Effective Group Num 1. AETNA - AETNA* ARNULFO GONSALES* 01/12/1971 Male Spouse [id number] 06/03/21 [id number] [address] Ailyn Eason documented in this encounter [facility] 11-06-2022 Note HNO ID: [id number] Author: Conchis Wood Service: ? Author Type: ? Type: Progress Notes Filed: 11/13/2022 3:31 PM Note Text: Nomad# [id number], date shipped out 11/07/22 Tracking mailout: [phone] Tracking return: [phone] [facility] 11-01-2022 Note HNO ID: [id number] Author: Ailyn Eason Service: ? Author Type: ? Type: Progress Notes Filed: 11/13/2022 3:31 PM Note Text: November 01, 2022 An order has been received for Home Sleep Apnea Test (HSAT) from Dr. Parker Harris Jr., MD , A. Sleep Center Staff/Youth Advocate Staff Orders. Visit prep complete - Please refer to the sleep study order (under procedures tab) for protocol details and special instructions. The sleep study is scheduled for 11/30. Insurance: Payor: AETNA / Plan: AETNA CHOICE POS II / Product Type: POS / Payer/Plan Subscr Sex Relation Sub. Ins. ID Effective Group Num 1. AETNA - AETNA* ARNULFO GONSALES* 01/12/1971 Male Spouse [id number] 06/03/21 [id number] [address] Ailyn Eason [facility] 10-16-2022 Note HNO ID: [id number] Author: Parker Harris Jr., MD Service: ? Author Type: Physician Type: Progress Notes Filed: 10/16/2022 11:20 PM Note Text: [facility] Follow up/ Established patient [...] visit. Either the patient or their legal signs sales representative has been informed of the risks and benefits of -- and alternatives to -- treatment through a remote evaluation and consents to proceed with the evaluation remotely. Topamax 50mg qhs; had stopped Lyrica (helped, but kept her awake and experienced AEs of diarrhea, increased hunger, and morning headache). Still works second shift [phone]; she says that every time she tried [...] Bedtime : 0000 Wake up Time : 0923-1146; does not always feel well-rested in the [...] as needed for (more content not included)... [facility] 09-10-2022 Miscellaneous Notes CAIT 03/19/22 WJN NOV [...] Parker Harris MD documented in this encounter [facility] 08-30-2022 Miscellaneous Notes Spoke with patient. Given message from provider's office. Patient verbalizes understanding. She is willing to start Atorvastatin and have labs rechecked in 6 weeks. [facility] Lynn Doran RN Phoned patient and [...] bring it down? documented in this encounter [facility] 08-13-2022 Miscellaneous Notes Addended by: PARKER NICK on: 08/13/2022 12:13 PM Modules accepted: Orders Please see where patient has lipid ordered but dx is for Mixed hyperlipidemia [E78.2] . Can we change dx? Natalia Coughlin Ma documented in this encounter [facility] 08-10-2022 Note HNO ID: [id number] Author: Parker Nick MD Service: ? Author [...] Lymph 1.00 - 4.00 k/uL 2.43 1.76 Montgomery% % 9.9 9.9 Abs Montgomery <0.87 k/uL 1.01 (H) 0.64 Eosin% % [...] reactive to li (more content not included)... [facility] 08-10-2022 History of Presen t illness Narrative [...] Lymph 1.00 - 4.00 k/uL 2.43 1.76 Montgomery% % 9.9 9.9 Abs Montgomery <0.87 k/uL 1.01 (H) 0.64 Eosin% % [...] ordered Parker Nick documented in this encounter [facility] 07-31-2022 Miscellaneous Notes Spoke with pt and information listed below given. Pt verbalizes understanding. Petra Romero LPN Placed call to patient with no answer. Left for return call. Patient has already viewed result on my chart. Message sent via my chart with Dr. Nick's message. Tori [address] shows nodule but is unchanged. Recommended she recheck in one year. documented in this encounter [facility] 07-27-2022 Note HNO ID: [id number] Author: RT Kilo(R) Service: ? Author Type: Dredge Mechanic Type: Progress Notes Filed: 07/27/2022 3:15 PM [...] RT Canelo(R) July 27, 2022 3:15 PM [facility] 07-27-2022 History of Presen t illness Narrative [...] 2022 3:15 PM documented in this encounter [facility] documented as of this encounter (statuses as of 01/17/2023) [facility] History of Past illness Narrative* Problem Noted Date Diagnosed Date Resolved Date Acute cholecystitis due to biliary calculus 07/02/2022 01/16/2023 Dehydration 07/02/2022 01/16/2023 Nausea with vomiting, unspecified 06/29/2021 01/16/2023 Pain of both hip joints 07/18/202001/01 documented as of this encounter (statuses as of 01/29/2023) [facility] History of Past illness Narrative* Problem Noted Date Diagnosed Date Resolved Date Acute cholecystitis due to biliary calculus 07/02/2022 01/16/2023 Dehydration 07/02/2022 01/16/2023 Nausea with vomiting, unspecified 06/29/2021 01/16/2023 Pain of both hip joints 07/18/202001/01 documented as of this encounter (statuses as of 01/29/2023) [facility] History of Past illness Narrative* Problem Noted Date Diagnosed Date Resolved Date Acute cholecystitis due to biliary calculus 07/02/2022 01/16/2023 Dehydration 07/02/2022 01/16/2023 Nausea with vomiting, unspecified 06/29/2021 01/16/2023 Pain of both hip joints 07/18/202001/01 documented as of this encounter (statuses as of 03/21/2023) [facility] History of Past illness Narrative* Problem Noted Date Diagnosed Date Resolved Date Acute cholecystitis due to biliary calculus 07/02/2022 01/16/2023 Dehydration 07/02/2022 01/16/2023 Nausea with vomiting, unspecified 06/29/2021 01/16/2023 Pain of both hip joints 07/18/202001/01 documented as of this encounter (statuses as of 04/08/2023) [facility] History of Past illness Narrative* Problem Noted Date Diagnosed Date Resolved Date Acute cholecystitis due to biliary calculus 07/02/2022 01/16/2023 Dehydration 07/02/2022 01/16/2023 Nausea with vomiting, unspecified 06/29/2021 01/16/2023 Pain of both hip joints 07/18/202001/01 documented as of this encounter (statuses as of 04/08/2023) [facility] History of Past illness Narrative* Problem Noted Date Diagnosed Date Resolved Date Acute cholecystitis due to biliary calculus 07/02/2022 01/16/2023 Dehydration 07/02/2022 01/16/2023 Nausea with vomiting, unspecified 06/29/2021 01/16/2023 Pain of both hip joints 07/18/202001/01 documented as of this encounter (statuses as of 04/08/2023) [facility] History of Past illness Narrative* Problem Noted Date Diagnosed Date Resolved Date Acute cholecystitis due to biliary calculus 07/02/2022 01/16/2023 Dehydration 07/02/2022 01/16/2023 Nausea with vomiting, unspecified 06/29/2021 01/16/2023 Pain of both hip joints 07/18/202001/01 documented as of this encounter (statuses as of 05/01/2023) [facility]01-30-2023 NoteHNO ID: [id number] Author: Parker Nick MD Service: ? Author [...] well. A year ago had ct at [facility] showed a 4 mm nodule. Due for [...] medication. - LIPID PANEL BASIC Parker Nick [facility]01-30-2023 History of Present illness Narrative* Parker [...] well. A year ago had ct at [facility] showed a 4 mm nodule. Due for [...] BASIC Parker Nick MD [facility] Miscellaneous Notes* Telephone Encounter - LUIS Bonner [...] Thank you. LUIS Bonner [facility]23 Miscellaneous Notes* Telephone Encounter - LUIS Bonner - 06/29/2022 10:38 AM EST In looking over chart, it seems refill request was not forwarded to provider. Refill sent high priority. Closing this encounter. LUIS Bonner [facility] Miscellaneous Notes* Telephone Encounter - Solomon Riggs [...] advise. Solomon Riggs LPN [facility]22 Miscellaneous Notes* Telephone Encounter - LUIS Bonner [...] loss. Parker Harris MD [facility] History of Present illness Narrative* Best Hammer APRN.[facility] - 03/30/2022 10:40 AM EDT Telemedicine Visit - Distance Health Virtual Visit Note Patient seen on [employer] video visit platform. Location of patient: [place] Parker Nick MD History of Present Illness [...] care - All questions answered Best Hammer APRN.BEHAVIORAL HEALTH ASSISTANT If you let us know who your [...] would like to continue care with a [facility] Primary Care physician, please ask your provider to place a Establish PrimaryCare order. Use [facility] to manage your care, wherever you are, 24/12, on your mobile device or computer. [employer] connects you to [employer] so you can access all your health information in one place and also schedule and request virtual appointments with primary care providers. Nirmatrelvir/Ritonavir (Paxlovid) Eligibility and Patient Discussion [facility] Formulary Restriction Criteria: Adult outpatients 18 years [...] 30, 2022 10:27 AM documented in [facility]10-28-2022 Instructions* Patient Instructions* Best Hammer APRN.CNP - 03/30/2022 10:27 AM EDT FACT SHEET FOR PATIENTS, PARENTS, AND CAREGIVERS EMERGENCY USE AUTHORIZATION (EUA) OF PAXLOVID FOR CORONAVIRUS DISEASE 2019 (COVID-19) You are being given this Fact Sheet because your healthcare provider believes it is necessary to provide you with PAXLOVID for the treatment of zpoq-dr-wwiuocoz coronavirus disease (COVID-19) caused by the SARS-CoV-2 [...] virus. COVID-19 illnesses have ranged from very qpcx-yk-mmzsvh, including illness resulting in . While information [...] is an investigational medicine used to treat dmsr-cz-iugxpcbo COVID-19 in adults and children [12 years [...] of using PAXLOVID to treat people with zwks-qi-scoxhhoe COVID-19. The FDA has authorized the emergency use of PAXLOVID for the treatment of jxpw-fg-xvqdpfqz COVID-19in adults and children [12 years of [...] the medicines you take, including prescription and dnsm-tyj-hnubfbf medicines, vitamins, and herbal supplements. Some medicines [...] (remdesivir) is FDA-approved for the treatment of chit-zx-uscghnsi COVID-19 in certain adults and children. Talk with your doctor to see if Veklury is appropriate for you. Like PAXLOVID, FDA may also allow for the emergency use of other medicines to treat people with COVID-19. Go to https://www.fda.gov/epnqrsgvk-obdqnjyuzaml-gcmdiohkcka/ktv-oxpow-mbxeadmgqa-and- policy-framework/nwkwmzwjy-pts-xvrmtonycvina for information on the emergency use of [...] if I am or ? There is canopy stringer treating women or mothers with PAXLOVID. For [...] to FDA MedWatch at www.fda.gov/medwatch or call 6-583-KRO7314 or you can reportside effects to [employer] at the contact information provided below. Website Fax number Telephone number wwwNeed How should I store PAXLOVID? Store PAXLOVID [...] (EUA). The EUA is supported by a Modeling Teacher of Health and Human Service (HHS) declaration that circumstances exist to justify the emergency use of drugs and biological productsduring the COVID-19 pandemic. PAXLOVID for the treatment of ukme-sl-mzwvodsp COVID-19 in adults and children [12 years [...] telephone number provided below. Website Telephone number www.GDTBE52ktmiIg.com (1-852-R02-PACK) You can also go to www.[employer] or call for more information. [employer] Distributed by [employer] [place] [address] [id number] Revised: 18 August 2021 documented in this [facility]10-19-2022 Miscellaneous Notes* Telephone Encounter - Nancy Nation LPN - 03/21/2022 4:31 PM EDT Please file new orders. documented in this encounter[facility]10-17-2022 Instructions* Patient Instructions* Parker Harris Jr., MD [...] 1 week on how you are doing ([employer] message). If any side effects pleas notify us immediately and hold medications until talking to us. documented in this encounter[facility]10-17-2022 History of Present illness Narrative* Parker Harris [...] which included preparing to see the patient, ibwq-bx-itkb patient care, completing clinical documentation, obtaining and/or reviewing separately obtained history, performing a medically appropriate examination, counseling and educating the pa tient/family/caregiver, ordering medications, tests, or procedures, and communicating results to the patient/family/caregiver. PDMP website checked and validated. All prescriptions have been APPROPRIATELY filled. No suspiciousactivity was identified. 03/19/2022 by Parker Harris MD documented in this encounter[facility]10-06-2022 History of Present illness Narrative* Parker Nick [...] Abs Lymph 1.00 - 4.00 k/uL 2.43 Montgomery% % 9.9 Abs Montgomery <0.87 k/uL 1.01 (H) Eosin% % 0.7 [...] one week and prn. documented in this encounter[facility]09-30-2022 Miscellaneous Notes* Telephone Encounter - Loren Dean [...] declined ER last night) documented in this encounter[facility]09-29-2022 History of Present illness Narrative* Parker Nick MD - 03/01/2022 3:39 PM EDT Patient presents with: Hospital F/U: [facility] and CC HPI: Patient presents today for [...] slightly more today. See ER notes from [facility] on 02/27. Seen previously at [facility] ER on with negative work up. This [...] as above. Parker Nick documented in this encounter[facility]09-25-2022 History of Present illness Narrative* Marino Watson APRN.BEHAVIORAL HEALTH ASSISTANT - 02/25/2022 11:08 AM EDT Subjective HPI [...] down. States she does work in a [place]. 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 States GI flu is going around the [place]. States she does have generalized abdominal pain [...] not diaphoretic. HENT: Head: Normocephalic. Mouth/Throat: Lips: Nelagoney. Mouth: Mucous membranes are moist. Pharynx: Oropharynx [...] of care. This note was generated using timeplazza software. It may contain errors in wording, punctuation, or spelling. Marino Watson APRN.FERNANDA documented in this encounter[facility]09-13-2022 History of Present illness Narrative* SPRING Baeza) [...] 13, 2022 2:43 PM documented in this encounterUk Healthcare08-16-2022 Miscellaneous Notes* Letter - Mammography Coordinator - 01/16/2022 4:14 PM EDT January 16, 2022 PID: [id number] Shalini Gonsales [address] [place] [address] Dear Ms. Gonsales, Your recent breast imaging [...] who ordered/prescribed your screening mammogram: Please call [phone] or EXT: [phone] to schedule an appointment for your additional [...] and reports are kept on file at [facility] as part of your permanent medical record, and are available for your continuing care. Thank you for allowing us to help in meeting your health care needs. Sincerely, Dr. Ambrocio Interpreting Radiologist [facility] (Additional imaging) documented in this encounterUk Healthcare08-05-2022 Miscellaneous Notes* Addendum Note - Parker Nick MD - 01/05/2022 4:49 PM EDT Addended by: PARKER NICK on: 01/05/2022 04:49 PM Modules accepted: Orders documented in this encounterUk Healthcare08-05-2022 Instructions* Patient Instructions* Parker Nick MD - [...] milk. Avoid sweet rolls, doughnuts, breakfast pastries (Azeri), and sweetened packaged cereals (the added sugar [...] such as the one published by the [place] Heart Association. 5. Consult your physician if you have any questions. documented in this encounterUk [facility]08-05-2022 History of Present illness Narrative* Parker Nick [...] for annual exam in one year. - [facility] SCREENING Component Latest Ref Rng & Units [...] Abs Lymph 1.00 - 4.00 k/uL 1.38 Montgomery% % 8.5 Abs Montgomery <0.87 k/uL 0.51 Eosin% % 3.3 Abs [...] six months Parker Nick documented in this encounterUk [facility]07-12-2022 Miscellaneous Notes* Addendum Note - Parker Nick MD - 12/12/2021 3:41 PM EDT Addended by: PARKER NICK on: 12/12/2021 03:41 PM Modules accepted: Orders documented in this encounterUk Healthcare07-12-2022 History of Present illness Narrative* Parker Nick [...] Fowler: ER FU: Recent ER visit at [facility] 2 weeks ago for abd pain/n/v. Was [...] blood. Had gall bladder surgery/ removal at [facility]. When she underwent her work-up for right [...] one month and prn. documented in this encounterUk Healthcare06-27-2022 Nurse Note* Sasha Chawla RN - 11/27/2021 11:[address] Lyn at bedside to speak with patient and documented in this encounterUk Healthcare06-27-2022 Miscellaneous Notes* Anesthesia PreOp - Micah Lyn [...] None Micah Lyn MD documented in this encounterUk Healthcare04-26-2022 Miscellaneous Notes* Telephone Encounter - LUIS Bonner - 09/26/2021 4:11 PM EDT See previous encounter. * Telephone Encounter - LUIS Bonner - 09/18/2021 3:15 PM EDT TC to patient with no answer. Left message to call back and ask to speak with a nurse. LUIS Bonner documented in this encounterUk Healthcare04-18-2022 Miscellaneous Notes* Telephone Encounter - Rhianna Dunbar LPN - 09/18/2021 3:44 PM EDT Patient returned call and went over notes from Ko Fowler ENGINEERING PATTERNMAKER with understanding. Aware rx to pharmacy. Assisted with transfer to recycling tech to get Gastro appt set up. * Telephone Encounter - LUIS Bonner - 09/18/2021 3:13 PM EDT TC to patient with no answer. Left a message to call office and ask to speak with a nurse. LUIS Bonner * Telephone Encounter - Ko Fowler APRN.BEHAVIORAL HEALTH ASSISTANT, EVA - 09/18/2021 2:58 PM EDT Team - Lisa please inform the patient that I would recommend she see Bisi Johnson's our GI nurse practitioner here at [facility]. She can then further evaluate and determine [...] Pharmacy Information Pharmacy Address Telephone [facility] [facility] [address] [place] [address] Ko Fowler APRN.EVA MICHAEL [facility] [place] [facility]* Diagnosis GERD without esophagitis- Primary Esophageal reflux [facility] [place] [facility]* Diagnosis GERD without esophagitis Esophageal reflux [facility] [place] [facility]* Diagnosis Pain of lower extremity, unspecified laterality- Primary GERD without esophagitis Esophageal reflux IAN (generalized anxiety disorder) Generalized anxiety disorder Restless leg syndrome Restless legs syndrome (RLS) Panic attacks Panic disorder without agoraphobia Incidental lung nodule, > 3mm and < 8mm Solitary pulmonary nodule Screening for lipid disorders Screening breast examination Breast screening, unspecified documented [facility] [place] [facility]* Diagnosis Restless leg syndrome- Primary Restless legs syndrome (RLS) GERD without esophagitis Esophageal reflux Mixed hyperlipidemia [facility] [place] [facility]* Diagnosis Abnormal mammogram Abnormal mammogram, unspecified [facility] [place] [facility]* Diagnosis Gastroenteritis- Primary Other and unspecified noninfectious gastroenteritis and colitis [facility] [place] [facility]* Diagnosis Vomiting, unspecified vomiting type, unspecified whether nausea present- Primary Diarrhea, unspecified type Dehydration [facility] [place] [facility]* Diagnosis Hyperemesis- Primary Persistent vomiting Polycythemia Polycythemia vera Dehydration [facility] [place] [facility]* Diagnosis Restless leg syndrome- Primary Restless legs syndrome (RLS) Frequent nocturnal awakening Other sleep disturbances Sleep apnea-like behavior [G47.39 (ICD-10-CM)] documented [facility] [place] [facility]* Diagnosis Diarrhea, unspecified type- Primary [facility] [place] [facility]* Diagnosis COVID- Primary [facility] [place] [facility]* Diagnosis GERD without esophagitis Esophageal reflux Panic attacks Panic disorder without agoraphobia [facility] [place] [facility]* Diagnosis Restless leg syndrome- Primary Restless legs syndrome (RLS) IAN (generalized anxiety disorder) Generalized anxiety disorder Incidental lung nodule, > 3mm and < 8mm Solitary pulmonary nodule Mixed hyperlipidemia [facility] [place] [facility]* Diagnosis Lung nodules- Primary Other nonspecific abnormal finding of lung field documented [facility] [place] [facility]* Diagnosis Well adult exam- Primary Routine general medical examination at a health care facility Panic attacks Panic disorder without agoraphobia Mixed hyperlipidemia documented [facility] encounter [facility] [place] [facility]* Diagnosis Mixed hyperlipidemia- Primary Well adult exam Routine general medical examination at a health care facility [facility] [place] [facility]* Diagnosis Mixed hyperlipidemia- Primary [facility] [place] [facility]* Diagnosis Panic attacks Panic disorder without agoraphobia [facility] [place] [facility]* Diagnosis Panic attacks Panic disorder without agoraphobia documented [facility] [place] [facility]* Diagnosis BARB (obstructive sleep apnea)- Primary Obstructive sleep apnea (adult) (pediatric) Restless leg syndrome Restless legs syndrome (RLS) Morbid obesity (HCC) Morbid obesity documented in this encounter [facility] note* Diagnosis Left wrist pain- Primary [...] esophagitis Esophageal reflux [facility] [place] [facility]* Diagnosis Chronic pain of right knee- Primary Pain in wrist, unspecified laterality Left hand pain Pain in limb Primary osteoarthritis of left hand Primary localized osteoarthrosis, hand documented [facility] [place] [facility]* Diagnosis Chronic pain of right knee [facility] [place] [facility]* Diagnosis Lung nodules Other nonspecific abnormal finding of lung field [facility] [place] [facility]* Diagnosis Left wrist pain Pain in joint, forearm [facility] [place] [facility]* Diagnosis BARB (obstructive sleep apnea)- Primary Obstructive sleep apnea (adult) (pediatric) RLS (restless legs syndrome) Restless legs syndrome (RLS) documented in this encounter [facility] for referral (narrative)* Outpatient Procedure (Routine) - Closed Specialty Diagnoses / Procedures Referred By Contac t Referred To Contact [facility] Diagnoses GERD without esophagitis Procedures EGD DIAGNOSTIC ESOPHAGOGASTRODUODENOSC OPY TRANSORAL DIAGNOSTIC Usha Rhodes APRN.CNP [address] [place] [address] [facility] [address] [place] [address] Referral ID Status Reason Start Date Expiration Date V isits Requested Visits Authorized [id number] Closed Auto-Generate d Referral 11/20/2021 11/20/2022 1 1 [facility] for referral (narrative)* Diagnostic Procedure Only (Routine) - Authorized Specialty Diagnoses / Procedures Referred By Contac t Referred To Contact [facility] Diagnoses Screening breast examination Procedures ROXANE SCREENING SCREENING MAMMOGRAPHY BI 2-VIEW BREAST INC CAD Parker Nick MD [address] [place] [address] [facility] [address] [place] [address] Referral ID Status Reason Start Date Expiration Date Visits Requested Visits Authorized [id number] Authorized Auto-Generat ed Referral 12/12/2021 01/11/2023 1 1 * Medication Prior Authorization - Authorized Specialty Diagnoses / Procedures Referred By Contac t Referred To Contact Diagnoses GERD without esophagitis Parker Nick MD [address] [place] [address] Referral ID Status Reason Start Date Expiration Date V isits Requested Visits Authorized [id number] Authorized 12/12/2021 12/11/2024 1 1 [facility] for referral (narrative)* Diagnostic Procedure Only (Routine) - Closed Specialty Diagnoses / Procedures Referred By Contac t Referred To Contact X[facility] IMAGING Diagnoses Left wrist pain Procedures XR WRIST GENERAL 3V PA/LAT/OBL LEFT RADEX WRIST COMPLETE MINIMUM 3 VIEWS Parker Nick MD [address] [place] [address] [place] [address] Referral ID Status Reason Start Date Expiration Date V isits Requested Visits Authorized [id number] Closed Auto-Generate d Referral 01/16/2023 02/15/2024 1 1 * Diagnostic Procedure Only (Routine) - Pending Review Specialty Diagnoses / Procedures Referred By Jimac t Referred To Contact [facility] Diagnoses Encounter for screening mammogram for malignant neoplasm of breast Procedures ROXANE SCREENING W ELOISA SCREENING DIGITAL BREAST TOMOSYNTHESIS BI SCREENING MAMMOGRAPHY BI 2-VIEW BREAST INC CAD Parker Nick MD [address] [place] [address] [facility] [address] [place] [address] Referral ID Status Reason Start Date Expiration Date Visits Requested Visits Authorized [id number] Pending Review Auto-Generat ed Referral 01/16/2023 02/15/2024 1 1 [facility] for referral (narrative)* Diagnostic Procedure Only (Routine) - Closed Specialty Diagnoses / Procedures Referred By Jimac t Referred To Contact XR IMAGING Diagnoses Chronic pain of right knee Procedures XR KNEE GENERAL 4V AP BOTH/PA BOTH/LAT/MERC RIGHT RADIOLOGIC EXAM KNEE COMPLETE 4/MORE VIEWS Radha Mart DO [address] [facility] [address] [place] [address] [place] [address] Referral ID Status Reason Start Date Expiration Date V isits Requested Visits Authorized [id number] Closed Auto-Generate d Referral 03/14/2023 04/12/2024 1 1 [facility] for referral (narrative)* Diagnostic Procedure Only (Routine) - Closed Specialty Diagnoses / Procedures Referred By Contac t Referred To Contact XR IMAGING Diagnoses Chronic pain of right knee Procedures XR KNEE GENERAL 4V AP BOTH/PA BOTH/LAT/MERC RIGHT RADIOLOGIC EXAM KNEE COMPLETE 4/MORE VIEWS Radha Mart DO [address] [facility] [address] [place] [address] [place] [address] Referral ID Status Reason Start Date Expiration Date V isits Requested Visits Authorized [id number] Closed Auto-Generate d Referral 03/14/2023 04/12/2024 1 1 [facility] for referral (narrative)* Diagnostic Procedure Only (Routine) - Closed Specialty Diagnoses / Procedures Referred By Contac t Referred To Contact XR IMAGING Diagnoses Left wrist pain Procedures XR WRIST GENERAL 3V PA/LAT/OBL LEFT RADEX WRIST COMPLETE MINIMUM 3 VIEWS Parker Nick MD [address] [place] [address] [place] [address] Referral ID Status Reason Start Date Expiration Date V isits Requested Visits Authorized [id number] Closed Auto-Generate d Referral 01/16/2023 02/15/2024 1 1 [facility] for visit Narrative* Outpatient Procedure (Routine) - Closed Specialty Diagnoses / Procedures Referred By Contac t Referred To Contact [facility] Diagnoses GERD without esophagitis Procedures EGD DIAGNOSTIC ESOPHAGOGASTRODUODENOSC OPY TRANSORAL DIAGNOSTIC Usha Rhodes, FIELD SERVICES DIRECTOR.BEHAVIORAL HEALTH ASSISTANT [address] [place] [address] [facility] [address] [place] [address] Referral ID Status Reason Start Date Expiration Date V isits Requested Visits Authorized [id number] Closed Auto-Generate d Referral 11/20/2021 11/20/2022 1 1 [facility] for visit Narrative* Diagnostic Procedure Only (Routine) - Closed Specialty Diagnoses / Procedures Referred By Contac t Referred To Contact [facility] Diagnoses Abnormal mammogram Procedures ROXANE DIAGNOSTIC RT DIAGNOSTIC MAMMOGRAPHY COMPUTER-AIDED DETCJ UNI Parker Nick MD [address] [place] [address] [facility] [address] [place] [address] Referral ID Status Reason Start Date Expiration Date V isits Requested Visits Authorized [id number] Closed Auto-Generate d Referral 01/16/2022 02/15/2023 1 1 [facility] for visit Narrative* Diagnostic Procedure Only (Routine) - Closed Specialty Diagnoses / Procedures Referred By Contac t Referred To Contact XR IMAGING Diagnoses Chronic pain of right knee Procedures XR KNEE GENERAL 4V AP BOTH/PA BOTH/LAT/MERC RIGHT RADIOLOGIC EXAM KNEE COMPLETE 4/MORE VIEWS Radha Mart DO [address] [facility] [address] [place] [address] [place] [address] Referral ID Status Reason Start Date Expiration Date V isits Requested Visits Authorized [id number] Closed Auto-Generate d Referral 03/14/2023 04/12/2024 1 1 [facility] for visit Narrative* Diagnostic Procedure Only (Routine) - Closed Specialty Diagnoses / Procedures Referred By Contac t Referred To Contact XR IMAGING Diagnoses Left wrist pain Procedures XR WRIST GENERAL 3V PA/LAT/OBL LEFT RADEX WRIST COMPLETE MINIMUM 3 VIEWS Parker Nick MD [address] [place] [address] [place] [address] Referral ID Status Reason Start Date Expiration Date V isits Requested Visits Authorized [id number] Closed Auto-Generate d Referral 01/16/2023 02/15/2024 1 1 [facility] Summary Purpose Family History No Family History Records FoundNo Family History Records FoundNo Family History Records Found Advance Directives No Advanced Directives Records FoundDocuments on File Type Date Recorded Patient Online Program Coordinator Expl anation Advance Directive(s) 11/27/2021 9:58 AM Documents on File Type Date Recorded Patient Online Program Coordinator Expl anation Advance Directive(s) 11/27/2021 9:58 AM Reason for Referral Specialty Diagnoses / Procedures Referred By Contac t Referred To Contact Gastroenterology Diagnoses GERD without esophagitis Procedures CONSULT TO GASTROENTEROLOGY OFFICE/OUTPATIENT [facility] 60-74 MINUTES Ko Fowler APRN.BEHAVIORAL HEALTH ASSISTANT, DNP [address] [place] [address] Referral ID Status Reason Start Date Expiration Date Visits Requested Visits Authorized [id number] Pending Review PCP Requested Referral 09/18/2021 09/18/2022 1 1 Specialty Diagnoses / Procedures Referred By Contac t Referred To Contact Diagnoses Restless leg syndrome Procedures CONSULT TO SLEEP MEDICINE - ADULT OFFICE/OUTPATIENT [facility] 60-74 MINUTES Parker Nick MD [address] [place] [address] Referral ID Status Reason Start Date Expiration Date Visits Requested Visits Authorized [id number] Pending Review PCP Requested Referral 01/05/2022 01/05/2023 1 1 Specialty Diagnoses / Procedures Referred By Contac t Referred To Contact Gastroenterology Diagnoses Vomiting, unspecified vomiting type, unspecified whether nausea present Diarrhea, unspecified type Procedures CONSULT TO GASTROENTEROLOGY OFFICE/OUTPATIENT [facility] 60-[place] [address] [place] [address] Referral ID Status Reason Start Date Expiration Date Visits Requested Visits Authorized [id number] Pending Review PCP Requested Referral 03/01/2022 03/01/2023 1 1 Specialty Diagnoses / Procedures Referred By Contac t Referred To Contact CT IMAGING Diagnoses Lung nodules Procedures CT CHEST WO IVCON DIAGNOSTIC COMPUTED TOMOGRAPHY THORAX [place] [address] [place] [address] [address] Referral ID Status Reason Start Date Expiration Date Visits Requested Visits Authorized [id number] Pending Review Auto-Generat ed Referral 07/30/2023 08/29/2023 1 1 Specialty Diagnoses / Procedures Referred By Contac t Referred To Contact CT IMAGING Diagnoses Lung nodules Procedures CT CHEST WO IVCON DIAGNOSTIC COMPUTED TOMOGRAPHY THORAX W/O CECELIAT Ko Fowler, [place].BEHAVIORAL HEALTH ASSISTANT, DNP [address] [place] [address] [place] [address] Referral ID Status Reason Start Date Expiration Date V isits Requested Visits Authorized [id number] Closed Auto-Generate d Referral 06/04/2022 08/06/2022 1 1 Additional Source Comments INFORMATION SOURCE (unrecogn ized section and content) DATE CREATED AUTHOR AUTHOR'S ORGANIZ ATION 10/17/2022 [facility] DATE CREATED AUTHOR AUTHOR'S ORGANIZ ATION 05/03/2023 [facility] Source Comments (unrecognize d section and content) In the event this informatio n is protected by the Federal Confidentiality of Alcohol and Drug Abuse Patient Records regulations: The Federal rules restrict any use of the information to criminally investigate or prosecute any alcohol or drug abuse patient.[facility] the event this information is protected by the Federal Confidentiality of Alcohol and Drug Abuse Patient Records regulations: The Federal rules restrict any use of the information to criminally investigate or prosecute any alcohol or drug abuse patient.[facility] HealthcareIn the event this information is protected by the Federal Confidentiality of Alcohol and Drug Abuse Patient Records regulations: The Federal rules restrict any use of the information to criminally investigate or prosecute any alcohol or drug abuse patient.[facility] the event this information is protected by the Federal Confidentiality of Alcohol and Drug Abuse Patient Records regulations: The Federal rules restrict any use of the information to criminally investigate or prosecute any alcohol or drug abuse patient.[facility] HealthcareIn the event this information is protected by the Federal Confidentiality of Alcohol and Drug Abuse Patient Records regulations: The Federal rules restrict any use of the information to criminally investigate or prosecute any alcohol or drug abuse patient.[facility] HealthcareIn the event this information is protected by the Federal Confidentiality of Alcohol and Drug Abuse Patient Records regulations: The Federal rules restrict any use of the information to criminally investigate or prosecute any alcohol or drug abuse patient.[facility] HealthcareIn the event this information is protected by the Federal Confidentiality of Alcohol and Drug Abuse Patient Records regulations: The Federal rules restrict any use of the information to criminally investigate or prosecute any alcohol or drug abuse patient.[facility] HealthcareIn the event this information is protected by the Federal Confidentiality of Alcohol and Drug Abuse Patient Records regulations: The Federal rules restrict any use of the information to criminally investigate or prosecute any alcohol or drug abuse patient.[facility] HealthcareIn the event this information is protected by the Federal Confidentiality of Alcohol and Drug Abuse Patient Records regulations: The Federal rules restrict any use of the information to criminally investigate or prosecute any alcohol or drug abuse patient.[facility] HealthcareIn the event this information is protected by the Federal Confidentiality of Alcohol and Drug Abuse Patient Records regulations: The Federal rules restrict any use of the information to criminally investigate or prosecute any alcohol or drug abuse patient.[facility] HealthcareIn the event this information is protected by the Federal Confidentiality of Alcohol and Drug Abuse Patient Records regulations: The Federal rules restrict any use of the information to criminally investigate or prosecute any alcohol or drug abuse patient.[facility] HealthcareIn the event this information is protected by the Federal Confidentiality of Alcohol and Drug Abuse Patient Records regulations: The Federal rules restrict any use of the information to criminally investigate or prosecute any alcohol or drug abuse patient.[facility] HealthcareIn the event this information is protected by the Federal Confidentiality of Alcohol and Drug Abuse Patient Records regulations: The Federal rules restrict any use of the information to criminally investigate or prosecute any alcohol or drug abuse patient.[facility] HealthcareIn the event this information is protected by the Federal Confidentiality of Alcohol and Drug Abuse Patient Records regulations: The Federal rules restrict any use of the information to criminally investigate or prosecute any alcohol or drug abuse patient.[facility] HealthcareIn the event this information is protected by the Federal Confidentiality of Alcohol and Drug Abuse Patient Records regulations: The Federal rules restrict any use of the information to criminally investigate or prosecute any alcohol or drug abuse patient.[facility] HealthcareIn the event this information is protected by the Federal Confidentiality of Alcohol and Drug Abuse Patient Records regulations: The Federal rules restrict any use of the information to criminally investigate or prosecute any alcohol or drug abuse patient.[facility] HealthcareIn the event this information is protected by the Federal Confidentiality of Alcohol and Drug Abuse Patient Records regulations: The Federal rules restrict any use of the information to criminally investigate or prosecute any alcohol or drug abuse patient.[facility] HealthcareIn the event this information is protected by the Federal Confidentiality of Alcohol and Drug Abuse Patient Records regulations: The Federal rules restrict any use of the information to criminally investigate or prosecute any alcohol or drug abuse patient.[facility] HealthcareIn the event this information is protected by the Federal Confidentiality of Alcohol and Drug Abuse Patient Records regulations: The Federal rules restrict any use of the information to criminally investigate or prosecute any alcohol or drug abuse patient.[facility] HealthcareIn the event this information is protected by the Federal Confidentiality of Alcohol and Drug Abuse Patient Records regulations: The Federal rules restrict any use of the information to criminally investigate or prosecute any alcohol or drug abuse patient.[facility] HealthcareIn the event this information is protected by the Federal Confidentiality of Alcohol and Drug Abuse Patient Records regulations: The Federal rules restrict any use of the information to criminally investigate or prosecute any alcohol or drug abuse patient.[facility]In the event this information is protected by the Federal Confidentiality of Alcohol and Drug Abuse Patient Records regulations: The Federal rules restrict any use of the information to criminally investigate or prosecute any alcohol or drug abuse patient.[facility] HealthcareIn the event this information is protected by the Federal Confidentiality of Alcohol and Drug Abuse Patient Records regulations: The Federal rules restrict any use of the information to criminally investigate or prosecute any alcohol or drug abuse patient.[facility]In the event this information is protected by the Federal Confidentiality of Alcohol and Drug Abuse Patient Records regulations: The Federal rules restrict any use of the information to criminally investigate or prosecute any alcohol or drug abuse patient.[facility]In the event this information is protected by the Federal Confidentiality of Alcohol and Drug Abuse Patient Records regulations: The Federal rules restrict any use of the information to criminally investigate or prosecute any alcohol or drug abuse patient.[facility]In the event this information is protected by the Federal Confidentiality of Alcohol and Drug Abuse Patient Records regulations: The Federal rules restrict any use of the information to criminally investigate or prosecute any alcohol or drug abuse patient.[facility] HealthcareIn the event this information is protected by the Federal Confidentiality of Alcohol and Drug Abuse Patient Records regulations: The Federal rules restrict any use of the information to criminally investigate or prosecute any alcohol or drug abuse patient.[facility]In the event this information is protected by the Federal Confidentiality of Alcohol and Drug Abuse Patient Records regulations: The Federal rules restrict any use of the information to criminally investigate or prosecute any alcohol or drug abuse patient.[facility]In the event this information is protected by the Federal Confidentiality of Alcohol and Drug Abuse Patient Records regulations: The Federal rules restrict any use of the information to criminally investigate or prosecute any alcohol or drug abuse patient.[facility] HealthcareIn the event this information is protected by the Federal Confidentiality of Alcohol and Drug Abuse Patient Records regulations: The Federal rules restrict any use of the information to criminally investigate or prosecute any alcohol or drug abuse patient.[facility]In the event this information is protected by the Federal Confidentiality of Alcohol and Drug Abuse Patient Records regulations: The Federal rules restrict any use of the information to criminally investigate or prosecute any alcohol or drug abuse patient.[facility]In the event this information is protected by the Federal Confidentiality of Alcohol and Drug Abuse Patient Records regulations: The Federal rules restrict any use of the information to criminally investigate or prosecute any alcohol or drug abuse patient.[facility]In the event this information is protected by the Federal Confidentiality of Alcohol and Drug Abuse Patient Records regulations: The Federal rules restrict any use of the information to criminally investigate or prosecute any alcohol or drug abuse patient.[facility]In the event this information is protected by the Federal Confidentiality of Alcohol and Drug Abuse Patient Records regulations: The Federal rules restrict any use of the information to criminally investigate or prosecute any alcohol or drug abuse patient.[facility]In the event this information is protected by the Federal Confidentiality of Alcohol and Drug Abuse Patient Records regulations: The Federal rules restrict any use of the information to criminally investigate or prosecute any alcohol or drug abuse patient.[facility]In the event this information is protected by the Federal Confidentiality of Alcohol and Drug Abuse Patient Records regulations: The Federal rules restrict any use of the information to criminally investigate or prosecute any alcohol or drug abuse patient.[facility]In the event this information is protected by the Federal Confidentiality of Alcohol and Drug Abuse Patient Records regulations: The Federal rules restrict any use of the information to criminally investigate or prosecute any alcohol or drug abuse patient.[facility] HealthcareIn the event this information is protected by the Federal Confidentiality of Alcohol and Drug Abuse Patient Records regulations: The Federal rules restrict any use of the information to criminally investigate or prosecute any alcohol or drug abuse patient.[facility] HealthcareIn the event this information is protected by the Federal Confidentiality of Alcohol and Drug Abuse Patient Records regulations: The Federal rules restrict any use of the information to criminally investigate or prosecute any alcohol or drug abuse patient.[facility] HealthcareIn the event this information is protected by the Federal Confidentiality of Alcohol and Drug Abuse Patient Records regulations: The Federal rules restrict any use of the information to criminally investigate or prosecute any alcohol or drug abuse patient.[facility] Care Teams (unrecognized sec tion and content) Radio Script Writer Relationship Specialty Start Date End Date Ko Fowler APRN.CNP, DNP [address] [place] [address] PCP - General Family Practice 08/16/20 Radio Script Writer Relationship Specialty Start Date End Date Ko Fowler APRN.CNP, DNP [address] [place] [address] PCP - General Family Practice 08/16/20 Radio Script Writer Relationship Specialty Start Date End Date Ko Fowler APRN.BEHAVIORAL HEALTH ASSISTANT, DNP [address] [place] [address] PCP - General Family Practice 08/16/20 Radio Script Writer Relationship Specialty Start Date End Date Parker Nick MD [address] [place] [address] PCP - General Family Practice 12/12/21 Radio Script Writer Relationship Specialty Start Date End Date Parker Nick MD [address] [place] [address] PCP - General Family Practice 12/12/21 Radio Script Writer Relationship Specialty Start Date End Date Parker Nick MD [address] [place] [address] PCP - General Family Practice 12/12/21 Radio Script Writer Relationship Specialty Start Date End Date Parker Nick MD [address] [place] [address] PCP - General Family Practice 12/12/21 Radio Script Writer Relationship Specialty Start Date End Date Parker Nick MD [address] [place] [address] PCP - General Family Practice 12/12/21 Radio Script Writer Relationship Specialty Start Date End Date Parker Nick MD [address] [facility] [place] [address] PCP - General Family Medicine 12/12/21 Radio Script Writer Relationship Specialty Start Date End Date Parker Nick MD [address] [place] [address] PCP - General Family Medicine 12/12/21 Radio Script Writer Relationship Specialty Start Date End Date Parker Nick MD [address] [place] [address] PCP - General Family Medicine 12/12/21 Radio Script Writer Relationship Specialty Start Date End Date Parker Nick MD [address] [place] [address] PCP - General Family Medicine 12/12/21 Radio Script Writer Relationship Specialty Start Date End Date Parker Nick MD [address] [place] [address] PCP - General Family Medicine 12/12/21 Radio Script Writer Relationship Specialty Start Date End Date Parker Nick MD [address] [place] [address] PCP - General Family Medicine 12/12/21 Radio Script Writer Relationship Specialty Start Date End Date Parker Nick MD [address] [place] [address] PCP - General Family Medicine 12/12/21 Radio Script Writer Relationship Specialty Start Date End Date Parker Nick MD [address] [place] [address] PCP - General Family Medicine 12/12/21 Radio Script Writer Relationship Specialty Start Date End Date Parker Nick MD [address] [place] [address] PCP - General Family Medicine 12/12/21 Radio Script Writer Relationship Specialty Start Date End Date Parker Nick MD [address] [place] [address] PCP - General Family Medicine 12/12/21 Radio Script Writer Relationship Specialty Start Date End Date Parker Nick MD [address] [place] [address] PCP - General Family Medicine 12/12/21 Radio Script Writer Relationship Specialty Start Date End Date Parker Ncik MD [address] [place] [address] PCP - General Family Medicine 12/12/21 Radio Script Writer Relationship Specialty Start Date End Date Parker Nick MD [address] [place] [address] PCP - General Family Medicine 12/12/21 Radio Script Writer Relationship Specialty Start Date End Date Parker Nick MD [address] [place] [address] PCP - General Family Medicine 12/12/21 Radio Script Writer Relationship Specialty Start Date End Date Parker Nick MD [address] [place] [address] PCP - General Family Medicine 12/12/21 Radio Script Writer Relationship Specialty Start Date End Date Parker Nick MD [address] [place] [address] PCP - General Family Medicine 12/12/21 Radio Script Writer Relationship Specialty Start Date End Date Parker Nick MD [address] [place] [address] PCP - General Family Medicine 12/12/21 Radio Script Writer Relationship Specialty Start Date End Date Parker Nick MD [address] [place] [address] PCP - General Family Medicine 12/12/21 Radio Script Writer Relationship Specialty Start Date End Date Parker Nick MD [address] [place] [address] PCP - General Family Medicine 12/12/21 Radio Script Writer Relationship Specialty Start Date End Date Parker Nick MD [address] [place] [address] PCP - General Family Medicine 12/12/21 Radio Script Writer Relationship Specialty Start Date End Date Parker Nick MD [address] [place], [place] [address] PCP - General Family Medicine 12/12/21 Radio Script Writer Relationship Specialty Start Date End Date Parker Nick MD [address] [place], [place] [address] PCP - General Family Medicine 12/12/21 Radio Script Writer Relationship Specialty Start Date End Date Parker Nick MD [address] [place], [place] [address] PCP - General Family Medicine 12/12/21 Radio Script Writer Relationship Specialty Start Date End Date Parker Nick MD [address] [place], [place] [id number] PCP - General Family Medicine 12/12/21 Radio Script Writer Relationship Specialty Start Date End Date Parker Nick MD [address] [place], [place] [id number] PCP - General Family Medicine 12/12/21 Radio Script Writer Relationship Specialty Start Date End Date Parker Nick MD [address] [place], [place] [id number] PCP - General Family Medicine 12/12/21 Reason [...] MDM 60-74 MINUTES Parker Nick MD [address] [place] [address] Referral ID Status Reason Start Date Expiration Date Visits Requested Visits Authorized [id number] Pending Review PCP Requested Referral 01/05/2022 01/05/2023 [...] unspecified laterality Procedures CONSULT TO ORTHOPAEDICS OFFICE/OUTPATIENT [facility] 60-74 MINUTES Parker Nick MD [address] [place] [address] Referral ID Status Reason Start Date Expiration Date Visits Requested Visits Authorized [id number] Pending Review PCP Requested Referral 01/22/2023 01/22/2024 [address] Specialty Diagnoses / Procedures Referred By Ricky t Referred To Contact CT IMAGING Diagnoses Lung nodules Procedures CT CHEST WO IVCON DIAGNOSTIC COMPUTED TOMOGRAPHY THORAX W/O CECELIAT Ko Fowler, [employer].BEH[employer]IOR[employer] HEALTH ASSISTANT, DNP [address] [place] [address] [place] [id number] Referral ID Status Reason Start Date Expiration Date V isits Requested Visits Authorized [id number] Closed Auto-Generate d Referral 06/04/2022 08/06/2022 1 [...] BE BASED ON THE PRIMARY CLINICAL RECORDS. [facility] provides no warranty or guarantee of the accuracy or completeness of information in this document.
[2023-06-18 11:38] VITALS: BP 142/85
[2023-06-18] MEDS: proMETHazine 25 MG/ML Syringe 12.5 MG IM (12:40)
== END 2023-06-18 13:28 | disposition home or self-care (01) ==
PROVIDERS: Emergency Provider Student in an Organized Health Care Education/Training Program; PCP Family Medicine; Visit Provider Student in an Organized Health Care Education/Training Program
DX: K52.9 Noninfective gastroenteritis and colitis, unspecified (principal); Z87.891 Personal history of nicotine dependence; R10.9 Unspecified abdominal pain; F32.A Depression, unspecified; Z79.899 Other long term (current) drug therapy; F41.9 Anxiety disorder, unspecified; K21.9 Gastro-esophageal reflux disease without esophagitis; Z90.710 Acquired absence of both cervix and uterus; Z90.49 Acquired absence of other specified parts of digestive tract
CPT/HCPCS: 74177; 80048; 80076; 83690; 85025; 96361; 96365; 96372; 96375; 99283; J7030; Q9967; A4216; J2405; J3490